=== PATIENT | female | born 1945 | race Caucasian/White ===

== ENCOUNTER 2019-03-27 23:45 | Inpatient (IN) | payer MEDICARE, BC ==
[~2019-03-27] VITALS: Ht 154.9 cm; Wt 69.1 kg
[2019-03-27] MEDS ORDERED: LOSARTAN POTASS25 MG ORAL (23:53)
[2019-03-28] VITALS (7 sets, daily range): BP systolic 100–140; BP diastolic 44–87
--- NOTE | 2019-03-28 00:26 | Diagnostic Imaging Report ---
EXAM: XR Chest, 1 View CLINICAL HISTORY: CP TECHNIQUE: Frontal view of the chest. COMPARISON: No relevant prior studies available. FINDINGS: Lungs: Unremarkable. No consolidation. Pleural space: Unremarkable. No pneumothorax. Heart: Unremarkable. No cardiomegaly. Mediastinum: Unremarkable. Bones/joints: Post surgical changes within the cervical spine. IMPRESSION: No acute findings.
[2019-03-28 00:50] LABS: HEMATOCRIT 38.4 % (37.0-47.0); HEMOGLOBIN 13.2 G/DL (12.0-16.0); MEAN CORPUSCULAR VOLUME 93 FL (80-99); PLATELET COUNT 58 K/UL (150-450); RED BLOOD COUNT 4.14 M/UL (4.20-5.40); RED CELL DISTRIBUTION WIDTH 11.6 % (11.6-14.8); WHITE BLOOD COUNT 3.6 K/UL (4.8-10.8)
[2019-03-28 01:07] LABS: ANION GAP 10 mmol/L (5-15); BLOOD UREA NITROGEN 19 mg/dL (7-18); CALCIUM 9.1 MG/DL (8.5-10.1); CARBON DIOXIDE 25 MMOL/L (21-32); CHLORIDE 103 MMOL/L (98-107); CREATININE 0.7 MG/DL (0.55-1.30); POTASSIUM 4.2 MMOL/L (3.5-5.1); SODIUM 138 MMOL/L (136-145)
[2019-03-28 01:12] LABS: APPEARANCE,URINE SLIGHTLY CLOUDY; BILIRUBIN, URINE NEGATIVE (NEGATIVE); COLOR,URINE PALE YELLOW; GLUCOSE, URINE (UA) NEGATIVE (NEGATIVE); KETONES,URINE NEGATIVE (NEGATIVE); LEUKOCYTE ESTERASE ,URINE 1+ (NEGATIVE); NITRITE,URINE POSITIVE (NEGATIVE); PH,URINE 6.5 (4.5-8.0); PROTEIN,URINE 2+ (NEGATIVE); UROBILINOGEN,URINE NORMAL MG/DL (0.0-1.0)
[2019-03-28 01:20] LABS: ALANINE AMINOTRANSFERASE 24 U/L (12-78); ALBUMIN 3.6 G/DL (3.4-5.0); ALBUMIN/GLOBULIN RATIO 1.3 (1.0-2.7); ALKALINE PHOSPHATASE 66 U/L (46-116); ASPARTATE AMINO TRANSFERASE 25 U/L (15-37); BILIRUBIN,TOTAL 0.2 MG/DL (0.2-1.0); CKMB 0.9 NG/ML (0.0-3.6); CREATINE KINASE 66 U/L (26-308)
[2019-03-28] MEDS ORDERED: cefTRIAXone 1 GM in NS 55 ML IVPB ONE (02:00)
--- NOTE | 2019-03-28 02:56 | Emergency Room Report ---
History of Present Illness General Chief Complaint: Chest Pain Source: Patient, EMS Present Illness HPI This is a 73-year-old female with a history of hypertension. She presents with chief complaint of chest pain. Pain is substernal radiating to the back. Onset for about an hour. No radiation to the neck of the arm. She says she was sweating. No nausea no vomiting. No shortness of breath. She called 911 and was given aspirin and nitroglycerin. Pain-free now after nitro. She had similar symptoms the night before and it went away after she took a [place]. She did not go to the hospital. Right now she is pain-free. Never had chest pain before. Allergies: Coded Allergies: LATEX, NATURAL RUBBER (Verified Allergy, Unknown, 03/27/19) PENICILLINS (Verified Allergy, Unknown, 03/27/19) SULFA (SULFONAMIDE ANTIBIOTICS) (Verified Allergy, Unknown, 03/27/19) Patient History Past Medical History: see triage record, old chart reviewed, HTN Past Surgical History: none Pertinent Family History: none Social History: Denies: smoking Now: No Immunizations: other Reviewed Nursing Documentation: PMH: Agreed; PSxH: Agreed Nursing Documentation-PMH Past Medical History: No History, Except For Hx Hypertension: Yes Review of Systems Eye: Denies: eye pain, blurred vision ENT: Denies: ear pain, nose congestion, throat swelling Respiratory: Denies: cough, shortness of breath Cardiovascular: Reports: chest pain; Denies: palpitations Gastrointestinal: Denies: abdominal pain, diarrhea, nausea, vomiting Musculoskeletal: Denies: back pain, joint pain Skin: Denies: rash Neurological: Denies: headache, numbness Endocrine: Denies: increased thirst, increased urine Hematologic/Lymphatic: Denies: easy bruising All Other Systems: negative except mentioned in HPI Physical Exam Vital Signs Date Time Temp Pulse Resp B/P (MAP) Pulse Ox O2 Delivery O2 Flow Rate FiO2 03/27/19 23:48 99.3 82 16 122/83 (96) 97 Room Air Vitals normal Sp02 EP Interpretation: reviewed, normal General Appearance: well appearing, no apparent distress, alert Head: normocephalic, atraumatic Eyes: bilateral eye PERRL, bilateral eye EOMI ENT: hearing grossly normal, normal pharynx Neck: full range of motion, supple, no meningismus Respiratory: chest non-tender, lungs clear, normal breath sounds Cardiovascular #1: regular rate, rhythm, no murmur Gastrointestinal: normal bowel sounds, non tender, no mass, no organomegaly, no bruit, non-distended Musculoskeletal: back normal, gait/station normal, normal range of motion Psychiatric: mood/affect normal Skin: warm/dry Medical Decision Making Diagnostic Impression: Primary Impression: Chest pain Qualified Codes: R07.9 - Chest pain, unspecified Additional Impressions: ACS (acute coronary syndrome) UTI (urinary tract infection) Qualified Codes: N30.00 - Acute cystitis without hematuria Proteinuria Qualified Codes: R80.9 - Proteinuria, unspecified ER Course Patient presents with chest pain. Concerning for CAD. Especially since pain resolved with nitro. She does have risk factor with her age and hypertension. She also said that she had a carotid ultrasound done last year which show 50% blockage of 1 of her carotid artery. No evidence of STEMI. Will admit for further work-up. I discussed the case with Dr. Bill. EKG Diagnostic Results Rate: normal Rhythm: NSR ST Segments: no acute changes Rhythm Strip Diag. Results EP Interpretation: yes Rate: 72 Rhythm: NSR, no PVC's, no ectopy Chest X-Ray Diagnostic Results Chest X-Ray Diagnostic Results : Chest X-Ray Ordered: Yes # of Views/Limited/Complete: 1 View Indication: Chest Pain EP Interpretation: Yes Interpretation: no consolidation, no effusion, no pneumothorax, no acute cardiopulmonary disease Impression: No acute disease Electronically Signed by: Sheng Yanez MD Last Vital Signs Date Time Temp Pulse Resp B/P (MAP) Pulse Ox O2 Delivery O2 Flow Rate FiO2 03/28/19 01:35 99.6 75 18 103/48 96 Room Air Status: improved Disposition: ADMITTED INPATIENT Condition: Serious Referrals: NON PHYSICIAN (PCP) Sheng Yanez MD Mar 28, 2019 02:56
[2019-03-28] MEDS ORDERED: Enalaprilat 2.5mg/2ml Inj IV PRN (05:15)
[2019-03-28] MEDS ORDERED: dilTIAZem HCl 25mg/5ml Inj IV PRN (05:15)
[2019-03-28] MEDS ORDERED: Miralax 17gm pkt ORAL PRN (05:15)
[2019-03-28] MEDS ORDERED: Nitroglycerin Subl 0.4mg tab SL PRN (05:15)
[2019-03-28] MEDS ORDERED: Albuterol/Ipratropium 3ml neb HHN PRN (05:15)
[2019-03-28] MEDS: Aspirin Baby 81mg ORAL SCH (09:00)
[2019-03-28] MEDS ORDERED: Heparin 5000 units/ml inj SUBQ SCH (09:00)
[2019-03-28] MEDS ORDERED: Enalaprilat 1.25mg/ml Inj IV PRN (12:15)
--- NOTE | 2019-03-28 12:59 | Consultation ---
History of Present Illness General Date patient seen: Mar 28, 2019 Time patient seen: 10:00 Chief Complaint: Chest Pain Referring physician: dr Bill Reason for Consultation: CP Present Illness HPI 73 years old female with past medical history of hypertension, asthma, GERD, presented with episode of stabbing midsternal chest pain, radiating to the back , which woke her up at night. Patient denied nausea and vomiting. She denied shortness of breath. She reported sweating. She called paramedics and was given aspirin and nitroglycerin by drill press operator helper in route to the hospital. Upon evaluation patient was pain-free. Vital signs were stable. Laboratory work-up revealed WBC 3.6, stable hemoglobin and hematocrit, platelets 58. Troponin negative. EKG revealed sinus rhythm, no acute ischemic changes, stable electrolytes and renal parameters. Glucose 141. Urinalysis revealed pyuria, many bacteria and +2 protein. Chest x-ray showed no acute cardiopulmonary pathology. Patient admitted to monitored floor for further management. Allergies: Coded Allergies: LATEX, NATURAL RUBBER (Verified Allergy, Unknown, 03/27/19) PENICILLINS (Verified Allergy, Unknown, 03/27/19) SULFA (SULFONAMIDE ANTIBIOTICS) (Verified Allergy, Unknown, 03/27/19) Medication History Scheduled Losartan Potassium* (Losartan Potassium*), 25 MG ORAL DAILY, (Reported) Patient History History Provided By: Patient Healthcare decision maker patient self Resuscitation status Full Code Advanced Directive on File No Review of Systems Constitutional: Reports: no symptoms Eye: Reports: no symptoms ENT: Reports: no symptoms Respiratory: Reports: see HPI, other - asthma Cardiovascular: Reports: see HPI, other - HTN Gastrointestinal: Reports: other - acid reflux Genitourinary: Reports: see HPI Musculoskeletal: Reports: no symptoms Skin: Reports: no symptoms Psychiatric: Reports: no symptoms Neurological: Reports: no symptoms Endocrine: Reports: no symptoms Hematologic/Lymphatic: Reports: no symptoms Physical Exam General Appearance: no apparent distress, alert - A/A/O x 3 female in NAD Lines, tubes and drains: peripheral HEENT: normocephalic, atraumatic, anicteric, mucous membranes moist, PERRL Neck: non-tender, normal alignment, supple, normal inspection Respiratory/Chest: chest wall non-tender, lungs clear, normal breath sounds, no respiratory distress, no accessory muscle use Cardiovascular/Chest: normal peripheral pulses, normal rate, regular rhythm, no JVD Abdomen: normal bowel sounds, non tender, soft Extremities: normal range of motion, non-tender, no calf tenderness Skin Exam: normal pigmentation, warm/dry Neurologic: 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 II-XII grossly normal, no motor/sensory deficits, alert, oriented x 3, responsive Musculoskeletal: normal muscle bulk Last 24 Hour Vital Signs Date Time Temp Pulse Resp B/P (MAP) Pulse Ox O2 Delivery O2 Flow Rate FiO2 03/28/19 12:00 97.5 81 18 117/72 (87) 95 03/28/19 09:00 Room Air 03/28/19 08:00 99.0 77 18 138/87 (104) 99 03/28/19 08:00 69 03/28/19 04:13 Room Air 03/28/19 04:00 97.7 83 20 140/62 (88) 98 03/28/19 03:48 87 03/28/19 03:25 78 03/28/19 03:10 98.9 87 24 152/78 99 Room Air 03/28/19 01:35 99.6 75 18 103/48 96 Room Air 03/28/19 00:03 82 16 Room Air 03/28/19 00:03 99.3 96 16 122/83 97 Room Air 03/27/19 23:48 99.3 82 16 122/83 (96) 97 Room Air Intake and Output 03/27/19 03/28/19 19:00 07:00 Intake Total 535 ml Output Total 0 ml Balance 535 ml Intake Oral 480 ml IV Total 55 ml Output Urine Total 0 ml Laboratory Tests Test 03/28/19 00:17 03/28/19 03:06 03/28/19 08:55 White Blood Count 3.6 K/UL (4.8-10.8) L Red Blood Count 4.14 M/UL (4.20-5.40) L Hemoglobin 13.2 G/DL (12.0-16.0) Hematocrit 38.4 % (37.0-47.0) Mean Corpuscular Volume 93 FL (80-99) Mean Corpuscular Hemoglobin 31.8 PG (27.0-31.0) H Mean Corpuscular Hemoglobin Concent 34.3 G/DL (32.0-36.0) Red Cell Distribution Width 11.6 % (11.6-14.8) Platelet Count 58 K/UL (150-450) L Mean Platelet Volume 8.4 FL (6.5-10.1) Neutrophils (%) (Auto) % (45.0-75.0) Lymphocytes (%) (Auto) % (20.0-45.0) Monocytes (%) (Auto) % (1.0-10.0) Eosinophils (%) (Auto) % (0.0-3.0) Basophils (%) (Auto) % (0.0-2.0) Differential Total Cells Counted 100 Neutrophils % (Manual) 62 % (45-75) Lymphocytes % (Manual) 23 % (20-45) Monocytes % (Manual) 10 % (1-10) Eosinophils % (Manual) 4 % (0-3) H Basophils % (Manual) 1 % (0-2) Band Neutrophils 0 % (0-8) Platelet Estimate Decreased L Platelet Morphology Normal Red Blood Cell Morphology Normal Urine Color Pale yellow Urine Appearance Slightly cloudy Urine pH 6.5 (4.5-8.0) Urine Specific [place] 1.015 (1.005-1.035) Urine Protein 2+ (NEGATIVE) H Urine Glucose (UA) Negative (NEGATIVE) Urine Ketones Negative (NEGATIVE) Urine Blood 2+ (NEGATIVE) H Urine Nitrite Positive (NEGATIVE) H Urine Bilirubin Negative (NEGATIVE) Urine Urobilinogen Normal MG/DL (0.0-1.0) Urine Leukocyte Esterase 1+ (NEGATIVE) H Urine RBC 2-4 /HPF (0 - 2) H Urine WBC 10-15 /HPF (0 - 2) H Urine Squamous Epithelial Cells Few /LPF (NONE/OCC) Urine Bacteria Many /HPF (NONE) H Sodium Level 138 MMOL/L (136-145) Potassium Level 4.2 MMOL/L (3.5-5.1) Chloride Level 103 MMOL/L (98-107) Carbon Dioxide Level 25 MMOL/L (21-32) Anion Gap 10 mmol/L (5-15) Blood Urea Nitrogen 19 mg/dL (7-18) H Creatinine 0.7 MG/DL (0.55-1.30) Estimat Glomerular Filtration Rate mL/min (>60) Glucose Level 141 MG/DL (74-106) H Calcium Level 9.1 MG/DL (8.5-10.1) Total Bilirubin 0.2 MG/DL (0.2-1.0) Aspartate Amino Transf (AST/SGOT) 25 U/L (15-37) Alanine Aminotransferase (ALT/SGPT) 24 U/L (12-78) Alkaline Phosphatase 66 U/L (46-116) Total Creatine Kinase 66 U/L (26-308) Creatine Kinase MB 0.9 NG/ML (0.0-3.6) Creatine Kinase MB Relative Index 1.3 Troponin I 0.017 ng/mL (0.000-0.056) 0.017 ng/mL (0.000-0.056) 0.000 ng/mL (0.000-0.056) Total Protein 6.3 G/DL (6.4-8.2) L Albumin 3.6 G/DL (3.4-5.0) Globulin 2.7 g/dL Albumin/Globulin Ratio 1.3 (1.0-2.7) Height (Feet): 5 Height (Inches): 1.00 Weight (Pounds): 150 Medications Current Medications Medications (Trade) Dose Ordered Sig/Marah Route PRN Reason Start Time Stop Time Status Last Admin Dose Admin Acetaminophen (Tylenol) 650 mg Q4H PRN ORAL FEVER 03/28/19 05:15 04/27/19 05:14 03/28/19 10:10 Albuterol/ Ipratropium (Albuterol/ Ipratropium) 3 ml Q4H PRN HHN Shortness of Breath 03/28/19 05:15 04/02/19 05:14 Aspirin (ASA) 162 mg DAILY ORAL 03/28/19 09:00 04/27/19 08:59 Diltiazem HCl (Cardizem) 10 mg Q1H PRN IV heart rate more than 120, 03/28/19 05:15 04/27/19 05:14 Enalaprilat (Vasotec) 2.5 mg Q6H PRN IV sbp more than 160 03/28/19 12:15 04/27/19 05:14 Morphine Sulfate (Morphine Sulfate) 2 mg Q4H PRN IVP severe Pain (Pain Scale 7-10) 03/28/19 05:15 04/04/19 05:14 Nitroglycerin (Ntg) 0.4 mg Q5M PRN SL Prn Chest Pain 03/28/19 05:15 04/27/19 05:14 Ondansetron HCl (Zofran) 4 mg Q6H PRN IVP Nausea & Vomiting 03/28/19 05:15 04/27/19 05:14 Pantoprazole (Protonix) 40 mg EVERY 12 HOURS ORAL 03/28/19 10:00 04/27/19 09:59 03/28/19 11:09 Polyethylene Glycol (Miralax) 17 gm DAILYPRN PRN ORAL Constipation 03/28/19 05:15 04/27/19 05:14 Temazepam (Restoril) 15 mg HSPRN PRN ORAL Insomnia 03/28/19 05:15 04/04/19 05:14 Assessment/Plan Assessment/Plan: ASSESSMENT Chest pain, rule out ACS Probably urinary tract infection Hypertension Asthma Thrombocytopenia Leukopenia Proteinuria GERD PLAN OF CARE tele serial troponin negative, ECG revealed no acute ischemic changes, pt was ruled out for acute [place] ECHO with pEF 65% and RVSP of 20, no evidence of WMA a/PLT with ASA check lipid panel, TSH resume home anti HTN -Losartan with holding parameters Nitro prn currently chest pain free cardio eval pending O2 HHN prn, stable resp status, no evidence of asthma exacerbation or resp distress GI prophylaxis dc Heparin given thrombocytopenia monitor PLT counts avoid nephrotoxics, moniotr renal paramerts, lytes, correct lytes as needed empiric abx for UTI, fup with UCX supportive care GI prophylaxis case discussed and evaluated by supervising physician Oksana Romero NP Mar 28, 2019 12:59
[2019-03-28] MEDS ORDERED: Isovue-300 100ml vial INJ PRN (13:45)
--- NOTE | 2019-03-28 13:46 | Consultation ---
Consult Note Consult Note # [id number] Randy Valencia MD Mar 28, 2019 13:46
--- NOTE | 2019-03-28 14:15 | History and Physical Report ---
DATE OF ADMISSION: 03/28/2019 TIME SEEN: 9 a.m. CONSULTANTS: 1. Molina Bradley M.D. 2. Narinder Pedro M.D. 3. Randy Valencia M.D. CHIEF COMPLAINT: Chest pain and weakness. BRIEF HISTORY: This is a 73-year-old female, who lives at home, complaint chest pain x2 days, sharp, intermittent. No loss of consciousness. No dizziness, came to [facility], diagnosed with chest pain, with elevated troponin slightly, and UTI and the patient was admitted to [facility] for further care. Currently, calm in bed, slight short of breath. No complaint. REVIEW OF SYSTEMS: Slight chest pain. Slight short of breath. No nausea, vomiting, or diarrhea. PAST MEDICAL HISTORY: Includes carotid stenosis and GERD. PAST SURGICAL HISTORY: Back surgery and neck surgery. MEDICATIONS: Include aspirin, heparin, albuterol, Tylenol, morphine, Zofran, temazepam, diltiazem, enalapril, and ceftriaxone. ALLERGIES: Penicillin and sulfa. SOCIAL HISTORY: No smoking. Occasional alcohol. No intravenous drug abuse. FAMILY HISTORY: Noncontributory. PHYSICAL EXAMINATION: GENERAL: Calm in bed, oriented x3, no acute distress. VITAL SIGNS: Temperature is 97 degrees, pulse 69, respirations 20, blood pressure 140/62. CARDIOVASCULAR: No murmurs. LUNGS: Distant and clear. ABDOMEN: Bowel sound positive. Nontender. Nondistended. EXTREMITIES: No cyanosis, clubbing, or edema. NEUROLOGIC: The patient moves all extremities, slightly weak. LABORATORY DATA: White count 3.6, platelets . BMP shows BUN 19, glucose 141, and troponin 0.017. Urinalysis show 1+ leukocyte esterase. ASSESSMENT: 1. Chest pain. 2. UTI. 3. Elevated troponin. 4. Carotid stenosis. 5. Thrombocytopenia. 6. GERD. PLAN: 1. Troponin q.8 h. x3. 2. EKG in the morning. 3. Antibiotics per Infectious Disease. 4. Pain control. 5. Dietary followup. 6. PT and dietary evaluation. 7. CBC and BMP in the morning. 8. We will also get Dr. Berry, to Hematology evaluation. Aldair Bill D.O. DR: ZOË JOB#: [id number] CC:
[2019-03-28 15:05] LABS: AMYLASE 41 U/L (25-115)
--- NOTE | 2019-03-28 20:15 | Consultation ---
DATE OF CONSULTATION: 03/28/2019 INFECTIOUS DISEASE CONSULTATION CONSULTING PHYSICIAN: Randy Valencia M.D. REQUESTING PHYSICIAN: Aldair Bill D.O. REASON FOR CONSULTATION: Evaluation of the patient for urinary tract infection and antibiotic management. HISTORY OF PRESENT ILLNESS: The patient is a 73-year-old female with multiple medical problems as listed below, who came to the hospital because of the chest compression and epigastric pain radiating to the back. The patient was given aspirin and is seen by paramedics prior to coming to the hospital. The patient also has been complaining of increase of urine frequency recently, however, denies of having dysuria. Infectious Disease consultation has been requested for further evaluation of the patient for possible urinary tract infection. PAST MEDICAL HISTORY: 1. Hypertension. 2. Asthma. 3. Gastroesophageal reflux disease. MEDICATION: The patient is on IV Rocephin. ALLERGIES: Penicillin and sulfa. FAMILY HISTORY: Not contributing. SOCIAL HISTORY: No history of drug abuse. FAMILY HISTORY: Noncontributory. REVIEW OF SYSTEMS: A 10-point review of systems was done and except what has been mentioned above has been negative. The patient denies having cough, runny nose, sore throat, nausea, vomiting, or diarrhea. PHYSICAL EXAMINATION: VITAL SIGNS: Temperature 97.5, pulse 81, respiratory rate 18, and blood pressure 117/72. HEENT: No pale conjunctivae. No icterus. NECK: No lymphadenopathy. CHEST: Clear. HEART: S1 and S2. ABDOMEN: Soft. Mild epigastric and left lower quadrant tenderness. NEUROLOGIC: Awake and alert. LABORATORY AND DIAGNOSTIC DATA: White blood cells 3.6, hemoglobin 13, and platelets 58,000. UA shows 10 to 15 white blood cells. Chest x-ray, no acute process. ASSESSMENT: The patient is a 73-year-old female with, 1. Epigastric and left lower quadrant pain. 2. Leukopenia and thrombocytopenia. 3. Rule out probable human immunodeficiency virus/chronic hepatitis B/C. 4. Probable urinary tract infection (history of increase of urinary frequency). 5. Rule out probable pancreatitis in view of history of epigastric pain with radiation to the back. PLAN: 1. Continue the patient on Rocephin day #1. 2. Monitor CBC. 3. Monitor BMP. 4. Monitor cultures, blood and urine. 5. Check amylase and lipase. 6. Hepatitis panel and human immunodeficiency virus serology. 7. Based on the patient's laboratories and clinical course, we will do further recommendation. Thank you for this consultation. I will follow the patient with you during this hospitalization. Randy Valencia M.D. DR: JEANNE JOB#: [id number] CC:
--- NOTE | 2019-03-28 20:22 | Cardiac Electrophysiology PN ---
Subjective Subjective [id number] Objective Last 24 Hour Vital Signs Date Time Temp Pulse Resp B/P (MAP) Pulse Ox O2 Delivery O2 Flow Rate FiO2 03/28/19 16:00 90 03/28/19 16:00 98.5 88 20 120/44 (69) 95 03/28/19 12:00 87 03/28/19 12:00 97.5 81 18 117/72 (87) 95 03/28/19 09:00 Room Air 03/28/19 08:00 99.0 77 18 138/87 (104) 99 03/28/19 08:00 69 03/28/19 04:13 Room Air 03/28/19 04:00 97.7 83 20 140/62 (88) 98 03/28/19 03:48 87 03/28/19 03:25 78 03/28/19 03:10 98.9 87 24 152/78 99 Room Air 03/28/19 01:35 99.6 75 18 103/48 96 Room Air 03/28/19 00:03 82 16 Room Air 03/28/19 00:03 99.3 96 16 122/83 97 Room Air 03/27/19 23:48 99.3 82 16 122/83 (96) 97 Room Air Intake and Output 03/27/19 03/28/19 19:00 07:00 Intake Total 535 ml Output Total 0 ml Balance 535 ml Intake Oral 480 ml IV Total 55 ml Output Urine Total 0 ml Laboratory Tests Test 03/28/19 00:17 03/28/19 03:06 03/28/19 08:55 White Blood Count 3.6 K/UL (4.8-10.8) L Red Blood Count 4.14 M/UL (4.20-5.40) L Hemoglobin 13.2 G/DL (12.0-16.0) Hematocrit 38.4 % (37.0-47.0) Mean Corpuscular Volume 93 FL (80-99) Mean Corpuscular Hemoglobin 31.8 PG (27.0-31.0) H Mean Corpuscular Hemoglobin Concent 34.3 G/DL (32.0-36.0) Red Cell Distribution Width 11.6 % (11.6-14.8) Platelet Count 58 K/UL (150-450) L Mean Platelet Volume 8.4 FL (6.5-10.1) Neutrophils (%) (Auto) % (45.0-75.0) Lymphocytes (%) (Auto) % (20.0-45.0) Monocytes (%) (Auto) % (1.0-10.0) Eosinophils (%) (Auto) % (0.0-3.0) Basophils (%) (Auto) % (0.0-2.0) Differential Total Cells Counted 100 Neutrophils % (Manual) 62 % (45-75) Lymphocytes % (Manual) 23 % (20-45) Monocytes % (Manual) 10 % (1-10) Eosinophils % (Manual) 4 % (0-3) H Basophils % (Manual) 1 % (0-2) Band Neutrophils 0 % (0-8) Platelet Estimate Decreased L Platelet Morphology Normal Red Blood Cell Morphology Normal Urine Color Pale yellow Urine Appearance Slightly cloudy Urine pH 6.5 (4.5-8.0) Urine Specific [place] 1.015 (1.005-1.035) Urine Protein 2+ (NEGATIVE) H Urine Glucose (UA) Negative (NEGATIVE) Urine Ketones Negative (NEGATIVE) Urine Blood 2+ (NEGATIVE) H Urine Nitrite Positive (NEGATIVE) H Urine Bilirubin Negative (NEGATIVE) Urine Urobilinogen Normal MG/DL (0.0-1.0) Urine Leukocyte Esterase 1+ (NEGATIVE) H Urine RBC 2-4 /HPF (0 - 2) H Urine WBC 10-15 /HPF (0 - 2) H Urine Squamous Epithelial Cells Few /LPF (NONE/OCC) Urine Bacteria Many /HPF (NONE) H Sodium Level 138 MMOL/L (136-145) Potassium Level 4.2 MMOL/L (3.5-5.1) Chloride Level 103 MMOL/L (98-107) Carbon Dioxide Level 25 MMOL/L (21-32) Anion Gap 10 mmol/L (5-15) Blood Urea Nitrogen 19 mg/dL (7-18) H Creatinine 0.7 MG/DL (0.55-1.30) Estimat Glomerular Filtration Rate mL/min (>60) Glucose Level 141 MG/DL (74-106) H Calcium Level 9.1 MG/DL (8.5-10.1) Total Bilirubin 0.2 MG/DL (0.2-1.0) Aspartate Amino Transf (AST/SGOT) 25 U/L (15-37) Alanine Aminotransferase (ALT/SGPT) 24 U/L (12-78) Alkaline Phosphatase 66 U/L (46-116) Total Creatine Kinase 66 U/L (26-308) Creatine Kinase MB 0.9 NG/ML (0.0-3.6) Creatine Kinase MB Relative Index 1.3 Troponin I 0.017 ng/mL (0.000-0.056) 0.017 ng/mL (0.000-0.056) 0.000 ng/mL (0.000-0.056) Total Protein 6.3 G/DL (6.4-8.2) L Albumin 3.6 G/DL (3.4-5.0) Globulin 2.7 g/dL Albumin/Globulin Ratio 1.3 (1.0-2.7) Amylase Level 41 U/L (25-115) Lipase 82 U/L (73-393) HIV (1&2) Antibody Rapid Negative (NEGATIVE) Molina Bradley MD Mar 28, 2019 20:22
[2019-03-29] VITALS: BP 105/54
[2019-03-29] MEDS ORDERED: cefTRIAXone 1gm/D5W 55ml IVPB SCH ×2 (02:00)
--- NOTE | 2019-03-29 03:15 | Consultation ---
DATE OF CONSULTATION: 03/28/2019 CARDIOLOGY CONSULTATION CONSULTING PHYSICIAN: Mingo Valderrama M.D. REQUESTING PHYSICIAN: Aldair Bill D.O. REASON FOR CONSULTATION: Chest pain. HISTORY OF PRESENT ILLNESS: This is a 73-year-old female with risk factors for premature coronary disease presented to the hospital with mid substernal chest pain radiating to her back that awakened her from sleep. She came to the emergency room where she noted sweating, but no shortness of breath, nausea, or vomiting. She received aspirin and nitroglycerin in the field. She was chest pain-free on arrival. Her troponin levels have been negative. Her initial EKG revealed sinus rhythm with no acute ischemic changes. PAST MEDICAL HISTORY: Gastroesophageal reflux disease, degenerative disk disease, history of carotid stenosis, and status post carotid endarterectomy. MEDICATIONS: Reviewed and reconciled. ALLERGIES: Penicillin and sulfa as well as latex. SOCIAL HISTORY: Negative for smoking or substance abuse. She uses alcohol on occasion. FAMILY HISTORY: Noncontributory. REVIEW OF SYSTEMS: A 10-point review of systems performed. All systems negative other than noted above. PHYSICAL EXAMINATION: VITAL SIGNS: Blood pressure 140/62, pulse 69, respirations 20, and afebrile. HEENT: Conjunctivae are pink. Oropharynx clear. Mucous membranes moist. NECK: Supple. No bruits. Jugular venous pressure normal. LUNGS: Clear. CARDIAC: Regular rhythm and rate. Normal S1, S2 with no murmur. ABDOMEN: Soft and nontender. EXTREMITIES: No edema. LABORATORY DATA: Troponin #1 is 0.017. Troponin #2 and #3 are both negative. Chemistry panel within normal limits. IMPRESSION: 1. Possible acute coronary syndrome. 2. History of carotid stenosis. 3. Gastroesophageal reflux disease, which may be an etiology for her chest pain as well. 4. Urinary tract infection. PLAN: 1. Serial troponin. 2. Repeat EKG, echocardiogram, and lipid panel. 3. Consideration for myocardial perfusion scan to follow. Mingo Valderrama M.D. DR: DEISY/HENRY JOB#: [id number] CC:
--- NOTE | 2019-03-29 03:15 | Consultation ---
DATE OF CONSULTATION: 03/28/2019 CARDIOLOGY CONSULTATION CONSULTING PHYSICIAN: Molina Bradley M.D. REFERRING PHYSICIAN: Aldair Bill D.O. REASON FOR CONSULTATION: Chest pain. HISTORY OF PRESENT ILLNESS: The patient is a very pleasant 73-year-old lady with history of hypertension and history of atrial flutter. She has 50% carotid stenosis and asthma as well as history of multiple spine surgeries, presented to the emergency room with stabbing midsternal chest pain with radiation to the back, which woke her up at night. The patient denies any nausea, vomiting, or any shortness of breath. The patient called paramedics and received aspirin and nitroglycerin en route to the hospital. Subsequently, the patient became asymptomatic. Her EKG was essentially normal and echocardiogram showed ejection fraction of 65%. REVIEW OF SYSTEMS: Thoroughly performed and was negative other than what was mentioned in the history of present illness. PAST MEDICAL HISTORY: As mentioned above. FAMILY HISTORY: Noncontributory. SOCIAL HISTORY: She lives at home. Does not smoke or drink alcohol. ALLERGIES: She is allergic to latex, penicillin, and sulfa. PHYSICAL EXAMINATION: VITAL SIGNS: Showed blood pressure of 120/44, pulse 88, respirations 18, and temperature 98.5. HEAD AND NECK: Showed no JVD or carotid bruits. LUNGS: Clear. CARDIOVASCULAR: Shows regular S1 and S2 with no gallop or murmur. ABDOMEN: Soft. EXTREMITIES: Showed no pitting edema. Status post spine surgery in the back. LABORATORY DATA: White count 3.6, hemoglobin 13.2, hematocrit 38.5, platelet count of only 58. Sodium 138, potassium 4.2, BUN of 19, creatinine 0.7, glucose of 141. Troponin negative x3. ASSESSMENT AND PLAN: 1. Chest pain. The patient was ruled out for myocardial infarction by serial cardiac enzymes. Her EKG is normal. Echocardiogram showed normal left ventricular systolic function. We will check D-dimer and schedule the patient for a CT angio to rule out in view of her sharp pain, and if negative, we will schedule the patient for nuclear stress test in the morning. 2. Hypertension. Continue the patient's losartan 25 mg daily and as needed IV Vasotec. 3. Gastroesophageal reflux. 4. Hyperlipidemia. The patient was on Crestor 10 mg daily. 5. Thrombocytopenia and platelet count will be repeated. Thank you very much for allowing us to participate in the care of this patient. Please do not hesitate to contact me for any questions regarding my evaluation. Sincerely, Molina Bradley M.D. DR: RADHA JOB#: [id number] CC:
[2019-03-29 04:00] VITALS: BP 124/80
[2019-03-29 07:25] LABS: HEMATOCRIT 41.5 % (37.0-47.0); MEAN CORPUSCULAR VOLUME 92 FL (80-99); RED BLOOD COUNT 4.52 M/UL (4.20-5.40); RED CELL DISTRIBUTION WIDTH 11.5 % (11.6-14.8)
[2019-03-29 07:27] LABS: PLATELET COUNT 6 K/UL (150-450); WHITE BLOOD COUNT 1.1 K/UL (4.8-10.8)
[2019-03-29 07:40] LABS: INR 1.1 (0.9-1.1)
[2019-03-29 07:48] LABS: ANION GAP 10 mmol/L (5-15); BLOOD UREA NITROGEN 16 mg/dL (7-18); CALCIUM 8.5 MG/DL (8.5-10.1); CARBON DIOXIDE 25 MMOL/L (21-32); CHLORIDE 103 MMOL/L (98-107); CREATININE 0.6 MG/DL (0.55-1.30); POTASSIUM 4.5 MMOL/L (3.5-5.1); SODIUM 138 MMOL/L (136-145)
[2019-03-29 08:00] VITALS: BP 129/59
[2019-03-29 08:06] LABS: CHOLESTEROL 135 MG/DL (< 200); HDL CHOLESTEROL 10 MG/DL (40-60); TRIGLYCERIDES 190 MG/DL (30-150)
[2019-03-29] MEDS: Aspirin Baby 81mg ORAL SCH (09:00)
[2019-03-29] MEDS ORDERED: Tubing Blood Filter IV ONE (09:32)
[2019-03-29] MEDS: Losartan 25mg tab ORAL SCH (09:54)
[2019-03-29 09:57] LABS: HEMATOCRIT 40.9 % (37.0-47.0); HEMOGLOBIN 14.4 G/DL (12.0-16.0); MEAN CORPUSCULAR VOLUME 89 FL (80-99); RED BLOOD COUNT 4.59 M/UL (4.20-5.40); RED CELL DISTRIBUTION WIDTH 11.1 % (11.6-14.8)
[2019-03-29 10:00] LABS: PLATELET COUNT 7 K/UL (150-450); WHITE BLOOD COUNT 1.2 K/UL (4.8-10.8)
--- NOTE | 2019-03-29 10:14 | General Progress Note ---
Assessment/Plan Problem List: (1) Leukopenia ICD Codes: D72.819 - Decreased white blood cell count, unspecified SNOMED: 16632586, 869463287 (2) Thrombocytopenia ICD Codes: D69.6 - Thrombocytopenia, unspecified SNOMED: 948066444 (3) UTI (urinary tract infection) ICD Codes: N39.0 - Urinary tract infection, site not specified SNOMED: 54750187 Qualifiers: Qualified Codes: N30.00 - Acute cystitis without hematuria (4) Chest pain ICD Codes: R07.9 - Chest pain, unspecified SNOMED: 46163694 Qualifiers: Qualified Codes: R07.9 - Chest pain, unspecified (5) ACS (acute coronary syndrome) ICD Codes: I24.9 - Acute ischemic heart disease, unspecified SNOMED: 431358260 Status: unchanged Assessment/Plan: pain control cardio heme f/u cbc bmp am Subjective Constitutional: Reports: weakness Allergies: Coded Allergies: LATEX, NATURAL RUBBER (Verified Allergy, Unknown, 03/27/19) PENICILLINS (Verified Allergy, Unknown, 03/27/19) SULFA (SULFONAMIDE ANTIBIOTICS) (Verified Allergy, Unknown, 03/27/19) All Systems: reviewed and negative except above Subjective calm sl chest discomfort Objective Last 24 Hour Vital Signs Date Time Temp Pulse Resp B/P (MAP) Pulse Ox O2 Delivery O2 Flow Rate FiO2 03/29/19 09:54 129/59 03/29/19 09:47 89 18 97 Room Air 21 03/29/19 04:00 98.8 84 18 124/80 (95) 96 03/29/19 04:00 98 03/29/19 00:00 89 03/29/19 00:00 98.7 87 18 105/54 (71) 98 03/28/19 22:44 Room Air 03/28/19 20:00 98.0 93 16 100/68 (79) 95 03/28/19 20:00 98 03/28/19 16:00 90 03/28/19 16:00 98.5 88 20 120/44 (69) 95 03/28/19 12:00 87 03/28/19 12:00 97.5 81 18 117/72 (87) 95 Intake and Output 03/28/19 03/29/19 19:00 07:00 Intake Total 360 ml 355 ml Balance 360 ml 355 ml Intake Oral 360 ml 300 ml IV Total 55 ml # Voids 3 1 Laboratory Tests 03/29/19 06:15: White Blood Count 1.1#*L, Red Blood Count 4.52, Hemoglobin 14.0, Hematocrit 41.5 , Mean Corpuscular Volume 92, Mean Corpuscular Hemoglobin 30.9, Mean Corpuscular Hemoglobin Concent 33.6, Red Cell Distribution Width 11.5L, Platelet Count 6#*L, Mean Platelet Volume 7.8, Neutrophils (%) (Auto) , Lymphocytes (%) (Auto) , Monocytes (%) (Auto) , Eosinophils (%) (Auto) , Basophils (%) (Auto) , Differential Total Cells Counted 100, Neutrophils % ( Manual) 24L, Lymphocytes % (Manual) 55H, Monocytes % (Manual) 16H, Eosinophils % (Manual) 5H, Basophils % (Manual) 0, Band Neutrophils 0, Platelet Estimate DecreasedL, Platelet Morphology Normal, Red Blood Cell Morphology Normal, Prothrombin Time 11.4, Prothromb Time International Ratio 1.1, Activated Partial Thromboplast Time 32, Sodium Level 138, Potassium Level 4.5, Chloride Level 103, Carbon Dioxide Level 25, Anion Gap 10, Blood Urea Nitrogen 16, Creatinine 0.6, Estimat Glomerular Filtration Rate , Glucose Level 138H, Calcium Level 8.5, Troponin I 0.000, C-Reactive Protein, Quantitative 15.1H, Triglycerides Level 190H, Cholesterol Level 135, LDL Cholesterol 59, HDL Cholesterol 10L, Cholesterol/HDL Ratio 13.5H, Thyroid Stimulating Hormone (TSH) 0.633 03/29/19 09:40: White Blood Count 1.2*L, Red Blood Count 4.59, Hemoglobin 14.4, Hematocrit 40.9 , Mean Corpuscular Volume 89, Mean Corpuscular Hemoglobin 31.5H, Mean Corpuscular Hemoglobin Concent 35.3, Red Cell Distribution Width 11.1L, Platelet Count 7*L, Mean Platelet Volume , Neutrophils (%) (Auto) , Lymphocytes (%) (Auto) , Monocytes (%) (Auto) , Eosinophils (%) (Auto) , Basophils (%) (Auto ) , Neutrophils % (Manual) [Pending], Lymphocytes % (Manual) [Pending], Platelet Estimate [Pending], Platelet Morphology [Pending] Height (Feet): 5 Height (Inches): 1.00 Weight (Pounds): 150 General Appearance: alert EENT: normal ENT inspection Neck: normal alignment Cardiovascular: normal peripheral pulses, normal rate, regular rhythm Respiratory/Chest: chest wall non-tender, lungs clear, normal breath sounds Abdomen: normal bowel sounds, non tender, soft Extremities: normal inspection Edema: no edema noted Arm (L), no edema noted Arm (R), no edema noted Leg (L), no edema noted Leg (R), no edema noted Pedal (L), no edema noted Pedal (R), no edema noted Generalized Neurologic: responsive, motor weakness Skin: normal pigmentation, warm/dry Aldair Bill DO Mar 29, 2019 10:14
--- NOTE | 2019-03-29 10:48 | Pulmonology Progress Note ---
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 transfuse PLT BM biopsy , monitor counts HIV nonreactive check hepatitis panel elevated CRP/ nonspecific, but indication of inflammation/infection serial troponin negative, ECG revealed no acute ischemic changes, pt was ruled out for acute MT ECHO with pEF 65% and RVSP of 20, no evidence of WMA off a/PLT with ASA due to severe thrombocytopenia lipid panel with low HDL, TSH stable resume home anti HTN -Losartan with holding parameters Nitro prn currently chest pain free cardio eval appreciated VQ scan, stress test pending O2 HHN prn, stable resp status, no evidence of asthma exacerbation or resp distress GI prophylaxis off Heparin given thrombocytopenia monitor PLT counts avoid nephrotoxics, monitor renal paramerts, lytes, correct lytes as needed empiric abx for UTI, UCX +GNB pt denied any urinary complaints, probably pyuria, will stop abx ( received 1 dose) -pt allergic to PCN, even though apparently tolerated ceftriaxone in the past supportive care GI prophylaxis case discussed and evaluated by supervising physician Subjective Allergies: Coded Allergies: LATEX, NATURAL RUBBER (Verified Allergy, Unknown, 03/27/19) PENICILLINS (Verified Allergy, Unknown, 03/27/19) SULFA (SULFONAMIDE ANTIBIOTICS) (Verified Allergy, Unknown, 03/27/19) Subjective this am significant drop in WBC-1.2, PLT-7, repeated CBC showed same results heme consulted, orders given reverse isolation initiated, transfusion with PLT pending denies chest pain, SOB Objective Last 24 Hour Vital Signs Date Time Temp Pulse Resp B/P (MAP) Pulse Ox O2 Delivery O2 Flow Rate FiO2 03/29/19 09:54 129/59 03/29/19 09:47 89 18 97 Room Air 21 03/29/19 08:00 97.9 82 21 129/59 (82) 94 03/29/19 04:00 98.8 84 18 124/80 (95) 96 03/29/19 04:00 98 03/29/19 00:00 89 03/29/19 00:00 98.7 87 18 105/54 (71) 98 03/28/19 22:44 Room Air 03/28/19 20:00 98.0 93 16 100/68 (79) 95 03/28/19 20:00 98 03/28/19 16:00 90 03/28/19 16:00 98.5 88 20 120/44 (69) 95 03/28/19 12:00 87 03/28/19 12:00 97.5 81 18 117/72 (87) 95 Intake and Output 03/28/19 03/29/19 19:00 07:00 Intake Total 360 ml 355 ml Balance 360 ml 355 ml Intake Oral 360 ml 300 ml IV Total 55 ml # Voids 3 1 Objective General Appearance: no apparent distress, alert - A/A/O x 3 female in NAD Lines, tubes and drains: peripheral HEENT: normocephalic, atraumatic, anicteric, mucous membranes moist, PERRL Neck: non-tender, normal alignment, supple, normal inspection Respiratory/Chest: chest wall non-tender, lungs clear, normal breath sounds, no respiratory distress, no accessory muscle use Cardiovascular/Chest: normal peripheral pulses, normal rate, regular rhythm, no JVD Abdomen: normal bowel sounds, non tender, soft Extremities: normal range of motion, non-tender, no calf tenderness Skin Exam: normal pigmentation, warm/dry 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, no motor/sensory deficits, alert, oriented x 3, responsive Musculoskeletal: normal muscle bulk Microbiology Date/Time Source Procedure Growth Status 03/28/19 00:17 Urine,Clean Catch Urine Culture - Preliminary Gram Negative Bacillus 1 Resulted Laboratory Tests 03/29/19 06:15: White Blood Count 1.1#*L, Red Blood Count 4.52, Hemoglobin 14.0, Hematocrit 41.5 , Mean Corpuscular Volume 92, Mean Corpuscular Hemoglobin 30.9, Mean Corpuscular Hemoglobin Concent 33.6, Red Cell Distribution Width 11.5L, Platelet Count 6#*L, Mean Platelet Volume 7.8, Neutrophils (%) (Auto) , Lymphocytes (%) (Auto) , Monocytes (%) (Auto) , Eosinophils (%) (Auto) , Basophils (%) (Auto) , Differential Total Cells Counted 100, Neutrophils % ( Manual) 24L, Lymphocytes % (Manual) 55H, Monocytes % (Manual) 16H, Eosinophils % (Manual) 5H, Basophils % (Manual) 0, Band Neutrophils 0, Platelet Estimate DecreasedL, Platelet Morphology Normal, Red Blood Cell Morphology Normal, Prothrombin Time 11.4, Prothromb Time International Ratio 1.1, Activated Partial Thromboplast Time 32, Sodium Level 138, Potassium Level 4.5, Chloride Level 103, Carbon Dioxide Level 25, Anion Gap 10, Blood Urea Nitrogen 16, Creatinine 0.6, Estimat Glomerular Filtration Rate , Glucose Level 138H, Calcium Level 8.5, Troponin I 0.000, C-Reactive Protein, Quantitative 15.1H, Triglycerides Level 190H, Cholesterol Level 135, LDL Cholesterol 59, HDL Cholesterol 10L, Cholesterol/HDL Ratio 13.5H, Thyroid Stimulating Hormone (TSH) 0.633 03/29/19 09:40: White Blood Count 1.2*L, Red Blood Count 4.59, Hemoglobin 14.4, Hematocrit 40.9 , Mean Corpuscular Volume 89, Mean Corpuscular Hemoglobin 31.5H, Mean Corpuscular Hemoglobin Concent 35.3, Red Cell Distribution Width 11.1L, Platelet Count 7*L, Mean Platelet Volume , Neutrophils (%) (Auto) , Lymphocytes (%) (Auto) , Monocytes (%) (Auto) , Eosinophils (%) (Auto) , Basophils (%) (Auto ) , Differential Total Cells Counted 100, Neutrophils % (Manual) 21L, Lymphocytes % (Manual) 58H, Monocytes % (Manual) 17H, Eosinophils % (Manual) 4H , Basophils % (Manual) 0, Band Neutrophils 0, Platelet Estimate DecreasedL, Platelet Morphology Normal, Red Blood Cell Morphology Normal Current Medications Medications (Trade) Dose Ordered Sig/Marah Route PRN Reason Start Time Stop Time Status Last Admin Dose Admin Acetaminophen (Tylenol) 650 mg Q4H PRN ORAL FEVER 03/28/19 05:15 04/27/19 05:14 03/28/19 17:12 Albuterol/ Ipratropium (Albuterol/ Ipratropium) 3 ml Q4H PRN HHN Shortness of Breath 03/28/19 05:15 04/02/19 05:14 Aspirin (ASA) 162 mg DAILY ORAL 03/28/19 09:00 04/27/19 08:59 Barium Sulfate (Readi-Cat 2) 450 ml NOW PRN ORAL Radiology Procedure 03/28/19 13:45 03/30/19 13:42 Ceftriaxone Sodium 1 gm/ Dextrose 55 ml @ 110 mls/hr Q24H IVPB 03/29/19 02:00 04/05/19 01:59 03/29/19 02:17 Diltiazem HCl (Cardizem) 10 mg Q1H PRN IV heart rate more than 120, 03/28/19 05:15 04/27/19 05:14 Enalaprilat (Vasotec) 2.5 mg Q6H PRN IV sbp more than 160 03/28/19 12:15 04/27/19 05:14 Iopamidol (Isovue-300 100ml) 100 ml NOW PRN INJ Radiology Procedure 03/28/19 13:45 03/30/19 13:44 Losartan Potassium (Cozaar) 25 mg DAILY ORAL 03/29/19 09:00 04/28/19 08:59 03/29/19 09:54 Morphine Sulfate (Morphine Sulfate) 2 mg Q4H PRN IVP severe Pain (Pain Scale 7-10) 03/28/19 05:15 04/04/19 05:14 Nitroglycerin (Ntg) 0.4 mg Q5M PRN SL Prn Chest Pain 03/28/19 05:15 04/27/19 05:14 Ondansetron HCl (Zofran) 4 mg Q6H PRN IVP Nausea & Vomiting 03/28/19 05:15 04/27/19 05:14 03/28/19 13:53 Pantoprazole (Protonix) 40 mg EVERY 12 HOURS ORAL 03/28/19 10:00 04/27/19 09:59 03/29/19 09:54 Polyethylene Glycol (Miralax) 17 gm DAILYPRN PRN ORAL Constipation 03/28/19 05:15 04/27/19 05:14 Regadenoson (Lexiscan) 0.4 mg ONCE PRN IV stress test 03/30/19 08:00 03/30/19 18:00 Tbo-Filgrastim (Granix) 300 mcg ONCE SQ 03/29/19 21:00 03/29/19 23:00 Temazepam (Restoril) 15 mg HSPRN PRN ORAL Insomnia 03/28/19 05:15 04/04/19 05:14 Oksana Romero NP Mar 29, 2019 10:48
[2019-03-29 12:00] VITALS: BP 111/67
--- NOTE | 2019-03-29 14:02 | Cardiology Report ---
APPROVED REPORT EKG Measurement Heart [id number] Normal sinus rhythm Normal ECG
[2019-03-29 16:00] VITALS: BP 136/61
--- NOTE | 2019-03-29 16:22 | Cardiac Electrophysiology PN ---
Assessment/Plan Assessment/Plan 1. Chest pain. The patient was ruled out for myocardial infarction by serial cardiac enzymes. Her EKG is normal. Echocardiogram showed normal left ventricular systolic function. We will check stat D-dimer and schedule the patient for VQ scan to rule out PE if its positive in view of her sharp pain , and if negative, we will schedule the patient for nuclear stress test in the morning. 2. Hypertension. Continue the patient's losartan 25 mg daily and as needed IV Vasotec. 3. Gastroesophageal reflux. 4. Hyperlipidemia. The patient was on Crestor 10 mg daily. 5. Pancytopenia with WBC 1.2 and platelet count of 7K. BM biopsy per Dr Nubia العلي RN Subjective Subjective Had Ct abdomen and pelvis for abdominal pain. Objective Last 24 Hour Vital Signs Date Time Temp Pulse Resp B/P (MAP) Pulse Ox O2 Delivery O2 Flow Rate FiO2 03/29/19 12:00 87 03/29/19 12:00 97.5 82 23 111/67 (82) 94 03/29/19 09:54 129/59 03/29/19 09:47 89 18 97 Room Air 21 03/29/19 09:00 Room Air 03/29/19 08:00 91 03/29/19 08:00 97.9 82 21 129/59 (82) 94 03/29/19 04:00 98.8 84 18 124/80 (95) 96 03/29/19 04:00 98 03/29/19 00:00 89 03/29/19 00:00 98.7 87 18 105/54 (71) 98 03/28/19 22:44 Room Air 03/28/19 20:00 98.0 93 16 100/68 (79) 95 03/28/19 20:00 98 Intake and Output 03/28/19 03/29/19 18:59 06:59 Intake Total 360 ml 355 ml Balance 360 ml 355 ml Intake Oral 360 ml 300 ml IV Total 55 ml # Voids 3 1 Laboratory Tests Test 03/29/19 06:15 03/29/19 09:40 White Blood Count 1.1 K/UL (4.8-10.8) #*L 1.2 K/UL (4.8-10.8) *L Red Blood Count 4.52 M/UL (4.20-5.40) 4.59 M/UL (4.20-5.40) Hemoglobin 14.0 G/DL (12.0-16.0) 14.4 G/DL (12.0-16.0) Hematocrit 41.5 % (37.0-47.0) 40.9 % (37.0-47.0) Mean Corpuscular Volume 92 FL (80-99) 89 FL (80-99) Mean Corpuscular Hemoglobin 30.9 PG (27.0-31.0) 31.5 PG (27.0-31.0) H Mean Corpuscular Hemoglobin Concent 33.6 G/DL (32.0-36.0) 35.3 G/DL (32.0-36.0) Red Cell Distribution Width 11.5 % (11.6-14.8) L 11.1 % (11.6-14.8) L Platelet Count 6 K/UL (150-450) #*L 7 K/UL (150-450) *L Mean Platelet Volume 7.8 FL (6.5-10.1) FL (6.5-10.1) Neutrophils (%) (Auto) % (45.0-75.0) % (45.0-75.0) Lymphocytes (%) (Auto) % (20.0-45.0) % (20.0-45.0) Monocytes (%) (Auto) % (1.0-10.0) % (1.0-10.0) Eosinophils (%) (Auto) % (0.0-3.0) % (0.0-3.0) Basophils (%) (Auto) % (0.0-2.0) % (0.0-2.0) Differential Total Cells Counted 100 100 Neutrophils % (Manual) 24 % (45-75) L 21 % (45-75) L Lymphocytes % (Manual) 55 % (20-45) H 58 % (20-45) H Monocytes % (Manual) 16 % (1-10) H 17 % (1-10) H Eosinophils % (Manual) 5 % (0-3) H 4 % (0-3) H Basophils % (Manual) 0 % (0-2) 0 % (0-2) Band Neutrophils 0 % (0-8) 0 % (0-8) Platelet Estimate Decreased L Decreased L Platelet Morphology Normal Normal Red Blood Cell Morphology Normal Normal Prothrombin Time 11.4 SEC (9.30-11.50) Prothromb Time International Ratio 1.1 (0.9-1.1) Activated Partial Thromboplast Time 32 SEC (23-33) Sodium Level 138 MMOL/L (136-145) Potassium Level 4.5 MMOL/L (3.5-5.1) Chloride Level 103 MMOL/L (98-107) Carbon Dioxide Level 25 MMOL/L (21-32) Anion Gap 10 mmol/L (5-15) Blood Urea Nitrogen 16 mg/dL (7-18) Creatinine 0.6 MG/DL (0.55-1.30) Estimat Glomerular Filtration Rate mL/min (>60) Glucose Level 138 MG/DL (74-106) H Calcium Level 8.5 MG/DL (8.5-10.1) Troponin I 0.000 ng/mL (0.000-0.056) C-Reactive Protein, Quantitative 15.1 mg/dL (0.00-0.90) H Triglycerides Level 190 MG/DL (30-150) H Cholesterol Level 135 MG/DL (< 200) LDL Cholesterol 59 mg/dL (<100) HDL Cholesterol 10 MG/DL (40-60) L Cholesterol/HDL Ratio 13.5 (3.3-4.4) H Thyroid Stimulating Hormone (TSH) 0.633 uiU/mL (0.358-3.740) Microbiology Date/Time Source Procedure Growth Status 03/28/19 00:17 Urine,Clean Catch Urine Culture - Preliminary Gram Negative Bacillus 1 Resulted Objective HEAD AND NECK: Showed no JVD or carotid bruits. LUNGS: Clear. CARDIOVASCULAR: Shows regular S1 and S2 with no gallop or murmur. ABDOMEN: Soft. EXTREMITIES: Showed no pitting edema. Molina Bradley MD Mar 29, 2019 16:22
[2019-03-29] MEDS ORDERED: DiphenhydrAMINE 50mg/ml Inj IVP SCH (19:00)
[2019-03-29 20:00] VITALS: BP 103/64
[2019-03-29] MEDS ORDERED: TBO-Filgrastim 480 mcg/0.8ml SQ SCH (21:00)
[2019-03-29] MEDS ORDERED: TBO-Filgrastim 300 mcg/0.5ml SQ SCH (21:00)
[2019-03-29] MEDS: Morphine Sulfate 2mg/ml Inj(IV/IM USE ONLY) IVP PRN (22:27)
--- NOTE | 2019-03-29 23:06 | Consultation ---
Consult Note Consult Note Patient Name: Lisset Damon Unit Number: [id number] Date of : 1945 Patient Status: Admitted Inpatient Attending Doctor: Aldair Bill DO History of Present Illness Present Illness HPI This is a 73-year-old female with a history of hypertension. She presents with chief complaint of chest pain. Pain is substernal radiating to the back. Onset for about an hour. No radiation to the neck of the arm was given aspirin and nitroglycerin. She states that she fell 3 weeks ago [address] down [address] she tripped and has an abrasion on her left eye, she shows me a picture on her cell phone of a large bruise on her left eye. She states that she had an EGD cannot recall when with history of gastric ulcer. denies bleeding but reports easily bruising. We were consulted for pancytopenia. Allergies: Coded Allergies: LATEX, NATURAL RUBBER (Verified Allergy, Unknown, 03/27/19) PENICILLINS (Verified Allergy, Unknown, 03/27/19) SULFA (SULFONAMIDE ANTIBIOTICS) (Verified Allergy, Unknown, 03/27/19) Patient History Past Medical History: HTN, gastric ulcer, fall Past Surgical History: none Pertinent Family History: Non contributory Social History: Denies: smoking, admits to daily wine, no drug abuse Past Medical History: No History, Except For Hx Hypertension: Yes Review of Systems Eye: Denies: eye pain, blurred vision, Abraison to left eye ENT: Denies: ear pain, nose congestion, throat swelling Respiratory: Denies: cough, shortness of breath Cardiovascular: Reports: chest pain; Denies: palpitations Gastrointestinal: Denies: abdominal pain, diarrhea, nausea, vomiting Musculoskeletal: Denies: back pain, joint pain Skin: Denies: rash Neurological: Denies: headache, numbness Endocrine: Denies: increased thirst, increased urine Hematologic/Lymphatic: reports easy bruising All Other Systems: negative except mentioned in HPI Physical Exam Vital Signs reviewed General Appearance: well appearing, no apparent distress, alert Head: normocephalic, atraumatic Eyes: bilateral eye PERRL, bilateral eye EOMI, abrasion under left eye ENT: hearing grossly normal, normal pharynx Neck: full range of motion, supple, no meningismus Respiratory: chest non-tender, lungs clear, normal breath sounds Cardiovascular #1: regular rate, rhythm, no murmur Gastrointestinal: normal bowel sounds, non tender, no mass, no organomegaly, no bruit, non-distended Musculoskeletal: back normal, gait/station normal, normal range of motion Psychiatric: mood/affect normal Skin: warm/dry, small bruises BLE Assessment/Plan ASSESSMENT AND PLAN 1. Severe Leukopenia-unknown etiology --> exact cause needs to be determined at this time. We will order Bone Marrow BX and PLT Transfusion --> Have discussed with Dr. Berry who has discussed with pathologist. --> US Abd has been ordered to rule out hsm and liver cirrhosis --> WBC 3.6k--> 1.1k--> 1.2k -->Hep panel and HIV ordered 2. Thrombocytopenia, severe unknown etiology --> PLT 58--> 6--> 7 --> DC ASA, Order PLT Transfusion --> Continue to closely monitor. 3. Chest Pain --> Pt has a pending stress test. The time the note was entered does not necessarily mean the patient was seen Greatly appreciate consultation Radha Ocampo NP Mar 29, 2019 23:06
[2019-03-30] VITALS: BP 126/72
[2019-03-30] MEDS ORDERED: ALBUTEROL2.5 MG/3 M INH (01:30)
[2019-03-30] MEDS ORDERED: DITROPAN XL10 MG ORAL (01:31)
[2019-03-30] MEDS ORDERED: LEXAPRO10 MG ORAL (01:36)
[2019-03-30] MEDS ORDERED: CALTRATE+D3 PL1 EACH PO (01:36)
[2019-03-30] MEDS ORDERED: CRESTOR10 M2 ORAL (01:36)
[2019-03-30] MEDS ORDERED: ALPRAZOLAM0.25 MG ORAL (01:36)
[2019-03-30] MEDS ORDERED: SEREVENT DISKU50 MCG IH (01:36)
--- NOTE | 2019-03-30 02:15 | Progress Note ---
DATE: 03/29/2019 CARDIOLOGY PROGRESS NOTE SUBJECTIVE: The patient still has some chest discomfort. She has no shortness of breath. OBJECTIVE: VITAL SIGNS: Blood pressure 129/59, pulse 89, respirations 18, and afebrile. CHEST WALL: With some tenderness. LUNGS: Clear. CARDIAC: Regular. Normal S1, S2 with a fourth heart sound. ABDOMEN: Soft. No edema. LABORATORY AND DIAGNOSTIC DATA: White count 1.2, platelet count 7000. Potassium 4.5. Troponin 0. IMPRESSION: 1. Pancytopenia. 2. Noncardiac chest pain. 3. History of carotid stenosis. 4. Gastroesophageal reflux disease. PLAN: 1. Discontinue aspirin. 2. Defer any stress testing at this time. 3. Follow up echocardiogram report. Mingo Valderrama M.D. DR: LINETTE JOB#: [id number] CC:
[2019-03-30] MEDS: Morphine Sulfate 2mg/ml Inj(IV/IM USE ONLY) IVP PRN ×2 (03:02→10:00)
[2019-03-30 04:00] VITALS: BP 136/74
--- NOTE | 2019-03-30 04:59 | Cardiac Electrophysiology PN ---
Assessment/Plan Assessment/Plan 1. Chest pain. The patient was ruled out for myocardial infarction by serial cardiac enzymes. Her EKG is normal. Echocardiogram showed normal left ventricular systolic function. D-dimer is elevated and VQ scan to rule out PE is pending. Also nuclear stress test pending today 2. Hypertension. Continue losartan 25 mg daily 3. Gastroesophageal reflux. 4. Hyperlipidemia. The patient was on Crestor 10 mg daily. 5. Pancytopenia with WBC 1.2 and platelet count of 7K. BM biopsy per Dr Delacruz 6. Right ear pain DW RN Subjective Subjective HAs right ear pain. No CP or SOB. Scheduled for VQ scan and stress test today Objective Last 24 Hour Vital Signs Date Time Temp Pulse Resp B/P (MAP) Pulse Ox O2 Delivery O2 Flow Rate FiO2 03/30/19 04:00 98.3 78 18 136/74 (94) 96 03/30/19 04:00 79 03/30/19 00:00 99.6 82 19 126/72 (90) 97 03/30/19 00:00 77 03/29/19 21:00 Room Air 03/29/19 20:00 99.2 71 18 103/64 (77) 97 03/29/19 20:00 79 03/29/19 16:00 89 03/29/19 16:00 97.2 63 20 136/61 (86) 95 03/29/19 12:00 87 03/29/19 12:00 97.5 82 23 111/67 (82) 94 03/29/19 09:54 129/59 03/29/19 09:47 89 18 97 Room Air 21 03/29/19 09:00 Room Air 03/29/19 08:00 91 03/29/19 08:00 97.9 82 21 129/59 (82) 94 Intake and Output 03/29/19 03/30/19 18:59 06:59 Intake Total 350 ml Balance 350 ml Intake Oral 350 ml # Voids 3 Laboratory Tests Test 03/29/19 06:15 03/29/19 09:40 03/29/19 17:08 White Blood Count 1.1 K/UL (4.8-10.8) #*L 1.2 K/UL (4.8-10.8) *L Red Blood Count 4.52 M/UL (4.20-5.40) 4.59 M/UL (4.20-5.40) Hemoglobin 14.0 G/DL (12.0-16.0) 14.4 G/DL (12.0-16.0) Hematocrit 41.5 % (37.0-47.0) 40.9 % (37.0-47.0) Mean Corpuscular Volume 92 FL (80-99) 89 FL (80-99) Mean Corpuscular Hemoglobin 30.9 PG (27.0-31.0) 31.5 PG (27.0-31.0) H Mean Corpuscular Hemoglobin Concent 33.6 G/DL (32.0-36.0) 35.3 G/DL (32.0-36.0) Red Cell Distribution Width 11.5 % (11.6-14.8) L 11.1 % (11.6-14.8) L Platelet Count 6 K/UL (150-450) #*L 7 K/UL (150-450) *L Mean Platelet Volume 7.8 FL (6.5-10.1) FL (6.5-10.1) Neutrophils (%) (Auto) % (45.0-75.0) % (45.0-75.0) Lymphocytes (%) (Auto) % (20.0-45.0) % (20.0-45.0) Monocytes (%) (Auto) % (1.0-10.0) % (1.0-10.0) Eosinophils (%) (Auto) % (0.0-3.0) % (0.0-3.0) Basophils (%) (Auto) % (0.0-2.0) % (0.0-2.0) Differential Total Cells Counted 100 100 Neutrophils % (Manual) 24 % (45-75) L 21 % (45-75) L Lymphocytes % (Manual) 55 % (20-45) H 58 % (20-45) H Monocytes % (Manual) 16 % (1-10) H 17 % (1-10) H Eosinophils % (Manual) 5 % (0-3) H 4 % (0-3) H Basophils % (Manual) 0 % (0-2) 0 % (0-2) Band Neutrophils 0 % (0-8) 0 % (0-8) Platelet Estimate Decreased L Decreased L Platelet Morphology Normal Normal Red Blood Cell Morphology Normal Normal Prothrombin Time 11.4 SEC (9.30-11.50) Prothromb Time International Ratio 1.1 (0.9-1.1) Activated Partial Thromboplast Time 32 SEC (23-33) Sodium Level 138 MMOL/L (136-145) Potassium Level 4.5 MMOL/L (3.5-5.1) Chloride Level 103 MMOL/L (98-107) Carbon Dioxide Level 25 MMOL/L (21-32) Anion Gap 10 mmol/L (5-15) Blood Urea Nitrogen 16 mg/dL (7-18) Creatinine 0.6 MG/DL (0.55-1.30) Estimat Glomerular Filtration Rate mL/min (>60) Glucose Level 138 MG/DL (74-106) H Calcium Level 8.5 MG/DL (8.5-10.1) Troponin I 0.000 ng/mL (0.000-0.056) C-Reactive Protein, Quantitative 15.1 mg/dL (0.00-0.90) H Triglycerides Level 190 MG/DL (30-150) H Cholesterol Level 135 MG/DL (< 200) LDL Cholesterol 59 mg/dL (<100) HDL Cholesterol 10 MG/DL (40-60) L Cholesterol/HDL Ratio 13.5 (3.3-4.4) H Thyroid Stimulating Hormone (TSH) 0.633 uiU/mL (0.358-3.740) D-Dimer 4.26 mg/L FEU (0.00-0.49) H Microbiology Date/Time Source Procedure Growth Status 03/28/19 00:17 Urine,Clean Catch Urine Culture - Preliminary Gram Negative Bacillus 1 Resulted Objective HEAD AND NECK: Showed no JVD or carotid bruits. LUNGS: Clear. CARDIOVASCULAR: Shows regular S1 and S2 with no gallop or murmur. ABDOMEN: Soft. EXTREMITIES: Showed no pitting edema. Molina Bradley MD Mar 30, 2019 04:59
[2019-03-30 07:18] LABS: HEMATOCRIT 38.2 % (37.0-47.0); HEMOGLOBIN 13.2 G/DL (12.0-16.0); MEAN CORPUSCULAR VOLUME 93 FL (80-99); PLATELET COUNT 23 K/UL (150-450); RED BLOOD COUNT 4.12 M/UL (4.20-5.40)
[2019-03-30 07:36] LABS: ANION GAP 8 mmol/L (5-15); BLOOD UREA NITROGEN 16 mg/dL (7-18); CALCIUM 8.1 MG/DL (8.5-10.1); CARBON DIOXIDE 26 MMOL/L (21-32); CHLORIDE 105 MMOL/L (98-107); CREATININE 0.6 MG/DL (0.55-1.30); POTASSIUM 3.9 MMOL/L (3.5-5.1); SODIUM 139 MMOL/L (136-145)
[2019-03-30 08:00] VITALS: BP 129/80
[2019-03-30] MEDS ORDERED: Lexiscan 0.4mg/5ml syringe IV PRN (08:00)
--- NOTE | 2019-03-30 09:51 | Diagnostic Imaging Report ---
Clinical Indication: Abdominal pain, epigastric and left lower quadrant pain Technique: Patient ingested enteric contrast IV administration nonionic contrast. Venous phase spiral acquisition obtained through the abdomen and pelvis. Multiplanar reconstructions were generated. Total dose length product 834.82 mGycm. CTDIvol(s) 17.25 mGy. Dose reduction achieved using automated exposure control Comparison: none Findings: Inflammatory changes are seen within the fat of the betty hepatis, extending caudad into the retroperitoneum posterior to the ascending colon. The anatomy of the cecum and ascending colon is difficult to assess due to extreme redundancy of the cecum. There is a discrete but somewhat ill-defined area of phlegmon and fluid posterior to the ascending colon which measures 18 mm transverse by 12 mm AP by approximately 40 mm in length. This appears to be related to some thickening of Gerota's fascia and appears to connect to the ascending colon. There is a small amount of free fluid in the pelvis. There is questionable visualization of what may be at least a portion of a normal appendix. There are prominent regional lymph nodes The pancreatic head and uncinate are somewhat prominent. The remainder of the pancreas is unremarkable. There is equivocal mild thickening of the distal duodenal wall. The gallbladder is surgically absent. There is mild ectasia of the extrahepatic bile ducts, measuring up to 8 mm, without evidence of downstream obstructive lesion. There is also evidence of prior right lobe hepatic surgery. There is a moderate amount of retained stool within the colon. No small bowel distention. No definite evidence of diverticulosis. Contrast traverses most of the small bowel. No small bowel distention or small bowel wall thickening. No free intraperitoneal gas. There is a small sliding-type hiatal hernia. The remainder of the distal esophagus and stomach are unremarkable. In addition to the above hepatic findings, cyst are seen within the liver, as well as subcentimeter low-attenuation lesions which are too small to characterize. There is slight edema of the periportal fat. The spleen demonstrates a peripheral scar in the upper pole. The adrenals are unremarkable. There is fairly extensive spinal fusion hardware. Streak artifact from this somewhat obscures the retroperitoneum. The right kidney demonstrates a 12 mm lower pole low-attenuation lesion which is probably a cyst. However, this measured higher than fluid attenuation; suspect that this is due to beam hardening artifact from adjacent spine hardware but a solid mass cannot be excluded. Subcentimeter low-attenuation lesions are also seen within the right kidney, too small to characterize. The left kidney demonstrates a 5 mm lower pole calcification. There is mild left hydronephrosis versus parapelvic cysts. There is a prominent extrarenal pelvis which demonstrates some enhancement of the urothelium. No definite hydroureter. No right renal or ureteral calculi, hydronephrosis or hydroureter demonstrated. The bladder is unremarkable. The uterus and adnexal structures appear unremarkable. Included lung bases demonstrate some atelectasis on the right. There is also trace pleural fluid on the right. The left lung base is clear. The bones demonstrate degenerative spondylosis changes. As mentioned previously, there is spinal fusion hardware. This extends from L1 to the upper sacrum. Impression: Inflammatory changes extending from the betty hepatis to the posterior retroperitoneum, as described. There may be tiny associated 18 x 12 x 40 mm fluid collection which could represent an abscess. Prominent nodes in the area are likely reactive. Etiology of the inflammatory changes uncertain, could indicate duodenitis, focal pancreatitis of the pancreatic head/uncinate. Less likely ascending diverticulitis, as no definite diverticula are demonstrated. Acute appendicitis is also a possibility, also less likely as the fluid collection does not have a typical appearance of an inflamed appendix and there is a suggestion of visualization of portions of a normal appendix. Correlation with the findings is recommended Trace free pelvic fluid, presumably related to the above Evidence of prior cholecystectomy. Evidence of prior hepatic surgery. Mild ectasia of the extra hepatic bile ducts probably related to age and postcholecystectomy state. Recommend correlation with liver function tests. Prominent left extrarenal pelvis, with suggestion of some inflammation of the urothelium. Could indicate pyelitis. Correlate with clinical and urinalysis findings Left renal parapelvic cysts versus mild left hydronephrosis, favor the former Trace right pleural fluid Extensive spinal fusion hardware. This results in streak artifact which limits visualization of the retroperitoneum. Right renal lower pole 12 mm lesion. Probably a cyst. Attenuation measurements are those of a solid lesion, but suspect this is artifact due to beam hardening from adjacent spinal hardware. Recommend sonography to assess whether cystic or solid. Other subcentimeter low-attenuation lesions within the right kidney are too small to characterize most likely represent benign simple cysts. Nonobstructive left lower pole intrarenal calyceal calculus Hepatic cysts. Subcentimeter low-attenuation hepatic lesions which are too small to characterize, most likely benign simple cysts. Other findings as noted, including small hiatal hernia, right basilar pulmonary atelectatic changes The CT scanner at [facility] is accredited by the [employer] and the scans are performed using protocols designed to limit radiation exposure to as low as reasonably achievable to attain images of sufficient resolution adequate for diagnostic evaluation.
--- NOTE | 2019-03-30 09:53 | Cardiology Report ---
APPROVED REPORT EXAM: Two-dimensional and M-mode echocardiogram with Doppler and color Doppler. INDICATION Left ventricular function M-Mode DIMENSIONS IVSd1.4 (0.7-1.1cm)Left Atrium (MM)3.8 (1.6-4.0cm) LVDd3.3 (3.5-5.6cm)Aortic Root2.9 (2.0-3.7cm) PWd1.4 (0.7-1.1cm)Aortic Cusp Exc.1.8 (1.5-2.0cm) LVDs2.0 (2.5-4.0cm) PWs1.8 cm Normal left ventricular chamber size, systolic function and wall motion. Left ventricular ejection fraction estimated to be 65 %. Mild left ventricular hypertrophy. Anterior Echo-free space, may be due to pericardial fat or effusion. All other cardiac chamber sizes are within normal limits. Focal aortic valve sclerosis with adequate cusp excursion. Thickened mitral valve leaflets with normal excursion. Mitral annulus and aortic root calcification. Pulmonic valve not well visualized. Normal tricuspid valve structure. IVC is normal in size with physiological collapse. A color flow and spectral Doppler study was performed and revealed: No aortic regurgitation. No mitral regurgitation. Mitral diastolic velocities suggest mild left ventricular diastolic dysfunction (Grade I). Trace tricuspid regurgitation. Tricuspid systolic velocities suggests peak right ventricular systolic pressure of 20 mmHg. No pulmonic regurgitation present.
[2019-03-30] MEDS: Losartan 25mg tab ORAL SCH (10:00)
--- NOTE | 2019-03-30 10:57 | Diagnostic Imaging Report ---
Indication: Abdominal pain Technique: Taylor-scale and duplex images of the upper abdomen were obtained there are Doppler interrogation of the hepatic and hepatic vessels Comparison: No comparison sonograms. Reference made to CT scan of earlier the same day Findings: Gallbladder is surgically absent. Common bile duct measures 3 mm in diameter. No intrahepatic biliary ductal dilatation. Liver demonstrates normal echogenicity, no focal abnormality. Contour abnormality of the tip of the right hepatic lobe may be associated with postsurgical changes, as surgical clips are seen in this region on recent CT scan. A cyst is seen within the right hepatic lobe, also described on recent CT. Portal vein and hepatic veins are patent. Pancreas is unremarkable. Spleen demonstrates an 8 mm echogenic focus. Left kidney measures 10.9 cm in length. Right kidney measures 9.7 cm length. Both kidneys demonstrate normal echogenicity. No right hydronephrosis. Left kidney demonstrates mild pelviectasis and possibly some caliectasis. There is a 6 mm calcification at the lower pole. An 11 mm lesion in the lower pole of the right kidney is hypoechoic, not clearly anechoic, does not definitely demonstrate increased through transmission . Non-aneurysmal abdominal aorta . Impression: 11 mm right lower pole renal lesion, possibly not definitely cystic. Note that is also not definitely cystic on recent abdomen CT scan. Neoplasm and therefore not excludable. Recommend comparison with any outside prior studies that may be available. MRI may also be useful to definitively determine its cystic or solid. Echogenic focus within the spleen measuring 8 mm diameter. This may correspond to a hypoattenuating lesion seen on recent CT scan, may reflect a hemangioma Surgically absent gallbladder. No biliary ductal dilatation Contour abnormality of the inferior right hepatic lobe, probably related to prior surgery as no mass is demonstrated on recent CT Right hepatic lobe cyst, also described on recent CT Mild pelviectasis and possibly caliectasis, also described on recent CT scan. Nonobstructive left lower pole renal calculus also described on recent CT
--- NOTE | 2019-03-30 11:59 | Infectious Diseases Prog Note ---
Assessment/Plan Assessment/Plan The patient is a 73-year-old female with, Epigastric and left lower quadrant pain. CT abd/pel 03/29/19 - Inflammatory changes extending from the betty hepatis to the posterior retroperitoneum, as described. There may be tiny associated 18 x 12 x 40 mm fluid collection which could represent an abscess. Prominent nodes in the area are likely reactive. Etiology of the inflammatory changes uncertain, could indicate duodenitis, focal pancreatitis of the pancreatic head/uncinate. Less likely ascending diverticulitis, as no definite diverticula are demonstrated. Acute appendicitis is also a possibility, also less likely as the fluid collection does not have a typical appearance of an inflamed appendix and there is a suggestion of visualization of portions of a normal appendix. Correlation with the findings is recommended. Trace free pelvic fluid, presumably related to the above Evidence of prior cholecystectomy. Evidence of prior hepatic surgery. Mild ectasia of the extra hepatic bile ducts probably related to age and postcholecystectomy state. Recommend correlation with liver function tests. Prominent left extrarenal pelvis, with suggestion of some inflammation of the urothelium. Could indicate pyelitis. Correlate with clinical and urinalysis findings Left renal parapelvic cysts versus mild left hydronephrosis, favor the forme Trace right pleural fluid Extensive spinal fusion hardware. This results in streak artifact which limits visualization of the retroperitoneum. Right renal lower pole 12 mm lesion. Probably a cyst. Attenuation measurements are those of a solid lesion, but suspect this is artifact due to beam hardening from adjacent spinal hardware. Recommend sonography to assess whether cystic or solid. Other subcentimeter low-attenuation lesions within the right kidney are too small to characterize most likely represent benign simple cyst. Nonobstructive left lower pole intrarenal calyceal calculus Hepatic cysts. Subcentimeter low-attenuation hepatic lesions which are too small to characterize, most likely benign simple cysts. Other findings as noted, including small hiatal hernia, right basilar pulmonary atelectatic changes HIV Neg Hepatitis B/C serology pending Probable urinary tract infection (history of increase of urinary frequency). UCx - E coli warner sen Rash Likely allergic reaction Unclear if abx - Was given ceftriaxone Right jaw pain Hx of TMJ PLAN: - Hold Ceftriaxone - Would recommend indium scan for evaluation of liver lesion CA vs less likely infection given lack of clear sepsis. The CT scan is not specific for abscess and patient with clear signs of sepsis and has had significant liver surgery in the past. - Monitor CBC and BMP. - Monitor cultures, blood - F/u Hepatitis panel - f/u BM Bx - f/u Indium scan and MRI Thank you for this consultation. I will follow the patient with you during this hospitalization. Subjective Allergies: Coded Allergies: LATEX, NATURAL RUBBER (Verified Allergy, Unknown, 03/27/19) PENICILLINS (Verified Allergy, Unknown, 03/27/19) SULFA (SULFONAMIDE ANTIBIOTICS) (Verified Allergy, Unknown, 03/27/19) Subjective Afebrile WBCs up to 4 Contiued rash started yesterday. Unclear if related to morphine or abx or other drug Objective Vital Signs Last 24 Hour Vital Signs Date Time Temp Pulse Resp B/P (MAP) Pulse Ox O2 Delivery O2 Flow Rate FiO2 03/30/19 10:00 129/80 03/30/19 04:00 98.3 78 18 136/74 (94) 96 03/30/19 04:00 79 03/30/19 00:00 99.6 82 19 126/72 (90) 97 03/30/19 00:00 77 03/29/19 21:00 Room Air 03/29/19 20:00 99.2 71 18 103/64 (77) 97 03/29/19 20:00 79 03/29/19 16:00 89 03/29/19 16:00 97.2 63 20 136/61 (86) 95 03/29/19 12:00 87 03/29/19 12:00 97.5 82 23 111/67 (82) 94 Height (Feet): 5 Height (Inches): 1.00 Weight (Pounds): 150 Objective HEENT: NCAT, MMM, EOMI CHEST: CTAB, No W HEART: S1 and S2. ABDOMEN: Soft. NT, ND NEUROLOGIC: Awake and alert SKIN: Hives over arms legs and torso. Microbiology Date/Time Source Procedure Growth Status 03/28/19 20:05 Blood Blood Culture - Preliminary NO GROWTH AFTER 24 HOURS Resulted 03/28/19 20:00 Blood Blood Culture - Preliminary NO GROWTH AFTER 24 HOURS Resulted 03/28/19 00:17 Urine,Clean Catch Urine Culture - Final Escherichia Coli Complete Laboratory Tests Test 03/29/19 17:08 03/30/19 06:38 D-Dimer 4.26 mg/L FEU (0.00-0.49) H White Blood Count 4.0 K/UL (4.8-10.8) #L Red Blood Count 4.12 M/UL (4.20-5.40) L Hemoglobin 13.2 G/DL (12.0-16.0) Hematocrit 38.2 % (37.0-47.0) Mean Corpuscular Volume 93 FL (80-99) Mean Corpuscular Hemoglobin 31.9 PG (27.0-31.0) H Mean Corpuscular Hemoglobin Concent 34.4 G/DL (32.0-36.0) Red Cell Distribution Width 12.0 % (11.6-14.8) Platelet Count 23 K/UL (150-450) #L Mean Platelet Volume 14.4 FL (6.5-10.1) H Neutrophils (%) (Auto) % (45.0-75.0) Lymphocytes (%) (Auto) % (20.0-45.0) Monocytes (%) (Auto) % (1.0-10.0) Eosinophils (%) (Auto) % (0.0-3.0) Basophils (%) (Auto) % (0.0-2.0) Differential Total Cells Counted 100 Neutrophils % (Manual) 67 % (45-75) Lymphocytes % (Manual) 15 % (20-45) L Monocytes % (Manual) 14 % (1-10) H Eosinophils % (Manual) 2 % (0-3) Basophils % (Manual) 2 % (0-2) Band Neutrophils 0 % (0-8) Platelet Estimate Decreased L Platelet Morphology Normal Red Blood Cell Morphology Normal Sodium Level 139 MMOL/L (136-145) Potassium Level 3.9 MMOL/L (3.5-5.1) Chloride Level 105 MMOL/L (98-107) Carbon Dioxide Level 26 MMOL/L (21-32) Anion Gap 8 mmol/L (5-15) Blood Urea Nitrogen 16 mg/dL (7-18) Creatinine 0.6 MG/DL (0.55-1.30) Estimat Glomerular Filtration Rate mL/min (>60) Glucose Level 121 MG/DL (74-106) H Calcium Level 8.1 MG/DL (8.5-10.1) L Troponin I 0.002 ng/mL (0.000-0.056) Heparin-PF4 Antibody Screen Pending Hepatitis A IgM Antibody Pending Hepatitis B Surface Antigen Pending Hepatitis B Core IgM Antibody Pending Hepatitis C Antibody Pending Current Medications Medications (Trade) Dose Ordered Sig/Marah Route PRN Reason Start Time Stop Time Status Last Admin Dose Admin Acetaminophen (Tylenol) 650 mg Q4H PRN ORAL FEVER 03/28/19 05:15 04/27/19 05:14 03/28/19 17:12 Albuterol/ Ipratropium (Albuterol/ Ipratropium) 3 ml Q4H PRN HHN Shortness of Breath 03/28/19 05:15 04/02/19 05:14 Barium Sulfate (Readi-Cat 2) 450 ml NOW PRN ORAL Radiology Procedure 03/28/19 13:45 03/30/19 13:42 Diltiazem HCl (Cardizem) 10 mg Q1H PRN IV heart rate more than 120, 03/28/19 05:15 04/27/19 05:14 Enalaprilat (Vasotec) 2.5 mg Q6H PRN IV sbp more than 160 03/28/19 12:15 04/27/19 05:14 Iopamidol (Isovue-300 100ml) 100 ml NOW PRN INJ Radiology Procedure 03/28/19 13:45 03/30/19 13:44 Losartan Potassium (Cozaar) 25 mg DAILY ORAL 03/29/19 09:00 04/28/19 08:59 03/30/19 10:00 Morphine Sulfate (Morphine Sulfate) 2 mg Q4H PRN IVP severe Pain (Pain Scale 7-10) 03/28/19 05:15 04/04/19 05:14 03/30/19 10:00 Nitroglycerin (Ntg) 0.4 mg Q5M PRN SL Prn Chest Pain 03/28/19 05:15 04/27/19 05:14 Ondansetron HCl (Zofran) 4 mg Q6H PRN IVP Nausea & Vomiting 03/28/19 05:15 04/27/19 05:14 03/28/19 13:53 Pantoprazole (Protonix) 40 mg EVERY 12 HOURS ORAL 03/28/19 10:00 04/27/19 09:59 03/30/19 10:00 Polyethylene Glycol (Miralax) 17 gm DAILYPRN PRN ORAL Constipation 03/28/19 05:15 04/27/19 05:14 Temazepam (Restoril) 15 mg HSPRN PRN ORAL Insomnia 03/28/19 05:15 04/04/19 05:14 Mingo Castro MD Mar 30, 2019 11:59
[2019-03-30 12:00] VITALS: BP 125/72
--- NOTE | 2019-03-30 12:22 | General Progress Note ---
Assessment/Plan Problem List: (1) Leukopenia ICD Codes: D72.819 - Decreased white blood cell count, unspecified SNOMED: 85624885, [id number] (2) Thrombocytopenia ICD Codes: D69.6 - Thrombocytopenia, unspecified SNOMED: 726228753 (3) UTI (urinary tract infection) ICD Codes: N39.0 - Urinary tract infection, site not specified SNOMED: 74005947 Qualifiers: Qualified Codes: N30.00 - Acute cystitis without hematuria (4) Chest pain ICD Codes: R07.9 - Chest pain, unspecified SNOMED: 09577371 Qualifiers: Qualified Codes: R07.9 - Chest pain, unspecified (5) ACS (acute coronary syndrome) ICD Codes: I24.9 - Acute ischemic heart disease, unspecified SNOMED: 496569056 Status: unchanged Assessment/Plan: pain control cardio heme f/u cbc bmp am Subjective Constitutional: Reports: weakness Allergies: Coded Allergies: LATEX, NATURAL RUBBER (Verified Allergy, Unknown, 03/27/19) PENICILLINS (Verified Allergy, Unknown, 03/27/19) SULFA (SULFONAMIDE ANTIBIOTICS) (Verified Allergy, Unknown, 03/27/19) All Systems: reviewed and negative except above Subjective calm sl chest discomfort Objective Last 24 Hour Vital Signs Date Time Temp Pulse Resp B/P (MAP) Pulse Ox O2 Delivery O2 Flow Rate FiO2 03/30/19 10:00 129/80 03/30/19 04:00 98.3 78 18 136/74 (94) 96 03/30/19 04:00 79 03/30/19 00:00 99.6 82 19 126/72 (90) 97 03/30/19 00:00 77 03/29/19 21:00 Room Air 03/29/19 20:00 99.2 71 18 103/64 (77) 97 03/29/19 20:00 79 03/29/19 16:00 89 03/29/19 16:00 97.2 63 20 136/61 (86) 95 Intake and Output 03/29/19 03/30/19 19:00 07:00 Intake Total 350 ml 250 ml Balance 350 ml 250 ml Intake Oral 350 ml Other 250 ml # Voids 3 Laboratory Tests 03/29/19 17:08: D-Dimer 4.26H 03/30/19 06:38: White Blood Count 4.0#L, Red Blood Count 4.12L, Hemoglobin 13.2, Hematocrit 38.2 , Mean Corpuscular Volume 93, Mean Corpuscular Hemoglobin 31.9H, Mean Corpuscular Hemoglobin Concent 34.4, Red Cell Distribution Width 12.0, Platelet Count 23#L, Mean Platelet Volume 14.4H, Neutrophils (%) (Auto) , Lymphocytes (% ) (Auto) , Monocytes (%) (Auto) , Eosinophils (%) (Auto) , Basophils (%) (Auto) , Differential Total Cells Counted 100, Neutrophils % (Manual) 67, Lymphocytes % (Manual) 15L, Monocytes % (Manual) 14H, Eosinophils % (Manual) 2, Basophils % (Manual) 2, Band Neutrophils 0, Platelet Estimate DecreasedL, Platelet Morphology Normal, Red Blood Cell Morphology Normal, Sodium Level 139, Potassium Level 3.9, Chloride Level 105, Carbon Dioxide Level 26, Anion Gap 8, Blood Urea Nitrogen 16, Creatinine 0.6, Estimat Glomerular Filtration Rate , Glucose Level 121H, Calcium Level 8.1L, Troponin I 0.002, Heparin-PF4 Antibody Screen [Pending], Hepatitis A IgM Antibody [Pending], Hepatitis B Surface Antigen [Pending], Hepatitis B Core IgM Antibody [Pending], Hepatitis C Antibody [Pending] Height (Feet): 5 Height (Inches): 1.00 Weight (Pounds): 150 General Appearance: lethargic EENT: normal ENT inspection Neck: normal alignment Cardiovascular: normal peripheral pulses, normal rate, regular rhythm Respiratory/Chest: chest wall non-tender, lungs clear, normal breath sounds Abdomen: normal bowel sounds, non tender, soft Extremities: normal inspection Edema: no edema noted Arm (L), no edema noted Arm (R), no edema noted Leg (L), no edema noted Leg (R), no edema noted Pedal (L), no edema noted Pedal (R), no edema noted Generalized Neurologic: responsive, motor weakness Skin: normal pigmentation, warm/dry Aldair Bill DO Mar 30, 2019 12:22
--- NOTE | 2019-03-30 12:38 | GI Initial Consult Note ---
History of Present Illness General Date patient seen: Mar 30, 2019 Time patient seen: 12:32 Reason for Hospitalization: Chest Pain Referring physician: dr Bill Reason for Consultation: GERD/Hepatic Cysts Present Illness HPI This is a 73-year-old female with a history of hypertension. She presents with chief complaint of chest pain. Pain is substernal radiating to the back. Onset for about an hour. No radiation to the neck of the arm. She says she was sweating. No nausea no vomiting. No shortness of breath. She called 911 and was given aspirin and nitroglycerin. Pain-free now after nitro. She had similar symptoms the night before and it went away after she took a [place]. She did not go to the hospital. Right now she is pain-free. Never had chest pain before. GI consulted for GERD and noted right hepatic lobe cyst seen on recent CT. Patient seen, awake alert and oriented x4 with no apparent distress with no active signs symptoms of nausea vomiting. The patient denies any abdominal pain. Denies any diarrhea or constipation. Abdomen is soft, nondistended, nontender on exam. HPI as noted above. The patient does have a history of GERD , she takes Zantac on a daily basis. The patient's most recent endoscopy and colonoscopy was within the past year, the patient is unsure of any significant findings. Abdominal pelvic CT did show some inflammatory changes extending from the betty hepatis to the posterior retroperitoneum. It was also noted the possibility of an abscess in the area. 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 Labs reviewed; WBC of 4.0, platelet count of 23, no transaminitis. The patient is pending a bone marrow biopsy and stress test. Home Meds Reported Medications Ca Carb/D3/Mag Ox/Membership Coordinator/Palmer/Zn (Caltrate+D3 Plus Mineral Minis) 1 Each Tablet, 1 EACH PO, TAB 03/30/19 Alprazolam* (XANAX*) 0.25 Mg Tablet, 0.25 MG ORAL TID, TAB 03/30/19 Escitalopram Oxalate* (LEXAPRO*) 10 Mg Tablet, 10 MG ORAL DAILY, TAB 03/30/19 Rosuvastatin Calcium* (CRESTOR*) 10 Mg Tablet, 10 MG ORAL DAILY, TAB 03/30/19 Salmeterol Xinafoate (Serevent Diskus) 50 Mcg Blst.w.dev, 50 MCG IH, MCG 03/30/19 Oxybutynin Chloride (DITROPAN XL) 10 Mg Tab.er.24, 10 MG ORAL DAILY, TAB 03/30/19 Albuterol Sulfate* (ALBUTEROL SULFATE HHN*) 2.5 Mg/3 Ml Vial.neb, 3 ML INH THREE TIMES A DAY, #30 EA 0 Refills 03/30/19 Losartan Potassium* (LOSARTAN POTASSIUM*) 25 Mg Tablet, 25 MG ORAL DAILY, TAB 03/27/19 Med list reviewed/reconciled: Yes Allergies: Coded Allergies: LATEX, NATURAL RUBBER (Verified Allergy, Unknown, 03/27/19) PENICILLINS (Verified Allergy, Unknown, 03/27/19) SULFA (SULFONAMIDE ANTIBIOTICS) (Verified Allergy, Unknown, 03/27/19) Patient History History Provided By: Patient, Medical Record PMH Narrative Past Medical History: see triage record, old chart reviewed, HTN Past Surgical History: none Pertinent Family History: none Social History: Denies: smoking Now: No Immunizations: other Reviewed Nursing Documentation: PMH: Agreed; PSxH: Agreed Nursing Documentation-PMH Past Medical History: No History, Except For Hx Hypertension: Yes Social History: Denies: smoking, alcohol use, drug use, other Review of Systems All Other Systems: negative except mentioned in HPI Physical Exam Vital Signs Date Time Temp Pulse Resp B/P (MAP) Pulse Ox O2 Delivery O2 Flow Rate FiO2 03/27/19 23:48 99.3 82 16 122/83 (96) 97 Room Air 03/29/19 09:47 21 Sp02 EP Interpretation: reviewed, normal Labs Laboratory Tests Test 03/29/19 17:08 03/30/19 06:38 D-Dimer 4.26 mg/L FEU (0.00-0.49) H White Blood Count 4.0 K/UL (4.8-10.8) #L Red Blood Count 4.12 M/UL (4.20-5.40) L Hemoglobin 13.2 G/DL (12.0-16.0) Hematocrit 38.2 % (37.0-47.0) Mean Corpuscular Volume 93 FL (80-99) Mean Corpuscular Hemoglobin 31.9 PG (27.0-31.0) H Mean Corpuscular Hemoglobin Concent 34.4 G/DL (32.0-36.0) Red Cell Distribution Width 12.0 % (11.6-14.8) Platelet Count 23 K/UL (150-450) #L Mean Platelet Volume 14.4 FL (6.5-10.1) H Neutrophils (%) (Auto) % (45.0-75.0) Lymphocytes (%) (Auto) % (20.0-45.0) Monocytes (%) (Auto) % (1.0-10.0) Eosinophils (%) (Auto) % (0.0-3.0) Basophils (%) (Auto) % (0.0-2.0) Differential Total Cells Counted 100 Neutrophils % (Manual) 67 % (45-75) Lymphocytes % (Manual) 15 % (20-45) L Monocytes % (Manual) 14 % (1-10) H Eosinophils % (Manual) 2 % (0-3) Basophils % (Manual) 2 % (0-2) Band Neutrophils 0 % (0-8) Platelet Estimate Decreased L Platelet Morphology Normal Red Blood Cell Morphology Normal Sodium Level 139 MMOL/L (136-145) Potassium Level 3.9 MMOL/L (3.5-5.1) Chloride Level 105 MMOL/L (98-107) Carbon Dioxide Level 26 MMOL/L (21-32) Anion Gap 8 mmol/L (5-15) Blood Urea Nitrogen 16 mg/dL (7-18) Creatinine 0.6 MG/DL (0.55-1.30) Estimat Glomerular Filtration Rate mL/min (>60) Glucose Level 121 MG/DL (74-106) H Calcium Level 8.1 MG/DL (8.5-10.1) L Troponin I 0.002 ng/mL (0.000-0.056) Heparin-PF4 Antibody Screen Pending Hepatitis A IgM Antibody Pending Hepatitis B Surface Antigen Pending Hepatitis B Core IgM Antibody Pending Hepatitis C Antibody Pending General Appearance: well appearing, no apparent distress, alert Head: normocephalic EENT: PERRL/EOMI, normal ENT inspection Neck: supple Respiratory: normal breath sounds, no respiratory distress Cardiovascular: normal rate Gastrointestinal: normal inspection, non tender, soft, normal bowel sounds, non -distended Rectal: deferred Genitourinary: no CVA tenderness Musculoskeletal: normal inspection, back normal Neurologic: normal inspection, alert, oriented x3, responsive Psychiatric: normal inspection, judgement/insight normal, memory normal Skin: normal inspection, normal color, no rash, warm/dry, palpation normal, well hydrated Lymphatic: normal inspection, no adenopathy Current Medications Current Medications Medications (Trade) Dose Ordered Sig/Marah Route PRN Reason Start Time Stop Time Status Last Admin Dose Admin Acetaminophen (Tylenol) 650 mg Q4H PRN ORAL FEVER 03/28/19 05:15 04/27/19 05:14 03/28/19 17:12 Albuterol/ Ipratropium (Albuterol/ Ipratropium) 3 ml Q4H PRN HHN Shortness of Breath 03/28/19 05:15 04/02/19 05:14 Barium Sulfate (Readi-Cat 2) 450 ml NOW PRN ORAL Radiology Procedure 03/28/19 13:45 03/30/19 13:42 Ceftriaxone Sodium 1 gm/ Dextrose 55 ml @ 110 mls/hr ONCE IVPB 03/30/19 14:00 03/30/19 16:00 Diltiazem HCl (Cardizem) 10 mg Q1H PRN IV heart rate more than 120, 03/28/19 05:15 04/27/19 05:14 Enalaprilat (Vasotec) 2.5 mg Q6H PRN IV sbp more than 160 03/28/19 12:15 04/27/19 05:14 Iopamidol (Isovue-300 100ml) 100 ml NOW PRN INJ Radiology Procedure 03/28/19 13:45 03/30/19 13:44 Losartan Potassium (Cozaar) 25 mg DAILY ORAL 03/29/19 09:00 04/28/19 08:59 03/30/19 10:00 Morphine Sulfate (Morphine Sulfate) 2 mg Q4H PRN IVP severe Pain (Pain Scale 7-10) 03/28/19 05:15 04/04/19 05:14 03/30/19 10:00 Nitroglycerin (Ntg) 0.4 mg Q5M PRN SL Prn Chest Pain 03/28/19 05:15 04/27/19 05:14 Ondansetron HCl (Zofran) 4 mg Q6H PRN IVP Nausea & Vomiting 03/28/19 05:15 04/27/19 05:14 03/28/19 13:53 Pantoprazole (Protonix) 40 mg EVERY 12 HOURS ORAL 03/28/19 10:00 04/27/19 09:59 03/30/19 10:00 Polyethylene Glycol (Miralax) 17 gm DAILYPRN PRN ORAL Constipation 03/28/19 05:15 04/27/19 05:14 Temazepam (Restoril) 15 mg HSPRN PRN ORAL Insomnia 03/28/19 05:15 04/04/19 05:14 GI: Plan Problems: (1) GERD (gastroesophageal reflux disease) (2) Hepatic cyst Plan recent EGD/colonoscopy within the year history of hepatic angioma with liver resection approximately 5 years ago CTAP reviewed, multiple hepatic cysts most likely simple benign cysts No plans for GI procedures at this time defer MRI at this time, follow up AFP follow up bone marrow biopsy report follow up cardiology recs to evaluate CP cont ppi BID advance diet as tolerated prn transfusions zofran prn follow labs Discussed with Dr. Galvan. Thank you for this patient referral, we will follow. The patient was seen and examined at bedside and all new and available data was reviewed in the patients chart. I agree with the above findings, impression and plan. (Patient seen earlier today. Signature stamp does not reflect patient encounter time.). - MD Ren[facility] Mar 30, 2019 12:38
--- NOTE | 2019-03-30 12:53 | Pulmonology Progress Note ---
Assessment/Plan Problems: (1) Duodenitis (2) Renal mass (3) Leukopenia (4) Thrombocytopenia (5) ACS (acute coronary syndrome) (6) GERD (gastroesophageal reflux disease) Assessment/Plan f/u blood smear V/w scan to rule out PE solumedrol for allergic dermatis stress study ordered. echo reviewed. Subjective ROS Limited/Unobtainable: No Interval Events: extensive rash, papular, redish Allergies: Coded Allergies: LATEX, NATURAL RUBBER (Verified Allergy, Unknown, 03/27/19) PENICILLINS (Verified Allergy, Unknown, 03/27/19) SULFA (SULFONAMIDE ANTIBIOTICS) (Verified Allergy, Unknown, 03/27/19) Objective Last 24 Hour Vital Signs Date Time Temp Pulse Resp B/P (MAP) Pulse Ox O2 Delivery O2 Flow Rate FiO2 03/30/19 10:00 129/80 03/30/19 04:00 98.3 78 18 136/74 (94) 96 03/30/19 04:00 79 03/30/19 00:00 99.6 82 19 126/72 (90) 97 03/30/19 00:00 77 03/29/19 21:00 Room Air 03/29/19 20:00 99.2 71 18 103/64 (77) 97 03/29/19 20:00 79 03/29/19 16:00 89 03/29/19 16:00 97.2 63 20 136/61 (86) 95 Intake and Output 03/29/19 03/30/19 19:00 07:00 Intake Total 350 ml 250 ml Balance 350 ml 250 ml Intake Oral 350 ml Other 250 ml # Voids 3 General Appearance: WD/WN HEENT: normocephalic, atraumatic Respiratory/Chest: chest wall non-tender, lungs clear, normal breath sounds Cardiovascular: normal peripheral pulses, normal rate Abdomen: normal bowel sounds, no organomegaly Genitourinary: normal external genitalia Skin: no rash 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 Microbiology Date/Time Source Procedure Growth Status 03/28/19 20:05 Blood Blood Culture - Preliminary NO GROWTH AFTER 24 HOURS Resulted 03/28/19 20:00 Blood Blood Culture - Preliminary NO GROWTH AFTER 24 HOURS Resulted 03/28/19 00:17 Urine,Clean Catch Urine Culture - Final Escherichia Coli Complete Laboratory Tests 03/29/19 17:08: D-Dimer 4.26H 03/30/19 06:38: White Blood Count 4.0#L, Red Blood Count 4.12L, Hemoglobin 13.2, Hematocrit 38.2 , Mean Corpuscular Volume 93, Mean Corpuscular Hemoglobin 31.9H, Mean Corpuscular Hemoglobin Concent 34.4, Red Cell Distribution Width 12.0, Platelet Count 23#L, Mean Platelet Volume 14.4H, Neutrophils (%) (Auto) , Lymphocytes (% ) (Auto) , Monocytes (%) (Auto) , Eosinophils (%) (Auto) , Basophils (%) (Auto) , Differential Total Cells Counted 100, Neutrophils % (Manual) 67, Lymphocytes % (Manual) 15L, Monocytes % (Manual) 14H, Eosinophils % (Manual) 2, Basophils % (Manual) 2, Band Neutrophils 0, Platelet Estimate DecreasedL, Platelet Morphology Normal, Red Blood Cell Morphology Normal, Sodium Level 139, Potassium Level 3.9, Chloride Level 105, Carbon Dioxide Level 26, Anion Gap 8, Blood Urea Nitrogen 16, Creatinine 0.6, Estimat Glomerular Filtration Rate , Glucose Level 121H, Calcium Level 8.1L, Troponin I 0.002, Heparin-PF4 Antibody Screen [Pending], Hepatitis A IgM Antibody [Pending], Hepatitis B Surface Antigen [Pending], Hepatitis B Core IgM Antibody [Pending], Hepatitis C Antibody [Pending] Current Medications Medications (Trade) Dose Ordered Sig/Marah Route PRN Reason Start Time Stop Time Status Last Admin Dose Admin Acetaminophen (Tylenol) 650 mg Q4H PRN ORAL FEVER 03/28/19 05:15 04/27/19 05:14 03/28/19 17:12 Barium Sulfate (Readi-Cat 2) 450 ml NOW PRN ORAL Radiology Procedure 03/28/19 13:45 03/30/19 13:42 Iopamidol (Isovue-300 100ml) 100 ml NOW PRN INJ Radiology Procedure 03/28/19 13:45 03/30/19 13:44 Losartan Potassium (Cozaar) 25 mg DAILY ORAL 03/29/19 09:00 04/28/19 08:59 03/30/19 10:00 Methylprednisolone Sodium Succinate (Solu-MEDROL) 60 mg EVERY 6 HOURS IV 03/30/19 13:00 04/29/19 12:59 Morphine Sulfate (Morphine Sulfate) 2 mg Q4H PRN IVP severe Pain (Pain Scale 7-10) 03/28/19 05:15 04/04/19 05:14 03/30/19 10:00 Nitroglycerin (Ntg) 0.4 mg Q5M PRN SL Prn Chest Pain 03/28/19 05:15 04/27/19 05:14 Ondansetron HCl (Zofran) 4 mg Q6H PRN IVP Nausea & Vomiting 03/28/19 05:15 04/27/19 05:14 03/28/19 13:53 Temazepam (Restoril) 15 mg HSPRN PRN ORAL Insomnia 03/28/19 05:15 04/04/19 05:14 Narinder Pedro MD Mar 30, 2019 12:53
[2019-03-30] MEDS: Solu-MEDROL 125mg Inj IV SCH ×3 (13:00→23:41)
--- NOTE | 2019-03-30 13:32 | Hematology/Onc Progress Note ---
Assessment/Plan Assessment/Plan ASSESSMENT AND PLAN # Pancytopenia- multiple etiologies could be related to underlying liver disease , medication-induced, infection versus viral syndrome verus malignancy, 11 mm right lower pole renal lesion, possibly not definitely cystic. Note that is also not definitely cystic on recent abdomen CT scan. Neoplasm and therefore not excludable. Recommend comparison with any outside prior studies that may be available. MRI may also be useful to definitively determine its cystic or solid. Echogenic focus within the spleen measuring 8 mm diameter. This may correspond to a hypoattenuating lesion seen on recent CT scan, may reflect a hemangioma Contour abnormality of the inferior right hepatic lobe, probably related to prior surgery as no mass is demonstrated on recent CT Right hepatic lobe cyst, also described on recent CT --> peripheral smear has been ordered (PENDING) --> Medications have been reviewed --> Continue to monitor for improvement, trend cbc --> Hep panel is pending and HIV negative --> CT Abd revealed hepatic cysts. --> reverse isolation if ANC is <2000 --> Give neupogen if ANC <1000 --> WBC 3.6k--> 1.1k--> 1.2k--> 4.0. --> PLT 58--> 6--> 7--> 23 --> DC'ed ASA, s/p PLT Transfusion --> check for HIT if the patient on heparin and order HIT panel --> BONE MARROW BIOPSY ORDERED FOR TODAY r/o LEUKEMIA #. Chest Pain --> Pt has a pending stress test. #. 11 mm right lower pole renal lesion, --> outpatient followup The time the note was entered does not necessarily mean the patient was seen Greatly appreciate consultation Subjective Allergies: Coded Allergies: LATEX, NATURAL RUBBER (Verified Allergy, Unknown, 03/27/19) PENICILLINS (Verified Allergy, Unknown, 03/27/19) SULFA (SULFONAMIDE ANTIBIOTICS) (Verified Allergy, Unknown, 03/27/19) Subjective 03/30: Us abd and CTA +pelvis imaging results reviewed, s/p PLT tx. Objective Objective Current Medications Medications (Trade) Dose Ordered Sig/Marah Route PRN Reason Start Time Stop Time Status Last Admin Dose Admin Acetaminophen (Tylenol) 650 mg Q4H PRN ORAL FEVER 03/28/19 05:15 04/27/19 05:14 03/28/19 17:12 Barium Sulfate (Readi-Cat 2) 450 ml NOW PRN ORAL Radiology Procedure 03/28/19 13:45 03/30/19 13:42 Diphenhydramine HCl (Benadryl) 25 mg Q6H PRN ORAL Itching 03/30/19 13:00 04/29/19 12:59 Iopamidol (Isovue-300 100ml) 100 ml NOW PRN INJ Radiology Procedure 03/28/19 13:45 03/30/19 13:44 Losartan Potassium (Cozaar) 25 mg DAILY ORAL 03/29/19 09:00 04/28/19 08:59 03/30/19 10:00 Methylprednisolone Sodium Succinate (Solu-MEDROL) 60 mg EVERY 6 HOURS IV 03/30/19 13:00 04/29/19 12:59 Morphine Sulfate (Morphine Sulfate) 2 mg Q4H PRN IVP severe Pain (Pain Scale 7-10) 03/28/19 05:15 04/04/19 05:14 03/30/19 10:00 Nitroglycerin (Ntg) 0.4 mg Q5M PRN SL Prn Chest Pain 03/28/19 05:15 04/27/19 05:14 Ondansetron HCl (Zofran) 4 mg Q6H PRN IVP Nausea & Vomiting 03/28/19 05:15 04/27/19 05:14 03/28/19 13:53 Temazepam (Restoril) 15 mg HSPRN PRN ORAL Insomnia 03/28/19 05:15 04/04/19 05:14 Last 24 Hour Vital Signs Date Time Temp Pulse Resp B/P (MAP) Pulse Ox O2 Delivery O2 Flow Rate FiO2 03/30/19 10:00 129/80 03/30/19 04:00 98.3 78 18 136/74 (94) 96 03/30/19 04:00 79 03/30/19 00:00 99.6 82 19 126/72 (90) 97 03/30/19 00:00 77 03/29/19 21:00 Room Air 03/29/19 20:00 99.2 71 18 103/64 (77) 97 03/29/19 20:00 79 03/29/19 16:00 89 03/29/19 16:00 97.2 63 20 136/61 (86) 95 03/29/19 12:00 87 03/29/19 12:00 97.5 82 23 111/67 (82) 94 03/29/19 09:54 129/59 03/29/19 09:47 89 18 97 Room Air 21 03/29/19 09:00 Room Air 03/29/19 08:00 91 03/29/19 08:00 97.9 82 21 129/59 (82) 94 03/29/19 04:00 98.8 84 18 124/80 (95) 96 03/29/19 04:00 98 03/29/19 00:00 89 03/29/19 00:00 98.7 87 18 105/54 (71) 98 03/28/19 22:44 Room Air 03/28/19 20:00 98.0 93 16 100/68 (79) 95 03/28/19 20:00 98 03/28/19 16:00 90 03/28/19 16:00 98.5 88 20 120/44 (69) 95 Intake and Output 03/29/19 03/30/19 19:00 07:00 Intake Total 350 ml 250 ml Balance 350 ml 250 ml Intake Oral 350 ml Other 250 ml # Voids 3 Labs Test 03/28/19 00:17 03/28/19 03:06 03/28/19 08:55 03/29/19 06:15 White Blood Count 3.6 K/UL (4.8-10.8) 1.1 K/UL (4.8-10.8) Red Blood Count 4.14 M/UL (4.20-5.40) 4.52 M/UL (4.20-5.40) Hemoglobin 13.2 G/DL (12.0-16.0) 14.0 G/DL (12.0-16.0) Hematocrit 38.4 % (37.0-47.0) 41.5 % (37.0-47.0) Mean Corpuscular Volume 93 FL (80-99) 92 FL (80-99) Mean Corpuscular Hemoglobin 31.8 PG (27.0-31.0) 30.9 PG (27.0-31.0) Mean Corpuscular Hemoglobin Concent 34.3 G/DL (32.0-36.0) 33.6 G/DL (32.0-36.0) Red Cell Distribution Width 11.6 % (11.6-14.8) 11.5 % (11.6-14.8) Platelet Count 58 K/UL (150-450) 6 K/UL (150-450) Mean Platelet Volume 8.4 FL (6.5-10.1) 7.8 FL (6.5-10.1) Neutrophils (%) (Auto) % (45.0-75.0) % (45.0-75.0) Lymphocytes (%) (Auto) % (20.0-45.0) % (20.0-45.0) Monocytes (%) (Auto) % (1.0-10.0) % (1.0-10.0) Eosinophils (%) (Auto) % (0.0-3.0) % (0.0-3.0) Basophils (%) (Auto) % (0.0-2.0) % (0.0-2.0) Differential Total Cells Counted 100 100 Neutrophils % (Manual) 62 % (45-75) 24 % (45-75) Lymphocytes % (Manual) 23 % (20-45) 55 % (20-45) Monocytes % (Manual) 10 % (1-10) 16 % (1-10) Eosinophils % (Manual) 4 % (0-3) 5 % (0-3) Basophils % (Manual) 1 % (0-2) 0 % (0-2) Band Neutrophils 0 % (0-8) 0 % (0-8) Platelet Estimate Decreased Decreased Platelet Morphology Normal Normal Red Blood Cell Morphology Normal Normal Urine Color Pale yellow Urine Appearance Slightly cloudy Urine pH 6.5 (4.5-8.0) Urine Specific [place] 1.015 (1.005-1.035) Urine Protein 2+ (NEGATIVE) Urine Glucose (UA) Negative (NEGATIVE) Urine Ketones Negative (NEGATIVE) Urine Blood 2+ (NEGATIVE) Urine Nitrite Positive (NEGATIVE) Urine Bilirubin Negative (NEGATIVE) Urine Urobilinogen Normal MG/DL (0.0-1.0) Urine Leukocyte Esterase 1+ (NEGATIVE) Urine RBC 2-4 /HPF (0 - 2) Urine WBC 10-15 /HPF (0 - 2) Urine Squamous Epithelial Cells Few /LPF (NONE/OCC) Urine Bacteria Many /HPF (NONE) Sodium Level 138 MMOL/L (136-145) 138 MMOL/L (136-145) Potassium Level 4.2 MMOL/L (3.5-5.1) 4.5 MMOL/L (3.5-5.1) Chloride Level 103 MMOL/L (98-107) 103 MMOL/L (98-107) Carbon Dioxide Level 25 MMOL/L (21-32) 25 MMOL/L (21-32) Anion Gap 10 mmol/L (5-15) 10 mmol/L (5-15) Blood Urea Nitrogen 19 mg/dL (7-18) 16 mg/dL (7-18) Creatinine 0.7 MG/DL (0.55-1.30) 0.6 MG/DL (0.55-1.30) Estimat Glomerular Filtration Rate mL/min (>60) mL/min (>60) Glucose Level 141 MG/DL (74-106) 138 MG/DL (74-106) Calcium Level 9.1 MG/DL (8.5-10.1) 8.5 MG/DL (8.5-10.1) Total Bilirubin 0.2 MG/DL (0.2-1.0) Aspartate Amino Transf (AST/SGOT) 25 U/L (15-37) Alanine Aminotransferase (ALT/SGPT) 24 U/L (12-78) Alkaline Phosphatase 66 U/L (46-116) Total Creatine Kinase 66 U/L (26-308) Creatine Kinase MB 0.9 NG/ML (0.0-3.6) Creatine Kinase MB Relative Index 1.3 Troponin I 0.017 ng/mL (0.000-0.056) 0.017 ng/mL (0.000-0.056) 0.000 ng/mL (0.000-0.056) 0.000 ng/mL (0.000-0.056) Total Protein 6.3 G/DL (6.4-8.2) Albumin 3.6 G/DL (3.4-5.0) Globulin 2.7 g/dL Albumin/Globulin Ratio 1.3 (1.0-2.7) Amylase Level 41 U/L (25-115) Lipase 82 U/L (73-393) HIV (1&2) Antibody Rapid Negative (NEGATIVE) Prothrombin Time 11.4 SEC (9.30-11.50) Prothromb Time International Ratio 1.1 (0.9-1.1) Activated Partial Thromboplast Time 32 SEC (23-33) C-Reactive Protein, Quantitative 15.1 mg/dL (0.00-0.90) Triglycerides Level 190 MG/DL (30-150) Cholesterol Level 135 MG/DL (< 200) LDL Cholesterol 59 mg/dL (<100) HDL Cholesterol 10 MG/DL (40-60) Cholesterol/HDL Ratio 13.5 (3.3-4.4) Thyroid Stimulating Hormone (TSH) 0.633 uiU/mL (0.358-3.740) Test 03/29/19 09:40 03/29/19 17:08 03/30/19 06:38 White Blood Count 1.2 K/UL (4.8-10.8) 4.0 K/UL (4.8-10.8) Red Blood Count 4.59 M/UL (4.20-5.40) 4.12 M/UL (4.20-5.40) Hemoglobin 14.4 G/DL (12.0-16.0) 13.2 G/DL (12.0-16.0) Hematocrit 40.9 % (37.0-47.0) 38.2 % (37.0-47.0) Mean Corpuscular Volume 89 FL (80-99) 93 FL (80-99) Mean Corpuscular Hemoglobin 31.5 PG (27.0-31.0) 31.9 PG (27.0-31.0) Mean Corpuscular Hemoglobin Concent 35.3 G/DL (32.0-36.0) 34.4 G/DL (32.0-36.0) Red Cell Distribution Width 11.1 % (11.6-14.8) 12.0 % (11.6-14.8) Platelet Count 7 K/UL (150-450) 23 K/UL (150-450) Mean Platelet Volume FL (6.5-10.1) 14.4 FL (6.5-10.1) Neutrophils (%) (Auto) % (45.0-75.0) % (45.0-75.0) Lymphocytes (%) (Auto) % (20.0-45.0) % (20.0-45.0) Monocytes (%) (Auto) % (1.0-10.0) % (1.0-10.0) Eosinophils (%) (Auto) % (0.0-3.0) % (0.0-3.0) Basophils (%) (Auto) % (0.0-2.0) % (0.0-2.0) Differential Total Cells Counted 100 100 Neutrophils % (Manual) 21 % (45-75) 67 % (45-75) Lymphocytes % (Manual) 58 % (20-45) 15 % (20-45) Monocytes % (Manual) 17 % (1-10) 14 % (1-10) Eosinophils % (Manual) 4 % (0-3) 2 % (0-3) Basophils % (Manual) 0 % (0-2) 2 % (0-2) Band Neutrophils 0 % (0-8) 0 % (0-8) Platelet Estimate Decreased Decreased Platelet Morphology Normal Normal Red Blood Cell Morphology Normal Normal D-Dimer 4.26 mg/L FEU (0.00-0.49) Sodium Level 139 MMOL/L (136-145) Potassium Level 3.9 MMOL/L (3.5-5.1) Chloride Level 105 MMOL/L (98-107) Carbon Dioxide Level 26 MMOL/L (21-32) Anion Gap 8 mmol/L (5-15) Blood Urea Nitrogen 16 mg/dL (7-18) Creatinine 0.6 MG/DL (0.55-1.30) Estimat Glomerular Filtration Rate mL/min (>60) Glucose Level 121 MG/DL (74-106) Calcium Level 8.1 MG/DL (8.5-10.1) Troponin I 0.002 ng/mL (0.000-0.056) Height (Feet): 5 Height (Inches): 1.00 Weight (Pounds): 150 Objective Physical Exam Vital Signs reviewed General Appearance: well appearing, no apparent distress, alert Head: normocephalic, atraumatic Eyes: bilateral eye PERRL, bilateral eye EOMI, abrasion under left eye ENT: hearing grossly normal, normal pharynx Neck: full range of motion, supple, no meningismus Respiratory: chest non-tender, lungs clear, normal breath sounds Cardiovascular #1: regular rate, rhythm, no murmur Gastrointestinal: normal bowel sounds, non tender, no mass, no organomegaly, no bruit, non-distended Musculoskeletal: back normal, gait/station normal, normal range of motion Psychiatric: mood/affect normal Skin: warm/dry, small bruises BLE Chi Berry MD Mar 30, 2019 13:32
[2019-03-30] MEDS ORDERED: cefTRIAXone 1 GM in D5W 55 ML IVPB SCH (14:00)
[2019-03-30 16:00] VITALS: BP 104/72
--- NOTE | 2019-03-30 17:33 | Diagnostic Imaging Report ---
Indications: Chest pain Technique: IV administration 5 mCi 99m technetium macroaggregated albumin. Images obtained over the lungs in multiple projections. Previously, patient inhaled 42 mCi aerosolized 99M technetium DTPA. Images obtained over the lungs in multiple projections Comparison: Reference made to chest radiograph dated 03/28/2018 Findings: There are peripheral subsegmental perfusion defects seen in the right upper and lower lobes, which are probably matched on the aerosol images. Perfusion defect in the posterior left lower lobe is also matched on the aerosol images. There is also more generalized heterogeneity to the pulmonary Tracer distribution on the perfusion images. Impression: Matched defects as described, consistent with low probability for pulmonary embolus
[2019-03-30 20:00] VITALS: BP 95/75
--- NOTE | 2019-03-30 22:45 | Progress Note ---
DATE: 03/30/2019 CARDIOLOGY PROGRESS NOTE SUBJECTIVE: The patient had some ear pain, also some discomfort in her chest that has been present since admission. OBJECTIVE: VITAL SIGNS: Blood pressure 136/74, pulse 78, respirations 18. Troponins remained negative. LUNGS: Clear. CARDIAC: Regular. Normal S1, S2. ABDOMEN: Soft. No edema. LABORATORY DATA: White count 4, hemoglobin 13, platelets 23,000 post transfusion. Chemistry panel within normal limits. IMPRESSION: Chest pain is pleuritic and nonischemic. The patient has pancytopenia. Pulmonary embolus is a consideration and VQ scan is ordered. Bone marrow biopsies. PLAN: The patient is not a candidate at this time for stress test in view of her blood dyscrasias and low clinical suspicion for ischemic chest pain. Mingo Valderrama M.D. DR: JANIE JOB#: [id number] CC:
[2019-03-31] VITALS: BP 142/80
[2019-03-31 04:00] VITALS: BP 137/72
[2019-03-31] MEDS: Solu-MEDROL 125mg Inj IV SCH ×3 (05:38→17:42)
[2019-03-31 08:00] VITALS: BP 146/71
[2019-03-31] MEDS ORDERED: LORazepam Inj 2mg/ml 1ml IV PRN (08:15)
[2019-03-31] MEDS ORDERED: Lidocaine 2% MPF 5ml Vial INJ PRN (08:15)
[2019-03-31] MEDS ORDERED: Lidocaine 2% MPF 5ml Vial INJ ONE (08:15)
[2019-03-31 08:32] LABS: HEMATOCRIT 39.4 % (37.0-47.0); HEMOGLOBIN 13.5 G/DL (12.0-16.0); MEAN CORPUSCULAR VOLUME 92 FL (80-99); PLATELET COUNT 27 K/UL (150-450); RED BLOOD COUNT 4.26 M/UL (4.20-5.40); WHITE BLOOD COUNT 3.7 K/UL (4.8-10.8)
[2019-03-31] MEDS: Losartan 25mg tab ORAL SCH (08:42)
[2019-03-31 08:48] LABS: PHOSPHORUS 2.1 MG/DL (2.5-4.9)
[2019-03-31] MEDS: ALPRAZolam 0.25mg tab ORAL SCH ×3 (09:00→21:55)
[2019-03-31 09:01] LABS: ALANINE AMINOTRANSFERASE 134 U/L (12-78); ALBUMIN 2.9 G/DL (3.4-5.0); ALBUMIN/GLOBULIN RATIO 0.8 (1.0-2.7); ALKALINE PHOSPHATASE 176 U/L (46-116); ANION GAP 11 mmol/L (5-15); ASPARTATE AMINO TRANSFERASE 36 U/L (15-37); BILIRUBIN,TOTAL 0.4 MG/DL (0.2-1.0); BLOOD UREA NITROGEN 17 mg/dL (7-18); CALCIUM 8.7 MG/DL (8.5-10.1); CARBON DIOXIDE 24 MMOL/L (21-32); CHLORIDE 104 MMOL/L (98-107); CREATININE 0.7 MG/DL (0.55-1.30); POTASSIUM 4.3 MMOL/L (3.5-5.1); SODIUM 139 MMOL/L (136-145)
--- NOTE | 2019-03-31 09:18 | Infectious Diseases Prog Note ---
Assessment/Plan Assessment/Plan The patient is a 73-year-old female with, Epigastric and left lower quadrant pain. CT abd/pel 03/29/19 - Inflammatory changes extending from the betty hepatis to the posterior retroperitoneum, as described. There may be tiny associated 18 x 12 x 40 mm fluid collection which could represent an abscess. Prominent nodes in the area are likely reactive. Etiology of the inflammatory changes uncertain, could indicate duodenitis, focal pancreatitis of the pancreatic head/uncinate. Less likely ascending diverticulitis, as no definite diverticula are demonstrated. Acute appendicitis is also a possibility, also less likely as the fluid collection does not have a typical appearance of an inflamed appendix and there is a suggestion of visualization of portions of a normal appendix. Correlation with the findings is recommended. Trace free pelvic fluid, presumably related to the above Evidence of prior cholecystectomy. Evidence of prior hepatic surgery. Mild ectasia of the extra hepatic bile ducts probably related to age and postcholecystectomy state. Recommend correlation with liver function tests. Prominent left extrarenal pelvis, with suggestion of some inflammation of the urothelium. Could indicate pyelitis. Correlate with clinical and urinalysis findings Left renal parapelvic cysts versus mild left hydronephrosis, favor the forme Trace right pleural fluid Extensive spinal fusion hardware. This results in streak artifact which limits visualization of the retroperitoneum. Right renal lower pole 12 mm lesion. Probably a cyst. Attenuation measurements are those of a solid lesion, but suspect this is artifact due to beam hardening from adjacent spinal hardware. Recommend sonography to assess whether cystic or solid. Other subcentimeter low-attenuation lesions within the right kidney are too small to characterize most likely represent benign simple cyst. Nonobstructive left lower pole intrarenal calyceal calculus Hepatic cysts. Subcentimeter low-attenuation hepatic lesions which are too small to characterize, most likely benign simple cysts. Other findings as noted, including small hiatal hernia, right basilar pulmonary atelectatic changes HIV Neg Hepatitis B/C serology pending Probable urinary tract infection (history of increase of urinary frequency). UCx - E coli warner sen Rash Likely allergic reaction Unclear if abx - Was given ceftriaxone Right jaw pain Hx of TMJ PLAN: - Monitor off abx - 03/30/19 SP Ceftriaxone held for rash - Would recommend indium scan for evaluation of liver lesion CA vs less likely infection given lack of clear sepsis. The CT scan is not specific for abscess and patient with clear signs of sepsis and has had significant liver surgery in the past. - Monitor CBC and BMP. - Monitor cultures, blood - F/u Hepatitis panel - f/u BM Bx - f/u Indium scan and MRI - f/u imaging records from [facility] Thank you for this consultation. I will follow the patient with you during this hospitalization. Subjective Allergies: Coded Allergies: LATEX, NATURAL RUBBER (Verified Allergy, Unknown, 03/27/19) PENICILLINS (Verified Allergy, Unknown, 03/27/19) SULFA (SULFONAMIDE ANTIBIOTICS) (Verified Allergy, Unknown, 03/27/19) Subjective Afebrile WBCs 3.7 Rash improved Objective Vital Signs Last 24 Hour Vital Signs Date Time Temp Pulse Resp B/P (MAP) Pulse Ox O2 Delivery O2 Flow Rate FiO2 03/31/19 08:42 146/71 03/31/19 08:00 98.6 71 20 146/71 (96) 96 03/31/19 04:00 96 03/31/19 04:00 97.7 83 16 137/72 (93) 96 03/31/19 00:00 79 03/31/19 00:00 98.5 79 18 142/80 (100) 97 03/30/19 21:00 Room Air 03/30/19 20:00 98.5 82 18 95/75 (82) 96 03/30/19 20:00 105 03/30/19 16:00 80 03/30/19 16:00 97.9 93 23 104/72 (83) 94 03/30/19 12:00 82 03/30/19 12:00 98.4 80 22 125/72 (89) 94 03/30/19 10:00 129/80 Height (Feet): 5 Height (Inches): 1.00 Weight (Pounds): 150 Objective GEN: NAD HEENT: NCAT, MMM, EOMI CHEST: CTAB, No W HEART: S1 and S2. ABDOMEN: Soft. NT, ND NEUROLOGIC: Awake and alert SKIN: Hives over arms legs and torso. Microbiology Date/Time Source Procedure Growth Status 03/28/19 20:05 Blood Blood Culture - Preliminary NO GROWTH AFTER 48 HOURS Resulted 03/28/19 20:00 Blood Blood Culture - Preliminary NO GROWTH AFTER 48 HOURS Resulted Laboratory Tests Test 03/31/19 07:22 White Blood Count 3.7 K/UL (4.8-10.8) L Red Blood Count 4.26 M/UL (4.20-5.40) Hemoglobin 13.5 G/DL (12.0-16.0) Hematocrit 39.4 % (37.0-47.0) Mean Corpuscular Volume 92 FL (80-99) Mean Corpuscular Hemoglobin 31.7 PG (27.0-31.0) H Mean Corpuscular Hemoglobin Concent 34.3 G/DL (32.0-36.0) Red Cell Distribution Width 12.0 % (11.6-14.8) Platelet Count 27 K/UL (150-450) L Mean Platelet Volume 9.1 FL (6.5-10.1) Neutrophils (%) (Auto) % (45.0-75.0) Lymphocytes (%) (Auto) % (20.0-45.0) Monocytes (%) (Auto) % (1.0-10.0) Eosinophils (%) (Auto) % (0.0-3.0) Basophils (%) (Auto) % (0.0-2.0) Neutrophils % (Manual) Pending Lymphocytes % (Manual) Pending Platelet Estimate Pending Platelet Morphology Pending Prothrombin Time 10.8 SEC (9.30-11.50) Prothromb Time International Ratio 1.0 (0.9-1.1) Activated Partial Thromboplast Time 26 SEC (23-33) Sodium Level Pending Potassium Level Pending Chloride Level Pending Carbon Dioxide Level Pending Blood Urea Nitrogen Pending Creatinine Pending Estimat Glomerular Filtration Rate Pending Glucose Level Pending Calcium Level Pending Phosphorus Level Pending Magnesium Level Pending Total Bilirubin Pending Aspartate Amino Transf (AST/SGOT) Pending Alanine Aminotransferase (ALT/SGPT) Pending Alkaline Phosphatase Pending Total Protein Pending Albumin Pending Globulin Pending Alpha Fetoprotein Pending Current Medications Medications (Trade) Dose Ordered Sig/Marah Route PRN Reason Start Time Stop Time Status Last Admin Dose Admin Acetaminophen (Tylenol) 650 mg Q4H PRN ORAL FEVER 03/28/19 05:15 04/27/19 05:14 03/28/19 17:12 Alprazolam (Xanax) 0.25 mg Q8HR ORAL 03/31/19 09:00 6/25/19 08:59 Diphenhydramine HCl (Benadryl) 25 mg Q6H PRN ORAL Itching 03/30/19 13:00 04/29/19 12:59 03/31/19 02:12 Escitalopram Oxalate (Lexapro) 10 mg DAILY ORAL 03/31/19 09:00 04/30/19 08:59 03/31/19 08:41 Lidocaine HCl (Xylocaine 2% MPF) 10 ml ONCE PRN INJ BONE BIOPSY 03/31/19 08:15 03/31/19 23:59 Lorazepam (Ativan 2mg/ml 1ml) 1 mg ONCE PRN IV PRIOR TO BONE BIOPSY 03/31/19 08:15 03/31/19 23:59 Losartan Potassium (Cozaar) 25 mg DAILY ORAL 03/29/19 09:00 04/28/19 08:59 03/31/19 08:42 Methylprednisolone Sodium Succinate (Solu-MEDROL) 60 mg EVERY 6 HOURS IV 03/30/19 13:00 04/29/19 12:59 03/31/19 05:38 Morphine Sulfate (Morphine Sulfate) 2 mg Q4H PRN IVP severe Pain (Pain Scale 7-10) 03/28/19 05:15 04/04/19 05:14 03/30/19 10:00 Nitroglycerin (Ntg) 0.4 mg Q5M PRN SL Prn Chest Pain 03/28/19 05:15 04/27/19 05:14 Ondansetron HCl (Zofran) 4 mg Q6H PRN IVP Nausea & Vomiting 03/28/19 05:15 04/27/19 05:14 03/28/19 13:53 Temazepam (Restoril) 15 mg HSPRN PRN ORAL Insomnia 03/28/19 05:15 04/04/19 05:14 Mingo Castro MD Mar 31, 2019 09:17
--- NOTE | 2019-03-31 10:13 | GI Progress Note ---
Assessment/Plan Problems: (1) GERD (gastroesophageal reflux disease) ICD Codes: K21.9 - Gastro-esophageal reflux disease without esophagitis SNOMED: 133915352 (2) Hepatic cyst ICD Codes: K76.89 - Other specified diseases of liver SNOMED: 43876167 (3) Thrombocytopenia ICD Codes: D69.6 - Thrombocytopenia, unspecified SNOMED: 302039004 (4) Leukopenia ICD Codes: D72.819 - Decreased white blood cell count, unspecified SNOMED: 96246010, 954174939 (5) Renal mass ICD Codes: N28.89 - Other specified disorders of kidney and ureter SNOMED: 047554203 Status: unchanged Status Narrative Discussed with Dr. Galvan. Assessment/Plan recent EGD/colonoscopy within the year history of hepatic angioma with liver resection approximately 5 years ago CTAP reviewed, multiple hepatic cysts most likely simple benign cysts Hepatitis panel negative No plans for GI procedures at this time defer MRI liver protocol at this time follow up bone marrow biopsy report follow up cardiology recs cont ppi BID advance diet as tolerated prn transfusions zofran prn follow labs, AFP The patient was seen and examined at bedside and all new and available data was reviewed in the patients chart. I agree with the above findings, impression and plan. (Patient seen earlier today. Signature stamp does not reflect patient encounter time.). - Anthony Galvan MD Subjective Gastrointestinal/Abdominal: Reports: no symptoms Objective Last 24 Hour Vital Signs Date Time Temp Pulse Resp B/P (MAP) Pulse Ox O2 Delivery O2 Flow Rate FiO2 03/31/19 09:00 Room Air 03/31/19 08:42 146/71 03/31/19 08:00 98.6 71 20 146/71 (96) 96 03/31/19 08:00 71 03/31/19 04:00 96 03/31/19 04:00 97.7 83 16 137/72 (93) 96 03/31/19 00:00 79 03/31/19 00:00 98.5 79 18 142/80 (100) 97 03/30/19 21:00 Room Air 03/30/19 20:00 98.5 82 18 95/75 (82) 96 03/30/19 20:00 105 03/30/19 16:00 80 03/30/19 16:00 97.9 93 23 104/72 (83) 94 03/30/19 12:00 82 03/30/19 12:00 98.4 80 22 125/72 (89) 94 Intake and Output 03/30/19 03/31/19 18:59 06:59 Intake Total 240 ml Balance 240 ml Intake Oral 240 ml # Voids 1 2 Laboratory Tests Test 03/31/19 07:22 White Blood Count 3.7 K/UL (4.8-10.8) L Red Blood Count 4.26 M/UL (4.20-5.40) Hemoglobin 13.5 G/DL (12.0-16.0) Hematocrit 39.4 % (37.0-47.0) Mean Corpuscular Volume 92 FL (80-99) Mean Corpuscular Hemoglobin 31.7 PG (27.0-31.0) H Mean Corpuscular Hemoglobin Concent 34.3 G/DL (32.0-36.0) Red Cell Distribution Width 12.0 % (11.6-14.8) Platelet Count 27 K/UL (150-450) L Mean Platelet Volume 9.1 FL (6.5-10.1) Neutrophils (%) (Auto) % (45.0-75.0) Lymphocytes (%) (Auto) % (20.0-45.0) Monocytes (%) (Auto) % (1.0-10.0) Eosinophils (%) (Auto) % (0.0-3.0) Basophils (%) (Auto) % (0.0-2.0) Neutrophils % (Manual) Pending Lymphocytes % (Manual) Pending Platelet Estimate Pending Platelet Morphology Pending Prothrombin Time 10.8 SEC (9.30-11.50) Prothromb Time International Ratio 1.0 (0.9-1.1) Activated Partial Thromboplast Time 26 SEC (23-33) Sodium Level 139 MMOL/L (136-145) Potassium Level 4.3 MMOL/L (3.5-5.1) Chloride Level 104 MMOL/L (98-107) Carbon Dioxide Level 24 MMOL/L (21-32) Anion Gap 11 mmol/L (5-15) Blood Urea Nitrogen 17 mg/dL (7-18) Creatinine 0.7 MG/DL (0.55-1.30) Estimat Glomerular Filtration Rate mL/min (>60) Glucose Level 178 MG/DL (74-106) H Calcium Level 8.7 MG/DL (8.5-10.1) Phosphorus Level 2.1 MG/DL (2.5-4.9) L Magnesium Level 2.3 MG/DL (1.8-2.4) Total Bilirubin 0.4 MG/DL (0.2-1.0) Aspartate Amino Transf (AST/SGOT) 36 U/L (15-37) Alanine Aminotransferase (ALT/SGPT) 134 U/L (12-78) H Alkaline Phosphatase 176 U/L (46-116) H Total Protein 6.5 G/DL (6.4-8.2) Albumin 2.9 G/DL (3.4-5.0) L Globulin 3.6 g/dL Albumin/Globulin Ratio 0.8 (1.0-2.7) L Alpha Fetoprotein Pending Height (Feet): 5 Height (Inches): 1.00 Weight (Pounds): 150 General Appearance: WD/WN, no apparent distress, alert Cardiovascular: normal rate Respiratory/Chest: normal breath sounds, no respiratory distress Abdominal Exam: normal bowel sounds, non tender, soft Extremities: normal range of motion, non-tender Francisco Yanez NP Mar 31, 2019 10:13
[2019-03-31] MEDS: Morphine Sulfate 2mg/ml Inj(IV/IM USE ONLY) IVP PRN (10:35)
[2019-03-31] MEDS ORDERED: LORazepam 1mg tab ORAL PRN (11:15)
[2019-03-31] MEDS ORDERED: Lidocaine 1% Plain 30 ml INJ PRN (11:15)
[2019-03-31] MEDS ORDERED: Sodium Phosphate 30 MM in NS 275 ML IVPB ONE (11:30)
[2019-03-31 12:00] VITALS: BP 141/72
--- NOTE | 2019-03-31 13:43 | General Progress Note ---
Assessment/Plan Problem List: (1) Leukopenia ICD Codes: D72.819 - Decreased white blood cell count, unspecified SNOMED: 64226834, 474487714 (2) Thrombocytopenia ICD Codes: D69.6 - Thrombocytopenia, unspecified SNOMED: 174214071 (3) UTI (urinary tract infection) ICD Codes: N39.0 - Urinary tract infection, site not specified SNOMED: 33977118 Qualifiers: Qualified Codes: N30.00 - Acute cystitis without hematuria (4) Chest pain ICD Codes: R07.9 - Chest pain, unspecified SNOMED: 44929911 Qualifiers: Qualified Codes: R07.9 - Chest pain, unspecified (5) ACS (acute coronary syndrome) ICD Codes: I24.9 - Acute ischemic heart disease, unspecified SNOMED: 959663169 Status: unchanged Assessment/Plan: pain control cardio heme f/u cbc bmp am pending bx Subjective Constitutional: Reports: weakness Allergies: Coded Allergies: LATEX, NATURAL RUBBER (Verified Allergy, Unknown, 03/27/19) PENICILLINS (Verified Allergy, Unknown, 03/27/19) SULFA (SULFONAMIDE ANTIBIOTICS) (Verified Allergy, Unknown, 03/27/19) All Systems: reviewed and negative except above Subjective calm sl chest discomfort Objective Last 24 Hour Vital Signs Date Time Temp Pulse Resp B/P (MAP) Pulse Ox O2 Delivery O2 Flow Rate FiO2 03/31/19 12:00 97.5 76 20 141/72 (95) 99 03/31/19 09:00 Room Air 03/31/19 08:42 146/71 03/31/19 08:00 98.6 71 20 146/71 (96) 96 03/31/19 08:00 71 03/31/19 04:00 96 03/31/19 04:00 97.7 83 16 137/72 (93) 96 03/31/19 00:00 79 03/31/19 00:00 98.5 79 18 142/80 (100) 97 03/30/19 21:00 Room Air 03/30/19 20:00 98.5 82 18 95/75 (82) 96 03/30/19 20:00 105 03/30/19 16:00 80 03/30/19 16:00 97.9 93 23 104/72 (83) 94 Intake and Output 03/30/19 03/31/19 19:00 07:00 Intake Total 240 ml Balance 240 ml Intake Oral 240 ml # Voids 1 2 Laboratory Tests 03/31/19 07:22: White Blood Count 3.7L, Red Blood Count 4.26, Hemoglobin 13.5, Hematocrit 39.4, Mean Corpuscular Volume 92, Mean Corpuscular Hemoglobin 31.7H, Mean Corpuscular Hemoglobin Concent 34.3, Red Cell Distribution Width 12.0, Platelet Count 27L, Mean Platelet Volume 9.1, Neutrophils (%) (Auto) , Lymphocytes (%) (Auto) , Monocytes (%) (Auto) , Eosinophils (%) (Auto) , Basophils (%) (Auto) , Differential Total Cells Counted 100, Neutrophils % (Manual) 66, Lymphocytes % ( Manual) 16L, Monocytes % (Manual) 8, Eosinophils % (Manual) 0, Basophils % ( Manual) 0, Band Neutrophils 10H, Platelet Estimate DecreasedL, Platelet Morphology Normal, Anisocytosis 1+, Prothrombin Time 10.8, Prothromb Time International Ratio 1.0, Activated Partial Thromboplast Time 26, Sodium Level 139, Potassium Level 4.3, Chloride Level 104, Carbon Dioxide Level 24, Anion Gap 11, Blood Urea Nitrogen 17, Creatinine 0.7, Estimat Glomerular Filtration Rate , Glucose Level 178H, Calcium Level 8.7, Phosphorus Level 2.1L, Magnesium Level 2.3, Total Bilirubin 0.4, Aspartate Amino Transf (AST/SGOT) 36, Alanine Aminotransferase (ALT/SGPT) 134H, Alkaline Phosphatase 176H, Total Protein 6.5, Albumin 2.9L, Globulin 3.6, Albumin/Globulin Ratio 0.8L, Alpha Fetoprotein [ Pending] Height (Feet): 5 Height (Inches): 1.00 Weight (Pounds): 150 General Appearance: lethargic EENT: normal ENT inspection Neck: normal alignment Cardiovascular: normal peripheral pulses, normal rate, regular rhythm Respiratory/Chest: chest wall non-tender, lungs clear, normal breath sounds Abdomen: normal bowel sounds, non tender, soft Extremities: normal inspection Edema: no edema noted Arm (L), no edema noted Arm (R), no edema noted Leg (L), no edema noted Leg (R), no edema noted Pedal (L), no edema noted Pedal (R), no edema noted Generalized Neurologic: responsive, motor weakness Skin: normal pigmentation, warm/dry Aldair Bill DO Mar 31, 2019 13:43
--- NOTE | 2019-03-31 14:05 | Pulmonology Progress Note ---
Assessment/Plan Problems: (1) Duodenitis (2) Renal mass (3) Leukopenia (4) Thrombocytopenia (5) ACS (acute coronary syndrome) (6) GERD (gastroesophageal reflux disease) (7) Allergic dermatitis Assessment/Plan bone marrow biopsy pending f/u blood smear V/w scan to rule out PE taper solumedrol for allergic dermatis stress study ordered. echo reviewed. Subjective ROS Limited/Unobtainable: No Constitutional: Reports: no symptoms HEENT: Repors: no symptoms Allergies: Coded Allergies: LATEX, NATURAL RUBBER (Verified Allergy, Unknown, 03/27/19) PENICILLINS (Verified Allergy, Unknown, 03/27/19) SULFA (SULFONAMIDE ANTIBIOTICS) (Verified Allergy, Unknown, 03/27/19) Objective Last 24 Hour Vital Signs Date Time Temp Pulse Resp B/P (MAP) Pulse Ox O2 Delivery O2 Flow Rate FiO2 03/31/19 12:00 97.5 76 20 141/72 (95) 99 03/31/19 12:00 76 03/31/19 09:00 Room Air 03/31/19 08:42 146/71 03/31/19 08:00 98.6 71 20 146/71 (96) 96 03/31/19 08:00 71 03/31/19 04:00 96 03/31/19 04:00 97.7 83 16 137/72 (93) 96 03/31/19 00:00 79 03/31/19 00:00 98.5 79 18 142/80 (100) 97 03/30/19 21:00 Room Air 03/30/19 20:00 98.5 82 18 95/75 (82) 96 03/30/19 20:00 105 03/30/19 16:00 80 03/30/19 16:00 97.9 93 23 104/72 (83) 94 Intake and Output 03/30/19 03/31/19 19:00 07:00 Intake Total 240 ml Balance 240 ml Intake Oral 240 ml # Voids 1 2 General Appearance: WD/WN HEENT: normocephalic, atraumatic Cardiovascular: normal peripheral pulses, normal rate Abdomen: normal bowel sounds, soft, non tender Genitourinary: normal external genitalia Skin: no rash Neurologic/Psychiatric: photogeologist II-XII grossly normal Microbiology Date/Time Source Procedure Growth Status 03/28/19 20:05 Blood Blood Culture - Preliminary NO GROWTH AFTER 48 HOURS Resulted 03/28/19 20:00 Blood Blood Culture - Preliminary NO GROWTH AFTER 48 HOURS Resulted Laboratory Tests 03/31/19 07:22: White Blood Count 3.7L, Red Blood Count 4.26, Hemoglobin 13.5, Hematocrit 39.4, Mean Corpuscular Volume 92, Mean Corpuscular Hemoglobin 31.7H, Mean Corpuscular Hemoglobin Concent 34.3, Red Cell Distribution Width 12.0, Platelet Count 27L, Mean Platelet Volume 9.1, Neutrophils (%) (Auto) , Lymphocytes (%) (Auto) , Monocytes (%) (Auto) , Eosinophils (%) (Auto) , Basophils (%) (Auto) , Differential Total Cells Counted 100, Neutrophils % (Manual) 66, Lymphocytes % ( Manual) 16L, Monocytes % (Manual) 8, Eosinophils % (Manual) 0, Basophils % ( Manual) 0, Band Neutrophils 10H, Platelet Estimate DecreasedL, Platelet Morphology Normal, Anisocytosis 1+, Prothrombin Time 10.8, Prothromb Time International Ratio 1.0, Activated Partial Thromboplast Time 26, Sodium Level 139, Potassium Level 4.3, Chloride Level 104, Carbon Dioxide Level 24, Anion Gap 11, Blood Urea Nitrogen 17, Creatinine 0.7, Estimat Glomerular Filtration Rate , Glucose Level 178H, Calcium Level 8.7, Phosphorus Level 2.1L, Magnesium Level 2.3, Total Bilirubin 0.4, Aspartate Amino Transf (AST/SGOT) 36, Alanine Aminotransferase (ALT/SGPT) 134H, Alkaline Phosphatase 176H, Total Protein 6.5, Albumin 2.9L, Globulin 3.6, Albumin/Globulin Ratio 0.8L, Alpha Fetoprotein [ Pending] Current Medications Medications (Trade) Dose Ordered Sig/Marah Route PRN Reason Start Time Stop Time Status Last Admin Dose Admin Acetaminophen (Tylenol) 650 mg Q4H PRN ORAL FEVER 03/28/19 05:15 04/27/19 05:14 03/28/19 17:12 Alprazolam (Xanax) 0.25 mg Q8HR ORAL 03/31/19 09:00 04/07/19 08:59 03/31/19 13:33 Diphenhydramine HCl (Benadryl) 25 mg Q6H PRN ORAL Itching 03/30/19 13:00 04/29/19 12:59 03/31/19 02:12 Escitalopram Oxalate (Lexapro) 10 mg DAILY ORAL 03/31/19 09:00 04/30/19 08:59 03/31/19 08:41 Lidocaine HCl (Xylocaine 1% 30ml) 30 ml NOW PRN INJ Radiology Procedure 03/31/19 11:15 03/31/19 23:59 Lorazepam (Ativan) 1 mg ONCE PRN ORAL BIOPSY 03/31/19 11:15 03/31/19 23:59 Losartan Potassium (Cozaar) 25 mg DAILY ORAL 03/29/19 09:00 04/28/19 08:59 03/31/19 08:42 Methylprednisolone Sodium Succinate (Solu-MEDROL) 60 mg EVERY 6 HOURS IV 03/30/19 13:00 04/29/19 12:59 03/31/19 11:48 Morphine Sulfate (Morphine Sulfate) 2 mg Q4H PRN IVP severe Pain (Pain Scale 7-10) 03/28/19 05:15 04/04/19 05:14 03/31/19 10:35 Nitroglycerin (Ntg) 0.4 mg Q5M PRN SL Prn Chest Pain 03/28/19 05:15 04/27/19 05:14 Ondansetron HCl (Zofran) 4 mg Q6H PRN IVP Nausea & Vomiting 03/28/19 05:15 04/27/19 05:14 03/28/19 13:53 Sodium Phosphate 30 mm/Sodium Chloride 285 ml @ 47.5 mls/hr ONCE ONCE IVPB 03/31/19 11:30 03/31/19 17:29 03/31/19 11:48 Temazepam (Restoril) 15 mg HSPRN PRN ORAL Insomnia 03/28/19 05:15 04/04/19 05:14 Narinder Pedro MD Mar 31, 2019 14:05
--- NOTE | 2019-03-31 15:42 | Hematology/Onc Progress Note ---
Assessment/Plan Assessment/Plan ASSESSMENT AND PLAN # Pancytopenia - EARLY FLOW CONSISTENT WITH CLL/SLL, other causes include liver disease, medication-induced, infection versus viral syndrome verus malignancy, 11 mm right lower pole renal lesion, possibly not definitely cystic. Note that is also not definitely cystic on recent abdomen CT scan. Neoplasm and therefore not excludable. Recommend comparison with any outside prior studies that may be available. MRI may also be useful to definitively determine its cystic or solid. Echogenic focus within the spleen measuring 8 mm diameter. This may correspond to a hypoattenuating lesion seen on recent CT scan, may reflect a hemangioma Contour abnormality of the inferior right hepatic lobe, probably related to prior surgery as no mass is demonstrated on recent CT Right hepatic lobe cyst, also described on recent CT --> peripheral smear has been reviewed and no blasts noted, normal smear --> Medications have been reviewed --> Continue to monitor for improvement, trend cbc --> Hep panel is pending and HIV negative --> CT Abd revealed hepatic cysts. --> reverse isolation if ANC is <2000 --> Give neupogen if ANC <1000 --> WBC 3.6k--> 1.1k--> 1.2k--> 4.0. --> PLT 58--> 6--> 7--> 23 --> DC'ed ASA, s/p PLT Transfusion --> BONE MARROW BIOPSY not successful 03/31, will obtain ct guided bx on 04/01 #. Chest Pain --> seen by cards, not a candidate for stress test currently #. 11 mm right lower pole renal lesion, --> outpatient followup #, Anxiety will order ativan before procedure The time the note was entered does not necessarily mean the patient was seen Greatly appreciate consultation Subjective Constitutional: Denies: no symptoms, chills, fever, malaise, weakness, other HEENT: Denies: no symptoms, eye pain, blurred vision, tearing, double vision, ear pain, ear discharge, nose pain, nose congestion, throat pain, throat swelling, mouth pain, mouth swelling, other Cardiovascular: Denies: no symptoms, chest pain, edema, irregular heart rate, lightheadedness, palpitations, syncope, other Respiratory: Denies: no symptoms, cough, shortness of breath, SOB with excertion, SOB at rest, sputum, wheezing, other Gastrointestinal/Abdominal: Denies: no symptoms, abdomen distended, abdominal pain, black stools, tarry stools, blood in stool, constipated, diarrhea, difficulty swallowing, nausea, poor appetite, poor fluid intake, rectal bleeding , vomiting, other Genitourinary: Denies: no symptoms, burning, discharge, frequency, flank pain, hematuria, incontinence, pain, urgency, other Neurologic/Psychiatric: Denies: no symptoms, anxiety, depressed, emotional problems, headache, numbness, paresthesia, pre-existing deficit, seizure, tingling, tremors, weakness, other Endocrine: Denies: no symptoms, excessive sweating, flushing, intolerance to cold, intolerance to heat, increased hunger, increased thirst, increased urine, unexplained weight gain, unexplained weight loss, other Allergies: Coded Allergies: LATEX, NATURAL RUBBER (Verified Allergy, Unknown, 03/27/19) PENICILLINS (Verified Allergy, Unknown, 03/27/19) SULFA (SULFONAMIDE ANTIBIOTICS) (Verified Allergy, Unknown, 03/27/19) Subjective 03/30: Us abd and CTA +pelvis imaging results reviewed, s/p PLT tx. .18: today the bone marrow biopsy not successful, will get a ct guided bx tomorrow Objective Objective Current Medications Medications (Trade) Dose Ordered Sig/Marah Route PRN Reason Start Time Stop Time Status Last Admin Dose Admin Acetaminophen (Tylenol) 650 mg Q4H PRN ORAL FEVER 03/28/19 05:15 04/27/19 05:14 03/28/19 17:12 Alprazolam (Xanax) 0.25 mg Q8HR ORAL 03/31/19 09:00 04/07/19 08:59 03/31/19 13:33 Diphenhydramine HCl (Benadryl) 25 mg Q6H PRN ORAL Itching 03/30/19 13:00 04/29/19 12:59 03/31/19 02:12 Escitalopram Oxalate (Lexapro) 10 mg DAILY ORAL 03/31/19 09:00 04/30/19 08:59 03/31/19 08:41 Lidocaine HCl (Xylocaine 1% 30ml) 30 ml NOW PRN INJ Radiology Procedure 03/31/19 11:15 03/31/19 23:59 Lorazepam (Ativan) 1 mg ONCE PRN ORAL BIOPSY 03/31/19 11:15 03/31/19 23:59 Losartan Potassium (Cozaar) 25 mg DAILY ORAL 03/29/19 09:00 04/28/19 08:59 03/31/19 08:42 Methylprednisolone Sodium Succinate (Solu-MEDROL) 60 mg EVERY 6 HOURS IV 03/30/19 13:00 04/29/19 12:59 03/31/19 11:48 Morphine Sulfate (Morphine Sulfate) 2 mg Q4H PRN IVP severe Pain (Pain Scale 7-10) 03/28/19 05:15 04/04/19 05:14 03/31/19 10:35 Nitroglycerin (Ntg) 0.4 mg Q5M PRN SL Prn Chest Pain 03/28/19 05:15 04/27/19 05:14 Ondansetron HCl (Zofran) 4 mg Q6H PRN IVP Nausea & Vomiting 03/28/19 05:15 04/27/19 05:14 03/28/19 13:53 Sodium Phosphate 30 mm/Sodium Chloride 285 ml @ 47.5 mls/hr ONCE ONCE IVPB 03/31/19 11:30 03/31/19 17:29 03/31/19 11:48 Temazepam (Restoril) 15 mg HSPRN PRN ORAL Insomnia 03/28/19 05:15 04/04/19 05:14 Last 24 Hour Vital Signs Date Time Temp Pulse Resp B/P (MAP) Pulse Ox O2 Delivery O2 Flow Rate FiO2 03/31/19 12:00 97.5 76 20 141/72 (95) 99 03/31/19 12:00 76 03/31/19 09:00 Room Air 03/31/19 08:42 146/71 03/31/19 08:00 98.6 71 20 146/71 (96) 96 03/31/19 08:00 71 03/31/19 04:00 96 03/31/19 04:00 97.7 83 16 137/72 (93) 96 03/31/19 00:00 79 03/31/19 00:00 98.5 79 18 142/80 (100) 97 03/30/19 21:00 Room Air 03/30/19 20:00 98.5 82 18 95/75 (82) 96 03/30/19 20:00 105 03/30/19 16:00 80 03/30/19 16:00 97.9 93 23 104/72 (83) 94 03/30/19 12:00 82 03/30/19 12:00 98.4 80 22 125/72 (89) 94 03/30/19 10:00 129/80 03/30/19 09:00 Room Air 03/30/19 08:00 98.2 86 24 129/80 (96) 94 03/30/19 08:00 84 03/30/19 04:00 98.3 78 18 136/74 (94) 96 03/30/19 04:00 79 03/30/19 00:00 99.6 82 19 126/72 (90) 97 03/30/19 00:00 77 03/29/19 21:00 Room Air 03/29/19 20:00 99.2 71 18 103/64 (77) 97 03/29/19 20:00 79 03/29/19 16:00 89 03/29/19 16:00 97.2 63 20 136/61 (86) 95 Intake and Output 03/30/19 03/31/19 19:00 07:00 Intake Total 240 ml Balance 240 ml Intake Oral 240 ml # Voids 1 2 Labs Test 03/29/19 06:15 03/29/19 09:40 03/29/19 17:08 03/30/19 06:38 White Blood Count 1.1 K/UL (4.8-10.8) 1.2 K/UL (4.8-10.8) 4.0 K/UL (4.8-10.8) Red Blood Count 4.52 M/UL (4.20-5.40) 4.59 M/UL (4.20-5.40) 4.12 M/UL (4.20-5.40) Hemoglobin 14.0 G/DL (12.0-16.0) 14.4 G/DL (12.0-16.0) 13.2 G/DL (12.0-16.0) Hematocrit 41.5 % (37.0-47.0) 40.9 % (37.0-47.0) 38.2 % (37.0-47.0) Mean Corpuscular Volume 92 FL (80-99) 89 FL (80-99) 93 FL (80-99) Mean Corpuscular Hemoglobin 30.9 PG (27.0-31.0) 31.5 PG (27.0-31.0) 31.9 PG (27.0-31.0) Mean Corpuscular Hemoglobin Concent 33.6 G/DL (32.0-36.0) 35.3 G/DL (32.0-36.0) 34.4 G/DL (32.0-36.0) Red Cell Distribution Width 11.5 % (11.6-14.8) 11.1 % (11.6-14.8) 12.0 % (11.6-14.8) Platelet Count 6 K/UL (150-450) 7 K/UL (150-450) 23 K/UL (150-450) Mean Platelet Volume 7.8 FL (6.5-10.1) FL (6.5-10.1) 14.4 FL (6.5-10.1) Neutrophils (%) (Auto) % (45.0-75.0) % (45.0-75.0) % (45.0-75.0) Lymphocytes (%) (Auto) % (20.0-45.0) % (20.0-45.0) % (20.0-45.0) Monocytes (%) (Auto) % (1.0-10.0) % (1.0-10.0) % (1.0-10.0) Eosinophils (%) (Auto) % (0.0-3.0) % (0.0-3.0) % (0.0-3.0) Basophils (%) (Auto) % (0.0-2.0) % (0.0-2.0) % (0.0-2.0) Differential Total Cells Counted 100 100 100 Neutrophils % (Manual) 24 % (45-75) 21 % (45-75) 67 % (45-75) Lymphocytes % (Manual) 55 % (20-45) 58 % (20-45) 15 % (20-45) Monocytes % (Manual) 16 % (1-10) 17 % (1-10) 14 % (1-10) Eosinophils % (Manual) 5 % (0-3) 4 % (0-3) 2 % (0-3) Basophils % (Manual) 0 % (0-2) 0 % (0-2) 2 % (0-2) Band Neutrophils 0 % (0-8) 0 % (0-8) 0 % (0-8) Platelet Estimate Decreased Decreased Decreased Platelet Morphology Normal Normal Normal Red Blood Cell Morphology Normal Normal Normal Prothrombin Time 11.4 SEC (9.30-11.50) Prothromb Time International Ratio 1.1 (0.9-1.1) Activated Partial Thromboplast Time 32 SEC (23-33) Sodium Level 138 MMOL/L (136-145) 139 MMOL/L (136-145) Potassium Level 4.5 MMOL/L (3.5-5.1) 3.9 MMOL/L (3.5-5.1) Chloride Level 103 MMOL/L (98-107) 105 MMOL/L (98-107) Carbon Dioxide Level 25 MMOL/L (21-32) 26 MMOL/L (21-32) Anion Gap 10 mmol/L (5-15) 8 mmol/L (5-15) Blood Urea Nitrogen 16 mg/dL (7-18) 16 mg/dL (7-18) Creatinine 0.6 MG/DL (0.55-1.30) 0.6 MG/DL (0.55-1.30) Estimat Glomerular Filtration Rate mL/min (>60) mL/min (>60) Glucose Level 138 MG/DL (74-106) 121 MG/DL (74-106) Calcium Level 8.5 MG/DL (8.5-10.1) 8.1 MG/DL (8.5-10.1) Troponin I 0.000 ng/mL (0.000-0.056) 0.002 ng/mL (0.000-0.056) C-Reactive Protein, Quantitative 15.1 mg/dL (0.00-0.90) Triglycerides Level 190 MG/DL (30-150) Cholesterol Level 135 MG/DL (< 200) LDL Cholesterol 59 mg/dL (<100) HDL Cholesterol 10 MG/DL (40-60) Cholesterol/HDL Ratio 13.5 (3.3-4.4) Thyroid Stimulating Hormone (TSH) 0.633 uiU/mL (0.358-3.740) D-Dimer 4.26 mg/L FEU (0.00-0.49) Lactate Dehydrogenase 213 U/L (81-234) Carcinoembryonic Antigen 2.3 ng/mL (0.0-4.7) CA 19-9 Antigen 9 U/mL (0-35) Hepatitis A IgM Antibody Negative (Negative) Hepatitis B Surface Antigen Negative (Negative) Hepatitis B Core IgM Antibody Negative (Negative) Hepatitis C Antibody 0.1 s/co ratio (0.0-0.9) Test 03/31/19 07:22 White Blood Count 3.7 K/UL (4.8-10.8) Red Blood Count 4.26 M/UL (4.20-5.40) Hemoglobin 13.5 G/DL (12.0-16.0) Hematocrit 39.4 % (37.0-47.0) Mean Corpuscular Volume 92 FL (80-99) Mean Corpuscular Hemoglobin 31.7 PG (27.0-31.0) Mean Corpuscular Hemoglobin Concent 34.3 G/DL (32.0-36.0) Red Cell Distribution Width 12.0 % (11.6-14.8) Platelet Count 27 K/UL (150-450) Mean Platelet Volume 9.1 FL (6.5-10.1) Neutrophils (%) (Auto) % (45.0-75.0) Lymphocytes (%) (Auto) % (20.0-45.0) Monocytes (%) (Auto) % (1.0-10.0) Eosinophils (%) (Auto) % (0.0-3.0) Basophils (%) (Auto) % (0.0-2.0) Differential Total Cells Counted 100 Neutrophils % (Manual) 66 % (45-75) Lymphocytes % (Manual) 16 % (20-45) Monocytes % (Manual) 8 % (1-10) Eosinophils % (Manual) 0 % (0-3) Basophils % (Manual) 0 % (0-2) Band Neutrophils 10 % (0-8) Platelet Estimate Decreased Platelet Morphology Normal Anisocytosis 1+ Prothrombin Time 10.8 SEC (9.30-11.50) Prothromb Time International Ratio 1.0 (0.9-1.1) Activated Partial Thromboplast Time 26 SEC (23-33) Sodium Level 139 MMOL/L (136-145) Potassium Level 4.3 MMOL/L (3.5-5.1) Chloride Level 104 MMOL/L (98-107) Carbon Dioxide Level 24 MMOL/L (21-32) Anion Gap 11 mmol/L (5-15) Blood Urea Nitrogen 17 mg/dL (7-18) Creatinine 0.7 MG/DL (0.55-1.30) Estimat Glomerular Filtration Rate mL/min (>60) Glucose Level 178 MG/DL (74-106) Calcium Level 8.7 MG/DL (8.5-10.1) Phosphorus Level 2.1 MG/DL (2.5-4.9) Magnesium Level 2.3 MG/DL (1.8-2.4) Total Bilirubin 0.4 MG/DL (0.2-1.0) Aspartate Amino Transf (AST/SGOT) 36 U/L (15-37) Alanine Aminotransferase (ALT/SGPT) 134 U/L (12-78) Alkaline Phosphatase 176 U/L (46-116) Total Protein 6.5 G/DL (6.4-8.2) Albumin 2.9 G/DL (3.4-5.0) Globulin 3.6 g/dL Albumin/Globulin Ratio 0.8 (1.0-2.7) Height (Feet): 5 Height (Inches): 1.00 Weight (Pounds): 150 Objective Physical Exam Vital Signs reviewed General Appearance: well appearing, no apparent distress, alert Head: normocephalic, atraumatic Eyes: bilateral eye PERRL, bilateral eye EOMI, abrasion under left eye ENT: hearing grossly normal, normal pharynx Neck: full range of motion, supple, no meningismus Respiratory: chest non-tender, lungs clear, normal breath sounds Cardiovascular #1: regular rate, rhythm, no murmur Gastrointestinal: normal bowel sounds, non tender, no mass, no organomegaly, no bruit, non-distended Musculoskeletal: back normal, gait/station normal, normal range of motion Psychiatric: mood/affect normal Skin: warm/dry, small bruises BLE Chi Berry MD Mar 31, 2019 15:42
[2019-03-31 16:00] VITALS: BP 133/84
--- NOTE | 2019-03-31 16:23 | Cardiac Electrophysiology PN ---
Assessment/Plan Assessment/Plan 1. Chest pain.Ruled out for myocardial infarction. Her EKG is normal. Echocardiogram showed normal left ventricular systolic function. D-dimer is elevated but VQ scan was negative Hold off on nuclear stress test in view of ne pancytopenia 2. Hypertension. Continue losartan 25 mg daily 3. Gastroesophageal reflux. 4. Hyperlipidemia. The patient was on Crestor 10 mg daily. 5. Pancytopenia with WBC 1.2 and platelet count of 7K. CT guided BM biopsy per Dr Delacruz tomorrow. Getting PLT transfusion today 6. Right ear pain DW RN Subjective Subjective BM biopsy was not successful. No CP or SOB. VQ scan negative for PE and stress test was cancelled today Objective Last 24 Hour Vital Signs Date Time Temp Pulse Resp B/P (MAP) Pulse Ox O2 Delivery O2 Flow Rate FiO2 03/31/19 12:00 97.5 76 20 141/72 (95) 99 03/31/19 12:00 76 03/31/19 09:00 Room Air 03/31/19 08:42 146/71 03/31/19 08:00 98.6 71 20 146/71 (96) 96 03/31/19 08:00 71 03/31/19 04:00 96 03/31/19 04:00 97.7 83 16 137/72 (93) 96 03/31/19 00:00 79 03/31/19 00:00 98.5 79 18 142/80 (100) 97 03/30/19 21:00 Room Air 03/30/19 20:00 98.5 82 18 95/75 (82) 96 03/30/19 20:00 105 Intake and Output 03/30/19 03/31/19 19:00 07:00 Intake Total 240 ml Balance 240 ml Intake Oral 240 ml # Voids 1 2 Laboratory Tests Test 03/31/19 07:22 White Blood Count 3.7 K/UL (4.8-10.8) L Red Blood Count 4.26 M/UL (4.20-5.40) Hemoglobin 13.5 G/DL (12.0-16.0) Hematocrit 39.4 % (37.0-47.0) Mean Corpuscular Volume 92 FL (80-99) Mean Corpuscular Hemoglobin 31.7 PG (27.0-31.0) H Mean Corpuscular Hemoglobin Concent 34.3 G/DL (32.0-36.0) Red Cell Distribution Width 12.0 % (11.6-14.8) Platelet Count 27 K/UL (150-450) L Mean Platelet Volume 9.1 FL (6.5-10.1) Neutrophils (%) (Auto) % (45.0-75.0) Lymphocytes (%) (Auto) % (20.0-45.0) Monocytes (%) (Auto) % (1.0-10.0) Eosinophils (%) (Auto) % (0.0-3.0) Basophils (%) (Auto) % (0.0-2.0) Differential Total Cells Counted 100 Neutrophils % (Manual) 66 % (45-75) Lymphocytes % (Manual) 16 % (20-45) L Monocytes % (Manual) 8 % (1-10) Eosinophils % (Manual) 0 % (0-3) Basophils % (Manual) 0 % (0-2) Band Neutrophils 10 % (0-8) H Platelet Estimate Decreased L Platelet Morphology Normal Anisocytosis 1+ Prothrombin Time 10.8 SEC (9.30-11.50) Prothromb Time International Ratio 1.0 (0.9-1.1) Activated Partial Thromboplast Time 26 SEC (23-33) Sodium Level 139 MMOL/L (136-145) Potassium Level 4.3 MMOL/L (3.5-5.1) Chloride Level 104 MMOL/L (98-107) Carbon Dioxide Level 24 MMOL/L (21-32) Anion Gap 11 mmol/L (5-15) Blood Urea Nitrogen 17 mg/dL (7-18) Creatinine 0.7 MG/DL (0.55-1.30) Estimat Glomerular Filtration Rate mL/min (>60) Glucose Level 178 MG/DL (74-106) H Calcium Level 8.7 MG/DL (8.5-10.1) Phosphorus Level 2.1 MG/DL (2.5-4.9) L Magnesium Level 2.3 MG/DL (1.8-2.4) Total Bilirubin 0.4 MG/DL (0.2-1.0) Aspartate Amino Transf (AST/SGOT) 36 U/L (15-37) Alanine Aminotransferase (ALT/SGPT) 134 U/L (12-78) H Alkaline Phosphatase 176 U/L (46-116) H Total Protein 6.5 G/DL (6.4-8.2) Albumin 2.9 G/DL (3.4-5.0) L Globulin 3.6 g/dL Albumin/Globulin Ratio 0.8 (1.0-2.7) L Alpha Fetoprotein Pending Microbiology Date/Time Source Procedure Growth Status 03/28/19 20:05 Blood Blood Culture - Preliminary NO GROWTH AFTER 48 HOURS Resulted 03/28/19 20:00 Blood Blood Culture - Preliminary NO GROWTH AFTER 48 HOURS Resulted Objective HEAD AND NECK: No JVD or carotid bruits. LUNGS: Clear. CARDIOVASCULAR: $egular S1 and S2 with no gallop or murmur. ABDOMEN: Soft. EXTREMITIES: Showed no pitting edema. Molina Bradley MD Mar 31, 2019 16:23
[2019-03-31 20:00] VITALS: BP 143/77
[2019-04-01] VITALS: BP 147/88
[2019-04-01] MEDS: Solu-MEDROL 125mg Inj IV SCH ×4 (02:00→17:12)
[2019-04-01 04:00] VITALS: BP 140/86
[2019-04-01] MEDS: ALPRAZolam 0.25mg tab ORAL SCH ×2 (06:27→14:00)
[2019-04-01 07:32] LABS: HEMATOCRIT 35.3 % (37.0-47.0); HEMOGLOBIN 12.2 G/DL (12.0-16.0); MEAN CORPUSCULAR VOLUME 92 FL (80-99); PLATELET COUNT 29 K/UL (150-450); RED BLOOD COUNT 3.83 M/UL (4.20-5.40); RED CELL DISTRIBUTION WIDTH 12.3 % (11.6-14.8)
[2019-04-01 07:38] LABS: ALANINE AMINOTRANSFERASE 102 U/L (12-78); ALBUMIN 2.9 G/DL (3.4-5.0); ALBUMIN/GLOBULIN RATIO 0.8 (1.0-2.7); ALKALINE PHOSPHATASE 152 U/L (46-116); ANION GAP 11 mmol/L (5-15); ASPARTATE AMINO TRANSFERASE 20 U/L (15-37); BILIRUBIN,TOTAL 0.3 MG/DL (0.2-1.0); BLOOD UREA NITROGEN 25 mg/dL (7-18); CALCIUM 8.7 MG/DL (8.5-10.1); CARBON DIOXIDE 26 MMOL/L (21-32); CHLORIDE 108 MMOL/L (98-107); CREATININE 0.6 MG/DL (0.55-1.30); POTASSIUM 4.1 MMOL/L (3.5-5.1); SODIUM 145 MMOL/L (136-145)
[2019-04-01 08:00] VITALS: BP 155/88
[2019-04-01] MEDS ORDERED: LORazepam Inj 2mg/ml 1ml IV PRN (08:00)
[2019-04-01] MEDS ORDERED: Morphine Sulfate 2mg/ml Inj(IV/IM USE ONLY) IVP PRN (08:00)
[2019-04-01] MEDS: Losartan 25mg tab ORAL SCH (09:16)
--- NOTE | 2019-04-01 09:33 | GI Progress Note ---
Assessment/Plan Problems: (1) GERD (gastroesophageal reflux disease) ICD Codes: K21.9 - Gastro-esophageal reflux disease without esophagitis SNOMED: 619295043 (2) Hepatic cyst ICD Codes: K76.89 - Other specified diseases of liver SNOMED: 11431278 (3) Thrombocytopenia ICD Codes: D69.6 - Thrombocytopenia, unspecified SNOMED: 525264181 (4) Leukopenia ICD Codes: D72.819 - Decreased white blood cell count, unspecified SNOMED: 20588601, 707023489 (5) Renal mass ICD Codes: N28.89 - Other specified disorders of kidney and ureter SNOMED: 118947323 Status: unchanged Status Narrative Discussed with Dr. Galvan Assessment/Plan recent EGD/colonoscopy within the year history of hepatic angioma with liver resection approximately 5 years ago CTAP reviewed, multiple hepatic cysts most likely simple benign cysts Hepatitis panel negative No plans for GI procedures at this time defer MRI liver protocol at this time follow up hematology recommendations, bone marrow biopsy rule out leukemia follow up cardiology recs, stress test on hold due to leukopenia ppi BID advance diet as tolerated prn transfusions zofran prn follow labs, AFP The patient was seen and examined at bedside and all new and available data was reviewed in the patients chart. I agree with the above findings, impression and plan. (Patient seen earlier today. Signature stamp does not reflect patient encounter time.). - Anthony Galvan MD Subjective Gastrointestinal/Abdominal: Reports: no symptoms Objective Last 24 Hour Vital Signs Date Time Temp Pulse Resp B/P (MAP) Pulse Ox O2 Delivery O2 Flow Rate FiO2 04/01/19 09:16 155/88 04/01/19 08:00 97.6 65 23 155/88 (110) 94 04/01/19 04:00 97.7 67 18 140/86 (104) 96 04/01/19 04:00 52 04/01/19 00:00 63 04/01/19 00:00 97.8 67 18 147/88 (107) 96 03/31/19 21:00 Room Air 03/31/19 20:00 97.7 76 18 143/77 (99) 94 03/31/19 20:00 75 03/31/19 16:00 76 03/31/19 16:00 97.6 73 20 133/84 (100) 94 03/31/19 12:00 97.5 76 20 141/72 (95) 99 03/31/19 12:00 76 Intake and Output 03/31/19 04/01/19 18:59 06:59 Intake Total 140 ml 320 ml Balance 140 ml 320 ml Intake Oral 140 ml 120 ml Blood Product 200 ml # Voids 2 Laboratory Tests Test 04/01/19 06:15 White Blood Count 3.0 K/UL (4.8-10.8) L Red Blood Count 3.83 M/UL (4.20-5.40) L Hemoglobin 12.2 G/DL (12.0-16.0) Hematocrit 35.3 % (37.0-47.0) L Mean Corpuscular Volume 92 FL (80-99) Mean Corpuscular Hemoglobin 31.8 PG (27.0-31.0) H Mean Corpuscular Hemoglobin Concent 34.4 G/DL (32.0-36.0) Red Cell Distribution Width 12.3 % (11.6-14.8) Platelet Count 29 K/UL (150-450) L Mean Platelet Volume 13.7 FL (6.5-10.1) H Neutrophils (%) (Auto) % (45.0-75.0) Lymphocytes (%) (Auto) % (20.0-45.0) Monocytes (%) (Auto) % (1.0-10.0) Eosinophils (%) (Auto) % (0.0-3.0) Basophils (%) (Auto) % (0.0-2.0) Differential Total Cells Counted 100 Neutrophils % (Manual) 55 % (45-75) Lymphocytes % (Manual) 28 % (20-45) Monocytes % (Manual) 14 % (1-10) H Eosinophils % (Manual) 1 % (0-3) Basophils % (Manual) 0 % (0-2) Band Neutrophils 2 % (0-8) Reactive Lymphocytes 1+ Platelet Estimate Decreased L Platelet Morphology Normal Sodium Level 145 MMOL/L (136-145) Potassium Level 4.1 MMOL/L (3.5-5.1) Chloride Level 108 MMOL/L (98-107) H Carbon Dioxide Level 26 MMOL/L (21-32) Anion Gap 11 mmol/L (5-15) Blood Urea Nitrogen 25 mg/dL (7-18) H Creatinine 0.6 MG/DL (0.55-1.30) Estimat Glomerular Filtration Rate mL/min (>60) Glucose Level 174 MG/DL (74-106) H Calcium Level 8.7 MG/DL (8.5-10.1) Phosphorus Level 3.0 MG/DL (2.5-4.9) Total Bilirubin 0.3 MG/DL (0.2-1.0) Aspartate Amino Transf (AST/SGOT) 20 U/L (15-37) Alanine Aminotransferase (ALT/SGPT) 102 U/L (12-78) H Alkaline Phosphatase 152 U/L (46-116) H Total Protein 6.4 G/DL (6.4-8.2) Albumin 2.9 G/DL (3.4-5.0) L Globulin 3.5 g/dL Albumin/Globulin Ratio 0.8 (1.0-2.7) L Height (Feet): 5 Height (Inches): 1.00 Weight (Pounds): 154 General Appearance: WD/WN, no apparent distress, alert Cardiovascular: normal rate Respiratory/Chest: normal breath sounds, no respiratory distress Abdominal Exam: normal bowel sounds, non tender, soft Extremities: normal range of motion, non-tender Francisco Yanez NP Apr 01, 2019 09:33
[2019-04-01 12:00] VITALS: BP 148/93
--- NOTE | 2019-04-01 13:07 | Infectious Diseases Prog Note ---
Assessment/Plan Assessment/Plan The patient is a 73-year-old female with, Epigastric and left lower quadrant pain. CT abd/pel 03/29/19 - Inflammatory changes extending from the betty hepatis to the posterior retroperitoneum, as described. There may be tiny associated 18 x 12 x 40 mm fluid collection which could represent an abscess. Prominent nodes in the area are likely reactive. Etiology of the inflammatory changes uncertain, could indicate duodenitis, focal pancreatitis of the pancreatic head/uncinate. Less likely ascending diverticulitis, as no definite diverticula are demonstrated. Acute appendicitis is also a possibility, also less likely as the fluid collection does not have a typical appearance of an inflamed appendix and there is a suggestion of visualization of portions of a normal appendix. Correlation with the findings is recommended. Trace free pelvic fluid, presumably related to the above Evidence of prior cholecystectomy. Evidence of prior hepatic surgery. Mild ectasia of the extra hepatic bile ducts probably related to age and postcholecystectomy state. Recommend correlation with liver function tests. Prominent left extrarenal pelvis, with suggestion of some inflammation of the urothelium. Could indicate pyelitis. Correlate with clinical and urinalysis findings Left renal parapelvic cysts versus mild left hydronephrosis, favor the forme Trace right pleural fluid Extensive spinal fusion hardware. This results in streak artifact which limits visualization of the retroperitoneum. Right renal lower pole 12 mm lesion. Probably a cyst. Attenuation measurements are those of a solid lesion, but suspect this is artifact due to beam hardening from adjacent spinal hardware. Recommend sonography to assess whether cystic or solid. Other subcentimeter low-attenuation lesions within the right kidney are too small to characterize most likely represent benign simple cyst. Nonobstructive left lower pole intrarenal calyceal calculus Hepatic cysts. Subcentimeter low-attenuation hepatic lesions which are too small to characterize, most likely benign simple cysts. Other findings as noted, including small hiatal hernia, right basilar pulmonary atelectatic changes HIV Neg Hepatitis B/C serology pending Probable urinary tract infection (history of increase of urinary frequency). UCx - E coli warner sen Rash Likely allergic reaction Unclear if abx - Was given ceftriaxone Right jaw pain Hx of TMJ PLAN: - Monitor off abx - 03/30/19 SP Ceftriaxone held for rash - Would recommend indium scan for evaluation of liver lesion CA vs less likely infection given lack of clear sepsis. The CT scan is not specific for abscess and patient with clear signs of sepsis and has had significant liver surgery in the past. - Monitor CBC and BMP. - Monitor cultures, blood - F/u Hepatitis panel - f/u repeat BM Bx - f/u Indium scan and MRI - f/u imaging records from [facility] Thank you for this consultation. I will follow the patient with you during this hospitalization. Subjective Allergies: Coded Allergies: LATEX, NATURAL RUBBER (Verified Allergy, Unknown, 03/27/19) PENICILLINS (Verified Allergy, Unknown, 03/27/19) SULFA (SULFONAMIDE ANTIBIOTICS) (Verified Allergy, Unknown, 03/27/19) Subjective Afebrile WBCs 3 Objective Vital Signs Last 24 Hour Vital Signs Date Time Temp Pulse Resp B/P (MAP) Pulse Ox O2 Delivery O2 Flow Rate FiO2 04/01/19 12:00 97.4 65 23 148/93 (111) 96 04/01/19 09:16 155/88 04/01/19 09:00 Room Air 04/01/19 08:00 97.6 65 23 155/88 (110) 94 04/01/19 08:00 63 04/01/19 04:00 97.7 67 18 140/86 (104) 96 04/01/19 04:00 52 04/01/19 00:00 63 04/01/19 00:00 97.8 67 18 147/88 (107) 96 03/31/19 21:00 Room Air 03/31/19 20:00 97.7 76 18 143/77 (99) 94 03/31/19 20:00 75 03/31/19 16:00 76 03/31/19 16:00 97.6 73 20 133/84 (100) 94 Height (Feet): 5 Height (Inches): 1.00 Weight (Pounds): 154 Objective GEN: NAD HEENT: NCAT, MMM, EOMI CHEST: CTAB, No W HEART: S1 and S2. ABDOMEN: Soft. NT, ND NEUROLOGIC: Awake and alert Laboratory Tests Test 04/01/19 06:15 White Blood Count 3.0 K/UL (4.8-10.8) L Red Blood Count 3.83 M/UL (4.20-5.40) L Hemoglobin 12.2 G/DL (12.0-16.0) Hematocrit 35.3 % (37.0-47.0) L Mean Corpuscular Volume 92 FL (80-99) Mean Corpuscular Hemoglobin 31.8 PG (27.0-31.0) H Mean Corpuscular Hemoglobin Concent 34.4 G/DL (32.0-36.0) Red Cell Distribution Width 12.3 % (11.6-14.8) Platelet Count 29 K/UL (150-450) L Mean Platelet Volume 13.7 FL (6.5-10.1) H Neutrophils (%) (Auto) % (45.0-75.0) Lymphocytes (%) (Auto) % (20.0-45.0) Monocytes (%) (Auto) % (1.0-10.0) Eosinophils (%) (Auto) % (0.0-3.0) Basophils (%) (Auto) % (0.0-2.0) Differential Total Cells Counted 100 Neutrophils % (Manual) 55 % (45-75) Lymphocytes % (Manual) 28 % (20-45) Monocytes % (Manual) 14 % (1-10) H Eosinophils % (Manual) 1 % (0-3) Basophils % (Manual) 0 % (0-2) Band Neutrophils 2 % (0-8) Reactive Lymphocytes 1+ Platelet Estimate Decreased L Platelet Morphology Normal Sodium Level 145 MMOL/L (136-145) Potassium Level 4.1 MMOL/L (3.5-5.1) Chloride Level 108 MMOL/L (98-107) H Carbon Dioxide Level 26 MMOL/L (21-32) Anion Gap 11 mmol/L (5-15) Blood Urea Nitrogen 25 mg/dL (7-18) H Creatinine 0.6 MG/DL (0.55-1.30) Estimat Glomerular Filtration Rate mL/min (>60) Glucose Level 174 MG/DL (74-106) H Calcium Level 8.7 MG/DL (8.5-10.1) Phosphorus Level 3.0 MG/DL (2.5-4.9) Total Bilirubin 0.3 MG/DL (0.2-1.0) Aspartate Amino Transf (AST/SGOT) 20 U/L (15-37) Alanine Aminotransferase (ALT/SGPT) 102 U/L (12-78) H Alkaline Phosphatase 152 U/L (46-116) H Total Protein 6.4 G/DL (6.4-8.2) Albumin 2.9 G/DL (3.4-5.0) L Globulin 3.5 g/dL Albumin/Globulin Ratio 0.8 (1.0-2.7) L Current Medications Medications (Trade) Dose Ordered Sig/Marah Route PRN Reason Start Time Stop Time Status Last Admin Dose Admin Acetaminophen (Tylenol) 650 mg Q4H PRN ORAL FEVER 03/28/19 05:15 04/27/19 05:14 03/28/19 17:12 Alprazolam (Xanax) 0.25 mg Q8HR ORAL 03/31/19 09:00 04/07/19 08:59 04/01/19 06:27 Diphenhydramine HCl (Benadryl) 25 mg Q6H PRN ORAL Itching 03/30/19 13:00 04/29/19 12:59 03/31/19 02:12 Escitalopram Oxalate (Lexapro) 10 mg DAILY ORAL 03/31/19 09:00 04/30/19 08:59 04/01/19 09:16 Lorazepam (Ativan 2mg/ml 1ml) 1 mg ONCE PRN IV prior to biopsy 04/01/19 08:00 04/01/19 23:59 Losartan Potassium (Cozaar) 25 mg DAILY ORAL 03/29/19 09:00 04/28/19 08:59 04/01/19 09:16 Methylprednisolone Sodium Succinate (Solu-MEDROL) 60 mg EVERY 6 HOURS IV 03/30/19 13:00 04/29/19 12:59 04/01/19 06:27 Morphine Sulfate (Morphine Sulfate) 2 mg ONCE PRN IVP prior to biopsy 04/01/19 08:00 04/01/19 23:59 Morphine Sulfate (Morphine Sulfate) 2 mg Q4H PRN IVP severe Pain (Pain Scale 7-10) 03/28/19 05:15 04/04/19 05:14 03/31/19 10:35 Nitroglycerin (Ntg) 0.4 mg Q5M PRN SL Prn Chest Pain 03/28/19 05:15 04/27/19 05:14 Ondansetron HCl (Zofran) 4 mg Q6H PRN IVP Nausea & Vomiting 03/28/19 05:15 04/27/19 05:14 03/28/19 13:53 Temazepam (Restoril) 15 mg HSPRN PRN ORAL Insomnia 03/28/19 05:15 04/04/19 05:14 Mingo Castro MD Apr 01, 2019 13:07
--- NOTE | 2019-04-01 15:08 | Pulmonology Progress Note ---
Assessment/Plan Problems: (1) Duodenitis (2) Renal mass (3) Leukopenia (4) Thrombocytopenia (5) ACS (acute coronary syndrome) (6) GERD (gastroesophageal reflux disease) (7) Allergic dermatitis Assessment/Plan awaiting bone marrow f/u blood smear V/w scan to rule out PE taper solumedrol for allergic dermatis stress study ordered. echo reviewed. Subjective ROS Limited/Unobtainable: No Constitutional: Reports: no symptoms HEENT: Repors: no symptoms Respiratory: Reports: no symptoms Allergies: Coded Allergies: LATEX, NATURAL RUBBER (Verified Allergy, Unknown, 03/27/19) PENICILLINS (Verified Allergy, Unknown, 03/27/19) SULFA (SULFONAMIDE ANTIBIOTICS) (Verified Allergy, Unknown, 03/27/19) Objective Last 24 Hour Vital Signs Date Time Temp Pulse Resp B/P (MAP) Pulse Ox O2 Delivery O2 Flow Rate FiO2 04/01/19 12:00 97.4 65 23 148/93 (111) 96 04/01/19 09:16 155/88 04/01/19 09:00 Room Air 04/01/19 08:00 97.6 65 23 155/88 (110) 94 04/01/19 08:00 63 04/01/19 04:00 97.7 67 18 140/86 (104) 96 04/01/19 04:00 52 04/01/19 00:00 63 04/01/19 00:00 97.8 67 18 147/88 (107) 96 03/31/19 21:00 Room Air 03/31/19 20:00 97.7 76 18 143/77 (99) 94 03/31/19 20:00 75 03/31/19 16:00 76 03/31/19 16:00 97.6 73 20 133/84 (100) 94 Intake and Output 03/31/19 04/01/19 18:59 06:59 Intake Total 140 ml 320 ml Balance 140 ml 320 ml Intake Oral 140 ml 120 ml Blood Product 200 ml # Voids 2 General Appearance: WD/WN HEENT: atraumatic, PERRL Respiratory/Chest: chest wall non-tender, lungs clear Cardiovascular: normal peripheral pulses, regularly irregular Abdomen: soft, non tender Genitourinary: normal external genitalia Skin: no rash Laboratory Tests 04/01/19 06:15: White Blood Count 3.0L, Red Blood Count 3.83L, Hemoglobin 12.2, Hematocrit 35.3L , Mean Corpuscular Volume 92, Mean Corpuscular Hemoglobin 31.8H, Mean Corpuscular Hemoglobin Concent 34.4, Red Cell Distribution Width 12.3, Platelet Count 29L, Mean Platelet Volume 13.7H, Neutrophils (%) (Auto) , Lymphocytes (%) (Auto) , Monocytes (%) (Auto) , Eosinophils (%) (Auto) , Basophils (%) (Auto) , Differential Total Cells Counted 100, Neutrophils % (Manual) 55, Lymphocytes % ( Manual) 28, Monocytes % (Manual) 14H, Eosinophils % (Manual) 1, Basophils % ( Manual) 0, Band Neutrophils 2, Reactive Lymphocytes 1+, Platelet Estimate DecreasedL, Platelet Morphology Normal, Sodium Level 145, Potassium Level 4.1, Chloride Level 108H, Carbon Dioxide Level 26, Anion Gap 11, Blood Urea Nitrogen 25H, Creatinine 0.6, Estimat Glomerular Filtration Rate , Glucose Level 174H, Calcium Level 8.7, Phosphorus Level 3.0, Total Bilirubin 0.3, Aspartate Amino Transf (AST/SGOT) 20, Alanine Aminotransferase (ALT/SGPT) 102H, Alkaline Phosphatase 152H, Total Protein 6.4, Albumin 2.9L, Globulin 3.5, Albumin/ Globulin Ratio 0.8L Current Medications Medications (Trade) Dose Ordered Sig/Marah Route PRN Reason Start Time Stop Time Status Last Admin Dose Admin Acetaminophen (Tylenol) 650 mg Q4H PRN ORAL FEVER 03/28/19 05:15 04/27/19 05:14 03/28/19 17:12 Alprazolam (Xanax) 0.25 mg Q8HR ORAL 03/31/19 09:00 04/07/19 08:59 04/01/19 06:27 Diphenhydramine HCl (Benadryl) 25 mg Q6H PRN ORAL Itching 03/30/19 13:00 04/29/19 12:59 03/31/19 02:12 Escitalopram Oxalate (Lexapro) 10 mg DAILY ORAL 03/31/19 09:00 04/30/19 08:59 04/01/19 09:16 Lorazepam (Ativan 2mg/ml 1ml) 1 mg ONCE PRN IV prior to biopsy 04/01/19 08:00 04/01/19 23:59 Losartan Potassium (Cozaar) 25 mg DAILY ORAL 03/29/19 09:00 04/28/19 08:59 04/01/19 09:16 Methylprednisolone Sodium Succinate (Solu-MEDROL) 60 mg EVERY 6 HOURS IV 03/30/19 13:00 04/29/19 12:59 04/01/19 06:27 Morphine Sulfate (Morphine Sulfate) 2 mg ONCE PRN IVP prior to biopsy 04/01/19 08:00 04/01/19 23:59 Morphine Sulfate (Morphine Sulfate) 2 mg Q4H PRN IVP severe Pain (Pain Scale 7-10) 03/28/19 05:15 04/04/19 05:14 03/31/19 10:35 Nitroglycerin (Ntg) 0.4 mg Q5M PRN SL Prn Chest Pain 03/28/19 05:15 04/27/19 05:14 Ondansetron HCl (Zofran) 4 mg Q6H PRN IVP Nausea & Vomiting 03/28/19 05:15 04/27/19 05:14 03/28/19 13:53 Temazepam (Restoril) 15 mg HSPRN PRN ORAL Insomnia 03/28/19 05:15 04/04/19 05:14 Narinder Pedro MD Apr 01, 2019 15:08
--- NOTE | 2019-04-01 15:13 | General Progress Note ---
Assessment/Plan Problem List: (1) Leukopenia ICD Codes: D72.819 - Decreased white blood cell count, unspecified SNOMED: 91387224, 064030420 (2) Thrombocytopenia ICD Codes: D69.6 - Thrombocytopenia, unspecified SNOMED: 824361842 (3) UTI (urinary tract infection) ICD Codes: N39.0 - Urinary tract infection, site not specified SNOMED: 62589930 Qualifiers: Qualified Codes: N30.00 - Acute cystitis without hematuria (4) Chest pain ICD Codes: R07.9 - Chest pain, unspecified SNOMED: 61122918 Qualifiers: Qualified Codes: R07.9 - Chest pain, unspecified (5) ACS (acute coronary syndrome) ICD Codes: I24.9 - Acute ischemic heart disease, unspecified SNOMED: 322099913 Status: unchanged Assessment/Plan: pain control cardio heme f/u cbc bmp am Subjective Constitutional: Reports: weakness Allergies: Coded Allergies: LATEX, NATURAL RUBBER (Verified Allergy, Unknown, 03/27/19) PENICILLINS (Verified Allergy, Unknown, 03/27/19) SULFA (SULFONAMIDE ANTIBIOTICS) (Verified Allergy, Unknown, 03/27/19) All Systems: reviewed and negative except above Subjective sleepy calm Objective Last 24 Hour Vital Signs Date Time Temp Pulse Resp B/P (MAP) Pulse Ox O2 Delivery O2 Flow Rate FiO2 04/01/19 12:00 97.4 65 23 148/93 (111) 96 04/01/19 09:16 155/88 04/01/19 09:00 Room Air 04/01/19 08:00 97.6 65 23 155/88 (110) 94 04/01/19 08:00 63 04/01/19 04:00 97.7 67 18 140/86 (104) 96 04/01/19 04:00 52 04/01/19 00:00 63 04/01/19 00:00 97.8 67 18 147/88 (107) 96 03/31/19 21:00 Room Air 03/31/19 20:00 97.7 76 18 143/77 (99) 94 03/31/19 20:00 75 03/31/19 16:00 76 03/31/19 16:00 97.6 73 20 133/84 (100) 94 Intake and Output 03/31/19 04/01/19 18:59 06:59 Intake Total 140 ml 320 ml Balance 140 ml 320 ml Intake Oral 140 ml 120 ml Blood Product 200 ml # Voids 2 Laboratory Tests 04/01/19 06:15: White Blood Count 3.0L, Red Blood Count 3.83L, Hemoglobin 12.2, Hematocrit 35.3L , Mean Corpuscular Volume 92, Mean Corpuscular Hemoglobin 31.8H, Mean Corpuscular Hemoglobin Concent 34.4, Red Cell Distribution Width 12.3, Platelet Count 29L, Mean Platelet Volume 13.7H, Neutrophils (%) (Auto) , Lymphocytes (%) (Auto) , Monocytes (%) (Auto) , Eosinophils (%) (Auto) , Basophils (%) (Auto) , Differential Total Cells Counted 100, Neutrophils % (Manual) 55, Lymphocytes % ( Manual) 28, Monocytes % (Manual) 14H, Eosinophils % (Manual) 1, Basophils % ( Manual) 0, Band Neutrophils 2, Reactive Lymphocytes 1+, Platelet Estimate DecreasedL, Platelet Morphology Normal, Sodium Level 145, Potassium Level 4.1, Chloride Level 108H, Carbon Dioxide Level 26, Anion Gap 11, Blood Urea Nitrogen 25H, Creatinine 0.6, Estimat Glomerular Filtration Rate , Glucose Level 174H, Calcium Level 8.7, Phosphorus Level 3.0, Total Bilirubin 0.3, Aspartate Amino Transf (AST/SGOT) 20, Alanine Aminotransferase (ALT/SGPT) 102H, Alkaline Phosphatase 152H, Total Protein 6.4, Albumin 2.9L, Globulin 3.5, Albumin/ Globulin Ratio 0.8L Height (Feet): 5 Height (Inches): 1.00 Weight (Pounds): 154 General Appearance: lethargic EENT: normal ENT inspection Neck: normal alignment Cardiovascular: normal peripheral pulses, normal rate, regular rhythm Respiratory/Chest: chest wall non-tender, lungs clear, normal breath sounds Abdomen: normal bowel sounds, non tender, soft Extremities: normal inspection Edema: no edema noted Arm (L), no edema noted Arm (R), no edema noted Leg (L), no edema noted Leg (R), no edema noted Pedal (L), no edema noted Pedal (R), no edema noted Generalized Neurologic: responsive, motor weakness Skin: normal pigmentation, warm/dry Aldair Bill DO Apr 01, 2019 15:13
[2019-04-01] MEDS ORDERED: ALPRAZolam 0.25mg tab ORAL PRN (15:30)
[2019-04-01 16:00] VITALS: BP 112/72
--- NOTE | 2019-04-01 16:07 | Diagnostic Imaging Report ---
Indication: Abdominal pain Technique: In vitro labeling white blood cells using 456 uCi of indium 111. Whole body and SPECT images obtained at 24 hours Comparison: Reference made to abdomen pelvis CT dated 03/29/2019 Findings: Normal splenic, hepatic, and bone marrow uptake demonstrated. No definite abnormal thoracic or abdominal or pelvic uptake to suggest site of active inflammation demonstrated. There is on the AP images some slightly increased activity in the nasal fossa region. This is not confirmed on lateral images. However, lateral images demonstrate increased uptake along essentially the entire course of the cervical spine. Impression: No abnormal abdominal or pelvic or thoracic uptake to suggest active inflammation Prominent uptake is seen along the course of the cervical spine on lateral planar views. Chest radiograph indicates extensive cervical spinal fusion hardware. There this could reflect inflammation related to the surgery of surgery was recent. If surgery was remote, the possibility of a cervical infectious process should be considered
--- NOTE | 2019-04-01 16:18 | Cardiac Electrophysiology PN ---
Assessment/Plan Assessment/Plan 1. Chest pain.Ruled out for myocardial infarction. Her EKG is normal. Echocardiogram showed normal left ventricular systolic function. D-dimer is elevated but VQ scan was negative Hold off on nuclear stress test in view of ne pancytopenia 2. Hypertension. Continue losartan 25 mg daily 3. Gastroesophageal reflux. 4. Hyperlipidemia. The patient was on Crestor 10 mg daily. 5. Pancytopenia with WBC 1.2 and platelet count of 7K. CT guided BM biopsy per Dr Delacruz tomorrow after PLT transfusion today( plt 29) 6. Right ear pain DW RN Subjective Subjective BM biopsy was postponed for thrombocytopenia.. No CP or SOB. Objective Last 24 Hour Vital Signs Date Time Temp Pulse Resp B/P (MAP) Pulse Ox O2 Delivery O2 Flow Rate FiO2 04/01/19 12:00 97.4 65 23 148/93 (111) 96 04/01/19 09:16 155/88 04/01/19 09:00 Room Air 04/01/19 08:00 97.6 65 23 155/88 (110) 94 04/01/19 08:00 63 04/01/19 04:00 97.7 67 18 140/86 (104) 96 04/01/19 04:00 52 04/01/19 00:00 63 04/01/19 00:00 97.8 67 18 147/88 (107) 96 03/31/19 21:00 Room Air 03/31/19 20:00 97.7 76 18 143/77 (99) 94 03/31/19 20:00 75 Intake and Output 03/31/19 04/01/19 19:00 07:00 Intake Total 140 ml 320 ml Balance 140 ml 320 ml Intake Oral 140 ml 120 ml Blood Product 200 ml # Voids 2 Laboratory Tests Test 04/01/19 06:15 White Blood Count 3.0 K/UL (4.8-10.8) L Red Blood Count 3.83 M/UL (4.20-5.40) L Hemoglobin 12.2 G/DL (12.0-16.0) Hematocrit 35.3 % (37.0-47.0) L Mean Corpuscular Volume 92 FL (80-99) Mean Corpuscular Hemoglobin 31.8 PG (27.0-31.0) H Mean Corpuscular Hemoglobin Concent 34.4 G/DL (32.0-36.0) Red Cell Distribution Width 12.3 % (11.6-14.8) Platelet Count 29 K/UL (150-450) L Mean Platelet Volume 13.7 FL (6.5-10.1) H Neutrophils (%) (Auto) % (45.0-75.0) Lymphocytes (%) (Auto) % (20.0-45.0) Monocytes (%) (Auto) % (1.0-10.0) Eosinophils (%) (Auto) % (0.0-3.0) Basophils (%) (Auto) % (0.0-2.0) Differential Total Cells Counted 100 Neutrophils % (Manual) 55 % (45-75) Lymphocytes % (Manual) 28 % (20-45) Monocytes % (Manual) 14 % (1-10) H Eosinophils % (Manual) 1 % (0-3) Basophils % (Manual) 0 % (0-2) Band Neutrophils 2 % (0-8) Reactive Lymphocytes 1+ Platelet Estimate Decreased L Platelet Morphology Normal Sodium Level 145 MMOL/L (136-145) Potassium Level 4.1 MMOL/L (3.5-5.1) Chloride Level 108 MMOL/L (98-107) H Carbon Dioxide Level 26 MMOL/L (21-32) Anion Gap 11 mmol/L (5-15) Blood Urea Nitrogen 25 mg/dL (7-18) H Creatinine 0.6 MG/DL (0.55-1.30) Estimat Glomerular Filtration Rate mL/min (>60) Glucose Level 174 MG/DL (74-106) H Calcium Level 8.7 MG/DL (8.5-10.1) Phosphorus Level 3.0 MG/DL (2.5-4.9) Total Bilirubin 0.3 MG/DL (0.2-1.0) Aspartate Amino Transf (AST/SGOT) 20 U/L (15-37) Alanine Aminotransferase (ALT/SGPT) 102 U/L (12-78) H Alkaline Phosphatase 152 U/L (46-116) H Total Protein 6.4 G/DL (6.4-8.2) Albumin 2.9 G/DL (3.4-5.0) L Globulin 3.5 g/dL Albumin/Globulin Ratio 0.8 (1.0-2.7) L Objective HEAD AND NECK: No JVD or carotid bruits. LUNGS: Clear. CARDIOVASCULAR: $egular S1 and S2 with no gallop or murmur. ABDOMEN: Soft. EXTREMITIES: Showed no pitting edema. Molina Bradley MD Apr 01, 2019 16:18
--- NOTE | 2019-04-01 17:22 | Hematology/Onc Progress Note ---
Assessment/Plan Assessment/Plan ASSESSMENT AND PLAN # Pancytopenia - EARLY FLOW CONSISTENT WITH CLL/SLL, other causes include liver disease, medication-induced, infection versus viral syndrome verus malignancy, 11 mm right lower pole renal lesion, possibly not definitely cystic. Note that is also not definitely cystic on recent abdomen CT scan. Neoplasm and therefore not excludable. Recommend comparison with any outside prior studies that may be available. MRI may also be useful to definitively determine its cystic or solid. Echogenic focus within the spleen measuring 8 mm diameter. This may correspond to a hypoattenuating lesion seen on recent CT scan, may reflect a hemangioma Contour abnormality of the inferior right hepatic lobe, probably related to prior surgery as no mass is demonstrated on recent CT Right hepatic lobe cyst, also described on recent CT --> peripheral smear has been reviewed and no blasts noted, normal smear --> Medications have been reviewed --> Continue to monitor for improvement, trend cbc --> Hep panel is pending and HIV negative --> CT Abd revealed hepatic cysts. 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 # Chest Pain --> seen by cards, not a candidate for stress test currently # 11 mm right lower pole renal lesion, --> outpatient followup # Anxiety. The time the note was entered does not necessarily mean the patient was seen Greatly appreciate consultation Subjective Hematologic/Lymphatic: Reports: anemia Allergies: Coded Allergies: LATEX, NATURAL RUBBER (Verified Allergy, Unknown, 03/27/19) PENICILLINS (Verified Allergy, Unknown, 03/27/19) SULFA (SULFONAMIDE ANTIBIOTICS) (Verified Allergy, Unknown, 03/27/19) All Systems: reviewed and negative except above Subjective 03/30: Us abd and CTA +pelvis imaging results reviewed, s/p PLT tx. 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 Objective Objective Current Medications Medications (Trade) Dose Ordered Sig/Marah Route PRN Reason Start Time Stop Time Status Last Admin Dose Admin Acetaminophen (Tylenol) 650 mg Q4H PRN ORAL FEVER 03/28/19 05:15 04/27/19 05:14 03/28/19 17:12 Alprazolam (Xanax) 0.25 mg Q8H PRN ORAL For Anxiety 04/01/19 15:30 04/08/19 15:29 Diphenhydramine HCl (Benadryl) 25 mg Q6H PRN ORAL Itching 03/30/19 13:00 04/29/19 12:59 03/31/19 02:12 Escitalopram Oxalate (Lexapro) 10 mg DAILY ORAL 03/31/19 09:00 04/30/19 08:59 04/01/19 09:16 Lorazepam (Ativan 2mg/ml 1ml) 1 mg ONCE PRN IV prior to biopsy 04/01/19 08:00 04/01/19 23:59 Losartan Potassium (Cozaar) 25 mg DAILY ORAL 03/29/19 09:00 04/28/19 08:59 04/01/19 09:16 Meloxicam (Mobic) 15 mg DAILY ORAL 04/02/19 09:00 05/02/19 08:59 Methylprednisolone Sodium Succinate (Solu-MEDROL) 60 mg EVERY 6 HOURS IV 03/30/19 13:00 04/29/19 12:59 04/01/19 06:27 Morphine Sulfate (Morphine Sulfate) 2 mg ONCE PRN IVP prior to biopsy 04/01/19 08:00 04/01/19 23:59 Morphine Sulfate (Morphine Sulfate) 2 mg Q4H PRN IVP severe Pain (Pain Scale 7-10) 03/28/19 05:15 04/04/19 05:14 03/31/19 10:35 Nitroglycerin (Ntg) 0.4 mg Q5M PRN SL Prn Chest Pain 03/28/19 05:15 04/27/19 05:14 Ondansetron HCl (Zofran) 4 mg Q6H PRN IVP Nausea & Vomiting 03/28/19 05:15 04/27/19 05:14 03/28/19 13:53 Oxybutynin Chloride (Ditropan) 5 mg BID ORAL 04/01/19 18:00 05/01/19 17:59 Temazepam (Restoril) 15 mg HSPRN PRN ORAL Insomnia 03/28/19 05:15 04/04/19 05:14 Last 24 Hour Vital Signs Date Time Temp Pulse Resp B/P (MAP) Pulse Ox O2 Delivery O2 Flow Rate FiO2 04/01/19 16:00 81 04/01/19 16:00 97.5 69 20 112/72 (85) 96 04/01/19 12:00 58 04/01/19 12:00 97.4 65 23 148/93 (111) 96 04/01/19 09:16 155/88 04/01/19 09:00 Room Air 04/01/19 08:00 97.6 65 23 155/88 (110) 94 04/01/19 08:00 63 04/01/19 04:00 97.7 67 18 140/86 (104) 96 04/01/19 04:00 52 04/01/19 00:00 63 04/01/19 00:00 97.8 67 18 147/88 (107) 96 03/31/19 21:00 Room Air 03/31/19 20:00 97.7 76 18 143/77 (99) 94 03/31/19 20:00 75 03/31/19 16:00 76 03/31/19 16:00 97.6 73 20 133/84 (100) 94 03/31/19 12:00 97.5 76 20 141/72 (95) 99 03/31/19 12:00 76 03/31/19 09:00 Room Air 03/31/19 08:42 146/71 03/31/19 08:00 98.6 71 20 146/71 (96) 96 03/31/19 08:00 71 03/31/19 04:00 96 03/31/19 04:00 97.7 83 16 137/72 (93) 96 03/31/19 00:00 79 03/31/19 00:00 98.5 79 18 142/80 (100) 97 03/30/19 21:00 Room Air 03/30/19 20:00 98.5 82 18 95/75 (82) 96 03/30/19 20:00 105 Intake and Output 03/31/19 04/01/19 18:59 06:59 Intake Total 140 ml 320 ml Balance 140 ml 320 ml Intake Oral 140 ml 120 ml Blood Product 200 ml # Voids 2 Labs Test 03/30/19 06:38 03/31/19 07:22 04/01/19 06:15 White Blood Count 4.0 K/UL (4.8-10.8) 3.7 K/UL (4.8-10.8) 3.0 K/UL (4.8-10.8) Red Blood Count 4.12 M/UL (4.20-5.40) 4.26 M/UL (4.20-5.40) 3.83 M/UL (4.20-5.40) Hemoglobin 13.2 G/DL (12.0-16.0) 13.5 G/DL (12.0-16.0) 12.2 G/DL (12.0-16.0) Hematocrit 38.2 % (37.0-47.0) 39.4 % (37.0-47.0) 35.3 % (37.0-47.0) Mean Corpuscular Volume 93 FL (80-99) 92 FL (80-99) 92 FL (80-99) Mean Corpuscular Hemoglobin 31.9 PG (27.0-31.0) 31.7 PG (27.0-31.0) 31.8 PG (27.0-31.0) Mean Corpuscular Hemoglobin Concent 34.4 G/DL (32.0-36.0) 34.3 G/DL (32.0-36.0) 34.4 G/DL (32.0-36.0) Red Cell Distribution Width 12.0 % (11.6-14.8) 12.0 % (11.6-14.8) 12.3 % (11.6-14.8) Platelet Count 23 K/UL (150-450) 27 K/UL (150-450) 29 K/UL (150-450) Mean Platelet Volume 14.4 FL (6.5-10.1) 9.1 FL (6.5-10.1) 13.7 FL (6.5-10.1) Neutrophils (%) (Auto) % (45.0-75.0) % (45.0-75.0) % (45.0-75.0) Lymphocytes (%) (Auto) % (20.0-45.0) % (20.0-45.0) % (20.0-45.0) Monocytes (%) (Auto) % (1.0-10.0) % (1.0-10.0) % (1.0-10.0) Eosinophils (%) (Auto) % (0.0-3.0) % (0.0-3.0) % (0.0-3.0) Basophils (%) (Auto) % (0.0-2.0) % (0.0-2.0) % (0.0-2.0) Differential Total Cells Counted 100 100 100 Neutrophils % (Manual) 67 % (45-75) 66 % (45-75) 55 % (45-75) Lymphocytes % (Manual) 15 % (20-45) 16 % (20-45) 28 % (20-45) Monocytes % (Manual) 14 % (1-10) 8 % (1-10) 14 % (1-10) Eosinophils % (Manual) 2 % (0-3) 0 % (0-3) 1 % (0-3) Basophils % (Manual) 2 % (0-2) 0 % (0-2) 0 % (0-2) Band Neutrophils 0 % (0-8) 10 % (0-8) 2 % (0-8) Platelet Estimate Decreased Decreased Decreased Platelet Morphology Normal Normal Normal Red Blood Cell Morphology Normal Sodium Level 139 MMOL/L (136-145) 139 MMOL/L (136-145) 145 MMOL/L (136-145) Potassium Level 3.9 MMOL/L (3.5-5.1) 4.3 MMOL/L (3.5-5.1) 4.1 MMOL/L (3.5-5.1) Chloride Level 105 MMOL/L (98-107) 104 MMOL/L (98-107) 108 MMOL/L (98-107) Carbon Dioxide Level 26 MMOL/L (21-32) 24 MMOL/L (21-32) 26 MMOL/L (21-32) Anion Gap 8 mmol/L (5-15) 11 mmol/L (5-15) 11 mmol/L (5-15) Blood Urea Nitrogen 16 mg/dL (7-18) 17 mg/dL (7-18) 25 mg/dL (7-18) Creatinine 0.6 MG/DL (0.55-1.30) 0.7 MG/DL (0.55-1.30) 0.6 MG/DL (0.55-1.30) Estimat Glomerular Filtration Rate mL/min (>60) mL/min (>60) mL/min (>60) Glucose Level 121 MG/DL (74-106) 178 MG/DL (74-106) 174 MG/DL (74-106) Calcium Level 8.1 MG/DL (8.5-10.1) 8.7 MG/DL (8.5-10.1) 8.7 MG/DL (8.5-10.1) Lactate Dehydrogenase 213 U/L (81-234) Troponin I 0.002 ng/mL (0.000-0.056) Carcinoembryonic Antigen 2.3 ng/mL (0.0-4.7) CA 19-9 Antigen 9 U/mL (0-35) Hepatitis A IgM Antibody Negative (Negative) Hepatitis B Surface Antigen Negative (Negative) Hepatitis B Core IgM Antibody Negative (Negative) Hepatitis C Antibody 0.1 s/co ratio (0.0-0.9) Anisocytosis 1+ Prothrombin Time 10.8 SEC (9.30-11.50) Prothromb Time International Ratio 1.0 (0.9-1.1) Activated Partial Thromboplast Time 26 SEC (23-33) Phosphorus Level 2.1 MG/DL (2.5-4.9) 3.0 MG/DL (2.5-4.9) Magnesium Level 2.3 MG/DL (1.8-2.4) Total Bilirubin 0.4 MG/DL (0.2-1.0) 0.3 MG/DL (0.2-1.0) Aspartate Amino Transf (AST/SGOT) 36 U/L (15-37) 20 U/L (15-37) Alanine Aminotransferase (ALT/SGPT) 134 U/L (12-78) 102 U/L (12-78) Alkaline Phosphatase 176 U/L (46-116) 152 U/L (46-116) Total Protein 6.5 G/DL (6.4-8.2) 6.4 G/DL (6.4-8.2) Albumin 2.9 G/DL (3.4-5.0) 2.9 G/DL (3.4-5.0) Globulin 3.6 g/dL 3.5 g/dL Albumin/Globulin Ratio 0.8 (1.0-2.7) 0.8 (1.0-2.7) Alpha Fetoprotein 3.5 ng/mL (0.0-8.3) Reactive Lymphocytes 1+ Height (Feet): 5 Height (Inches): 1.00 Weight (Pounds): 154 Objective Physical Exam Vital Signs reviewed General Appearance: well appearing, no apparent distress, alert Head: normocephalic, atraumatic Eyes: bilateral eye PERRL, bilateral eye EOMI, abrasion under left eye ENT: hearing grossly normal, normal pharynx Neck: full range of motion, supple, no meningismus Respiratory: chest non-tender, lungs clear, normal breath sounds Cardiovascular #1: regular rate, rhythm, no murmur Gastrointestinal: normal bowel sounds, non tender, no mass, no organomegaly, no bruit, non-distended Musculoskeletal: back normal, gait/station normal, normal range of motion Psychiatric: mood/affect normal Skin: warm/dry, small bruises BLE Chi Berry MD Apr 01, 2019 17:22
[2019-04-01] MEDS ORDERED: Oxybutynin 5mg tab ORAL SCH (18:00)
[2019-04-01 20:00] VITALS: BP 145/79
[2019-04-02] VITALS: BP 132/75
[2019-04-02] MEDS: Solu-MEDROL 125mg Inj IV SCH ×2 (00:10→05:50)
[2019-04-02 04:00] VITALS: BP 155/79
--- NOTE | 2019-04-02 04:30 | Progress Note ---
DATE: 04/01/2019 SUBJECTIVE: Bone marrow biopsy was not successful yesterday and is postponed to today. The patient has no complaints of chest pain or shortness of breath. Hematology/Oncology evaluation and workup in progress. personnel monitor with no ectopy. OBJECTIVE: VITAL SIGNS: Blood pressure 145/79, heart rate 58, and respirations 20. LUNGS: Clear. CARDIAC: Regular. Normal S1, S2 with no murmur. ABDOMEN: Soft. EXTREMITIES: No edema. IMPRESSION: 1. No signs of acute coronary insufficiency. 2. No cardiac arrhythmias noted. 3. Hypertension controlled. 4. No signs of congestive heart failure. 5. Pancytopenia may be due to CLL according to preliminary studies. PLAN: 1. Discontinue telemetry. 2. No additional cardiovascular diagnostic studies presently planned. Mingo Valderrama M.D. DR: ARPIT JOB#: [id number] CC:
[2019-04-02] MEDS ORDERED: Nitroglycerin Subl 0.4mg tab SL PRN (06:45)
[2019-04-02] MEDS ORDERED: Morphine Sulfate 2mg/ml Inj(IV/IM USE ONLY) IVP PRN (07:00)
[2019-04-02 07:40] LABS: ALANINE AMINOTRANSFERASE 88 U/L (12-78); ALBUMIN 3.3 G/DL (3.4-5.0); ALKALINE PHOSPHATASE 161 U/L (46-116); ANION GAP 9 mmol/L (5-15); ASPARTATE AMINO TRANSFERASE 25 U/L (15-37); BILIRUBIN,TOTAL 0.4 MG/DL (0.2-1.0); BLOOD UREA NITROGEN 33 mg/dL (7-18); CALCIUM 9.8 MG/DL (8.5-10.1); CARBON DIOXIDE 24 MMOL/L (21-32); CHLORIDE 105 MMOL/L (98-107); CREATININE 0.8 MG/DL (0.55-1.30); HEMATOCRIT 38.4 % (37.0-47.0); MEAN CORPUSCULAR VOLUME 93 FL (80-99); PHOSPHORUS 3.7 MG/DL (2.5-4.9); PLATELET COUNT 20 K/UL (150-450); POTASSIUM 5.3 MMOL/L (3.5-5.1); RED BLOOD COUNT 4.14 M/UL (4.20-5.40); RED CELL DISTRIBUTION WIDTH 12.3 % (11.6-14.8); SODIUM 138 MMOL/L (136-145); WHITE BLOOD COUNT 2.9 K/UL (4.8-10.8)
[2019-04-02 08:00] VITALS: BP 164/94
[2019-04-02] MEDS ORDERED: Meloxicam 15 MG TAB ORAL SCH ×2 (09:00)
[2019-04-02] MEDS ORDERED: Losartan 25mg tab ORAL SCH (09:00)
[2019-04-02] MEDS: Oxybutynin 5mg tab ORAL SCH ×2 (10:00→17:47)
--- NOTE | 2019-04-02 10:06 | GI Progress Note ---
Assessment/Plan Problems: (1) GERD (gastroesophageal reflux disease) ICD Codes: K21.9 - Gastro-esophageal reflux disease without esophagitis SNOMED: 931720146 (2) Hepatic cyst ICD Codes: K76.89 - Other specified diseases of liver SNOMED: 04956002 (3) Thrombocytopenia ICD Codes: D69.6 - Thrombocytopenia, unspecified SNOMED: 867136338 (4) Leukopenia ICD Codes: D72.819 - Decreased white blood cell count, unspecified SNOMED: 82414069, 121814709 (5) Renal mass ICD Codes: N28.89 - Other specified disorders of kidney and ureter SNOMED: 260891213 Status: stable Status Narrative Discussed with Dr. Galvan. Assessment/Plan recent EGD/colonoscopy within the year history of hepatic angioma with liver resection approximately 5 years ago CTAP reviewed, multiple hepatic cysts most likely simple benign cysts Hepatitis panel negative AFP WNL No plans for GI procedures at this time defer MRI liver protocol follow up hematology recommendations, bone marrow biopsy rule out leukemia >> biopsy shows 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 follow up cardiology recs, stress test on hold due to leukopenia ppi BID advance diet as tolerated prn transfusions zofran prn follow labs The patient was seen and examined at bedside and all new and available data was reviewed in the patients chart. I agree with the above findings, impression and plan. (Patient seen earlier today. Signature stamp does not reflect patient encounter time.). - Anthony Galvan MD Subjective Gastrointestinal/Abdominal: Reports: no symptoms Objective Last 24 Hour Vital Signs Date Time Temp Pulse Resp B/P (MAP) Pulse Ox O2 Delivery O2 Flow Rate FiO2 04/02/19 08:00 97.6 47 20 164/94 (117) 97 04/02/19 04:00 97.9 55 20 155/79 (104) 96 04/02/19 04:00 55 04/02/19 00:00 62 04/02/19 00:00 97.7 57 20 132/75 (94) 98 04/01/19 21:00 Room Air 04/01/19 20:00 97.7 58 20 145/79 (101) 98 04/01/19 20:00 58 04/01/19 16:00 81 04/01/19 16:00 97.5 69 20 112/72 (85) 96 04/01/19 12:00 58 04/01/19 12:00 97.4 65 23 148/93 (111) 96 Intake and Output 04/01/19 04/02/19 19:00 07:00 # Voids 6 2 Laboratory Tests Test 04/02/19 06:20 White Blood Count 2.9 K/UL (4.8-10.8) L Red Blood Count 4.14 M/UL (4.20-5.40) L Hemoglobin 13.0 G/DL (12.0-16.0) Hematocrit 38.4 % (37.0-47.0) Mean Corpuscular Volume 93 FL (80-99) Mean Corpuscular Hemoglobin 31.5 PG (27.0-31.0) H Mean Corpuscular Hemoglobin Concent 34.0 G/DL (32.0-36.0) Red Cell Distribution Width 12.3 % (11.6-14.8) Platelet Count 20 K/UL (150-450) L Mean Platelet Volume 12.1 FL (6.5-10.1) H Neutrophils (%) (Auto) % (45.0-75.0) Lymphocytes (%) (Auto) % (20.0-45.0) Monocytes (%) (Auto) % (1.0-10.0) Eosinophils (%) (Auto) % (0.0-3.0) Basophils (%) (Auto) % (0.0-2.0) Neutrophils % (Manual) Pending Lymphocytes % (Manual) Pending Platelet Estimate Pending Platelet Morphology Pending Sodium Level 138 MMOL/L (136-145) Potassium Level 5.3 MMOL/L (3.5-5.1) H Chloride Level 105 MMOL/L (98-107) Carbon Dioxide Level 24 MMOL/L (21-32) Anion Gap 9 mmol/L (5-15) Blood Urea Nitrogen 33 mg/dL (7-18) H Creatinine 0.8 MG/DL (0.55-1.30) Estimat Glomerular Filtration Rate mL/min (>60) Glucose Level 164 MG/DL (74-106) H Calcium Level 9.8 MG/DL (8.5-10.1) Phosphorus Level 3.7 MG/DL (2.5-4.9) Magnesium Level 2.5 MG/DL (1.8-2.4) H Total Bilirubin 0.4 MG/DL (0.2-1.0) Aspartate Amino Transf (AST/SGOT) 25 U/L (15-37) Alanine Aminotransferase (ALT/SGPT) 88 U/L (12-78) H Alkaline Phosphatase 161 U/L (46-116) H Total Protein 6.7 G/DL (6.4-8.2) Albumin 3.3 G/DL (3.4-5.0) L Globulin 3.4 g/dL Albumin/Globulin Ratio 1.0 (1.0-2.7) Height (Feet): 5 Height (Inches): 1.00 Weight (Pounds): 154 General Appearance: WD/WN, no apparent distress, alert Cardiovascular: normal rate Respiratory/Chest: normal breath sounds, no respiratory distress Abdominal Exam: normal bowel sounds, non tender, soft Extremities: normal range of motion, non-tender Francisco Yanez NP Apr 02, 2019 10:06
[2019-04-02] MEDS: ALPRAZolam 0.25mg tab ORAL PRN (10:10)
--- NOTE | 2019-04-02 10:15 | Progress Note ---
DATE: 03/31/2019 CARDIOLOGY PROGRESS NOTE SUBJECTIVE: The patient has not had a change in condition. She continues to have pancytopenia and required platelet transfusion. D-dimer elevation was noted, but V/Q scan was negative. Troponins have been negative. EKG reveals no acute changes or abnormalities. Echocardiogram revealed normal ejection fraction as well. Blood pressure is adequately controlled. OBJECTIVE: LUNGS: Clear. CARDIAC: Regular. No murmur. ABDOMEN: Soft. EXTREMITIES: Without edema. IMPRESSION: 1. Pancytopenia. 2. Noncardiac chest pain. 3. Stable blood pressure parameter. PLAN: Heme-Onc workup and therapies. No current plan for additional cardiovascular studies at this time. No indication presently for myocardial perfusion scan. Mingo Valderrama M.D. DR: HOOD JOB#: [id number] CC:
--- NOTE | 2019-04-02 10:59 | Infectious Diseases Prog Note ---
Assessment/Plan Assessment/Plan The patient is a 73-year-old female with, CLL/SLL BM Bx 04/01/19 - CLL/SLL Epigastric and left lower quadrant pain. CT abd/pel 03/29/19 - Inflammatory changes extending from the betty hepatis to the posterior retroperitoneum, as described. There may be tiny associated 18 x 12 x 40 mm fluid collection which could represent an abscess. Prominent nodes in the area are likely reactive. Etiology of the inflammatory changes uncertain, could indicate duodenitis, focal pancreatitis of the pancreatic head/uncinate. Less likely ascending diverticulitis, as no definite diverticula are demonstrated. Acute appendicitis is also a possibility, also less likely as the fluid collection does not have a typical appearance of an inflamed appendix and there is a suggestion of visualization of portions of a normal appendix. Correlation with the findings is recommended. Trace free pelvic fluid, presumably related to the above Evidence of prior cholecystectomy. Evidence of prior hepatic surgery. Mild ectasia of the extra hepatic bile ducts probably related to age and postcholecystectomy state. Recommend correlation with liver function tests. Prominent left extrarenal pelvis, with suggestion of some inflammation of the urothelium. Could indicate pyelitis. Correlate with clinical and urinalysis findings Left renal parapelvic cysts versus mild left hydronephrosis, favor the forme Trace right pleural fluid Extensive spinal fusion hardware. This results in streak artifact which limits visualization of the retroperitoneum. Right renal lower pole 12 mm lesion. Probably a cyst. Attenuation measurements are those of a solid lesion, but suspect this is artifact due to beam hardening from adjacent spinal hardware. Recommend sonography to assess whether cystic or solid. Other subcentimeter low-attenuation lesions within the right kidney are too small to characterize most likely represent benign simple cyst. Nonobstructive left lower pole intrarenal calyceal calculus Hepatic cysts. Subcentimeter low-attenuation hepatic lesions which are too small to characterize, most likely benign simple cysts. Other findings as noted, including small hiatal hernia, right basilar pulmonary atelectatic changes Indium scan 04/01/19 - No sign of infectious etiology HIV Neg Hepatitis B/C serology pending Probable urinary tract infection (history of increase of urinary frequency). UCx - E coli warner sen Rash - resolving Likely allergic reaction Unclear if abx - Was given ceftriaxone Right jaw pain Hx of TMJ PLAN: - Monitor off abx - 03/30/19 SP Ceftriaxone held for rash - Monitor CBC and BMP. - Monitor cultures, blood Thank you for this consultation. I will follow the patient with you during this hospitalization. Subjective Allergies: Coded Allergies: LATEX, NATURAL RUBBER (Verified Allergy, Unknown, 03/27/19) PENICILLINS (Verified Allergy, Unknown, 03/27/19) SULFA (SULFONAMIDE ANTIBIOTICS) (Verified Allergy, Unknown, 03/27/19) Subjective SABAS Afebrile WBCs 3 Objective Vital Signs Last 24 Hour Vital Signs Date Time Temp Pulse Resp B/P (MAP) Pulse Ox O2 Delivery O2 Flow Rate FiO2 04/02/19 10:00 164/94 04/02/19 09:00 Room Air 04/02/19 08:00 97.6 47 20 164/94 (117) 97 04/02/19 04:00 97.9 55 20 155/79 (104) 96 04/02/19 04:00 55 04/02/19 00:00 62 04/02/19 00:00 97.7 57 20 132/75 (94) 98 04/01/19 21:00 Room Air 04/01/19 20:00 97.7 58 20 145/79 (101) 98 04/01/19 20:00 58 04/01/19 16:00 81 04/01/19 16:00 97.5 69 20 112/72 (85) 96 04/01/19 12:00 58 04/01/19 12:00 97.4 65 23 148/93 (111) 96 Height (Feet): 5 Height (Inches): 1.00 Weight (Pounds): 154 Objective GEN: NAD, Worried HEENT: NCAT, MMM, EOMI CHEST: CTAB, No W HEART: S1 and S2. ABDOMEN: Soft. NT, ND NEUROLOGIC: Awake and alert Laboratory Tests Test 04/02/19 06:20 White Blood Count 2.9 K/UL (4.8-10.8) L Red Blood Count 4.14 M/UL (4.20-5.40) L Hemoglobin 13.0 G/DL (12.0-16.0) Hematocrit 38.4 % (37.0-47.0) Mean Corpuscular Volume 93 FL (80-99) Mean Corpuscular Hemoglobin 31.5 PG (27.0-31.0) H Mean Corpuscular Hemoglobin Concent 34.0 G/DL (32.0-36.0) Red Cell Distribution Width 12.3 % (11.6-14.8) Platelet Count 20 K/UL (150-450) L Mean Platelet Volume 12.1 FL (6.5-10.1) H Neutrophils (%) (Auto) % (45.0-75.0) Lymphocytes (%) (Auto) % (20.0-45.0) Monocytes (%) (Auto) % (1.0-10.0) Eosinophils (%) (Auto) % (0.0-3.0) Basophils (%) (Auto) % (0.0-2.0) Neutrophils % (Manual) Pending Lymphocytes % (Manual) Pending Platelet Estimate Pending Platelet Morphology Pending Sodium Level 138 MMOL/L (136-145) Potassium Level 5.3 MMOL/L (3.5-5.1) H Chloride Level 105 MMOL/L (98-107) Carbon Dioxide Level 24 MMOL/L (21-32) Anion Gap 9 mmol/L (5-15) Blood Urea Nitrogen 33 mg/dL (7-18) H Creatinine 0.8 MG/DL (0.55-1.30) Estimat Glomerular Filtration Rate mL/min (>60) Glucose Level 164 MG/DL (74-106) H Calcium Level 9.8 MG/DL (8.5-10.1) Phosphorus Level 3.7 MG/DL (2.5-4.9) Magnesium Level 2.5 MG/DL (1.8-2.4) H Total Bilirubin 0.4 MG/DL (0.2-1.0) Aspartate Amino Transf (AST/SGOT) 25 U/L (15-37) Alanine Aminotransferase (ALT/SGPT) 88 U/L (12-78) H Alkaline Phosphatase 161 U/L (46-116) H Total Protein 6.7 G/DL (6.4-8.2) Albumin 3.3 G/DL (3.4-5.0) L Globulin 3.4 g/dL Albumin/Globulin Ratio 1.0 (1.0-2.7) Current Medications Medications (Trade) Dose Ordered Sig/Marah Route PRN Reason Start Time Stop Time Status Last Admin Dose Admin Acetaminophen (Tylenol) 650 mg Q4H PRN ORAL FEVER (temp>100.5F) 04/02/19 09:15 04/27/19 05:14 Alprazolam (Xanax) 0.25 mg Q8H PRN ORAL For Anxiety 04/02/19 07:30 04/08/19 15:29 04/02/19 10:10 Diphenhydramine HCl (Benadryl) 25 mg Q6H PRN ORAL Itching 04/02/19 07:00 04/29/19 12:59 Escitalopram Oxalate (Lexapro) 10 mg DAILY ORAL 04/02/19 09:00 04/30/19 08:59 04/02/19 10:00 Losartan Potassium (Cozaar) 25 mg DAILY ORAL 04/02/19 09:00 04/28/19 08:59 04/02/19 10:00 Meloxicam (Mobic) 15 mg DAILY ORAL 04/02/19 09:00 05/02/19 08:59 04/02/19 10:00 Methylprednisolone Sodium Succinate (Solu-MEDROL) 60 mg EVERY 6 HOURS IV 04/02/19 12:00 04/29/19 12:59 Morphine Sulfate (Morphine Sulfate) 2 mg Q4H PRN IVP severe Pain (Pain Scale 7-10) 04/02/19 07:00 04/04/19 06:59 Nitroglycerin (Ntg) 0.4 mg Q5M PRN SL Prn Chest Pain 04/02/19 06:45 04/27/19 05:14 Ondansetron HCl (Zofran) 4 mg Q6H PRN IVP Nausea & Vomiting 04/02/19 07:00 04/27/19 06:59 Oxybutynin Chloride (Ditropan) 5 mg BID ORAL 04/02/19 09:00 05/01/19 17:59 04/02/19 10:00 Temazepam (Restoril) 15 mg HSPRN PRN ORAL Insomnia 04/02/19 07:00 04/09/19 06:59 Mingo Castro MD Apr 02, 2019 10:59
--- NOTE | 2019-04-02 11:50 | General Progress Note ---
Assessment/Plan Problem List: (1) Leukopenia ICD Codes: D72.819 - Decreased white blood cell count, unspecified SNOMED: 81303461, 588287697 (2) Thrombocytopenia ICD Codes: D69.6 - Thrombocytopenia, unspecified SNOMED: 338416330 (3) UTI (urinary tract infection) ICD Codes: N39.0 - Urinary tract infection, site not specified SNOMED: 64394588 Qualifiers: Qualified Codes: N30.00 - Acute cystitis without hematuria (4) Chest pain ICD Codes: R07.9 - Chest pain, unspecified SNOMED: 83355620 Qualifiers: Qualified Codes: R07.9 - Chest pain, unspecified (5) ACS (acute coronary syndrome) ICD Codes: I24.9 - Acute ischemic heart disease, unspecified SNOMED: 685267859 Status: unchanged Assessment/Plan: pain control cardio heme f/u cbc bmp am brotman aru eval Subjective Constitutional: Reports: weakness Allergies: Coded Allergies: LATEX, NATURAL RUBBER (Verified Allergy, Unknown, 03/27/19) PENICILLINS (Verified Allergy, Unknown, 03/27/19) SULFA (SULFONAMIDE ANTIBIOTICS) (Verified Allergy, Unknown, 03/27/19) All Systems: reviewed and negative except above Subjective sleepy calm Objective Last 24 Hour Vital Signs Date Time Temp Pulse Resp B/P (MAP) Pulse Ox O2 Delivery O2 Flow Rate FiO2 04/02/19 10:00 164/94 04/02/19 09:00 Room Air 04/02/19 08:00 97.6 47 20 164/94 (117) 97 04/02/19 04:00 97.9 55 20 155/79 (104) 96 04/02/19 04:00 55 04/02/19 00:00 62 04/02/19 00:00 97.7 57 20 132/75 (94) 98 04/01/19 21:00 Room Air 04/01/19 20:00 97.7 58 20 145/79 (101) 98 04/01/19 20:00 58 04/01/19 16:00 81 04/01/19 16:00 97.5 69 20 112/72 (85) 96 04/01/19 12:00 58 04/01/19 12:00 97.4 65 23 148/93 (111) 96 Intake and Output 04/01/19 04/02/19 18:59 06:59 # Voids 6 2 Laboratory Tests 04/02/19 06:20: White Blood Count 2.9L, Red Blood Count 4.14L, Hemoglobin 13.0, Hematocrit 38.4 , Mean Corpuscular Volume 93, Mean Corpuscular Hemoglobin 31.5H, Mean Corpuscular Hemoglobin Concent 34.0, Red Cell Distribution Width 12.3, Platelet Count 20L, Mean Platelet Volume 12.1H, Neutrophils (%) (Auto) , Lymphocytes (%) (Auto) , Monocytes (%) (Auto) , Eosinophils (%) (Auto) , Basophils (%) (Auto) , Differential Total Cells Counted 100, Neutrophils % (Manual) 56, Lymphocytes % ( Manual) 30, Monocytes % (Manual) 11H, Eosinophils % (Manual) 1, Basophils % ( Manual) 2, Band Neutrophils 0, Nucleated Red Blood Cells 2, Platelet Estimate DecreasedL, Platelet Morphology Normal, Red Blood Cell Morphology Normal, Sodium Level 138, Potassium Level 5.3H, Chloride Level 105, Carbon Dioxide Level 24, Anion Gap 9, Blood Urea Nitrogen 33H, Creatinine 0.8, Estimat Glomerular Filtration Rate , Glucose Level 164H, Calcium Level 9.8, Phosphorus Level 3.7, Magnesium Level 2.5H, Total Bilirubin 0.4, Aspartate Amino Transf ( AST/SGOT) 25, Alanine Aminotransferase (ALT/SGPT) 88H, Alkaline Phosphatase 161H , Total Protein 6.7, Albumin 3.3L, Globulin 3.4, Albumin/Globulin Ratio 1.0 Height (Feet): 5 Height (Inches): 1.00 Weight (Pounds): 154 General Appearance: lethargic EENT: normal ENT inspection Neck: normal alignment Cardiovascular: normal peripheral pulses, normal rate, regular rhythm Respiratory/Chest: chest wall non-tender, lungs clear, normal breath sounds Abdomen: normal bowel sounds, non tender, soft Extremities: normal inspection Edema: no edema noted Arm (L), no edema noted Arm (R), no edema noted Leg (L), no edema noted Leg (R), no edema noted Pedal (L), no edema noted Pedal (R), no edema noted Generalized Neurologic: motor weakness Skin: normal pigmentation, warm/dry Aldair Bill DO Apr 02, 2019 11:50
[2019-04-02 12:00] VITALS: BP 138/73
[2019-04-02] MEDS ORDERED: Solu-MEDROL 125mg Inj IV SCH (12:00)
--- NOTE | 2019-04-02 12:52 | Pulmonology Progress Note ---
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 awaiting PLT to do the bone marrow Subjective ROS Limited/Unobtainable: No Constitutional: Reports: no symptoms HEENT: Repors: no symptoms Respiratory: Reports: no symptoms Allergies: Coded Allergies: LATEX, NATURAL RUBBER (Verified Allergy, Unknown, 03/27/19) PENICILLINS (Verified Allergy, Unknown, 03/27/19) SULFA (SULFONAMIDE ANTIBIOTICS) (Verified Allergy, Unknown, 03/27/19) Objective Last 24 Hour Vital Signs Date Time Temp Pulse Resp B/P (MAP) Pulse Ox O2 Delivery O2 Flow Rate FiO2 04/02/19 12:00 97.4 47 20 138/73 (94) 96 04/02/19 10:00 164/94 04/02/19 09:00 Room Air 04/02/19 08:00 97.6 47 20 164/94 (117) 97 04/02/19 04:00 97.9 55 20 155/79 (104) 96 04/02/19 04:00 55 04/02/19 00:00 62 04/02/19 00:00 97.7 57 20 132/75 (94) 98 04/01/19 21:00 Room Air 04/01/19 20:00 97.7 58 20 145/79 (101) 98 04/01/19 20:00 58 04/01/19 16:00 81 04/01/19 16:00 97.5 69 20 112/72 (85) 96 Intake and Output 04/01/19 04/02/19 18:59 06:59 # Voids 6 2 General Appearance: WD/WN HEENT: normocephalic, mucous membranes moist Respiratory/Chest: chest wall non-tender, lungs clear Cardiovascular: normal peripheral pulses, normal rate Abdomen: soft, non tender, no scars Extremities: no cyanosis Skin: no lesions Laboratory Tests 04/02/19 06:20: White Blood Count 2.9L, Red Blood Count 4.14L, Hemoglobin 13.0, Hematocrit 38.4 , Mean Corpuscular Volume 93, Mean Corpuscular Hemoglobin 31.5H, Mean Corpuscular Hemoglobin Concent 34.0, Red Cell Distribution Width 12.3, Platelet Count 20L, Mean Platelet Volume 12.1H, Neutrophils (%) (Auto) , Lymphocytes (%) (Auto) , Monocytes (%) (Auto) , Eosinophils (%) (Auto) , Basophils (%) (Auto) , Differential Total Cells Counted 100, Neutrophils % (Manual) 56, Lymphocytes % ( Manual) 30, Monocytes % (Manual) 11H, Eosinophils % (Manual) 1, Basophils % ( Manual) 2, Band Neutrophils 0, Nucleated Red Blood Cells 2, Platelet Estimate DecreasedL, Platelet Morphology Normal, Red Blood Cell Morphology Normal, Sodium Level 138, Potassium Level 5.3H, Chloride Level 105, Carbon Dioxide Level 24, Anion Gap 9, Blood Urea Nitrogen 33H, Creatinine 0.8, Estimat Glomerular Filtration Rate , Glucose Level 164H, Calcium Level 9.8, Phosphorus Level 3.7, Magnesium Level 2.5H, Total Bilirubin 0.4, Aspartate Amino Transf ( AST/SGOT) 25, Alanine Aminotransferase (ALT/SGPT) 88H, Alkaline Phosphatase 161H , Total Protein 6.7, Albumin 3.3L, Globulin 3.4, Albumin/Globulin Ratio 1.0 Current Medications Medications (Trade) Dose Ordered Sig/Marah Route PRN Reason Start Time Stop Time Status Last Admin Dose Admin Acetaminophen (Tylenol) 650 mg Q4H PRN ORAL FEVER (temp>100.5F) 04/02/19 09:15 04/27/19 05:14 Al Hydroxide/Mg Hydroxide (Mylanta) 30 ml Q6H PRN ORAL HEARTBURN 04/02/19 11:15 05/02/19 11:14 Alprazolam (Xanax) 0.25 mg Q8H PRN ORAL For Anxiety 04/02/19 07:30 04/08/19 15:29 04/02/19 10:10 Diphenhydramine HCl (Benadryl) 25 mg Q6H PRN ORAL Itching 04/02/19 07:00 04/29/19 12:59 Escitalopram Oxalate (Lexapro) 10 mg DAILY ORAL 04/02/19 09:00 04/30/19 08:59 04/02/19 10:00 Losartan Potassium (Cozaar) 25 mg DAILY ORAL 04/02/19 09:00 04/28/19 08:59 04/02/19 10:00 Meloxicam (Mobic) 15 mg DAILY ORAL 04/02/19 09:00 05/02/19 08:59 04/02/19 10:00 Methylprednisolone Sodium Succinate (Solu-MEDROL) 60 mg EVERY 6 HOURS IV 04/02/19 12:00 04/29/19 12:59 04/02/19 12:08 Morphine Sulfate (Morphine Sulfate) 2 mg Q4H PRN IVP severe Pain (Pain Scale 7-10) 04/02/19 07:00 04/04/19 06:59 Nitroglycerin (Ntg) 0.4 mg Q5M PRN SL Prn Chest Pain 04/02/19 06:45 04/27/19 05:14 Ondansetron HCl (Zofran) 4 mg Q6H PRN IVP Nausea & Vomiting 04/02/19 07:00 04/27/19 06:59 Oxybutynin Chloride (Ditropan) 5 mg BID ORAL 04/02/19 09:00 05/01/19 17:59 04/02/19 10:00 Pantoprazole (Protonix) 40 mg DAILY ORAL 04/03/19 09:00 05/03/19 08:59 Temazepam (Restoril) 15 mg HSPRN PRN ORAL Insomnia 04/02/19 07:00 04/09/19 06:59 Narinder Pedro MD Apr 02, 2019 12:52
--- NOTE | 2019-04-02 15:58 | Hematology/Onc Progress Note ---
Assessment/Plan Assessment/Plan ASSESSMENT AND PLAN # Pancytopenia - flow cytometry CONSISTENT WITH CLL/SLL, other causes include liver disease, medication-induced, infection versus viral syndrome verus malignancy, 11 mm right lower pole renal lesion, possibly not definitely cystic. Note that is also not definitely cystic on recent abdomen CT scan. Neoplasm and therefore not excludable. Recommend comparison with any outside prior studies that may be available. MRI may also be useful to definitively determine its cystic or solid. Echogenic focus within the spleen measuring 8 mm diameter. This may correspond to a hypoattenuating lesion seen on recent CT scan , may reflect a hemangioma Contour abnormality of the inferior right hepatic lobe, probably related to prior surgery as no mass is demonstrated on recent CT Right hepatic lobe cyst, also described on recent CT --> peripheral smear has been reviewed and no blasts noted, normal smear --> Medications have been reviewed --> Continue to monitor for improvement, trend cbc --> Hep panel is pending and HIV negative --> CT Abd revealed hepatic cysts. --> reverse isolation if ANC is <2000 --> Give neupogen if ANC <1000 --> WBC 3.6k--> 1.1k--> 1.2k--> 4.0-->3 --> PLT 58--> 6--> 7--> 23-->29 --> DC'ed ASA, s/p PLT Transfusion --> BONE MARROW BIOPSY not successful 03/31, will obtain ct guided bx on 04/03 # Chest Pain --> seen by cards, not a candidate for stress test currently # 11 mm right lower pole renal lesion, --> outpatient followup # Anxiety. The time the note was entered does not necessarily mean the patient was seen Greatly appreciate consultation Subjective Constitutional: Denies: no symptoms, chills, fever, malaise, weakness, other Cardiovascular: Denies: no symptoms, chest pain, edema, irregular heart rate, lightheadedness, palpitations, syncope, other Respiratory: Denies: no symptoms, cough, shortness of breath, SOB with excertion, SOB at rest, sputum, wheezing, other Neurologic/Psychiatric: Denies: no symptoms, anxiety, depressed, emotional problems, headache, numbness, paresthesia, pre-existing deficit, seizure, tingling, tremors, weakness, other Endocrine: Denies: no symptoms, excessive sweating, flushing, intolerance to cold, intolerance to heat, increased hunger, increased thirst, increased urine, unexplained weight gain, unexplained weight loss, other Hematologic/Lymphatic: Denies: no symptoms, anemia, easy bleeding, easy bruising, adenopathy, other Allergies: Coded Allergies: LATEX, NATURAL RUBBER (Verified Allergy, Unknown, 03/27/19) PENICILLINS (Verified Allergy, Unknown, 03/27/19) SULFA (SULFONAMIDE ANTIBIOTICS) (Verified Allergy, Unknown, 03/27/19) Subjective 03/30: Us abd and CTA +pelvis imaging results reviewed, s/p PLT tx. 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 04/02: no bone marrow biopsy yet, to be repeated tomorrow when plt better Objective Objective Current Medications Medications (Trade) Dose Ordered Sig/Marah Route PRN Reason Start Time Stop Time Status Last Admin Dose Admin Acetaminophen (Tylenol) 650 mg Q4H PRN ORAL FEVER (temp>100.5F) 04/02/19 09:15 04/27/19 05:14 Al Hydroxide/Mg Hydroxide (Mylanta) 30 ml Q6H PRN ORAL HEARTBURN 04/02/19 11:15 05/02/19 11:14 Alprazolam (Xanax) 0.25 mg Q8H PRN ORAL For Anxiety 04/02/19 07:30 04/08/19 15:29 04/02/19 10:10 Diphenhydramine HCl (Benadryl) 25 mg Q6H PRN ORAL Itching 04/02/19 07:00 04/29/19 12:59 Escitalopram Oxalate (Lexapro) 10 mg DAILY ORAL 04/02/19 09:00 04/30/19 08:59 04/02/19 10:00 Losartan Potassium (Cozaar) 25 mg DAILY ORAL 04/02/19 09:00 04/28/19 08:59 04/02/19 10:00 Meloxicam (Mobic) 15 mg DAILY ORAL 04/02/19 09:00 05/02/19 08:59 04/02/19 10:00 Morphine Sulfate (Morphine Sulfate) 2 mg Q4H PRN IVP severe Pain (Pain Scale 7-10) 04/02/19 07:00 04/04/19 06:59 Nitroglycerin (Ntg) 0.4 mg Q5M PRN SL Prn Chest Pain 04/02/19 06:45 04/27/19 05:14 Ondansetron HCl (Zofran) 4 mg Q6H PRN IVP Nausea & Vomiting 04/02/19 07:00 04/27/19 06:59 Oxybutynin Chloride (Ditropan) 5 mg BID ORAL 04/02/19 09:00 05/01/19 17:59 04/02/19 10:00 Pantoprazole (Protonix) 40 mg DAILY ORAL 04/03/19 09:00 05/03/19 08:59 Temazepam (Restoril) 15 mg HSPRN PRN ORAL Insomnia 04/02/19 07:00 04/09/19 06:59 Last 24 Hour Vital Signs Date Time Temp Pulse Resp B/P (MAP) Pulse Ox O2 Delivery O2 Flow Rate FiO2 04/02/19 12:00 97.4 47 20 138/73 (94) 96 04/02/19 10:00 164/94 04/02/19 09:00 Room Air 04/02/19 08:00 97.6 47 20 164/94 (117) 97 04/02/19 04:00 97.9 55 20 155/79 (104) 96 04/02/19 04:00 55 04/02/19 00:00 62 04/02/19 00:00 97.7 57 20 132/75 (94) 98 04/01/19 21:00 Room Air 04/01/19 20:00 97.7 58 20 145/79 (101) 98 04/01/19 20:00 58 04/01/19 16:00 81 04/01/19 16:00 97.5 69 20 112/72 (85) 96 04/01/19 12:00 58 04/01/19 12:00 97.4 65 23 148/93 (111) 96 04/01/19 09:16 155/88 04/01/19 09:00 Room Air 04/01/19 08:00 97.6 65 23 155/88 (110) 94 04/01/19 08:00 63 04/01/19 04:00 97.7 67 18 140/86 (104) 96 04/01/19 04:00 52 04/01/19 00:00 63 04/01/19 00:00 97.8 67 18 147/88 (107) 96 03/31/19 21:00 Room Air 03/31/19 20:00 97.7 76 18 143/77 (99) 94 03/31/19 20:00 75 03/31/19 16:00 76 03/31/19 16:00 97.6 73 20 133/84 (100) 94 Intake and Output 04/01/19 04/02/19 18:59 06:59 # Voids 6 2 Labs Test 03/31/19 07:22 04/01/19 06:15 04/02/19 06:20 White Blood Count 3.7 K/UL (4.8-10.8) 3.0 K/UL (4.8-10.8) 2.9 K/UL (4.8-10.8) Red Blood Count 4.26 M/UL (4.20-5.40) 3.83 M/UL (4.20-5.40) 4.14 M/UL (4.20-5.40) Hemoglobin 13.5 G/DL (12.0-16.0) 12.2 G/DL (12.0-16.0) 13.0 G/DL (12.0-16.0) Hematocrit 39.4 % (37.0-47.0) 35.3 % (37.0-47.0) 38.4 % (37.0-47.0) Mean Corpuscular Volume 92 FL (80-99) 92 FL (80-99) 93 FL (80-99) Mean Corpuscular Hemoglobin 31.7 PG (27.0-31.0) 31.8 PG (27.0-31.0) 31.5 PG (27.0-31.0) Mean Corpuscular Hemoglobin Concent 34.3 G/DL (32.0-36.0) 34.4 G/DL (32.0-36.0) 34.0 G/DL (32.0-36.0) Red Cell Distribution Width 12.0 % (11.6-14.8) 12.3 % (11.6-14.8) 12.3 % (11.6-14.8) Platelet Count 27 K/UL (150-450) 29 K/UL (150-450) 20 K/UL (150-450) Mean Platelet Volume 9.1 FL (6.5-10.1) 13.7 FL (6.5-10.1) 12.1 FL (6.5-10.1) Neutrophils (%) (Auto) % (45.0-75.0) % (45.0-75.0) % (45.0-75.0) Lymphocytes (%) (Auto) % (20.0-45.0) % (20.0-45.0) % (20.0-45.0) Monocytes (%) (Auto) % (1.0-10.0) % (1.0-10.0) % (1.0-10.0) Eosinophils (%) (Auto) % (0.0-3.0) % (0.0-3.0) % (0.0-3.0) Basophils (%) (Auto) % (0.0-2.0) % (0.0-2.0) % (0.0-2.0) Differential Total Cells Counted 100 100 100 Neutrophils % (Manual) 66 % (45-75) 55 % (45-75) 56 % (45-75) Lymphocytes % (Manual) 16 % (20-45) 28 % (20-45) 30 % (20-45) Monocytes % (Manual) 8 % (1-10) 14 % (1-10) 11 % (1-10) Eosinophils % (Manual) 0 % (0-3) 1 % (0-3) 1 % (0-3) Basophils % (Manual) 0 % (0-2) 0 % (0-2) 2 % (0-2) Band Neutrophils 10 % (0-8) 2 % (0-8) 0 % (0-8) Platelet Estimate Decreased Decreased Decreased Platelet Morphology Normal Normal Normal Anisocytosis 1+ Prothrombin Time 10.8 SEC (9.30-11.50) Prothromb Time International Ratio 1.0 (0.9-1.1) Activated Partial Thromboplast Time 26 SEC (23-33) Sodium Level 139 MMOL/L (136-145) 145 MMOL/L (136-145) 138 MMOL/L (136-145) Potassium Level 4.3 MMOL/L (3.5-5.1) 4.1 MMOL/L (3.5-5.1) 5.3 MMOL/L (3.5-5.1) Chloride Level 104 MMOL/L (98-107) 108 MMOL/L (98-107) 105 MMOL/L (98-107) Carbon Dioxide Level 24 MMOL/L (21-32) 26 MMOL/L (21-32) 24 MMOL/L (21-32) Anion Gap 11 mmol/L (5-15) 11 mmol/L (5-15) 9 mmol/L (5-15) Blood Urea Nitrogen 17 mg/dL (7-18) 25 mg/dL (7-18) 33 mg/dL (7-18) Creatinine 0.7 MG/DL (0.55-1.30) 0.6 MG/DL (0.55-1.30) 0.8 MG/DL (0.55-1.30) Estimat Glomerular Filtration Rate mL/min (>60) mL/min (>60) mL/min (>60) Glucose Level 178 MG/DL (74-106) 174 MG/DL (74-106) 164 MG/DL (74-106) Calcium Level 8.7 MG/DL (8.5-10.1) 8.7 MG/DL (8.5-10.1) 9.8 MG/DL (8.5-10.1) Phosphorus Level 2.1 MG/DL (2.5-4.9) 3.0 MG/DL (2.5-4.9) 3.7 MG/DL (2.5-4.9) Magnesium Level 2.3 MG/DL (1.8-2.4) 2.5 MG/DL (1.8-2.4) Total Bilirubin 0.4 MG/DL (0.2-1.0) 0.3 MG/DL (0.2-1.0) 0.4 MG/DL (0.2-1.0) Aspartate Amino Transf (AST/SGOT) 36 U/L (15-37) 20 U/L (15-37) 25 U/L (15-37) Alanine Aminotransferase (ALT/SGPT) 134 U/L (12-78) 102 U/L (12-78) 88 U/L (12-78) Alkaline Phosphatase 176 U/L (46-116) 152 U/L (46-116) 161 U/L (46-116) Total Protein 6.5 G/DL (6.4-8.2) 6.4 G/DL (6.4-8.2) 6.7 G/DL (6.4-8.2) Albumin 2.9 G/DL (3.4-5.0) 2.9 G/DL (3.4-5.0) 3.3 G/DL (3.4-5.0) Globulin 3.6 g/dL 3.5 g/dL 3.4 g/dL Albumin/Globulin Ratio 0.8 (1.0-2.7) 0.8 (1.0-2.7) 1.0 (1.0-2.7) Alpha Fetoprotein 3.5 ng/mL (0.0-8.3) Reactive Lymphocytes 1+ Nucleated Red Blood Cells 2 /100 WBC Red Blood Cell Morphology Normal Height (Feet): 5 Height (Inches): 1.00 Weight (Pounds): 154 Objective Physical Exam Vital Signs reviewed General Appearance: well appearing, no apparent distress, alert Head: normocephalic, atraumatic Eyes: bilateral eye PERRL, bilateral eye EOMI, abrasion under left eye ENT: hearing grossly normal, normal pharynx Neck: full range of motion, supple, no meningismus Respiratory: chest non-tender, lungs clear, normal breath sounds Cardiovascular #1: regular rate, rhythm, no murmur Gastrointestinal: normal bowel sounds, non tender, no mass, no organomegaly, no bruit, non-distended Musculoskeletal: back normal, gait/station normal, normal range of motion Psychiatric: mood/affect normal Skin: warm/dry, small bruises BLE Chi Berry MD Apr 02, 2019 15:58
[2019-04-02 16:00] VITALS: BP 111/74
--- NOTE | 2019-04-02 16:31 | Cardiac Electrophysiology PN ---
Assessment/Plan Assessment/Plan 1. Chest pain.Ruled out for myocardial infarction. Her EKG is normal. Echo showed normal EF. D-dimer is elevated but VQ scan was negative Hold off on nuclear stress test in view of new pancytopenia 2. Hypertension. Continue losartan 25 mg daily 3. Gastroesophageal reflux. 4. Hyperlipidemia. The patient was on Crestor 10 mg daily. 5. Pancytopenia with WBC 1.2 and platelet count of 7K. Flow cytometry CONSISTENT WITH CLL/SLL CT guided BM biopsy per Dr Delacruz tomorrow after PLT transfusion ZOHRA RN Subjective Subjective BM biopsy and platelet transfusion was postponed to tomorrow. No CP or SOB. Objective Last 24 Hour Vital Signs Date Time Temp Pulse Resp B/P (MAP) Pulse Ox O2 Delivery O2 Flow Rate FiO2 04/02/19 12:00 97.4 47 20 138/73 (94) 96 04/02/19 10:00 164/94 04/02/19 09:00 Room Air 04/02/19 08:00 97.6 47 20 164/94 (117) 97 04/02/19 04:00 97.9 55 20 155/79 (104) 96 04/02/19 04:00 55 04/02/19 00:00 62 04/02/19 00:00 97.7 57 20 132/75 (94) 98 04/01/19 21:00 Room Air 04/01/19 20:00 97.7 58 20 145/79 (101) 98 04/01/19 20:00 58 Intake and Output 04/01/19 04/02/19 18:59 06:59 # Voids 6 2 Laboratory Tests Test 04/02/19 06:20 White Blood Count 2.9 K/UL (4.8-10.8) L Red Blood Count 4.14 M/UL (4.20-5.40) L Hemoglobin 13.0 G/DL (12.0-16.0) Hematocrit 38.4 % (37.0-47.0) Mean Corpuscular Volume 93 FL (80-99) Mean Corpuscular Hemoglobin 31.5 PG (27.0-31.0) H Mean Corpuscular Hemoglobin Concent 34.0 G/DL (32.0-36.0) Red Cell Distribution Width 12.3 % (11.6-14.8) Platelet Count 20 K/UL (150-450) L Mean Platelet Volume 12.1 FL (6.5-10.1) H Neutrophils (%) (Auto) % (45.0-75.0) Lymphocytes (%) (Auto) % (20.0-45.0) Monocytes (%) (Auto) % (1.0-10.0) Eosinophils (%) (Auto) % (0.0-3.0) Basophils (%) (Auto) % (0.0-2.0) Differential Total Cells Counted 100 Neutrophils % (Manual) 56 % (45-75) Lymphocytes % (Manual) 30 % (20-45) Monocytes % (Manual) 11 % (1-10) H Eosinophils % (Manual) 1 % (0-3) Basophils % (Manual) 2 % (0-2) Band Neutrophils 0 % (0-8) Nucleated Red Blood Cells 2 /100 WBC Platelet Estimate Decreased L Platelet Morphology Normal Red Blood Cell Morphology Normal Sodium Level 138 MMOL/L (136-145) Potassium Level 5.3 MMOL/L (3.5-5.1) H Chloride Level 105 MMOL/L (98-107) Carbon Dioxide Level 24 MMOL/L (21-32) Anion Gap 9 mmol/L (5-15) Blood Urea Nitrogen 33 mg/dL (7-18) H Creatinine 0.8 MG/DL (0.55-1.30) Estimat Glomerular Filtration Rate mL/min (>60) Glucose Level 164 MG/DL (74-106) H Calcium Level 9.8 MG/DL (8.5-10.1) Phosphorus Level 3.7 MG/DL (2.5-4.9) Magnesium Level 2.5 MG/DL (1.8-2.4) H Total Bilirubin 0.4 MG/DL (0.2-1.0) Aspartate Amino Transf (AST/SGOT) 25 U/L (15-37) Alanine Aminotransferase (ALT/SGPT) 88 U/L (12-78) H Alkaline Phosphatase 161 U/L (46-116) H Total Protein 6.7 G/DL (6.4-8.2) Albumin 3.3 G/DL (3.4-5.0) L Globulin 3.4 g/dL Albumin/Globulin Ratio 1.0 (1.0-2.7) Immunoglobulin G Pending Immunoglobulin A Pending Immunoglobulin M Pending Objective HEAD AND NECK: No JVD or carotid bruits. LUNGS: Clear. CARDIOVASCULAR: Regular S1 and S2 with no gallop or murmur. ABDOMEN: Soft. EXTREMITIES: Showed no pitting edema. Molina Bradley MD Apr 02, 2019 16:31
[2019-04-02 20:00] VITALS: BP 114/66
[2019-04-03] VITALS (17 sets, daily range): BP systolic 106–178; BP diastolic 71–103
--- NOTE | 2019-04-03 03:45 | Progress Note ---
DATE: 04/02/2019 CARDIOLOGY PROGRESS NOTE SUBJECTIVE: The patient with no new complaints. Blood pressure parameters remain high normal range. Monitored rhythm sinus and sinus bradycardia. PHYSICAL EXAMINATION: VITAL SIGNS: Blood pressure 138/73, pulse 47, respiratory rate 20. LUNGS: Clear. CARDIAC: Regular rhythm. Slow rate. Normal S1, S2. ABDOMEN: Soft. EXTREMITIES: No edema. LABORATORY DATA: Reviewed. White count 2.9, hemoglobin 13, platelet 20,000. Potassium 5.3. IMPRESSION: 1. Noncardiac chest pain. 2. Possible chronic lymphocytic leukemia. 3. Thrombocytopenia. 4. Neutropenia. 5. Hyperkalemia. 6. Sinus bradycardia. PLAN: 1. Await bone marrow biopsy. 2. Continue cardiac monitoring. 3. The patient is not on any medications with negative chronotropic potential. 4. May advance losartan for tighter blood pressure control. 5. At this time, no plans from bradycardia perfusion scan/stress test. Mingo Valderrama M.D. DR: MARSHALL JOB#: [id number] CC:
[2019-04-03 06:33] LABS: HEMATOCRIT 38.1 % (37.0-47.0); HEMOGLOBIN 12.8 G/DL (12.0-16.0); MEAN CORPUSCULAR VOLUME 93 FL (80-99); PLATELET COUNT 17 K/UL (150-450); RED CELL DISTRIBUTION WIDTH 12.6 % (11.6-14.8); WHITE BLOOD COUNT 4.2 K/UL (4.8-10.8)
[2019-04-03 06:48] LABS: ANION GAP 10 mmol/L (5-15); BLOOD UREA NITROGEN 27 mg/dL (7-18); CALCIUM 9.1 MG/DL (8.5-10.1); CARBON DIOXIDE 25 MMOL/L (21-32); CHLORIDE 106 MMOL/L (98-107); CREATININE 0.7 MG/DL (0.55-1.30); POTASSIUM 4.4 MMOL/L (3.5-5.1); SODIUM 141 MMOL/L (136-145)
[2019-04-03 07:22] LABS: ALANINE AMINOTRANSFERASE 68 U/L (12-78); ALBUMIN 3.1 G/DL (3.4-5.0); ALKALINE PHOSPHATASE 133 U/L (46-116); ASPARTATE AMINO TRANSFERASE 19 U/L (15-37); BILIRUBIN,DIRECT < 0.1 MG/DL (0.0-0.3); BILIRUBIN,TOTAL 0.3 MG/DL (0.2-1.0)
[2019-04-03] MEDS: Oxybutynin 5mg tab ORAL SCH ×2 (08:19→18:36)
[2019-04-03] MEDS: Losartan 25mg tab ORAL SCH (08:20)
[2019-04-03] MEDS: ALPRAZolam 0.25mg tab ORAL PRN ×2 (09:16→20:36)
[2019-04-03 10:21] LABS: HEMATOCRIT 36.4 % (37.0-47.0); HEMOGLOBIN 12.2 G/DL (12.0-16.0); MEAN CORPUSCULAR VOLUME 93 FL (80-99); PLATELET COUNT 30 K/UL (150-450); RED BLOOD COUNT 3.93 M/UL (4.20-5.40); RED CELL DISTRIBUTION WIDTH 12.5 % (11.6-14.8); WHITE BLOOD COUNT 4.6 K/UL (4.8-10.8)
--- NOTE | 2019-04-03 10:23 | Cardiac Electrophysiology PN ---
Assessment/Plan Assessment/Plan 1. Chest pain.Ruled out for myocardial infarction. Her EKG is normal. Echo showed normal EF. D-dimer is elevated but VQ scan was negative Hold off on nuclear stress test in view of new pancytopenia 2. Hypertension. Continue losartan 25 mg daily 3. Gastroesophageal reflux. 4. Hyperlipidemia. The patient was on Crestor 10 mg daily. 5. Pancytopenia with WBC 1.2 and platelet count of 7K. Flow cytometry CONSISTENT WITH CLL/SLL CT guided BM biopsy per Dr Delacruz today after PLT transfusion ZOHRA RN Subjective Subjective Getting platelet transfusion and BM biopsy will follow that Objective Last 24 Hour Vital Signs Date Time Temp Pulse Resp B/P (MAP) Pulse Ox O2 Delivery O2 Flow Rate FiO2 04/03/19 08:20 149/73 04/03/19 08:00 98.0 45 16 149/73 (98) 96 04/03/19 00:00 98.1 59 18 146/78 (100) 97 04/02/19 21:00 Room Air 04/02/19 20:00 97.5 68 18 114/66 (82) 95 04/02/19 16:00 98.0 61 19 111/74 (86) 99 04/02/19 12:00 97.4 47 20 138/73 (94) 96 Intake and Output 04/02/19 04/03/19 19:00 07:00 Intake Total 500 ml Output Total 850 ml Balance 500 ml -850 ml Intake Oral 500 ml Output Urine Total 850 ml # Voids 3 Laboratory Tests Test 04/03/19 05:40 04/03/19 09:30 White Blood Count 4.2 K/UL (4.8-10.8) L 4.6 K/UL (4.8-10.8) L Red Blood Count 4.10 M/UL (4.20-5.40) L 3.93 M/UL (4.20-5.40) L Hemoglobin 12.8 G/DL (12.0-16.0) 12.2 G/DL (12.0-16.0) Hematocrit 38.1 % (37.0-47.0) 36.4 % (37.0-47.0) L Mean Corpuscular Volume 93 FL (80-99) 93 FL (80-99) Mean Corpuscular Hemoglobin 31.3 PG (27.0-31.0) H 31.1 PG (27.0-31.0) H Mean Corpuscular Hemoglobin Concent 33.6 G/DL (32.0-36.0) 33.6 G/DL (32.0-36.0) Red Cell Distribution Width 12.6 % (11.6-14.8) 12.5 % (11.6-14.8) Platelet Count 17 K/UL (150-450) L 30 K/UL (150-450) #L Mean Platelet Volume 10.5 FL (6.5-10.1) H 10.0 FL (6.5-10.1) Neutrophils (%) (Auto) % (45.0-75.0) % (45.0-75.0) Lymphocytes (%) (Auto) % (20.0-45.0) % (20.0-45.0) Monocytes (%) (Auto) % (1.0-10.0) % (1.0-10.0) Eosinophils (%) (Auto) % (0.0-3.0) % (0.0-3.0) Basophils (%) (Auto) % (0.0-2.0) % (0.0-2.0) Differential Total Cells Counted 100 Neutrophils % (Manual) 23 % (45-75) L Lymphocytes % (Manual) 57 % (20-45) H Monocytes % (Manual) 19 % (1-10) H Eosinophils % (Manual) 1 % (0-3) Basophils % (Manual) 0 % (0-2) Band Neutrophils 0 % (0-8) Platelet Estimate Decreased L Platelet Morphology Normal Red Blood Cell Morphology Normal Sodium Level 141 MMOL/L (136-145) Potassium Level 4.4 MMOL/L (3.5-5.1) Chloride Level 106 MMOL/L (98-107) Carbon Dioxide Level 25 MMOL/L (21-32) Anion Gap 10 mmol/L (5-15) Blood Urea Nitrogen 27 mg/dL (7-18) H Creatinine 0.7 MG/DL (0.55-1.30) Estimat Glomerular Filtration Rate mL/min (>60) Glucose Level 101 MG/DL (74-106) Calcium Level 9.1 MG/DL (8.5-10.1) Total Bilirubin 0.3 MG/DL (0.2-1.0) Direct Bilirubin < 0.1 MG/DL (0.0-0.3) Aspartate Amino Transf (AST/SGOT) 19 U/L (15-37) Alanine Aminotransferase (ALT/SGPT) 68 U/L (12-78) Alkaline Phosphatase 133 U/L (46-116) H Total Protein 6.1 G/DL (6.4-8.2) L Albumin 3.1 G/DL (3.4-5.0) L Prothrombin Time Pending Prothromb Time International Ratio Pending Objective HEAD AND NECK: No JVD or carotid bruits. LUNGS: Clear. CARDIOVASCULAR: Regular S1 and S2 with no gallop or murmur. ABDOMEN: Soft. EXTREMITIES: Showed no pitting edema. Molina Bradley MD Apr 03, 2019 10:23
[2019-04-03 10:38] LABS: INR 1.1 (0.9-1.1)
--- NOTE | 2019-04-03 10:43 | Infectious Diseases Prog Note ---
Assessment/Plan Assessment/Plan The patient is a 73-year-old female with, CLL/SLL Flow cytomometry showes above BM Bx - Pend Epigastric and left lower quadrant pain. CT abd/pel 03/29/19 - Inflammatory changes extending from the betty hepatis to the posterior retroperitoneum, as described. There may be tiny associated 18 x 12 x 40 mm fluid collection which could represent an abscess. Prominent nodes in the area are likely reactive. Etiology of the inflammatory changes uncertain, could indicate duodenitis, focal pancreatitis of the pancreatic head/uncinate. Less likely ascending diverticulitis, as no definite diverticula are demonstrated. Acute appendicitis is also a possibility, also less likely as the fluid collection does not have a typical appearance of an inflamed appendix and there is a suggestion of visualization of portions of a normal appendix. Correlation with the findings is recommended. Trace free pelvic fluid, presumably related to the above Evidence of prior cholecystectomy. Evidence of prior hepatic surgery. Mild ectasia of the extra hepatic bile ducts probably related to age and postcholecystectomy state. Recommend correlation with liver function tests. Prominent left extrarenal pelvis, with suggestion of some inflammation of the urothelium. Could indicate pyelitis. Correlate with clinical and urinalysis findings Left renal parapelvic cysts versus mild left hydronephrosis, favor the forme Trace right pleural fluid Extensive spinal fusion hardware. This results in streak artifact which limits visualization of the retroperitoneum. Right renal lower pole 12 mm lesion. Probably a cyst. Attenuation measurements are those of a solid lesion, but suspect this is artifact due to beam hardening from adjacent spinal hardware. Recommend sonography to assess whether cystic or solid. Other subcentimeter low-attenuation lesions within the right kidney are too small to characterize most likely represent benign simple cyst. Nonobstructive left lower pole intrarenal calyceal calculus Hepatic cysts. Subcentimeter low-attenuation hepatic lesions which are too small to characterize, most likely benign simple cysts. Other findings as noted, including small hiatal hernia, right basilar pulmonary atelectatic changes Indium scan 04/01/19 - No sign of infectious etiology HIV Neg Hepatitis B/C serology pending Probable urinary tract infection (history of increase of urinary frequency). UCx - E coli warner sen Rash - resolving Likely allergic reaction Unclear if abx - Was given ceftriaxone Right jaw pain Hx of TMJ PLAN: - Monitor off abx - 03/30/19 SP Ceftriaxone held for rash - Monitor CBC and BMP. - Monitor cultures, blood Thank you for this consultation. I will follow the patient with you during this hospitalization. Subjective Allergies: Coded Allergies: LATEX, NATURAL RUBBER (Verified Allergy, Unknown, 03/27/19) PENICILLINS (Verified Allergy, Unknown, 03/27/19) SULFA (SULFONAMIDE ANTIBIOTICS) (Verified Allergy, Unknown, 03/27/19) Subjective SABAS Afebrile WBCs 4 Objective Vital Signs Last 24 Hour Vital Signs Date Time Temp Pulse Resp B/P (MAP) Pulse Ox O2 Delivery O2 Flow Rate FiO2 04/03/19 08:20 149/73 04/03/19 08:00 98.0 45 16 149/73 (98) 96 04/03/19 00:00 98.1 59 18 146/78 (100) 97 04/02/19 21:00 Room Air 04/02/19 20:00 97.5 68 18 114/66 (82) 95 04/02/19 16:00 98.0 61 19 111/74 (86) 99 04/02/19 12:00 97.4 47 20 138/73 (94) 96 Height (Feet): 5 Height (Inches): 1.00 Weight (Pounds): 154 Objective GEN: comfortable HEENT: NCAT, MMM, EOMI CHEST: CTAB, No W HEART: S1 and S2. ABDOMEN: Soft. NT, ND NEUROLOGIC: Awake and alert Laboratory Tests Test 04/03/19 05:40 04/03/19 09:30 White Blood Count 4.2 K/UL (4.8-10.8) L 4.6 K/UL (4.8-10.8) L Red Blood Count 4.10 M/UL (4.20-5.40) L 3.93 M/UL (4.20-5.40) L Hemoglobin 12.8 G/DL (12.0-16.0) 12.2 G/DL (12.0-16.0) Hematocrit 38.1 % (37.0-47.0) 36.4 % (37.0-47.0) L Mean Corpuscular Volume 93 FL (80-99) 93 FL (80-99) Mean Corpuscular Hemoglobin 31.3 PG (27.0-31.0) H 31.1 PG (27.0-31.0) H Mean Corpuscular Hemoglobin Concent 33.6 G/DL (32.0-36.0) 33.6 G/DL (32.0-36.0) Red Cell Distribution Width 12.6 % (11.6-14.8) 12.5 % (11.6-14.8) Platelet Count 17 K/UL (150-450) L 30 K/UL (150-450) #L Mean Platelet Volume 10.5 FL (6.5-10.1) H 10.0 FL (6.5-10.1) Neutrophils (%) (Auto) % (45.0-75.0) % (45.0-75.0) Lymphocytes (%) (Auto) % (20.0-45.0) % (20.0-45.0) Monocytes (%) (Auto) % (1.0-10.0) % (1.0-10.0) Eosinophils (%) (Auto) % (0.0-3.0) % (0.0-3.0) Basophils (%) (Auto) % (0.0-2.0) % (0.0-2.0) Differential Total Cells Counted 100 Neutrophils % (Manual) 23 % (45-75) L Pending Lymphocytes % (Manual) 57 % (20-45) H Pending Monocytes % (Manual) 19 % (1-10) H Eosinophils % (Manual) 1 % (0-3) Basophils % (Manual) 0 % (0-2) Band Neutrophils 0 % (0-8) Platelet Estimate Decreased L Pending Platelet Morphology Normal Pending Red Blood Cell Morphology Normal Sodium Level 141 MMOL/L (136-145) Potassium Level 4.4 MMOL/L (3.5-5.1) Chloride Level 106 MMOL/L (98-107) Carbon Dioxide Level 25 MMOL/L (21-32) Anion Gap 10 mmol/L (5-15) Blood Urea Nitrogen 27 mg/dL (7-18) H Creatinine 0.7 MG/DL (0.55-1.30) Estimat Glomerular Filtration Rate mL/min (>60) Glucose Level 101 MG/DL (74-106) Calcium Level 9.1 MG/DL (8.5-10.1) Total Bilirubin 0.3 MG/DL (0.2-1.0) Direct Bilirubin < 0.1 MG/DL (0.0-0.3) Aspartate Amino Transf (AST/SGOT) 19 U/L (15-37) Alanine Aminotransferase (ALT/SGPT) 68 U/L (12-78) Alkaline Phosphatase 133 U/L (46-116) H Total Protein 6.1 G/DL (6.4-8.2) L Albumin 3.1 G/DL (3.4-5.0) L Prothrombin Time 11.4 SEC (9.30-11.50) Prothromb Time International Ratio 1.1 (0.9-1.1) Current Medications Medications (Trade) Dose Ordered Sig/Marah Route PRN Reason Start Time Stop Time Status Last Admin Dose Admin Acetaminophen (Tylenol) 650 mg Q4H PRN ORAL FEVER (temp>100.5F) 04/02/19 09:15 04/27/19 05:14 Al Hydroxide/Mg Hydroxide (Mylanta) 30 ml Q6H PRN ORAL HEARTBURN 04/02/19 11:15 05/02/19 11:14 Alprazolam (Xanax) 0.25 mg Q8H PRN ORAL For Anxiety 04/02/19 07:30 04/08/19 15:29 04/03/19 09:16 Diphenhydramine HCl (Benadryl) 25 mg Q6H PRN ORAL Itching 04/02/19 07:00 04/29/19 12:59 Escitalopram Oxalate (Lexapro) 10 mg DAILY ORAL 04/02/19 09:00 04/30/19 08:59 04/03/19 08:19 Losartan Potassium (Cozaar) 50 mg DAILY ORAL 04/03/19 09:00 05/03/19 08:59 04/03/19 08:20 Morphine Sulfate (Morphine Sulfate) 2 mg Q4H PRN IVP severe Pain (Pain Scale 7-10) 04/02/19 07:00 04/04/19 06:59 Nitroglycerin (Ntg) 0.4 mg Q5M PRN SL Prn Chest Pain 04/02/19 06:45 04/27/19 05:14 Ondansetron HCl (Zofran) 4 mg Q6H PRN IVP Nausea & Vomiting 04/02/19 07:00 04/27/19 06:59 Oxybutynin Chloride (Ditropan) 5 mg BID ORAL 04/02/19 09:00 05/01/19 17:59 04/03/19 08:19 Pantoprazole (Protonix) 40 mg DAILY ORAL 04/03/19 09:00 05/03/19 08:59 04/03/19 08:19 Temazepam (Restoril) 15 mg HSPRN PRN ORAL Insomnia 04/02/19 07:00 04/09/19 06:59 Mingo Castro MD Apr 03, 2019 10:43
--- NOTE | 2019-04-03 12:29 | Hematology/Onc Progress Note ---
Assessment/Plan Assessment/Plan ASSESSMENT AND PLAN # Pancytopenia - flow cytometry CONSISTENT WITH CLL/SLL, though this is not confirmatory yet can be a sister diagnosis hairy cell leukemia, LGL etc... other causes, on imagin mm right lower pole renal lesion, possibly not definitely cystic. Note that is also not definitely cystic on recent abdomen CT scan. Neoplasm and therefore not excludable. Recommend comparison with any outside prior studies that may be available. MRI may also be useful to definitively determine its cystic or solid. Echogenic focus within the spleen measuring 8 mm diameter. This may correspond to a hypoattenuating lesion seen on recent CT scan, may reflect a hemangioma Contour abnormality of the inferior right hepatic lobe, probably related to prior surgery as no mass is demonstrated on recent CT Right hepatic lobe cyst, also described on recent CT --> peripheral smear has been reviewed and no blasts noted, normal smear --> Medications have been reviewed --> Continue to monitor for improvement, trend cbc --> Hep panel is pending and HIV negative --> CT Abd revealed hepatic cysts. --> reverse isolation if ANC is <2000 --> Give neupogen if ANC <1000 --> WBC 3.6k--> 1.1k--> 1.2k--> 4.0-->3 --> PLT 58--> 6--> 7--> 23-->29-->30 --> DC'ed ASA, s/p PLT Transfusion --> BONE MARROW BIOPSY not successful 03/31, will obtain ct guided bx on 04/03 # Chest Pain --> seen by cards, not a candidate for stress test currently --> Appreciat recs # 11 mm right lower pole renal lesion --> outpatient followup # Anxiety. The time the note was entered does not necessarily mean the patient was seen Greatly appreciate consultation Subjective Constitutional: Denies: no symptoms, chills, fever, malaise, weakness, other HEENT: Denies: no symptoms, eye pain, blurred vision, tearing, double vision, ear pain, ear discharge, nose pain, nose congestion, throat pain, throat swelling, mouth pain, mouth swelling, other Cardiovascular: Denies: no symptoms, chest pain, edema, irregular heart rate, lightheadedness, palpitations, syncope, other Respiratory: Denies: no symptoms, cough, shortness of breath, SOB with excertion, SOB at rest, sputum, wheezing, other Gastrointestinal/Abdominal: Denies: no symptoms, abdomen distended, abdominal pain, black stools, tarry stools, blood in stool, constipated, diarrhea, difficulty swallowing, nausea, poor appetite, poor fluid intake, rectal bleeding , vomiting, other Genitourinary: Denies: no symptoms, burning, discharge, frequency, flank pain, hematuria, incontinence, pain, urgency, other Neurologic/Psychiatric: Denies: no symptoms, anxiety, depressed, emotional problems, headache, numbness, paresthesia, pre-existing deficit, seizure, tingling, tremors, weakness, other Endocrine: Denies: no symptoms, excessive sweating, flushing, intolerance to cold, intolerance to heat, increased hunger, increased thirst, increased urine, unexplained weight gain, unexplained weight loss, other Allergies: Coded Allergies: LATEX, NATURAL RUBBER (Verified Allergy, Unknown, 03/27/19) PENICILLINS (Verified Allergy, Unknown, 03/27/19) SULFA (SULFONAMIDE ANTIBIOTICS) (Verified Allergy, Unknown, 03/27/19) Subjective 03/30: Us abd and CTA +pelvis imaging results reviewed, s/p PLT tx. 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 04/02: no bone marrow biopsy yet, to be repeated tomorrow when plt better 04/03: pending potential bone marrow biopsy after plt count higher, have discussed with Dr. Aldair Bill, patient, Dr. Carvalho and Letha, and with RN Objective Objective Current Medications Medications (Trade) Dose Ordered Sig/Marah Route PRN Reason Start Time Stop Time Status Last Admin Dose Admin Acetaminophen (Tylenol) 650 mg Q4H PRN ORAL FEVER (temp>100.5F) 04/02/19 09:15 04/27/19 05:14 Al Hydroxide/Mg Hydroxide (Mylanta) 30 ml Q6H PRN ORAL HEARTBURN 04/02/19 11:15 05/02/19 11:14 Alprazolam (Xanax) 0.25 mg Q8H PRN ORAL For Anxiety 04/02/19 07:30 04/08/19 15:29 04/03/19 09:16 Diphenhydramine HCl (Benadryl) 25 mg Q6H PRN ORAL Itching 04/02/19 07:00 04/29/19 12:59 Escitalopram Oxalate (Lexapro) 10 mg DAILY ORAL 04/02/19 09:00 04/30/19 08:59 04/03/19 08:19 Losartan Potassium (Cozaar) 50 mg DAILY ORAL 04/03/19 09:00 05/03/19 08:59 04/03/19 08:20 Morphine Sulfate (Morphine Sulfate) 2 mg Q4H PRN IVP severe Pain (Pain Scale 7-10) 04/02/19 07:00 04/04/19 06:59 Nitroglycerin (Ntg) 0.4 mg Q5M PRN SL Prn Chest Pain 04/02/19 06:45 04/27/19 05:14 Ondansetron HCl (Zofran) 4 mg Q6H PRN IVP Nausea & Vomiting 04/02/19 07:00 04/27/19 06:59 Oxybutynin Chloride (Ditropan) 5 mg BID ORAL 04/02/19 09:00 05/01/19 17:59 04/03/19 08:19 Pantoprazole (Protonix) 40 mg DAILY ORAL 04/03/19 09:00 05/03/19 08:59 04/03/19 08:19 Temazepam (Restoril) 15 mg HSPRN PRN ORAL Insomnia 04/02/19 07:00 04/09/19 06:59 Last 24 Hour Vital Signs Date Time Temp Pulse Resp B/P (MAP) Pulse Ox O2 Delivery O2 Flow Rate FiO2 04/03/19 09:00 Room Air 04/03/19 08:20 149/73 04/03/19 08:00 98.0 45 16 149/73 (98) 96 04/03/19 00:00 98.1 59 18 146/78 (100) 97 04/02/19 21:00 Room Air 04/02/19 20:00 97.5 68 18 114/66 (82) 95 04/02/19 16:00 98.0 61 19 111/74 (86) 99 04/02/19 12:00 97.4 47 20 138/73 (94) 96 04/02/19 10:00 164/94 04/02/19 09:00 Room Air 04/02/19 08:00 97.6 47 20 164/94 (117) 97 04/02/19 04:00 97.9 55 20 155/79 (104) 96 04/02/19 04:00 55 04/02/19 00:00 62 04/02/19 00:00 97.7 57 20 132/75 (94) 98 04/01/19 21:00 Room Air 04/01/19 20:00 97.7 58 20 145/79 (101) 98 04/01/19 20:00 58 04/01/19 16:00 81 04/01/19 16:00 97.5 69 20 112/72 (85) 96 Intake and Output 04/02/19 04/03/19 19:00 07:00 Intake Total 500 ml Output Total 850 ml Balance 500 ml -850 ml Intake Oral 500 ml Output Urine Total 850 ml # Voids 3 Labs Test 04/01/19 06:15 04/02/19 06:20 04/03/19 05:40 04/03/19 09:30 White Blood Count 3.0 K/UL (4.8-10.8) 2.9 K/UL (4.8-10.8) 4.2 K/UL (4.8-10.8) 4.6 K/UL (4.8-10.8) Red Blood Count 3.83 M/UL (4.20-5.40) 4.14 M/UL (4.20-5.40) 4.10 M/UL (4.20-5.40) 3.93 M/UL (4.20-5.40) Hemoglobin 12.2 G/DL (12.0-16.0) 13.0 G/DL (12.0-16.0) 12.8 G/DL (12.0-16.0) 12.2 G/DL (12.0-16.0) Hematocrit 35.3 % (37.0-47.0) 38.4 % (37.0-47.0) 38.1 % (37.0-47.0) 36.4 % (37.0-47.0) Mean Corpuscular Volume 92 FL (80-99) 93 FL (80-99) 93 FL (80-99) 93 FL (80- 99) Mean Corpuscular Hemoglobin 31.8 PG (27.0-31.0) 31.5 PG (27.0-31.0) 31.3 PG (27.0-31.0) 31.1 PG (27.0-31.0) Mean Corpuscular Hemoglobin Concent 34.4 G/DL (32.0-36.0) 34.0 G/DL (32.0-36.0) 33.6 G/DL (32.0-36.0) 33.6 G/DL (32.0-36.0) Red Cell Distribution Width 12.3 % (11.6-14.8) 12.3 % (11.6-14.8) 12.6 % (11.6-14.8) 12.5 % (11.6-14.8) Platelet Count 29 K/UL (150-450) 20 K/UL (150-450) 17 K/UL (150-450) 30 K/UL (150-450) Mean Platelet Volume 13.7 FL (6.5-10.1) 12.1 FL (6.5-10.1) 10.5 FL (6.5-10.1) 10.0 FL (6.5-10.1) Neutrophils (%) (Auto) % (45.0-75.0) % (45.0-75.0) % (45.0-75.0) % (45.0- 75.0) Lymphocytes (%) (Auto) % (20.0-45.0) % (20.0-45.0) % (20.0-45.0) % (20.0- 45.0) Monocytes (%) (Auto) % (1.0-10.0) % (1.0-10.0) % (1.0-10.0) % (1.0-10.0) Eosinophils (%) (Auto) % (0.0-3.0) % (0.0-3.0) % (0.0-3.0) % (0.0-3.0) Basophils (%) (Auto) % (0.0-2.0) % (0.0-2.0) % (0.0-2.0) % (0.0-2.0) Differential Total Cells Counted 100 100 100 100 Neutrophils % (Manual) 55 % (45-75) 56 % (45-75) 23 % (45-75) 27 % (45-75) Lymphocytes % (Manual) 28 % (20-45) 30 % (20-45) 57 % (20-45) 54 % (20-45) Monocytes % (Manual) 14 % (1-10) 11 % (1-10) 19 % (1-10) 19 % (1-10) Eosinophils % (Manual) 1 % (0-3) 1 % (0-3) 1 % (0-3) 0 % (0-3) Basophils % (Manual) 0 % (0-2) 2 % (0-2) 0 % (0-2) 0 % (0-2) Band Neutrophils 2 % (0-8) 0 % (0-8) 0 % (0-8) 0 % (0-8) Reactive Lymphocytes 1+ Platelet Estimate Decreased Decreased Decreased Decreased Platelet Morphology Normal Normal Normal Normal Sodium Level 145 MMOL/L (136-145) 138 MMOL/L (136-145) 141 MMOL/L (136-145) Potassium Level 4.1 MMOL/L (3.5-5.1) 5.3 MMOL/L (3.5-5.1) 4.4 MMOL/L (3.5-5.1) Chloride Level 108 MMOL/L (98-107) 105 MMOL/L (98-107) 106 MMOL/L (98-107) Carbon Dioxide Level 26 MMOL/L (21-32) 24 MMOL/L (21-32) 25 MMOL/L (21-32) Anion Gap 11 mmol/L (5-15) 9 mmol/L (5-15) 10 mmol/L (5-15) Blood Urea Nitrogen 25 mg/dL (7-18) 33 mg/dL (7-18) 27 mg/dL (7-18) Creatinine 0.6 MG/DL (0.55-1.30) 0.8 MG/DL (0.55-1.30) 0.7 MG/DL (0.55-1.30) Estimat Glomerular Filtration Rate mL/min (>60) mL/min (>60) mL/min (>60) Glucose Level 174 MG/DL (74-106) 164 MG/DL (74-106) 101 MG/DL (74-106) Calcium Level 8.7 MG/DL (8.5-10.1) 9.8 MG/DL (8.5-10.1) 9.1 MG/DL (8.5-10.1) Phosphorus Level 3.0 MG/DL (2.5-4.9) 3.7 MG/DL (2.5-4.9) Total Bilirubin 0.3 MG/DL (0.2-1.0) 0.4 MG/DL (0.2-1.0) 0.3 MG/DL (0.2-1.0) Aspartate Amino Transf (AST/SGOT) 20 U/L (15-37) 25 U/L (15-37) 19 U/L (15-37) Alanine Aminotransferase (ALT/SGPT) 102 U/L (12-78) 88 U/L (12-78) 68 U/L (12-78) Alkaline Phosphatase 152 U/L (46-116) 161 U/L (46-116) 133 U/L (46-116) Total Protein 6.4 G/DL (6.4-8.2) 6.7 G/DL (6.4-8.2) 6.1 G/DL (6.4-8.2) Albumin 2.9 G/DL (3.4-5.0) 3.3 G/DL (3.4-5.0) 3.1 G/DL (3.4-5.0) Globulin 3.5 g/dL 3.4 g/dL Albumin/Globulin Ratio 0.8 (1.0-2.7) 1.0 (1.0-2.7) Nucleated Red Blood Cells 2 /100 WBC Red Blood Cell Morphology Normal Normal Normal Magnesium Level 2.5 MG/DL (1.8-2.4) Immunoglobulin G 773 mg/dL (700-1600) Immunoglobulin A 80 mg/dL (64-422) Immunoglobulin M 41 mg/dL (26-217) Direct Bilirubin < 0.1 MG/DL (0.0-0.3) Prothrombin Time 11.4 SEC (9.30-11.50) Prothromb Time International Ratio 1.1 (0.9-1.1) Height (Feet): 5 Height (Inches): 1.00 Weight (Pounds): 154 Objective Physical Exam Vital Signs reviewed General Appearance: well appearing, no apparent distress, alert Head: normocephalic, atraumatic Eyes: bilateral eye PERRL, bilateral eye EOMI, abrasion under left eye ENT: hearing grossly normal, normal pharynx Neck: full range of motion, supple, no meningismus Respiratory: chest non-tender, lungs clear, normal breath sounds Cardiovascular #1: regular rate, rhythm, no murmur Gastrointestinal: normal bowel sounds, non tender, no mass, no organomegaly, no bruit, non-distended Musculoskeletal: back normal, gait/station normal, normal range of motion Psychiatric: mood/affect normal Skin: warm/dry, small bruises BLE Chi Berry MD Apr 03, 2019 12:29
--- NOTE | 2019-04-03 12:37 | Pulmonology Progress Note ---
Assessment/Plan Problems: (1) CLL (chronic lymphocytic leukemia) (2) Duodenitis (3) Renal mass (4) Leukopenia (5) Thrombocytopenia (6) ACS (acute coronary syndrome) (7) GERD (gastroesophageal reflux disease) (8) Allergic dermatitis Assessment/Plan awaiting bone marrow for today noon f/u blood smear V/w scan to rule out PE taper solumedrol for allergic dermatis stress study ordered. echo reviewed. Subjective ROS Limited/Unobtainable: No Constitutional: Reports: no symptoms Respiratory: Reports: no symptoms Allergies: Coded Allergies: LATEX, NATURAL RUBBER (Verified Allergy, Unknown, 03/27/19) PENICILLINS (Verified Allergy, Unknown, 03/27/19) SULFA (SULFONAMIDE ANTIBIOTICS) (Verified Allergy, Unknown, 03/27/19) Objective Last 24 Hour Vital Signs Date Time Temp Pulse Resp B/P (MAP) Pulse Ox O2 Delivery O2 Flow Rate FiO2 04/03/19 09:00 Room Air 04/03/19 08:20 149/73 04/03/19 08:00 98.0 45 16 149/73 (98) 96 04/03/19 00:00 98.1 59 18 146/78 (100) 97 04/02/19 21:00 Room Air 04/02/19 20:00 97.5 68 18 114/66 (82) 95 04/02/19 16:00 98.0 61 19 111/74 (86) 99 Intake and Output 04/02/19 04/03/19 19:00 07:00 Intake Total 500 ml Output Total 850 ml Balance 500 ml -850 ml Intake Oral 500 ml Output Urine Total 850 ml # Voids 3 General Appearance: WD/WN HEENT: atraumatic Respiratory/Chest: chest wall non-tender, normal breath sounds Breasts: no masses Cardiovascular: normal rate Abdomen: soft, non tender, no mass Genitourinary: normal external genitalia Extremities: no clubbing Laboratory Tests 04/03/19 05:40: White Blood Count 4.2L, Red Blood Count 4.10L, Hemoglobin 12.8, Hematocrit 38.1 , Mean Corpuscular Volume 93, Mean Corpuscular Hemoglobin 31.3H, Mean Corpuscular Hemoglobin Concent 33.6, Red Cell Distribution Width 12.6, Platelet Count 17L, Mean Platelet Volume 10.5H, Neutrophils (%) (Auto) , Lymphocytes (%) (Auto) , Monocytes (%) (Auto) , Eosinophils (%) (Auto) , Basophils (%) (Auto) , Differential Total Cells Counted 100, Neutrophils % (Manual) 23L, Lymphocytes % (Manual) 57H, Monocytes % (Manual) 19H, Eosinophils % (Manual) 1, Basophils % ( Manual) 0, Band Neutrophils 0, Platelet Estimate DecreasedL, Platelet Morphology Normal, Red Blood Cell Morphology Normal, Sodium Level 141, Potassium Level 4.4, Chloride Level 106, Carbon Dioxide Level 25, Anion Gap 10, Blood Urea Nitrogen 27H, Creatinine 0.7, Estimat Glomerular Filtration Rate , Glucose Level 101, Calcium Level 9.1, Total Bilirubin 0.3, Direct Bilirubin < 0.1, Aspartate Amino Transf (AST/SGOT) 19, Alanine Aminotransferase (ALT/SGPT) 68, Alkaline Phosphatase 133H, Total Protein 6.1L, Albumin 3.1L 04/03/19 09:30: White Blood Count 4.6L, Red Blood Count 3.93L, Hemoglobin 12.2, Hematocrit 36.4L , Mean Corpuscular Volume 93, Mean Corpuscular Hemoglobin 31.1H, Mean Corpuscular Hemoglobin Concent 33.6, Red Cell Distribution Width 12.5, Platelet Count 30#L, Mean Platelet Volume 10.0, Neutrophils (%) (Auto) , Lymphocytes (%) (Auto) , Monocytes (%) (Auto) , Eosinophils (%) (Auto) , Basophils (%) (Auto) , Differential Total Cells Counted 100, Neutrophils % (Manual) 27L, Lymphocytes % (Manual) 54H, Monocytes % (Manual) 19H, Eosinophils % (Manual) 0, Basophils % ( Manual) 0, Band Neutrophils 0, Platelet Estimate DecreasedL, Platelet Morphology Normal, Red Blood Cell Morphology Normal, Prothrombin Time 11.4, Prothromb Time International Ratio 1.1 Current Medications Medications (Trade) Dose Ordered Sig/Marah Route PRN Reason Start Time Stop Time Status Last Admin Dose Admin Acetaminophen (Tylenol) 650 mg Q4H PRN ORAL FEVER (temp>100.5F) 04/02/19 09:15 04/27/19 05:14 Al Hydroxide/Mg Hydroxide (Mylanta) 30 ml Q6H PRN ORAL HEARTBURN 04/02/19 11:15 05/02/19 11:14 Alprazolam (Xanax) 0.25 mg Q8H PRN ORAL For Anxiety 04/02/19 07:30 04/08/19 15:29 04/03/19 09:16 Diphenhydramine HCl (Benadryl) 25 mg Q6H PRN ORAL Itching 04/02/19 07:00 04/29/19 12:59 Escitalopram Oxalate (Lexapro) 10 mg DAILY ORAL 04/02/19 09:00 04/30/19 08:59 04/03/19 08:19 Losartan Potassium (Cozaar) 50 mg DAILY ORAL 04/03/19 09:00 05/03/19 08:59 04/03/19 08:20 Morphine Sulfate (Morphine Sulfate) 2 mg Q4H PRN IVP severe Pain (Pain Scale 7-10) 04/02/19 07:00 04/04/19 06:59 Nitroglycerin (Ntg) 0.4 mg Q5M PRN SL Prn Chest Pain 04/02/19 06:45 04/27/19 05:14 Ondansetron HCl (Zofran) 4 mg Q6H PRN IVP Nausea & Vomiting 04/02/19 07:00 04/27/19 06:59 Oxybutynin Chloride (Ditropan) 5 mg BID ORAL 04/02/19 09:00 05/01/19 17:59 04/03/19 08:19 Pantoprazole (Protonix) 40 mg DAILY ORAL 04/03/19 09:00 05/03/19 08:59 04/03/19 08:19 Temazepam (Restoril) 15 mg HSPRN PRN ORAL Insomnia 04/02/19 07:00 04/09/19 06:59 Narinder Pedro MD Apr 03, 2019 12:37
--- NOTE | 2019-04-03 12:47 | General Progress Note ---
Assessment/Plan Problem List: (1) Leukopenia ICD Codes: D72.819 - Decreased white blood cell count, unspecified SNOMED: 36437035, 002377782 (2) Thrombocytopenia ICD Codes: D69.6 - Thrombocytopenia, unspecified SNOMED: 030303950 (3) UTI (urinary tract infection) ICD Codes: N39.0 - Urinary tract infection, site not specified SNOMED: 99267815 Qualifiers: Qualified Codes: N30.00 - Acute cystitis without hematuria (4) Chest pain ICD Codes: R07.9 - Chest pain, unspecified SNOMED: 56528338 Qualifiers: Qualified Codes: R07.9 - Chest pain, unspecified (5) ACS (acute coronary syndrome) ICD Codes: I24.9 - Acute ischemic heart disease, unspecified SNOMED: 321016352 Status: unchanged Assessment/Plan: pain control cardio heme f/u cbc bmp am brotman aru eval pending bx Subjective Constitutional: Reports: weakness Allergies: Coded Allergies: LATEX, NATURAL RUBBER (Verified Allergy, Unknown, 03/27/19) PENICILLINS (Verified Allergy, Unknown, 03/27/19) SULFA (SULFONAMIDE ANTIBIOTICS) (Verified Allergy, Unknown, 03/27/19) All Systems: reviewed and negative except above Subjective sleepy calm Objective Last 24 Hour Vital Signs Date Time Temp Pulse Resp B/P (MAP) Pulse Ox O2 Delivery O2 Flow Rate FiO2 04/03/19 09:00 Room Air 04/03/19 08:20 149/73 04/03/19 08:00 98.0 45 16 149/73 (98) 96 04/03/19 00:00 98.1 59 18 146/78 (100) 97 04/02/19 21:00 Room Air 04/02/19 20:00 97.5 68 18 114/66 (82) 95 04/02/19 16:00 98.0 61 19 111/74 (86) 99 Intake and Output 04/02/19 04/03/19 19:00 07:00 Intake Total 500 ml Output Total 850 ml Balance 500 ml -850 ml Intake Oral 500 ml Output Urine Total 850 ml # Voids 3 Laboratory Tests 04/03/19 05:40: White Blood Count 4.2L, Red Blood Count 4.10L, Hemoglobin 12.8, Hematocrit 38.1 , Mean Corpuscular Volume 93, Mean Corpuscular Hemoglobin 31.3H, Mean Corpuscular Hemoglobin Concent 33.6, Red Cell Distribution Width 12.6, Platelet Count 17L, Mean Platelet Volume 10.5H, Neutrophils (%) (Auto) , Lymphocytes (%) (Auto) , Monocytes (%) (Auto) , Eosinophils (%) (Auto) , Basophils (%) (Auto) , Differential Total Cells Counted 100, Neutrophils % (Manual) 23L, Lymphocytes % (Manual) 57H, Monocytes % (Manual) 19H, Eosinophils % (Manual) 1, Basophils % ( Manual) 0, Band Neutrophils 0, Platelet Estimate DecreasedL, Platelet Morphology Normal, Red Blood Cell Morphology Normal, Sodium Level 141, Potassium Level 4.4, Chloride Level 106, Carbon Dioxide Level 25, Anion Gap 10, Blood Urea Nitrogen 27H, Creatinine 0.7, Estimat Glomerular Filtration Rate , Glucose Level 101, Calcium Level 9.1, Total Bilirubin 0.3, Direct Bilirubin < 0.1, Aspartate Amino Transf (AST/SGOT) 19, Alanine Aminotransferase (ALT/SGPT) 68, Alkaline Phosphatase 133H, Total Protein 6.1L, Albumin 3.1L 04/03/19 09:30: White Blood Count 4.6L, Red Blood Count 3.93L, Hemoglobin 12.2, Hematocrit 36.4L , Mean Corpuscular Volume 93, Mean Corpuscular Hemoglobin 31.1H, Mean Corpuscular Hemoglobin Concent 33.6, Red Cell Distribution Width 12.5, Platelet Count 30#L, Mean Platelet Volume 10.0, Neutrophils (%) (Auto) , Lymphocytes (%) (Auto) , Monocytes (%) (Auto) , Eosinophils (%) (Auto) , Basophils (%) (Auto) , Differential Total Cells Counted 100, Neutrophils % (Manual) 27L, Lymphocytes % (Manual) 54H, Monocytes % (Manual) 19H, Eosinophils % (Manual) 0, Basophils % ( Manual) 0, Band Neutrophils 0, Platelet Estimate DecreasedL, Platelet Morphology Normal, Red Blood Cell Morphology Normal, Prothrombin Time 11.4, Prothromb Time International Ratio 1.1 Height (Feet): 5 Height (Inches): 1.00 Weight (Pounds): 154 General Appearance: lethargic EENT: normal ENT inspection Neck: normal alignment Cardiovascular: normal peripheral pulses, normal rate, regular rhythm Respiratory/Chest: chest wall non-tender, lungs clear, normal breath sounds Abdomen: normal bowel sounds, non tender, soft Extremities: normal inspection Edema: no edema noted Arm (L), no edema noted Arm (R), no edema noted Leg (L), no edema noted Leg (R), no edema noted Pedal (L), no edema noted Pedal (R), no edema noted Generalized Neurologic: motor weakness Skin: normal pigmentation, warm/dry Aldair Bill DO Apr 03, 2019 12:46
[2019-04-03] MEDS ORDERED: Midazolam 2mg/2ml Inj ONE (13:42)
[2019-04-03] MEDS ORDERED: fentaNYL 100 mcg/2 mL IV ONE (13:42)
--- NOTE | 2019-04-03 13:43 | General Progress Note ---
Assessment/Plan Problem List: (1) CLL (chronic lymphocytic leukemia) ICD Codes: C91.90 - Lymphoid leukemia, unspecified not having achieved remission SNOMED: 57956193 (2) GERD (gastroesophageal reflux disease) ICD Codes: K21.9 - Gastro-esophageal reflux disease without esophagitis SNOMED: 838823834 (3) Hepatic cyst ICD Codes: K76.89 - Other specified diseases of liver SNOMED: 67816333 (4) Thrombocytopenia ICD Codes: D69.6 - Thrombocytopenia, unspecified SNOMED: 383745390 Status: unchanged Assessment/Plan: recent EGD/colonoscopy within the year history of hepatic angioma with liver resection approximately 5 years ago CTAP reviewed, multiple hepatic cysts most likely simple benign cysts Hepatitis panel negative AFP WNL No plans for GI procedures at this time defer MRI liver protocol follow up hematology recommendations, bone marrow biopsy rule out leukemia >> biopsy shows 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 follow up cardiology recs, stress test on hold due to leukopenia ppi daily prn transfusions zofran prn follow labs Subjective ROS Limited/Unobtainable: Yes Allergies: Coded Allergies: LATEX, NATURAL RUBBER (Verified Allergy, Unknown, 03/27/19) PENICILLINS (Verified Allergy, Unknown, 03/27/19) SULFA (SULFONAMIDE ANTIBIOTICS) (Verified Allergy, Unknown, 03/27/19) Objective Last 24 Hour Vital Signs Date Time Temp Pulse Resp B/P (MAP) Pulse Ox O2 Delivery O2 Flow Rate FiO2 04/03/19 12:00 97.9 56 16 142/75 (97) 97 04/03/19 10:30 98.4 56 18 151/80 (103) 99 04/03/19 09:00 Room Air 04/03/19 09:00 98.0 54 18 166/82 (110) 97 04/03/19 08:20 149/73 04/03/19 08:00 98.0 45 16 149/73 (98) 96 04/03/19 00:00 98.1 59 18 146/78 (100) 97 04/02/19 21:00 Room Air 04/02/19 20:00 97.5 68 18 114/66 (82) 95 04/02/19 16:00 98.0 61 19 111/74 (86) 99 Intake and Output 04/02/19 04/03/19 19:00 07:00 Intake Total 500 ml Output Total 850 ml Balance 500 ml -850 ml Intake Oral 500 ml Output Urine Total 850 ml # Voids 3 Laboratory Tests 04/03/19 05:40: White Blood Count 4.2L, Red Blood Count 4.10L, Hemoglobin 12.8, Hematocrit 38.1 , Mean Corpuscular Volume 93, Mean Corpuscular Hemoglobin 31.3H, Mean Corpuscular Hemoglobin Concent 33.6, Red Cell Distribution Width 12.6, Platelet Count 17L, Mean Platelet Volume 10.5H, Neutrophils (%) (Auto) , Lymphocytes (%) (Auto) , Monocytes (%) (Auto) , Eosinophils (%) (Auto) , Basophils (%) (Auto) , Differential Total Cells Counted 100, Neutrophils % (Manual) 23L, Lymphocytes % (Manual) 57H, Monocytes % (Manual) 19H, Eosinophils % (Manual) 1, Basophils % ( Manual) 0, Band Neutrophils 0, Platelet Estimate DecreasedL, Platelet Morphology Normal, Red Blood Cell Morphology Normal, Sodium Level 141, Potassium Level 4.4, Chloride Level 106, Carbon Dioxide Level 25, Anion Gap 10, Blood Urea Nitrogen 27H, Creatinine 0.7, Estimat Glomerular Filtration Rate , Glucose Level 101, Calcium Level 9.1, Total Bilirubin 0.3, Direct Bilirubin < 0.1, Aspartate Amino Transf (AST/SGOT) 19, Alanine Aminotransferase (ALT/SGPT) 68, Alkaline Phosphatase 133H, Total Protein 6.1L, Albumin 3.1L 04/03/19 09:30: White Blood Count 4.6L, Red Blood Count 3.93L, Hemoglobin 12.2, Hematocrit 36.4L , Mean Corpuscular Volume 93, Mean Corpuscular Hemoglobin 31.1H, Mean Corpuscular Hemoglobin Concent 33.6, Red Cell Distribution Width 12.5, Platelet Count 30#L, Mean Platelet Volume 10.0, Neutrophils (%) (Auto) , Lymphocytes (%) (Auto) , Monocytes (%) (Auto) , Eosinophils (%) (Auto) , Basophils (%) (Auto) , Differential Total Cells Counted 100, Neutrophils % (Manual) 27L, Lymphocytes % (Manual) 54H, Monocytes % (Manual) 19H, Eosinophils % (Manual) 0, Basophils % ( Manual) 0, Band Neutrophils 0, Platelet Estimate DecreasedL, Platelet Morphology Normal, Red Blood Cell Morphology Normal, Prothrombin Time 11.4, Prothromb Time International Ratio 1.1 Height (Feet): 5 Height (Inches): 1.00 Weight (Pounds): 154 General Appearance: no apparent distress EENT: normal ENT inspection Neck: supple Cardiovascular: normal rate Respiratory/Chest: decreased breath sounds Abdomen: normal bowel sounds, non tender, soft Extremities: non-tender Anthony Galvan MD Apr 03, 2019 13:43
--- NOTE | 2019-04-03 13:48 | Pre-Procedure Note/Attestation ---
Pre-Procedure Note/Attestation Complete Prior to Procedure Planned Procedure: not applicable Procedure Narrative: bone marrow biopsy Indications for Procedure Pre-Operative Diagnosis: leukemia Attestation I attest that I discussed the nature of the procedure; its benefits; risks and complications; and alternatives (and the risks and benefits of such alternatives ), prior to the procedure, with the patient (or the patient's legal policy services representative). I attest that, if there was a reasonable possibility of needing a blood transfusion, the patient (or the patient's legal policy services representative) was given the [facility] standardized written summary, pursuant to the Tristen Andrews Blood Safety Act ([place] Health and Safety Code # 1645, as amended). I attest that I re-evaluated the patient just prior to the surgery and that there has been no change in the patient's H&P, except as documented below: Discussed with pt. pre-procedure. Increased risk of bleeding due to thrombocytopenia discussed Stephen Swan MD Apr 03, 2019 13:48
--- NOTE | 2019-04-03 14:34 | Moderate Sedation - Procedural ---
Moderate Sedation HPI Home Medication Reported Medications Ca Carb/D3/Mag Ox/Road Roller Operator Hot Mix/Palmer/Zn (Caltrate+D3 Plus Mineral Minis) 1 Each Tablet, 1 EACH PO, TAB 03/30/19 Alprazolam* (XANAX*) 0.25 Mg Tablet, 0.25 MG ORAL TID, TAB 03/30/19 Escitalopram Oxalate* (LEXAPRO*) 10 Mg Tablet, 10 MG ORAL DAILY, TAB 03/30/19 Rosuvastatin Calcium* (CRESTOR*) 10 Mg Tablet, 10 MG ORAL DAILY, TAB 03/30/19 Salmeterol Xinafoate (Serevent Diskus) 50 Mcg Blst.w.dev, 50 MCG IH, MCG 03/30/19 Oxybutynin Chloride (DITROPAN XL) 10 Mg Tab.er.24, 10 MG ORAL DAILY, TAB 03/30/19 Albuterol Sulfate* (ALBUTEROL SULFATE HHN*) 2.5 Mg/3 Ml Vial.neb, 3 ML INH THREE TIMES A DAY, #30 EA 0 Refills 03/30/19 Losartan Potassium* (LOSARTAN POTASSIUM*) 25 Mg Tablet, 25 MG ORAL DAILY, TAB 03/27/19 Patient History Allergies: Coded Allergies: LATEX, NATURAL RUBBER (Verified Allergy, Unknown, 03/27/19) PENICILLINS (Verified Allergy, Unknown, 03/27/19) SULFA (SULFONAMIDE ANTIBIOTICS) (Verified Allergy, Unknown, 03/27/19) Pre-Procedural Mod Sedation Date: Apr 03, 2019 Pre-Assessment Time: 14:30 Pre-Sedation Assessment: Elective Airway Assessment (Malampati): III Evaluation Hx of untoward rxns to mod sed: No Procedures/Plans: Radiology Plan for Moderate Sedation: Fentanyl ASA Score: II Informed Consent The nature of the procedure/sedation; its benefits; risks and complications; and alternatives (and the risks and benefits of such alternatives) were discussed with the patient (or their legal asset protection representative), prior to the procedure. All questions were answered to the patient's (or their legal asset protection representative's) satisfaction and the patient (or their legal asset protection representative) gave informed consent to the procedure. I attest that I re-evaluated the patient just prior to the surgery and that there has been no change in the patient's H&P, except as documented below: Post Procedure Assessment Post Procedure TIme: 15:00 Communication: No Apparent Limitation Mental Status: Awake Respiration: Unlabored Skin Condition: WNL Adomen: WNL Nausea: NO Vomiting: NO Stephen Swan MD Apr 03, 2019 14:34
[2019-04-03] MEDS ORDERED: Lidocaine 1% Plain 30 ml INJ SCH (14:37)
--- NOTE | 2019-04-03 15:11 | Brief Operative Note ---
Immediate Post Operative Note Operative Note Pre-op Diagnosis: leukemia Procedure: L iliac bone marrow biopsy Post-op Diagnosis: same as pre-op Findings: consistent w/pre-op dx studies Surgeon: Elizabeth Dueñas Anesthesia: moderate sedation Specimen: yes - 10 ml aspirate, 1 11 G core Complications: yes - none Fluids: none Implant(s) used?: No Stephen Dueñas MD Apr 03, 2019 15:11
--- NOTE | 2019-04-03 15:48 | Diagnostic Imaging Report ---
Indication: Leukemia, bone marrow biopsy requested by the supervisor title Technique: Informed consent obtained prior to commencement of the procedure. Risks, benefits, alternatives discussed with patient, questions answered. She indicated willingness were seen. Procedural timeout performed. Patient given preprocedure mild sedation. Localizing spiral acquisitions obtained through the pelvis. Sterile prepping and draping. Local anesthesia with 1% lidocaine. Under CT guidance, a trocar for the icomasoft bone biopsy device was advanced to the surface of the posterior left iliac bone. CT images confirm satisfactory needle position. The trocar was advanced using the power drill, and position rechecked. The outer cannula was then aspirated and 10 mL of bone marrow were aspirated with a 20 mL syringe. The coring cannula was then inserted and advanced using the power drill. This was removed, and the core specimen was extruded and provided to pathology. A dressing was applied. The patient tolerated the procedure well, without immediate complication. Total dose length product 751 mGycm. CTDIvol(s) 19 x 4 mGy. Radiation dose was minimized using automated exposure control Comparison: none Findings: Residual imaging demonstrates satisfactory placement of the cannula. Completion images demonstrate no evidence of bleeding or other complication Impression: Apparently successful CT-guided left iliac bone marrow biopsy, as described The CT scanner at [facility] is accredited by the [employer] and the scans are performed using protocols designed to limit radiation exposure to as low as reasonably achievable to attain images of sufficient resolution adequate for diagnostic evaluation.
--- NOTE | 2019-04-03 21:45 | Progress Note ---
DATE: 04/03/2019 SUBJECTIVE: The patient has some pain following bone marrow biopsy. No shortness of breath or chest pain. OBJECTIVE: VITAL SIGNS: Blood pressure 149/73, heart rate 45 to 68, respiratory rate 18, and afebrile. LUNGS: Clear. CARDIAC: Regular. Normal S1, S2 with occasional episodes of bradycardia. Asymptomatic. ABDOMEN: Soft. EXTREMITIES: No edema. LABORATORY DATA: Platelet count is 30,000. Potassium 4.4, BUN 27, and creatinine 0.7. IMPRESSION: 1. Possible CLL with thrombocytopenia. 2. Pleuritic chest pain. No clinical signs of acute coronary insufficiency. 3. Asymptomatic sinus bradycardia. PLAN: 1. Repeat EKG. 2. Check thyroid function avoiding any medications with negative chronotropic potential. Mingo Valderrama M.D. DR: ARPIT JOB#: [id number] CC:
[2019-04-04] VITALS: BP 120/77
[2019-04-04 04:00] VITALS: BP 142/74
--- NOTE | 2019-04-04 06:45 | Pulmonology Progress Note ---
Assessment/Plan Problems: (1) CLL (chronic lymphocytic leukemia) (2) Duodenitis (3) Renal mass (4) Leukopenia (5) Thrombocytopenia (6) ACS (acute coronary syndrome) (7) GERD (gastroesophageal reflux disease) (8) Allergic dermatitis Assessment/Plan uccessful CT-guided left iliac bone marrow biopsy done yesterday f/u blood smear symptomatic treatment stress study ordered. echo reviewed. Subjective ROS Limited/Unobtainable: No Constitutional: Reports: no symptoms HEENT: Repors: no symptoms Respiratory: Reports: no symptoms Allergies: Coded Allergies: LATEX, NATURAL RUBBER (Verified Allergy, Unknown, 03/27/19) PENICILLINS (Verified Allergy, Unknown, 03/27/19) SULFA (SULFONAMIDE ANTIBIOTICS) (Verified Allergy, Unknown, 03/27/19) Objective Last 24 Hour Vital Signs Date Time Temp Pulse Resp B/P (MAP) Pulse Ox O2 Delivery O2 Flow Rate FiO2 04/04/19 04:00 97.2 62 20 142/74 (96) 97 04/04/19 00:00 98.2 64 20 120/77 (91) 98 04/03/19 21:00 Room Air 04/03/19 20:00 98.0 69 20 106/71 (83) 99 04/03/19 15:55 53 18 141/80 96 Room Air 04/03/19 15:50 56 18 137/79 98 Room Air 04/03/19 15:45 53 18 145/81 100 Room Air 04/03/19 15:30 53 18 152/83 100 Nasal Cannula 1 04/03/19 15:25 52 18 148/81 100 Nasal Cannula 2 04/03/19 15:20 51 18 157/85 100 Nasal Cannula 2 04/03/19 15:18 97.7 55 18 167/79 100 Nasal Cannula 2 04/03/19 15:00 57 18 165/98 (120) 100 04/03/19 14:55 56 18 169/92 (117) 100 04/03/19 14:50 97.6 50 18 167/96 (119) 100 04/03/19 14:48 97.6 52 18 100 Nasal Cannula 2.0 59 100 04/03/19 12:00 97.9 56 16 142/75 (97) 97 04/03/19 10:30 98.4 56 18 151/80 (103) 99 04/03/19 09:00 Room Air 04/03/19 09:00 98.0 54 18 166/82 (110) 97 04/03/19 08:20 149/73 04/03/19 08:00 98.0 45 16 149/73 (98) 96 Intake and Output 04/03/19 04/04/19 19:00 07:00 Intake Total 200 ml 520 ml Output Total 5 ml Balance 195 ml 520 ml Intake Oral 520 ml IV Total 200 ml Estimated Blood Loss 5 ml # Voids 2 Objective General Appearance: WD/WN HEENT: atraumatic Respiratory/Chest: chest wall non-tender, normal breath sounds Breasts: no masses Cardiovascular: normal rate Abdomen: soft, non tender, no mass Genitourinary: normal external genitalia Extremities: no clubbing Laboratory Tests 04/03/19 09:30: White Blood Count 4.6L, Red Blood Count 3.93L, Hemoglobin 12.2, Hematocrit 36.4L , Mean Corpuscular Volume 93, Mean Corpuscular Hemoglobin 31.1H, Mean Corpuscular Hemoglobin Concent 33.6, Red Cell Distribution Width 12.5, Platelet Count 30#L, Mean Platelet Volume 10.0, Neutrophils (%) (Auto) , Lymphocytes (%) (Auto) , Monocytes (%) (Auto) , Eosinophils (%) (Auto) , Basophils (%) (Auto) , Differential Total Cells Counted 100, Neutrophils % (Manual) 27L, Lymphocytes % (Manual) 54H, Monocytes % (Manual) 19H, Eosinophils % (Manual) 0, Basophils % ( Manual) 0, Band Neutrophils 0, Platelet Estimate DecreasedL, Platelet Morphology Normal, Red Blood Cell Morphology Normal, Prothrombin Time 11.4, Prothromb Time International Ratio 1.1 Current Medications Medications (Trade) Dose Ordered Sig/Marah Route PRN Reason Start Time Stop Time Status Last Admin Dose Admin Acetaminophen (Tylenol) 650 mg Q4H PRN ORAL FEVER (temp>100.5F) 04/02/19 09:15 04/27/19 05:14 Al Hydroxide/Mg Hydroxide (Mylanta) 30 ml Q6H PRN ORAL HEARTBURN 04/02/19 11:15 05/02/19 11:14 Alprazolam (Xanax) 0.25 mg Q8H PRN ORAL For Anxiety 04/02/19 07:30 04/08/19 15:29 04/03/19 20:36 Diphenhydramine HCl (Benadryl) 25 mg Q6H PRN ORAL Itching 04/02/19 07:00 04/29/19 12:59 Escitalopram Oxalate (Lexapro) 10 mg DAILY ORAL 04/02/19 09:00 04/30/19 08:59 04/03/19 08:19 Losartan Potassium (Cozaar) 50 mg DAILY ORAL 04/03/19 09:00 05/03/19 08:59 04/03/19 08:20 Morphine Sulfate (Morphine Sulfate) 2 mg Q4H PRN IVP severe Pain (Pain Scale 7-10) 04/02/19 07:00 04/04/19 06:59 Nitroglycerin (Ntg) 0.4 mg Q5M PRN SL Prn Chest Pain 04/02/19 06:45 04/27/19 05:14 Ondansetron HCl (Zofran) 4 mg Q6H PRN IVP Nausea & Vomiting 04/02/19 07:00 04/27/19 06:59 Oxybutynin Chloride (Ditropan) 5 mg BID ORAL 04/02/19 09:00 05/01/19 17:59 04/03/19 18:36 Pantoprazole (Protonix) 40 mg DAILY ORAL 04/03/19 09:00 05/03/19 08:59 04/03/19 08:19 Temazepam (Restoril) 15 mg HSPRN PRN ORAL Insomnia 04/02/19 07:00 04/09/19 06:59 Narinder Pedro MD Apr 04, 2019 06:45
--- NOTE | 2019-04-04 07:47 | General Progress Note ---
Assessment/Plan Problem List: (1) Leukopenia ICD Codes: D72.819 - Decreased white blood cell count, unspecified SNOMED: 12885942, 300905153 (2) Thrombocytopenia ICD Codes: D69.6 - Thrombocytopenia, unspecified SNOMED: 013259904 (3) UTI (urinary tract infection) ICD Codes: N39.0 - Urinary tract infection, site not specified SNOMED: 70403984 Qualifiers: Qualified Codes: N30.00 - Acute cystitis without hematuria (4) Chest pain ICD Codes: R07.9 - Chest pain, unspecified SNOMED: 59591165 Qualifiers: Qualified Codes: R07.9 - Chest pain, unspecified (5) ACS (acute coronary syndrome) ICD Codes: I24.9 - Acute ischemic heart disease, unspecified SNOMED: 320182465 Status: unchanged Assessment/Plan: pain control cardio heme f/u cbc bmp am brotman aru vs dc plan w hh Subjective Constitutional: Reports: weakness Allergies: Coded Allergies: LATEX, NATURAL RUBBER (Verified Allergy, Unknown, 03/27/19) PENICILLINS (Verified Allergy, Unknown, 03/27/19) SULFA (SULFONAMIDE ANTIBIOTICS) (Verified Allergy, Unknown, 03/27/19) All Systems: reviewed and negative except above Subjective sleepy calm Objective Last 24 Hour Vital Signs Date Time Temp Pulse Resp B/P (MAP) Pulse Ox O2 Delivery O2 Flow Rate FiO2 04/04/19 04:00 97.2 62 20 142/74 (96) 97 04/04/19 00:00 98.2 64 20 120/77 (91) 98 04/03/19 21:00 Room Air 04/03/19 20:00 98.0 69 20 106/71 (83) 99 04/03/19 15:55 53 18 141/80 96 Room Air 04/03/19 15:50 56 18 137/79 98 Room Air 04/03/19 15:45 53 18 145/81 100 Room Air 04/03/19 15:30 53 18 152/83 100 Nasal Cannula 1 04/03/19 15:25 52 18 148/81 100 Nasal Cannula 2 04/03/19 15:20 51 18 157/85 100 Nasal Cannula 2 04/03/19 15:18 97.7 55 18 167/79 100 Nasal Cannula 2 04/03/19 15:00 57 18 165/98 (120) 100 04/03/19 14:55 56 18 169/92 (117) 100 04/03/19 14:50 97.6 50 18 167/96 (119) 100 04/03/19 14:48 97.6 52 18 100 Nasal Cannula 2.0 59 100 04/03/19 12:00 97.9 56 16 142/75 (97) 97 04/03/19 10:30 98.4 56 18 151/80 (103) 99 04/03/19 09:00 Room Air 04/03/19 09:00 98.0 54 18 166/82 (110) 97 04/03/19 08:20 149/73 04/03/19 08:00 98.0 45 16 149/73 (98) 96 Intake and Output 04/03/19 04/04/19 19:00 07:00 Intake Total 200 ml 520 ml Output Total 5 ml Balance 195 ml 520 ml Intake Oral 520 ml IV Total 200 ml Estimated Blood Loss 5 ml # Voids 2 Laboratory Tests 04/03/19 09:30: White Blood Count 4.6L, Red Blood Count 3.93L, Hemoglobin 12.2, Hematocrit 36.4L , Mean Corpuscular Volume 93, Mean Corpuscular Hemoglobin 31.1H, Mean Corpuscular Hemoglobin Concent 33.6, Red Cell Distribution Width 12.5, Platelet Count 30#L, Mean Platelet Volume 10.0, Neutrophils (%) (Auto) , Lymphocytes (%) (Auto) , Monocytes (%) (Auto) , Eosinophils (%) (Auto) , Basophils (%) (Auto) , Differential Total Cells Counted 100, Neutrophils % (Manual) 27L, Lymphocytes % (Manual) 54H, Monocytes % (Manual) 19H, Eosinophils % (Manual) 0, Basophils % ( Manual) 0, Band Neutrophils 0, Platelet Estimate DecreasedL, Platelet Morphology Normal, Red Blood Cell Morphology Normal, Prothrombin Time 11.4, Prothromb Time International Ratio 1.1 Height (Feet): 5 Height (Inches): 1.00 Weight (Pounds): 154 General Appearance: lethargic EENT: normal ENT inspection Neck: normal alignment Cardiovascular: normal peripheral pulses, normal rate, regular rhythm Respiratory/Chest: chest wall non-tender, lungs clear, normal breath sounds Abdomen: normal bowel sounds, non tender, soft Extremities: normal inspection Edema: no edema noted Arm (L), no edema noted Arm (R), no edema noted Leg (L), no edema noted Leg (R), no edema noted Pedal (L), no edema noted Pedal (R), no edema noted Generalized Skin: normal pigmentation, warm/dry Aldair Bill DO Apr 04, 2019 07:47
[2019-04-04 08:00] VITALS: BP 140/80
[2019-04-04] MEDS: ALPRAZolam 0.25mg tab ORAL PRN ×2 (08:26→20:41)
[2019-04-04 08:49] LABS: HEMATOCRIT 41.5 % (37.0-47.0); HEMOGLOBIN 14.1 G/DL (12.0-16.0); MEAN CORPUSCULAR VOLUME 93 FL (80-99); PLATELET COUNT 22 K/UL (150-450); RED BLOOD COUNT 4.46 M/UL (4.20-5.40); RED CELL DISTRIBUTION WIDTH 12.7 % (11.6-14.8); WHITE BLOOD COUNT 3.3 K/UL (4.8-10.8)
[2019-04-04 09:40] LABS: ALANINE AMINOTRANSFERASE 67 U/L (12-78); ALBUMIN 3.1 G/DL (3.4-5.0); ALBUMIN/GLOBULIN RATIO 0.9 (1.0-2.7); ALKALINE PHOSPHATASE 127 U/L (46-116); ANION GAP 12 mmol/L (5-15); ASPARTATE AMINO TRANSFERASE 35 U/L (15-37); BILIRUBIN,TOTAL 0.5 MG/DL (0.2-1.0); BLOOD UREA NITROGEN 21 mg/dL (7-18); CALCIUM 9.1 MG/DL (8.5-10.1); CARBON DIOXIDE 25 MMOL/L (21-32); CHLORIDE 106 MMOL/L (98-107); CREATININE 0.7 MG/DL (0.55-1.30); POTASSIUM 4.4 MMOL/L (3.5-5.1); SODIUM 143 MMOL/L (136-145)
[2019-04-04] MEDS: Losartan 25mg tab ORAL SCH (09:52)
[2019-04-04] MEDS: Oxybutynin 5mg tab ORAL SCH ×2 (09:52→18:06)
--- NOTE | 2019-04-04 10:37 | General Progress Note ---
Assessment/Plan Problem List: (1) CLL (chronic lymphocytic leukemia) ICD Codes: C91.90 - Lymphoid leukemia, unspecified not having achieved remission SNOMED: 67611125 (2) GERD (gastroesophageal reflux disease) ICD Codes: K21.9 - Gastro-esophageal reflux disease without esophagitis SNOMED: 071710442 (3) Hepatic cyst ICD Codes: K76.89 - Other specified diseases of liver SNOMED: 54625768 (4) Thrombocytopenia ICD Codes: D69.6 - Thrombocytopenia, unspecified SNOMED: 453986656 Status: unchanged Assessment/Plan: recent EGD/colonoscopy within the year history of hepatic angioma with liver resection approximately 5 years ago CTAP reviewed, multiple hepatic cysts most likely simple benign cysts Hepatitis panel negative AFP WNL No plans for GI procedures at this time defer MRI liver protocol follow up hematology recommendations, bone marrow biopsy rule out leukemia >> biopsy shows 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 follow up cardiology recs, stress test on hold due to leukopenia ppi daily prn transfusions zofran prn follow labs Subjective ROS Limited/Unobtainable: Yes Allergies: Coded Allergies: LATEX, NATURAL RUBBER (Verified Allergy, Unknown, 03/27/19) PENICILLINS (Verified Allergy, Unknown, 03/27/19) SULFA (SULFONAMIDE ANTIBIOTICS) (Verified Allergy, Unknown, 03/27/19) Objective Last 24 Hour Vital Signs Date Time Temp Pulse Resp B/P (MAP) Pulse Ox O2 Delivery O2 Flow Rate FiO2 04/04/19 09:52 140/80 04/04/19 08:00 98.0 63 20 140/80 (100) 98 04/04/19 04:00 97.2 62 20 142/74 (96) 97 04/04/19 00:00 98.2 64 20 120/77 (91) 98 04/03/19 21:00 Room Air 04/03/19 20:00 98.0 69 20 106/71 (83) 99 04/03/19 15:55 53 18 141/80 96 Room Air 04/03/19 15:50 56 18 137/79 98 Room Air 04/03/19 15:45 53 18 145/81 100 Room Air 04/03/19 15:30 53 18 152/83 100 Nasal Cannula 1 04/03/19 15:25 52 18 148/81 100 Nasal Cannula 2 04/03/19 15:20 51 18 157/85 100 Nasal Cannula 2 04/03/19 15:18 97.7 55 18 167/79 100 Nasal Cannula 2 04/03/19 15:00 57 18 165/98 (120) 100 04/03/19 14:55 56 18 169/92 (117) 100 04/03/19 14:50 97.6 50 18 167/96 (119) 100 04/03/19 14:48 97.6 52 18 100 Nasal Cannula 2.0 59 100 04/03/19 12:00 97.9 56 16 142/75 (97) 97 Intake and Output 04/03/19 04/04/19 19:00 07:00 Intake Total 200 ml 760 ml Output Total 5 ml Balance 195 ml 760 ml Intake Oral 760 ml IV Total 200 ml Estimated Blood Loss 5 ml # Voids 3 Laboratory Tests 04/04/19 07:49: White Blood Count 3.3L, Red Blood Count 4.46, Hemoglobin 14.1, Hematocrit 41.5, Mean Corpuscular Volume 93, Mean Corpuscular Hemoglobin 31.6H, Mean Corpuscular Hemoglobin Concent 34.0, Red Cell Distribution Width 12.7, Platelet Count 22L, Mean Platelet Volume 14.0H, Neutrophils (%) (Auto) , Lymphocytes (%) (Auto) , Monocytes (%) (Auto) , Eosinophils (%) (Auto) , Basophils (%) (Auto) , Differential Total Cells Counted 100, Neutrophils % (Manual) 21L, Lymphocytes % (Manual) 62H, Monocytes % (Manual) 15H, Eosinophils % (Manual) 2, Basophils % ( Manual) 0, Band Neutrophils 0, Platelet Estimate DecreasedL, Platelet Morphology Normal, Polychromasia 1+, Sodium Level 143, Potassium Level 4.4, Chloride Level 106, Carbon Dioxide Level 25, Anion Gap 12, Blood Urea Nitrogen 21H, Creatinine 0.7, Estimat Glomerular Filtration Rate , Glucose Level 149H, Calcium Level 9.1, Magnesium Level 2.1, Total Bilirubin 0.5, Aspartate Amino Transf (AST/SGOT) 35, Alanine Aminotransferase (ALT/SGPT) 67, Alkaline Phosphatase 127H, Total Protein 6.6, Albumin 3.1L, Globulin 3.5, Albumin/ Globulin Ratio 0.9L, Thyroid Stimulating Hormone (TSH) 2.711 Height (Feet): 5 Height (Inches): 1.00 Weight (Pounds): 154 General Appearance: no apparent distress EENT: normal ENT inspection Neck: supple Cardiovascular: normal rate Respiratory/Chest: decreased breath sounds Abdomen: normal bowel sounds, non tender, soft Extremities: non-tender Anthony Galvan MD Apr 04, 2019 10:37
[2019-04-04 12:00] VITALS: BP 154/94
--- NOTE | 2019-04-04 12:58 | Cardiac Electrophysiology PN ---
Assessment/Plan Assessment/Plan 1. Chest pain.Ruled out for myocardial infarction. Her EKG is normal. Echo showed normal EF. D-dimer is elevated but VQ scan was negative Hold off on nuclear stress test in view of new pancytopenia 2. Hypertension. Continue losartan 25 mg daily 3. Gastroesophageal reflux. 4. Hyperlipidemia. The patient was on Crestor 10 mg daily. 5. Pancytopenia with WBC 1.2 and platelet count of 7K. Flow cytometry CONSISTENT WITH CLL/SLL S/P CT guided BM biopsy per Dr Delacruz yesterday DW RN OK to DC from [facility] stand point Subjective Subjective S/P platelet transfusion and BM biopsy yesterday Objective Last 24 Hour Vital Signs Date Time Temp Pulse Resp B/P (MAP) Pulse Ox O2 Delivery O2 Flow Rate FiO2 04/04/19 12:00 97.7 61 18 154/94 (114) 97 04/04/19 09:52 140/80 04/04/19 09:00 Room Air 04/04/19 08:00 98.0 63 20 140/80 (100) 98 04/04/19 04:00 97.2 62 20 142/74 (96) 97 04/04/19 00:00 98.2 64 20 120/77 (91) 98 04/03/19 21:00 Room Air 04/03/19 20:00 98.0 69 20 106/71 (83) 99 04/03/19 15:55 53 18 141/80 96 Room Air 04/03/19 15:50 56 18 137/79 98 Room Air 04/03/19 15:45 53 18 145/81 100 Room Air 04/03/19 15:30 53 18 152/83 100 Nasal Cannula 1 04/03/19 15:25 52 18 148/81 100 Nasal Cannula 2 04/03/19 15:20 51 18 157/85 100 Nasal Cannula 2 04/03/19 15:18 97.7 55 18 167/79 100 Nasal Cannula 2 04/03/19 15:00 57 18 165/98 (120) 100 04/03/19 14:55 56 18 169/92 (117) 100 04/03/19 14:50 97.6 50 18 167/96 (119) 100 04/03/19 14:48 97.6 52 18 100 Nasal Cannula 2.0 59 100 Intake and Output 04/03/19 04/04/19 19:00 07:00 Intake Total 200 ml 760 ml Output Total 5 ml Balance 195 ml 760 ml Intake Oral 760 ml IV Total 200 ml Estimated Blood Loss 5 ml # Voids 3 Laboratory Tests Test 04/04/19 07:49 White Blood Count 3.3 K/UL (4.8-10.8) L Red Blood Count 4.46 M/UL (4.20-5.40) Hemoglobin 14.1 G/DL (12.0-16.0) Hematocrit 41.5 % (37.0-47.0) Mean Corpuscular Volume 93 FL (80-99) Mean Corpuscular Hemoglobin 31.6 PG (27.0-31.0) H Mean Corpuscular Hemoglobin Concent 34.0 G/DL (32.0-36.0) Red Cell Distribution Width 12.7 % (11.6-14.8) Platelet Count 22 K/UL (150-450) L Mean Platelet Volume 14.0 FL (6.5-10.1) H Neutrophils (%) (Auto) % (45.0-75.0) Lymphocytes (%) (Auto) % (20.0-45.0) Monocytes (%) (Auto) % (1.0-10.0) Eosinophils (%) (Auto) % (0.0-3.0) Basophils (%) (Auto) % (0.0-2.0) Differential Total Cells Counted 100 Neutrophils % (Manual) 21 % (45-75) L Lymphocytes % (Manual) 62 % (20-45) H Monocytes % (Manual) 15 % (1-10) H Eosinophils % (Manual) 2 % (0-3) Basophils % (Manual) 0 % (0-2) Band Neutrophils 0 % (0-8) Platelet Estimate Decreased L Platelet Morphology Normal Polychromasia 1+ Sodium Level 143 MMOL/L (136-145) Potassium Level 4.4 MMOL/L (3.5-5.1) Chloride Level 106 MMOL/L (98-107) Carbon Dioxide Level 25 MMOL/L (21-32) Anion Gap 12 mmol/L (5-15) Blood Urea Nitrogen 21 mg/dL (7-18) H Creatinine 0.7 MG/DL (0.55-1.30) Estimat Glomerular Filtration Rate mL/min (>60) Glucose Level 149 MG/DL (74-106) H Calcium Level 9.1 MG/DL (8.5-10.1) Magnesium Level 2.1 MG/DL (1.8-2.4) Total Bilirubin 0.5 MG/DL (0.2-1.0) Aspartate Amino Transf (AST/SGOT) 35 U/L (15-37) Alanine Aminotransferase (ALT/SGPT) 67 U/L (12-78) Alkaline Phosphatase 127 U/L (46-116) H Total Protein 6.6 G/DL (6.4-8.2) Albumin 3.1 G/DL (3.4-5.0) L Globulin 3.5 g/dL Albumin/Globulin Ratio 0.9 (1.0-2.7) L Thyroid Stimulating Hormone (TSH) 2.711 uiU/mL (0.358-3.740) Objective HEAD AND NECK: No JVD or carotid bruits. LUNGS: Clear. CARDIOVASCULAR: Regular S1 and S2 with no gallop or murmur. ABDOMEN: Soft. EXTREMITIES: Showed no pitting edema. Molina Bradley MD Apr 04, 2019 12:58
[2019-04-04 16:00] VITALS: BP 124/72
--- NOTE | 2019-04-04 18:30 | Progress Note ---
CARDIOLOGY PROGRESS NOTE DATE: 04/04/2019 SUBJECTIVE: The patient completed bone marrow biopsy. 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 Consideration for transfer to [facility] in progress versus rehab. The patient without chest pain. OBJECTIVE: VITAL SIGNS: Blood pressure 140/80, pulse 63, and respirations 20. LUNGS: Clear. CARDIAC: Regular. Normal S1, S2 with no new murmur. ABDOMEN: Soft. EXTREMITIES: There is no edema. LABORATORY DATA: White count 3.3, platelet count 22,000. BUN 21, creatinine 0.7. Magnesium 2.1. Potassium 4.4. Albumin 3.1. TSH 2.7. IMPRESSION: 1. No clinical or diagnostic signs of acute coronary insufficiency or anginal-type chest pain. 2. Sinus bradycardia, resolving and of no clinical significance at this time. PLAN: The patient is stable for rehabilitation or transfer to Hem-Onc facility. No additional cardiac studies or therapy is presently indicated. Mingo Valderrama M.D. DR: PABLO JOB#: [id number] CC:
[2019-04-04 20:00] VITALS: BP 115/73
[2019-04-04] MEDS ORDERED: Albuterol/Ipratropium 3ml neb HHN PRN (20:00)
[2019-04-04] MEDS: ROSUVASTATIN 10 MG ORAL SCH (20:41)
[2019-04-04] MEDS ORDERED: Atorvastatin 20mg tab ORAL SCH (21:00)
[2019-04-05] VITALS: BP 130/74
[2019-04-05 04:00] VITALS: BP 117/70
[2019-04-05 07:57] VITALS: BP 129/81
[2019-04-05 08:12] LABS: HEMATOCRIT 37.7 % (37.0-47.0); HEMOGLOBIN 12.9 G/DL (12.0-16.0); MEAN CORPUSCULAR VOLUME 92 FL (80-99); PLATELET COUNT 20 K/UL (150-450); RED BLOOD COUNT 4.07 M/UL (4.20-5.40); RED CELL DISTRIBUTION WIDTH 12.7 % (11.6-14.8); WHITE BLOOD COUNT 3.1 K/UL (4.8-10.8)
--- NOTE | 2019-04-05 08:23 | General Progress Note ---
Assessment/Plan Problem List: (1) CLL (chronic lymphocytic leukemia) ICD Codes: C91.90 - Lymphoid leukemia, unspecified not having achieved remission SNOMED: 51399199 (2) GERD (gastroesophageal reflux disease) ICD Codes: K21.9 - Gastro-esophageal reflux disease without esophagitis SNOMED: 093970575 (3) Hepatic cyst ICD Codes: K76.89 - Other specified diseases of liver SNOMED: 69897421 (4) Thrombocytopenia ICD Codes: D69.6 - Thrombocytopenia, unspecified SNOMED: 434832217 Status: unchanged Assessment/Plan: recent EGD/colonoscopy within the year history of hepatic angioma with liver resection approximately 5 years ago CTAP reviewed, multiple hepatic cysts most likely simple benign cysts Hepatitis panel negative AFP WNL No plans for GI procedures at this time follow up hematology recommendations, bone marrow biopsy rule out leukemia >> biopsy shows 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 follow up cardiology recs, ppi daily prn transfusions zofran prn follow labs Subjective ROS Limited/Unobtainable: Yes Allergies: Coded Allergies: LATEX, NATURAL RUBBER (Verified Allergy, Unknown, 03/27/19) PENICILLINS (Verified Allergy, Unknown, 03/27/19) SULFA (SULFONAMIDE ANTIBIOTICS) (Verified Allergy, Unknown, 03/27/19) Objective Last 24 Hour Vital Signs Date Time Temp Pulse Resp B/P (MAP) Pulse Ox O2 Delivery O2 Flow Rate FiO2 04/05/19 07:57 18 18 129/81 (97) 94 04/05/19 04:00 98.3 17 17 117/70 (86) 100 04/05/19 00:00 97.6 69 17 130/74 (92) 98 04/04/19 21:08 64 18 98 Room Air 21 04/04/19 21:00 Room Air 04/04/19 20:57 60 20 94 Room Air 21 04/04/19 20:57 60 20 94 Room Air 21 04/04/19 20:57 60 20 94 Room Air 21 04/04/19 20:00 97.6 71 18 115/73 (87) 96 04/04/19 16:00 98.0 67 16 124/72 (89) 95 04/04/19 12:00 97.7 61 18 154/94 (114) 97 04/04/19 09:52 140/80 04/04/19 09:00 Room Air Intake and Output 04/04/19 04/05/19 19:00 07:00 Intake Total 800 ml 500 ml Balance 800 ml 500 ml Intake Oral 800 ml 500 ml # Voids 2 2 # Bowel Movements 1 Laboratory Tests 04/05/19 05:34: White Blood Count 3.1L, Red Blood Count 4.07L, Hemoglobin 12.9, Hematocrit 37.7 , Mean Corpuscular Volume 92, Mean Corpuscular Hemoglobin 31.6H, Mean Corpuscular Hemoglobin Concent 34.2, Red Cell Distribution Width 12.7, Platelet Count 20L, Mean Platelet Volume 9.7, Neutrophils (%) (Auto) , Lymphocytes (%) ( Auto) , Monocytes (%) (Auto) , Eosinophils (%) (Auto) , Basophils (%) (Auto) , Neutrophils % (Manual) [Pending], Lymphocytes % (Manual) [Pending], Platelet Estimate [Pending], Platelet Morphology [Pending], Prothrombin Time [Pending], Prothromb Time International Ratio [Pending], Activated Partial Thromboplast Time [Pending], Sodium Level [Pending], Potassium Level [Pending], Chloride Level [Pending], Carbon Dioxide Level [Pending], Blood Urea Nitrogen [Pending], Creatinine [Pending], Estimat Glomerular Filtration Rate [Pending], Glucose Level [Pending], Calcium Level [Pending], Phosphorus Level [Pending], Magnesium Level [Pending], Total Bilirubin [Pending], Aspartate Amino Transf (AST/SGOT) [ Pending], Alanine Aminotransferase (ALT/SGPT) [Pending], Alkaline Phosphatase [ Pending], Total Protein [Pending], Albumin [Pending], Globulin [Pending] Height (Feet): 5 Height (Inches): 1.00 Weight (Pounds): 154 General Appearance: alert EENT: normal ENT inspection Neck: supple Cardiovascular: normal rate Respiratory/Chest: decreased breath sounds Abdomen: normal bowel sounds, non tender, soft Extremities: non-tender Anthony Galvan MD Apr 05, 2019 08:23
[2019-04-05] MEDS: Losartan 25mg tab ORAL SCH (08:39)
[2019-04-05] MEDS: Oxybutynin 5mg tab ORAL SCH ×2 (08:39→18:11)
[2019-04-05] MEDS: SEREVENT 50 MCG INH SCH (08:42)
[2019-04-05 08:43] LABS: ALANINE AMINOTRANSFERASE 51 U/L (12-78); ALBUMIN 2.6 G/DL (3.4-5.0); ALBUMIN/GLOBULIN RATIO 0.8 (1.0-2.7); ALKALINE PHOSPHATASE 99 U/L (46-116); ANION GAP 9 mmol/L (5-15); ASPARTATE AMINO TRANSFERASE 27 U/L (15-37); BILIRUBIN,TOTAL 0.3 MG/DL (0.2-1.0); BLOOD UREA NITROGEN 25 mg/dL (7-18); CALCIUM 8.9 MG/DL (8.5-10.1); CARBON DIOXIDE 24 MMOL/L (21-32); CHLORIDE 107 MMOL/L (98-107); CREATININE 0.7 MG/DL (0.55-1.30); PHOSPHORUS 3.9 MG/DL (2.5-4.9); POTASSIUM 4.9 MMOL/L (3.5-5.1); SODIUM 140 MMOL/L (136-145)
--- NOTE | 2019-04-05 09:50 | Infectious Diseases Prog Note ---
Assessment/Plan Assessment/Plan The patient is a 73-year-old female with, CLL/SLL Flow cytomometry showes above BM Bx 04/03/19 - Pend Epigastric and left lower quadrant pain. CT abd/pel 03/29/19 - Inflammatory changes extending from the betty hepatis to the posterior retroperitoneum, as described. There may be tiny associated 18 x 12 x 40 mm fluid collection which could represent an abscess. Prominent nodes in the area are likely reactive. Etiology of the inflammatory changes uncertain, could indicate duodenitis, focal pancreatitis of the pancreatic head/uncinate. Less likely ascending diverticulitis, as no definite diverticula are demonstrated. Acute appendicitis is also a possibility, also less likely as the fluid collection does not have a typical appearance of an inflamed appendix and there is a suggestion of visualization of portions of a normal appendix. Correlation with the findings is recommended. Trace free pelvic fluid, presumably related to the above Evidence of prior cholecystectomy. Evidence of prior hepatic surgery. Mild ectasia of the extra hepatic bile ducts probably related to age and postcholecystectomy state. Recommend correlation with liver function tests. Prominent left extrarenal pelvis, with suggestion of some inflammation of the urothelium. Could indicate pyelitis. Correlate with clinical and urinalysis findings Left renal parapelvic cysts versus mild left hydronephrosis, favor the forme Trace right pleural fluid Extensive spinal fusion hardware. This results in streak artifact which limits visualization of the retroperitoneum. Right renal lower pole 12 mm lesion. Probably a cyst. Attenuation measurements are those of a solid lesion, but suspect this is artifact due to beam hardening from adjacent spinal hardware. Recommend sonography to assess whether cystic or solid. Other subcentimeter low-attenuation lesions within the right kidney are too small to characterize most likely represent benign simple cyst. Nonobstructive left lower pole intrarenal calyceal calculus Hepatic cysts. Subcentimeter low-attenuation hepatic lesions which are too small to characterize, most likely benign simple cysts. Other findings as noted, including small hiatal hernia, right basilar pulmonary atelectatic changes Indium scan 04/01/19 - No sign of infectious etiology HIV Neg Hepatitis B/C serology pending Probable urinary tract infection (history of increase of urinary frequency). UCx - E coli warner sen Rash - resolved Likely allergic reaction Unclear if abx - Was given ceftriaxone Right jaw pain - resolved Hx of TMJ PLAN: - Monitor off abx - 03/30/19 SP Ceftriaxone held for rash - Monitor CBC and BMP. - Monitor cultures, blood - f/u BM Bx results Thank you for this consultation. I will follow the patient with you during this hospitalization. Subjective Allergies: Coded Allergies: LATEX, NATURAL RUBBER (Verified Allergy, Unknown, 03/27/19) PENICILLINS (Verified Allergy, Unknown, 03/27/19) SULFA (SULFONAMIDE ANTIBIOTICS) (Verified Allergy, Unknown, 03/27/19) Subjective Has BM Bx 07/04/19 Afebrile WBCs 3 Objective Vital Signs Last 24 Hour Vital Signs Date Time Temp Pulse Resp B/P (MAP) Pulse Ox O2 Delivery O2 Flow Rate FiO2 04/05/19 08:39 129/81 04/05/19 07:57 18 18 129/81 (97) 94 04/05/19 04:00 98.3 17 17 117/70 (86) 100 04/05/19 00:00 97.6 69 17 130/74 (92) 98 04/04/19 21:08 64 18 98 Room Air 21 04/04/19 21:00 Room Air 04/04/19 20:57 60 20 94 Room Air 21 04/04/19 20:57 60 20 94 Room Air 21 04/04/19 20:57 60 20 94 Room Air 21 04/04/19 20:00 97.6 71 18 115/73 (87) 96 04/04/19 16:00 98.0 67 16 124/72 (89) 95 04/04/19 12:00 97.7 61 18 154/94 (114) 97 04/04/19 09:52 140/80 Height (Feet): 5 Height (Inches): 1.00 Weight (Pounds): 154 Objective GEN: NAD HEENT: NCAT, MMM, EOMI CHEST: CTAB, No W HEART: S1 and S2. ABDOMEN: Soft. NT, ND NEUROLOGIC: Awake and alert Laboratory Tests Test 04/05/19 05:34 White Blood Count 3.1 K/UL (4.8-10.8) L Red Blood Count 4.07 M/UL (4.20-5.40) L Hemoglobin 12.9 G/DL (12.0-16.0) Hematocrit 37.7 % (37.0-47.0) Mean Corpuscular Volume 92 FL (80-99) Mean Corpuscular Hemoglobin 31.6 PG (27.0-31.0) H Mean Corpuscular Hemoglobin Concent 34.2 G/DL (32.0-36.0) Red Cell Distribution Width 12.7 % (11.6-14.8) Platelet Count 20 K/UL (150-450) L Mean Platelet Volume 9.7 FL (6.5-10.1) Neutrophils (%) (Auto) % (45.0-75.0) Lymphocytes (%) (Auto) % (20.0-45.0) Monocytes (%) (Auto) % (1.0-10.0) Eosinophils (%) (Auto) % (0.0-3.0) Basophils (%) (Auto) % (0.0-2.0) Neutrophils % (Manual) Pending Lymphocytes % (Manual) Pending Platelet Estimate Pending Platelet Morphology Pending Prothrombin Time 10.3 SEC (9.30-11.50) Prothromb Time International Ratio 1.0 (0.9-1.1) Activated Partial Thromboplast Time 25 SEC (23-33) Sodium Level 140 MMOL/L (136-145) Potassium Level 4.9 MMOL/L (3.5-5.1) Chloride Level 107 MMOL/L (98-107) Carbon Dioxide Level 24 MMOL/L (21-32) Anion Gap 9 mmol/L (5-15) Blood Urea Nitrogen 25 mg/dL (7-18) H Creatinine 0.7 MG/DL (0.55-1.30) Estimat Glomerular Filtration Rate mL/min (>60) Glucose Level 101 MG/DL (74-106) Calcium Level 8.9 MG/DL (8.5-10.1) Phosphorus Level 3.9 MG/DL (2.5-4.9) Magnesium Level 2.0 MG/DL (1.8-2.4) Total Bilirubin 0.3 MG/DL (0.2-1.0) Aspartate Amino Transf (AST/SGOT) 27 U/L (15-37) Alanine Aminotransferase (ALT/SGPT) 51 U/L (12-78) Alkaline Phosphatase 99 U/L (46-116) Total Protein 5.7 G/DL (6.4-8.2) L Albumin 2.6 G/DL (3.4-5.0) L Globulin 3.1 g/dL Albumin/Globulin Ratio 0.8 (1.0-2.7) L Current Medications Medications (Trade) Dose Ordered Sig/Marah Route PRN Reason Start Time Stop Time Status Last Admin Dose Admin Acetaminophen (Tylenol) 650 mg Q4H PRN ORAL FEVER (temp>100.5F) 04/02/19 09:15 04/27/19 05:14 Al Hydroxide/Mg Hydroxide (Mylanta) 30 ml Q6H PRN ORAL HEARTBURN 04/02/19 11:15 05/02/19 11:14 Albuterol/ Ipratropium (Albuterol/ Ipratropium) 3 ml Q4HRT PRN HHN Shortness of Breath 04/04/19 20:00 04/09/19 19:59 04/04/19 20:57 Alprazolam (Xanax) 0.25 mg Q8H PRN ORAL For Anxiety 04/02/19 07:30 04/08/19 15:29 04/04/19 20:41 Diphenhydramine HCl (Benadryl) 25 mg Q6H PRN ORAL Itching 04/02/19 07:00 04/29/19 12:59 Escitalopram Oxalate (Lexapro) 10 mg DAILY ORAL 04/02/19 09:00 04/30/19 08:59 04/05/19 08:39 Losartan Potassium (Cozaar) 50 mg DAILY ORAL 04/03/19 09:00 05/03/19 08:59 04/05/19 08:39 Nitroglycerin (Ntg) 0.4 mg Q5M PRN SL Prn Chest Pain 04/02/19 06:45 04/27/19 05:14 Ondansetron HCl (Zofran) 4 mg Q6H PRN IVP Nausea & Vomiting 04/02/19 07:00 04/27/19 06:59 Oxybutynin Chloride (Ditropan) 5 mg BID ORAL 04/02/19 09:00 05/01/19 17:59 04/05/19 08:39 Pantoprazole (Protonix) 40 mg DAILY ORAL 04/03/19 09:00 05/03/19 08:59 04/05/19 08:40 Patient Own Medication (Patient's Own Med) 1 ea DAILY INH 04/05/19 09:00 05/05/19 08:59 04/05/19 08:42 Patient Own Medication (Patient's Own Med) 1 ea QHS ORAL 04/04/19 21:00 05/04/19 20:59 04/04/19 20:41 Temazepam (Restoril) 15 mg HSPRN PRN ORAL Insomnia 04/02/19 07:00 04/09/19 06:59 Mingo Castro MD Apr 05, 2019 09:50
[2019-04-05 12:00] VITALS: BP 118/74
--- NOTE | 2019-04-05 13:43 | Hematology/Onc Progress Note ---
Assessment/Plan Assessment/Plan ASSESSMENT AND PLAN # Pancytopenia - flow cytometry CONSISTENT WITH CLL/SLL, though this is not confirmatory yet can be a sister diagnosis hairy cell leukemia, LGL etc... other causes, on imagin mm right lower pole renal lesion, possibly not definitely cystic. Note that is also not definitely cystic on recent abdomen CT scan. Neoplasm and therefore not excludable. Recommend comparison with any outside prior studies that may be available. MRI may also be useful to definitively determine its cystic or solid. Echogenic focus within the spleen measuring 8 mm diameter. This may correspond to a hypoattenuating lesion seen on recent CT scan, may reflect a hemangioma Contour abnormality of the inferior right hepatic lobe, probably related to prior surgery as no mass is demonstrated on recent CT Right hepatic lobe cyst, also described on recent CT --> peripheral smear has been reviewed and no blasts noted, normal smear --> Medications have been reviewed --> Continue to monitor for improvement, trend cbc --> Hep panel is pending and HIV negative --> CT Abd revealed hepatic cysts. --> reverse isolation if ANC is <2000 --> Give neupogen if ANC <1000 --> WBC 3.6k--> 1.1k--> 1.2k--> 4.0-->3-->3.1 --> PLT 58--> 6--> 7--> 23-->29-->30-->20 --> DC'ed ASA, s/p PLT Transfusion --> BONE MARROW BIOPSY not successful 03/31, will obtain ct guided bx on 04/03 --> BM biopsy successfully performed on 04/03, awaiting path report. # Chest Pain --> seen by cards, not a candidate for stress test currently --> Appreciat recs # 11 mm right lower pole renal lesion --> outpatient followup # Anxiety. The time the note was entered does not necessarily mean the patient was seen Greatly appreciate consultation Subjective Hematologic/Lymphatic: Reports: anemia Allergies: Coded Allergies: LATEX, NATURAL RUBBER (Verified Allergy, Unknown, 03/27/19) PENICILLINS (Verified Allergy, Unknown, 03/27/19) SULFA (SULFONAMIDE ANTIBIOTICS) (Verified Allergy, Unknown, 03/27/19) All Systems: reviewed and negative except above Subjective 03/30: Us abd and CTA +pelvis imaging results reviewed, s/p PLT tx. 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 04/02: no bone marrow biopsy yet, to be repeated tomorrow when plt better 04/03: pending potential bone marrow biopsy after plt count higher, have discussed with Dr. Aldair Bill, patient, Dr. Carvalho and Letha, and with RN 04/05: S/P successful bone marrow biopsy, awaiting path report. Pt awake and alert, eating breakfast. Objective Objective Current Medications Medications (Trade) Dose Ordered Sig/Marah Route PRN Reason Start Time Stop Time Status Last Admin Dose Admin Acetaminophen (Tylenol) 650 mg Q4H PRN ORAL FEVER (temp>100.5F) 04/02/19 09:15 04/27/19 05:14 Al Hydroxide/Mg Hydroxide (Mylanta) 30 ml Q6H PRN ORAL HEARTBURN 04/02/19 11:15 05/02/19 11:14 Albuterol/ Ipratropium (Albuterol/ Ipratropium) 3 ml Q4HRT PRN HHN Shortness of Breath 04/04/19 20:00 04/09/19 19:59 04/04/19 20:57 Alprazolam (Xanax) 0.25 mg Q8H PRN ORAL For Anxiety 04/02/19 07:30 04/08/19 15:29 04/04/19 20:41 Diphenhydramine HCl (Benadryl) 25 mg Q6H PRN ORAL Itching 04/02/19 07:00 04/29/19 12:59 Escitalopram Oxalate (Lexapro) 10 mg DAILY ORAL 04/02/19 09:00 04/30/19 08:59 04/05/19 08:39 Losartan Potassium (Cozaar) 50 mg DAILY ORAL 04/03/19 09:00 05/03/19 08:59 04/05/19 08:39 Nitroglycerin (Ntg) 0.4 mg Q5M PRN SL Prn Chest Pain 04/02/19 06:45 04/27/19 05:14 Ondansetron HCl (Zofran) 4 mg Q6H PRN IVP Nausea & Vomiting 04/02/19 07:00 04/27/19 06:59 Oxybutynin Chloride (Ditropan) 5 mg BID ORAL 04/02/19 09:00 05/01/19 17:59 04/05/19 08:39 Pantoprazole (Protonix) 40 mg DAILY ORAL 04/03/19 09:00 05/03/19 08:59 04/05/19 08:40 Patient Own Medication (Patient's Own Med) 1 ea DAILY INH 04/05/19 09:00 05/05/19 08:59 04/05/19 08:42 Patient Own Medication (Patient's Own Med) 1 ea QHS ORAL 04/04/19 21:00 05/04/19 20:59 04/04/19 20:41 Temazepam (Restoril) 15 mg HSPRN PRN ORAL Insomnia 04/02/19 07:00 04/09/19 06:59 Last 24 Hour Vital Signs Date Time Temp Pulse Resp B/P (MAP) Pulse Ox O2 Delivery O2 Flow Rate FiO2 04/05/19 09:00 Room Air 04/05/19 08:39 129/81 04/05/19 07:57 18 18 129/81 (97) 94 04/05/19 04:00 98.3 17 17 117/70 (86) 100 04/05/19 00:00 97.6 69 17 130/74 (92) 98 04/04/19 21:08 64 18 98 Room Air 21 04/04/19 21:00 Room Air 04/04/19 20:57 60 20 94 Room Air 21 04/04/19 20:57 60 20 94 Room Air 21 04/04/19 20:57 60 20 94 Room Air 21 04/04/19 20:00 97.6 71 18 115/73 (87) 96 04/04/19 16:00 98.0 67 16 124/72 (89) 95 04/04/19 12:00 97.7 61 18 154/94 (114) 97 04/04/19 09:52 140/80 04/04/19 09:00 Room Air 04/04/19 08:00 98.0 63 20 140/80 (100) 98 04/04/19 04:00 97.2 62 20 142/74 (96) 97 04/04/19 00:00 98.2 64 20 120/77 (91) 98 04/03/19 21:00 Room Air 04/03/19 20:00 98.0 69 20 106/71 (83) 99 04/03/19 15:55 53 18 141/80 96 Room Air 04/03/19 15:50 56 18 137/79 98 Room Air 04/03/19 15:45 53 18 145/81 100 Room Air 04/03/19 15:30 53 18 152/83 100 Nasal Cannula 1 04/03/19 15:25 52 18 148/81 100 Nasal Cannula 2 04/03/19 15:20 51 18 157/85 100 Nasal Cannula 2 04/03/19 15:18 97.7 55 18 167/79 100 Nasal Cannula 2 04/03/19 15:00 57 18 165/98 (120) 100 04/03/19 14:55 56 18 169/92 (117) 100 04/03/19 14:50 97.6 50 18 167/96 (119) 100 04/03/19 14:48 97.6 52 18 100 Nasal Cannula 2.0 59 100 Intake and Output 04/04/19 04/05/19 19:00 07:00 Intake Total 800 ml 500 ml Balance 800 ml 500 ml Intake Oral 800 ml 500 ml # Voids 2 2 # Bowel Movements 1 Labs Test 04/03/19 05:40 04/03/19 09:30 04/04/19 07:49 04/05/19 05:34 White Blood Count 4.2 K/UL (4.8-10.8) 4.6 K/UL (4.8-10.8) 3.3 K/UL (4.8-10.8) 3.1 K/UL (4.8-10.8) Red Blood Count 4.10 M/UL (4.20-5.40) 3.93 M/UL (4.20-5.40) 4.46 M/UL (4.20-5.40) 4.07 M/UL (4.20-5.40) Hemoglobin 12.8 G/DL (12.0-16.0) 12.2 G/DL (12.0-16.0) 14.1 G/DL (12.0-16.0) 12.9 G/DL (12.0-16.0) Hematocrit 38.1 % (37.0-47.0) 36.4 % (37.0-47.0) 41.5 % (37.0-47.0) 37.7 % (37.0-47.0) Mean Corpuscular Volume 93 FL (80-99) 93 FL (80-99) 93 FL (80-99) 92 FL (80- 99) Mean Corpuscular Hemoglobin 31.3 PG (27.0-31.0) 31.1 PG (27.0-31.0) 31.6 PG (27.0-31.0) 31.6 PG (27.0-31.0) Mean Corpuscular Hemoglobin Concent 33.6 G/DL (32.0-36.0) 33.6 G/DL (32.0-36.0) 34.0 G/DL (32.0-36.0) 34.2 G/DL (32.0-36.0) Red Cell Distribution Width 12.6 % (11.6-14.8) 12.5 % (11.6-14.8) 12.7 % (11.6-14.8) 12.7 % (11.6-14.8) Platelet Count 17 K/UL (150-450) 30 K/UL (150-450) 22 K/UL (150-450) 20 K/UL (150-450) Mean Platelet Volume 10.5 FL (6.5-10.1) 10.0 FL (6.5-10.1) 14.0 FL (6.5-10.1) 9.7 FL (6.5-10.1) Neutrophils (%) (Auto) % (45.0-75.0) % (45.0-75.0) % (45.0-75.0) % (45.0- 75.0) Lymphocytes (%) (Auto) % (20.0-45.0) % (20.0-45.0) % (20.0-45.0) % (20.0- 45.0) Monocytes (%) (Auto) % (1.0-10.0) % (1.0-10.0) % (1.0-10.0) % (1.0-10.0) Eosinophils (%) (Auto) % (0.0-3.0) % (0.0-3.0) % (0.0-3.0) % (0.0-3.0) Basophils (%) (Auto) % (0.0-2.0) % (0.0-2.0) % (0.0-2.0) % (0.0-2.0) Differential Total Cells Counted 100 100 100 100 Neutrophils % (Manual) 23 % (45-75) 27 % (45-75) 21 % (45-75) 11 % (45-75) Lymphocytes % (Manual) 57 % (20-45) 54 % (20-45) 62 % (20-45) 69 % (20-45) Monocytes % (Manual) 19 % (1-10) 19 % (1-10) 15 % (1-10) 16 % (1-10) Eosinophils % (Manual) 1 % (0-3) 0 % (0-3) 2 % (0-3) 4 % (0-3) Basophils % (Manual) 0 % (0-2) 0 % (0-2) 0 % (0-2) 0 % (0-2) Band Neutrophils 0 % (0-8) 0 % (0-8) 0 % (0-8) 0 % (0-8) Platelet Estimate Decreased Decreased Decreased Decreased Platelet Morphology Normal Normal Normal Normal Red Blood Cell Morphology Normal Normal Sodium Level 141 MMOL/L (136-145) 143 MMOL/L (136-145) 140 MMOL/L (136-145) Potassium Level 4.4 MMOL/L (3.5-5.1) 4.4 MMOL/L (3.5-5.1) 4.9 MMOL/L (3.5-5.1) Chloride Level 106 MMOL/L (98-107) 106 MMOL/L (98-107) 107 MMOL/L (98-107) Carbon Dioxide Level 25 MMOL/L (21-32) 25 MMOL/L (21-32) 24 MMOL/L (21-32) Anion Gap 10 mmol/L (5-15) 12 mmol/L (5-15) 9 mmol/L (5-15) Blood Urea Nitrogen 27 mg/dL (7-18) 21 mg/dL (7-18) 25 mg/dL (7-18) Creatinine 0.7 MG/DL (0.55-1.30) 0.7 MG/DL (0.55-1.30) 0.7 MG/DL (0.55-1.30) Estimat Glomerular Filtration Rate mL/min (>60) mL/min (>60) mL/min (>60) Glucose Level 101 MG/DL (74-106) 149 MG/DL (74-106) 101 MG/DL (74-106) Calcium Level 9.1 MG/DL (8.5-10.1) 9.1 MG/DL (8.5-10.1) 8.9 MG/DL (8.5-10.1) Total Bilirubin 0.3 MG/DL (0.2-1.0) 0.5 MG/DL (0.2-1.0) 0.3 MG/DL (0.2-1.0) Direct Bilirubin < 0.1 MG/DL (0.0-0.3) Aspartate Amino Transf (AST/SGOT) 19 U/L (15-37) 35 U/L (15-37) 27 U/L (15-37) Alanine Aminotransferase (ALT/SGPT) 68 U/L (12-78) 67 U/L (12-78) 51 U/L (12-78) Alkaline Phosphatase 133 U/L (46-116) 127 U/L (46-116) 99 U/L (46-116) Total Protein 6.1 G/DL (6.4-8.2) 6.6 G/DL (6.4-8.2) 5.7 G/DL (6.4-8.2) Albumin 3.1 G/DL (3.4-5.0) 3.1 G/DL (3.4-5.0) 2.6 G/DL (3.4-5.0) Prothrombin Time 11.4 SEC (9.30-11.50) 10.3 SEC (9.30-11.50) Prothromb Time International Ratio 1.1 (0.9-1.1) 1.0 (0.9-1.1) Polychromasia 1+ 1+ Magnesium Level 2.1 MG/DL (1.8-2.4) 2.0 MG/DL (1.8-2.4) Globulin 3.5 g/dL 3.1 g/dL Albumin/Globulin Ratio 0.9 (1.0-2.7) 0.8 (1.0-2.7) Thyroid Stimulating Hormone (TSH) 2.711 uiU/mL (0.358-3.740) Activated Partial Thromboplast Time 25 SEC (23-33) Phosphorus Level 3.9 MG/DL (2.5-4.9) Height (Feet): 5 Height (Inches): 1.00 Weight (Pounds): 154 Objective Physical Exam Vital Signs reviewed General Appearance: well appearing, no apparent distress, alert Head: normocephalic, atraumatic Eyes: bilateral eye PERRL, bilateral eye EOMI, abrasion under left eye ENT: hearing grossly normal, normal pharynx Neck: full range of motion, supple, no meningismus Respiratory: chest non-tender, lungs clear, normal breath sounds Cardiovascular #1: regular rate, rhythm, no murmur Gastrointestinal: normal bowel sounds, non tender, no mass, no organomegaly, no bruit, non-distended Musculoskeletal: back normal, gait/station normal, normal range of motion Psychiatric: mood/affect normal Skin: warm/dry, small bruises BLE Chi Berry MD Apr 05, 2019 13:43
--- NOTE | 2019-04-05 14:49 | Pulmonology Progress Note ---
Assessment/Plan Problems: (1) CLL (chronic lymphocytic leukemia) (2) Duodenitis (3) Renal mass (4) Leukopenia (5) Thrombocytopenia (6) ACS (acute coronary syndrome) (7) GERD (gastroesophageal reflux disease) (8) Allergic dermatitis Assessment/Plan uccessful CT-guided left iliac bone marrow biopsy done yesterday f/u blood smear symptomatic treatment stress study ordered. echo reviewed. Subjective ROS Limited/Unobtainable: No Constitutional: Reports: no symptoms HEENT: Repors: no symptoms Respiratory: Reports: no symptoms Allergies: Coded Allergies: LATEX, NATURAL RUBBER (Verified Allergy, Unknown, 03/27/19) PENICILLINS (Verified Allergy, Unknown, 03/27/19) SULFA (SULFONAMIDE ANTIBIOTICS) (Verified Allergy, Unknown, 03/27/19) Objective Last 24 Hour Vital Signs Date Time Temp Pulse Resp B/P (MAP) Pulse Ox O2 Delivery O2 Flow Rate FiO2 04/05/19 12:00 98.7 20 20 118/74 (89) 99 04/05/19 09:00 Room Air 04/05/19 08:39 129/81 04/05/19 07:57 18 18 129/81 (97) 94 04/05/19 04:00 98.3 17 17 117/70 (86) 100 04/05/19 00:00 97.6 69 17 130/74 (92) 98 04/04/19 21:08 64 18 98 Room Air 21 04/04/19 21:00 Room Air 04/04/19 20:57 60 20 94 Room Air 21 04/04/19 20:57 60 20 94 Room Air 21 04/04/19 20:57 60 20 94 Room Air 21 04/04/19 20:00 97.6 71 18 115/73 (87) 96 04/04/19 16:00 98.0 67 16 124/72 (89) 95 Intake and Output 04/04/19 04/05/19 19:00 07:00 Intake Total 800 ml 500 ml Balance 800 ml 500 ml Intake Oral 800 ml 500 ml # Voids 2 2 # Bowel Movements 1 Objective General Appearance: WD/WN HEENT: atraumatic Respiratory/Chest: chest wall non-tender, normal breath sounds Breasts: no masses Cardiovascular: normal rate Abdomen: soft, non tender, no mass Genitourinary: normal external genitalia Extremities: no clubbing Laboratory Tests 04/05/19 05:34: White Blood Count 3.1L, Red Blood Count 4.07L, Hemoglobin 12.9, Hematocrit 37.7 , Mean Corpuscular Volume 92, Mean Corpuscular Hemoglobin 31.6H, Mean Corpuscular Hemoglobin Concent 34.2, Red Cell Distribution Width 12.7, Platelet Count 20L, Mean Platelet Volume 9.7, Neutrophils (%) (Auto) , Lymphocytes (%) ( Auto) , Monocytes (%) (Auto) , Eosinophils (%) (Auto) , Basophils (%) (Auto) , Differential Total Cells Counted 100, Neutrophils % (Manual) 11L, Lymphocytes % (Manual) 69H, Monocytes % (Manual) 16H, Eosinophils % (Manual) 4H, Basophils % ( Manual) 0, Band Neutrophils 0, Platelet Estimate DecreasedL, Platelet Morphology Normal, Red Blood Cell Morphology , Polychromasia 1+, Prothrombin Time 10.3, Prothromb Time International Ratio 1.0, Activated Partial Thromboplast Time 25, Sodium Level 140, Potassium Level 4.9, Chloride Level 107 , Carbon Dioxide Level 24, Anion Gap 9, Blood Urea Nitrogen 25H, Creatinine 0.7 , Estimat Glomerular Filtration Rate , Glucose Level 101, Calcium Level 8.9, Phosphorus Level 3.9, Magnesium Level 2.0, Total Bilirubin 0.3, Aspartate Amino Transf (AST/SGOT) 27, Alanine Aminotransferase (ALT/SGPT) 51, Alkaline Phosphatase 99, Total Protein 5.7L, Albumin 2.6L, Globulin 3.1, Albumin/ Globulin Ratio 0.8L Current Medications Medications (Trade) Dose Ordered Sig/Marah Route PRN Reason Start Time Stop Time Status Last Admin Dose Admin Acetaminophen (Tylenol) 650 mg Q4H PRN ORAL FEVER (temp>100.5F) 04/02/19 09:15 04/27/19 05:14 Al Hydroxide/Mg Hydroxide (Mylanta) 30 ml Q6H PRN ORAL HEARTBURN 04/02/19 11:15 05/02/19 11:14 Albuterol/ Ipratropium (Albuterol/ Ipratropium) 3 ml Q4HRT PRN HHN Shortness of Breath 04/04/19 20:00 04/09/19 19:59 04/04/19 20:57 Alprazolam (Xanax) 0.25 mg Q8H PRN ORAL For Anxiety 04/02/19 07:30 04/08/19 15:29 04/04/19 20:41 Diphenhydramine HCl (Benadryl) 25 mg Q6H PRN ORAL Itching 04/02/19 07:00 04/29/19 12:59 Escitalopram Oxalate (Lexapro) 10 mg DAILY ORAL 04/02/19 09:00 04/30/19 08:59 04/05/19 08:39 Losartan Potassium (Cozaar) 50 mg DAILY ORAL 04/03/19 09:00 05/03/19 08:59 04/05/19 08:39 Nitroglycerin (Ntg) 0.4 mg Q5M PRN SL Prn Chest Pain 04/02/19 06:45 04/27/19 05:14 Ondansetron HCl (Zofran) 4 mg Q6H PRN IVP Nausea & Vomiting 04/02/19 07:00 04/27/19 06:59 Oxybutynin Chloride (Ditropan) 5 mg BID ORAL 04/02/19 09:00 05/01/19 17:59 04/05/19 08:39 Pantoprazole (Protonix) 40 mg DAILY ORAL 04/03/19 09:00 05/03/19 08:59 04/05/19 08:40 Patient Own Medication (Patient's Own Med) 1 ea DAILY INH 04/05/19 09:00 05/05/19 08:59 04/05/19 08:42 Patient Own Medication (Patient's Own Med) 1 ea QHS ORAL 04/04/19 21:00 05/04/19 20:59 04/04/19 20:41 Temazepam (Restoril) 15 mg HSPRN PRN ORAL Insomnia 04/02/19 07:00 04/09/19 06:59 Narinder Pedro MD Apr 05, 2019 14:49
[2019-04-05 16:00] VITALS: BP 118/72
--- NOTE | 2019-04-05 16:35 | General Progress Note ---
Assessment/Plan Problem List: (1) Leukopenia ICD Codes: D72.819 - Decreased white blood cell count, unspecified SNOMED: 41319824, 389092828 (2) Thrombocytopenia ICD Codes: D69.6 - Thrombocytopenia, unspecified SNOMED: 579986139 (3) UTI (urinary tract infection) ICD Codes: N39.0 - Urinary tract infection, site not specified SNOMED: 25103217 Qualifiers: Qualified Codes: N30.00 - Acute cystitis without hematuria (4) Chest pain ICD Codes: R07.9 - Chest pain, unspecified SNOMED: 59909181 Qualifiers: Qualified Codes: R07.9 - Chest pain, unspecified (5) ACS (acute coronary syndrome) ICD Codes: I24.9 - Acute ischemic heart disease, unspecified SNOMED: 623653896 Status: unchanged Assessment/Plan: pain control cardio heme f/u cbc bmp am brotman aru vs dc plan w hh Subjective Constitutional: Reports: weakness Allergies: Coded Allergies: LATEX, NATURAL RUBBER (Verified Allergy, Unknown, 03/27/19) PENICILLINS (Verified Allergy, Unknown, 03/27/19) SULFA (SULFONAMIDE ANTIBIOTICS) (Verified Allergy, Unknown, 03/27/19) All Systems: reviewed and negative except above Subjective sleepy calm Objective Last 24 Hour Vital Signs Date Time Temp Pulse Resp B/P (MAP) Pulse Ox O2 Delivery O2 Flow Rate FiO2 04/05/19 12:00 98.7 20 20 118/74 (89) 99 04/05/19 09:00 Room Air 04/05/19 08:39 129/81 04/05/19 07:57 18 18 129/81 (97) 94 04/05/19 04:00 98.3 17 17 117/70 (86) 100 04/05/19 00:00 97.6 69 17 130/74 (92) 98 04/04/19 21:08 64 18 98 Room Air 21 04/04/19 21:00 Room Air 04/04/19 20:57 60 20 94 Room Air 21 04/04/19 20:57 60 20 94 Room Air 21 04/04/19 20:57 60 20 94 Room Air 21 04/04/19 20:00 97.6 71 18 115/73 (87) 96 Intake and Output 04/04/19 04/05/19 19:00 07:00 Intake Total 800 ml 500 ml Balance 800 ml 500 ml Intake Oral 800 ml 500 ml # Voids 2 2 # Bowel Movements 1 Laboratory Tests 04/05/19 05:34: White Blood Count 3.1L, Red Blood Count 4.07L, Hemoglobin 12.9, Hematocrit 37.7 , Mean Corpuscular Volume 92, Mean Corpuscular Hemoglobin 31.6H, Mean Corpuscular Hemoglobin Concent 34.2, Red Cell Distribution Width 12.7, Platelet Count 20L, Mean Platelet Volume 9.7, Neutrophils (%) (Auto) , Lymphocytes (%) ( Auto) , Monocytes (%) (Auto) , Eosinophils (%) (Auto) , Basophils (%) (Auto) , Differential Total Cells Counted 100, Neutrophils % (Manual) 11L, Lymphocytes % (Manual) 69H, Monocytes % (Manual) 16H, Eosinophils % (Manual) 4H, Basophils % ( Manual) 0, Band Neutrophils 0, Platelet Estimate DecreasedL, Platelet Morphology Normal, Red Blood Cell Morphology , Polychromasia 1+, Prothrombin Time 10.3, Prothromb Time International Ratio 1.0, Activated Partial Thromboplast Time 25, Sodium Level 140, Potassium Level 4.9, Chloride Level 107 , Carbon Dioxide Level 24, Anion Gap 9, Blood Urea Nitrogen 25H, Creatinine 0.7 , Estimat Glomerular Filtration Rate , Glucose Level 101, Calcium Level 8.9, Phosphorus Level 3.9, Magnesium Level 2.0, Total Bilirubin 0.3, Aspartate Amino Transf (AST/SGOT) 27, Alanine Aminotransferase (ALT/SGPT) 51, Alkaline Phosphatase 99, Total Protein 5.7L, Albumin 2.6L, Globulin 3.1, Albumin/ Globulin Ratio 0.8L Height (Feet): 5 Height (Inches): 1.00 Weight (Pounds): 154 General Appearance: lethargic EENT: normal ENT inspection Neck: non-tender Cardiovascular: normal peripheral pulses, normal rate, regular rhythm Respiratory/Chest: chest wall non-tender, lungs clear, normal breath sounds Abdomen: normal bowel sounds, non tender, soft Extremities: normal inspection Edema: no edema noted Arm (L), no edema noted Arm (R), no edema noted Leg (L), no edema noted Leg (R), no edema noted Pedal (L), no edema noted Pedal (R), no edema noted Generalized Neurologic: motor weakness Skin: normal pigmentation, warm/dry Aldair Bill DO Apr 05, 2019 16:35
[2019-04-05 20:00] VITALS: BP 139/66
[2019-04-05] MEDS: ROSUVASTATIN 10 MG ORAL SCH (21:02)
[2019-04-06] VITALS: BP 119/66
--- NOTE | 2019-04-06 01:45 | Progress Note ---
DATE: 04/05/2019 CARDIOLOGY PROGRESS NOTE SUBJECTIVE: The patient is status post bone marrow biopsy on the . Path report is pending. No chest pain. No shortness of breath. Complains of midepigastric and left lower quadrant pain today. OBJECTIVE: VITAL SIGNS: Blood pressure 139/66, pulse 71, respiratory rate 18, T max 99. LUNGS: Clear. CARDIAC: Regular. Normal S1, S2. ABDOMEN: No focal tenderness. No edema. IMPRESSION AND PLAN: 1. No signs of acute cardiac insufficiency or anginal equivalent. 2. No signs of congestive heart failure clinically. 3. Blood pressure parameters stable. 4. Status post bone marrow biopsy for confirmation of presumed CLL. 5. No additional cardiovascular studies presently planned. Mingo Valderrama M.D. DR: MARSHALL JOB#: [id number] CC:
[2019-04-06 04:00] VITALS: BP_SYST 135; BP_SYST 138; BP_DIAS 74; BP_DIAS 81
--- NOTE | 2019-04-06 06:56 | General Progress Note ---
Assessment/Plan Problem List: (1) CLL (chronic lymphocytic leukemia) ICD Codes: C91.90 - Lymphoid leukemia, unspecified not having achieved remission SNOMED: 70981001 (2) GERD (gastroesophageal reflux disease) ICD Codes: K21.9 - Gastro-esophageal reflux disease without esophagitis SNOMED: 706602194 (3) Hepatic cyst ICD Codes: K76.89 - Other specified diseases of liver SNOMED: 52296837 (4) Thrombocytopenia ICD Codes: D69.6 - Thrombocytopenia, unspecified SNOMED: 815875644 Status: unchanged Assessment/Plan: recent EGD/colonoscopy within the year history of hepatic angioma with liver resection approximately 5 years ago CTAP reviewed, multiple hepatic cysts most likely simple benign cysts Hepatitis panel negative AFP WNL No plans for GI procedures at this time follow up hematology recommendations, bone marrow biopsy rule out leukemia >> biopsy shows 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 follow up cardiology recs, ppi daily prn transfusions zofran prn follow labs Subjective ROS Limited/Unobtainable: Yes Allergies: Coded Allergies: LATEX, NATURAL RUBBER (Verified Allergy, Unknown, 03/27/19) PENICILLINS (Verified Allergy, Unknown, 03/27/19) SULFA (SULFONAMIDE ANTIBIOTICS) (Verified Allergy, Unknown, 03/27/19) Objective Last 24 Hour Vital Signs Date Time Temp Pulse Resp B/P (MAP) Pulse Ox O2 Delivery O2 Flow Rate FiO2 04/06/19 04:00 98.6 71 20 135/81 (99) 95 04/06/19 00:00 97.5 84 20 119/66 (83) 97 04/05/19 23:29 76 16 97 Room Air 21 04/05/19 21:00 Room Air 04/05/19 20:00 98.1 71 18 139/66 (90) 98 04/05/19 16:00 99.0 20 20 118/72 (87) 96 04/05/19 12:00 98.7 20 20 118/74 (89) 99 04/05/19 09:00 Room Air 04/05/19 08:39 129/81 04/05/19 07:57 18 18 129/81 (97) 94 Intake and Output 04/05/19 04/06/19 19:00 07:00 Intake Total 1000 ml 200 ml Balance 1000 ml 200 ml Intake Oral 1000 ml 200 ml # Voids 3 3 Height (Feet): 5 Height (Inches): 1.00 Weight (Pounds): 154 General Appearance: no apparent distress EENT: normal ENT inspection Neck: supple Cardiovascular: normal rate Respiratory/Chest: decreased breath sounds Abdomen: normal bowel sounds, non tender, soft Extremities: non-tender Anthony Galvan MD Apr 06, 2019 06:55
[2019-04-06 08:00] VITALS: BP 135/73
[2019-04-06] MEDS: SEREVENT 50 MCG INH SCH (08:27)
[2019-04-06 08:29] LABS: HEMATOCRIT 40.9 % (37.0-47.0); HEMOGLOBIN 14.1 G/DL (12.0-16.0); MEAN CORPUSCULAR VOLUME 92 FL (80-99); PLATELET COUNT 23 K/UL (150-450); RED BLOOD COUNT 4.46 M/UL (4.20-5.40); RED CELL DISTRIBUTION WIDTH 12.6 % (11.6-14.8); WHITE BLOOD COUNT 3.7 K/UL (4.8-10.8)
[2019-04-06 08:49] LABS: ALANINE AMINOTRANSFERASE 94 U/L (12-78); ALBUMIN 3.4 G/DL (3.4-5.0); ALBUMIN/GLOBULIN RATIO 1.1 (1.0-2.7); ALKALINE PHOSPHATASE 112 U/L (46-116); ANION GAP 10 mmol/L (5-15); ASPARTATE AMINO TRANSFERASE 72 U/L (15-37); BILIRUBIN,TOTAL 0.4 MG/DL (0.2-1.0); BLOOD UREA NITROGEN 20 mg/dL (7-18); CALCIUM 9.3 MG/DL (8.5-10.1); CARBON DIOXIDE 24 MMOL/L (21-32); CHLORIDE 103 MMOL/L (98-107); CREATININE 0.7 MG/DL (0.55-1.30); LACTATE DEHYDROGENASE 257 U/L (81-234); PHOSPHORUS 3.5 MG/DL (2.5-4.9); POTASSIUM 4.3 MMOL/L (3.5-5.1); SODIUM 137 MMOL/L (136-145)
[2019-04-06] MEDS: Oxybutynin 5mg tab ORAL SCH ×2 (09:30→18:27)
[2019-04-06] MEDS: Losartan 25mg tab ORAL SCH (09:31)
[2019-04-06] MEDS: ALPRAZolam 0.25mg tab ORAL PRN (09:43)
--- NOTE | 2019-04-06 11:38 | Pulmonology Progress Note ---
Assessment/Plan Problems: (1) CLL (chronic lymphocytic leukemia) (2) Duodenitis (3) Renal mass (4) Leukopenia (5) Thrombocytopenia (6) ACS (acute coronary syndrome) (7) GERD (gastroesophageal reflux disease) (8) Allergic dermatitis Assessment/Plan successful CT-guided left iliac bone marrow biopsy done awaiting results. wbc higher, s/p PLT transfusion f/u blood smear symptomatic treatment dc planning in process to [facility]/ Subjective ROS Limited/Unobtainable: No Constitutional: Reports: no symptoms HEENT: Repors: no symptoms Respiratory: Reports: no symptoms Allergies: Coded Allergies: LATEX, NATURAL RUBBER (Verified Allergy, Unknown, 03/27/19) PENICILLINS (Verified Allergy, Unknown, 03/27/19) SULFA (SULFONAMIDE ANTIBIOTICS) (Verified Allergy, Unknown, 03/27/19) Objective Last 24 Hour Vital Signs Date Time Temp Pulse Resp B/P (MAP) Pulse Ox O2 Delivery O2 Flow Rate FiO2 04/06/19 09:31 135/73 04/06/19 09:00 Room Air 04/06/19 08:00 97.5 89 16 135/73 (93) 94 04/06/19 07:00 80 16 98 Room Air 21 04/06/19 04:00 98.6 71 20 135/81 (99) 95 04/06/19 00:00 97.5 84 20 119/66 (83) 97 04/05/19 23:29 76 16 97 Room Air 21 04/05/19 21:00 Room Air 04/05/19 20:00 98.1 71 18 139/66 (90) 98 04/05/19 16:00 99.0 20 20 118/72 (87) 96 04/05/19 12:00 98.7 20 20 118/74 (89) 99 Intake and Output 04/05/19 04/06/19 19:00 07:00 Intake Total 1000 ml 200 ml Balance 1000 ml 200 ml Intake Oral 1000 ml 200 ml # Voids 3 3 Objective General Appearance: WD/WN HEENT: atraumatic Respiratory/Chest: chest wall non-tender, normal breath sounds Breasts: no masses Cardiovascular: normal rate Abdomen: soft, non tender, no mass Genitourinary: normal external genitalia Extremities: no clubbing Laboratory Tests 04/06/19 08:02: White Blood Count 3.7L, Red Blood Count 4.46, Hemoglobin 14.1, Hematocrit 40.9, Mean Corpuscular Volume 92, Mean Corpuscular Hemoglobin 31.6H, Mean Corpuscular Hemoglobin Concent 34.5, Red Cell Distribution Width 12.6, Platelet Count 23L, Mean Platelet Volume 12.7H, Neutrophils (%) (Auto) , Lymphocytes (%) (Auto) , Monocytes (%) (Auto) , Eosinophils (%) (Auto) , Basophils (%) (Auto) , Differential Total Cells Counted 100, Neutrophils % (Manual) 43L, Lymphocytes % (Manual) 50H, Monocytes % (Manual) 4, Eosinophils % (Manual) 3, Basophils % ( Manual) 0, Band Neutrophils 0, Platelet Estimate DecreasedL, Platelet Morphology Normal, Polychromasia 1+, Erythrocyte Sedimentation Rate 34H, Reticulocyte Count 2.1H, Sodium Level 137, Potassium Level 4.3, Chloride Level 103, Carbon Dioxide Level 24, Anion Gap 10, Blood Urea Nitrogen 20H, Creatinine 0.7, Estimat Glomerular Filtration Rate , Glucose Level 161H, Calcium Level 9.3 , Phosphorus Level 3.5, Magnesium Level 1.8, Total Bilirubin 0.4, Aspartate Amino Transf (AST/SGOT) 72H, Alanine Aminotransferase (ALT/SGPT) 94H, Alkaline Phosphatase 112, Lactate Dehydrogenase 257H, Total Protein 6.4, Albumin 3.4, Globulin 3.0, Albumin/Globulin Ratio 1.1 Current Medications Medications (Trade) Dose Ordered Sig/Marah Route PRN Reason Start Time Stop Time Status Last Admin Dose Admin Acetaminophen (Tylenol) 650 mg Q4H PRN ORAL FEVER (temp>100.5F) 04/02/19 09:15 04/27/19 05:14 Al Hydroxide/Mg Hydroxide (Mylanta) 30 ml Q6H PRN ORAL HEARTBURN 04/02/19 11:15 05/02/19 11:14 Albuterol/ Ipratropium (Albuterol/ Ipratropium) 3 ml Q4HRT PRN HHN Shortness of Breath 04/04/19 20:00 04/09/19 19:59 04/04/19 20:57 Alprazolam (Xanax) 0.25 mg Q8H PRN ORAL For Anxiety 04/02/19 07:30 04/08/19 15:29 04/06/19 09:43 Diphenhydramine HCl (Benadryl) 25 mg Q6H PRN ORAL Itching 04/02/19 07:00 04/29/19 12:59 Escitalopram Oxalate (Lexapro) 10 mg DAILY ORAL 04/02/19 09:00 04/30/19 08:59 04/06/19 09:31 Losartan Potassium (Cozaar) 50 mg DAILY ORAL 04/03/19 09:00 05/03/19 08:59 04/06/19 09:31 Nitroglycerin (Ntg) 0.4 mg Q5M PRN SL Prn Chest Pain 04/02/19 06:45 04/27/19 05:14 Ondansetron HCl (Zofran) 4 mg Q6H PRN IVP Nausea & Vomiting 04/02/19 07:00 04/27/19 06:59 Oxybutynin Chloride (Ditropan) 5 mg BID ORAL 04/02/19 09:00 05/01/19 17:59 04/06/19 09:30 Pantoprazole (Protonix) 40 mg DAILY ORAL 04/03/19 09:00 05/03/19 08:59 04/06/19 09:31 Patient Own Medication (Patient's Own Med) 1 ea DAILY INH 04/05/19 09:00 05/05/19 08:59 04/06/19 08:27 Patient Own Medication (Patient's Own Med) 1 ea QHS ORAL 04/04/19 21:00 05/04/19 20:59 04/05/19 21:02 Temazepam (Restoril) 15 mg HSPRN PRN ORAL Insomnia 04/02/19 07:00 04/09/19 06:59 Narinder Pedro MD Apr 06, 2019 11:38
[2019-04-06 12:00] VITALS: BP 130/69
--- NOTE | 2019-04-06 13:12 | General Progress Note ---
Assessment/Plan Problem List: (1) Leukopenia ICD Codes: D72.819 - Decreased white blood cell count, unspecified SNOMED: 54440099, 833447288 (2) Thrombocytopenia ICD Codes: D69.6 - Thrombocytopenia, unspecified SNOMED: 931519162 (3) UTI (urinary tract infection) ICD Codes: N39.0 - Urinary tract infection, site not specified SNOMED: 45955043 Qualifiers: Qualified Codes: N30.00 - Acute cystitis without hematuria (4) Chest pain ICD Codes: R07.9 - Chest pain, unspecified SNOMED: 13267790 Qualifiers: Qualified Codes: R07.9 - Chest pain, unspecified (5) ACS (acute coronary syndrome) ICD Codes: I24.9 - Acute ischemic heart disease, unspecified SNOMED: 819131309 Status: unchanged Assessment/Plan: pain control cardio heme f/u cbc bmp am transfer to [facility] Subjective Constitutional: Reports: weakness Allergies: Coded Allergies: LATEX, NATURAL RUBBER (Verified Allergy, Unknown, 03/27/19) PENICILLINS (Verified Allergy, Unknown, 03/27/19) SULFA (SULFONAMIDE ANTIBIOTICS) (Verified Allergy, Unknown, 03/27/19) All Systems: reviewed and negative except above Subjective sleepy calm Objective Last 24 Hour Vital Signs Date Time Temp Pulse Resp B/P (MAP) Pulse Ox O2 Delivery O2 Flow Rate FiO2 04/06/19 12:00 98.0 85 18 130/69 (89) 100 04/06/19 09:31 135/73 04/06/19 09:00 Room Air 04/06/19 08:00 97.5 89 16 135/73 (93) 94 04/06/19 07:00 80 16 98 Room Air 21 04/06/19 04:00 98.6 71 20 135/81 (99) 95 04/06/19 00:00 97.5 84 20 119/66 (83) 97 04/05/19 23:29 76 16 97 Room Air 21 04/05/19 21:00 Room Air 04/05/19 20:00 98.1 71 18 139/66 (90) 98 04/05/19 16:00 99.0 20 20 118/72 (87) 96 Intake and Output 04/05/19 04/06/19 19:00 07:00 Intake Total 1000 ml 200 ml Balance 1000 ml 200 ml Intake Oral 1000 ml 200 ml # Voids 3 3 Laboratory Tests 04/06/19 08:02: White Blood Count 3.7L, Red Blood Count 4.46, Hemoglobin 14.1, Hematocrit 40.9, Mean Corpuscular Volume 92, Mean Corpuscular Hemoglobin 31.6H, Mean Corpuscular Hemoglobin Concent 34.5, Red Cell Distribution Width 12.6, Platelet Count 23L, Mean Platelet Volume 12.7H, Neutrophils (%) (Auto) , Lymphocytes (%) (Auto) , Monocytes (%) (Auto) , Eosinophils (%) (Auto) , Basophils (%) (Auto) , Differential Total Cells Counted 100, Neutrophils % (Manual) 43L, Lymphocytes % (Manual) 50H, Monocytes % (Manual) 4, Eosinophils % (Manual) 3, Basophils % ( Manual) 0, Band Neutrophils 0, Platelet Estimate DecreasedL, Platelet Morphology Normal, Polychromasia 1+, Erythrocyte Sedimentation Rate 34H, Reticulocyte Count 2.1H, Sodium Level 137, Potassium Level 4.3, Chloride Level 103, Carbon Dioxide Level 24, Anion Gap 10, Blood Urea Nitrogen 20H, Creatinine 0.7, Estimat Glomerular Filtration Rate , Glucose Level 161H, Calcium Level 9.3 , Phosphorus Level 3.5, Magnesium Level 1.8, Total Bilirubin 0.4, Aspartate Amino Transf (AST/SGOT) 72H, Alanine Aminotransferase (ALT/SGPT) 94H, Alkaline Phosphatase 112, Lactate Dehydrogenase 257H, Total Protein 6.4, Albumin 3.4, Globulin 3.0, Albumin/Globulin Ratio 1.1 Height (Feet): 5 Height (Inches): 1.00 Weight (Pounds): 154 General Appearance: lethargic EENT: normal ENT inspection Neck: normal alignment Cardiovascular: normal peripheral pulses, normal rate, regular rhythm Respiratory/Chest: chest wall non-tender, lungs clear, normal breath sounds Abdomen: normal bowel sounds, non tender, soft Extremities: normal inspection Edema: no edema noted Arm (L), no edema noted Arm (R), no edema noted Leg (L), no edema noted Leg (R), no edema noted Pedal (L), no edema noted Pedal (R), no edema noted Generalized Neurologic: motor weakness Skin: normal pigmentation, warm/dry Aldair Bill DO Apr 06, 2019 13:12
--- NOTE | 2019-04-06 13:17 | Infectious Diseases Prog Note ---
Assessment/Plan Assessment/Plan The patient is a 73-year-old female with, CLL/SLL Flow cytomometry showes above BM Bx 04/03/19 - Pend Epigastric and left lower quadrant pain. CT abd/pel 03/29/19 - Inflammatory changes extending from the betty hepatis to the posterior retroperitoneum, as described. There may be tiny associated 18 x 12 x 40 mm fluid collection which could represent an abscess. Prominent nodes in the area are likely reactive. Etiology of the inflammatory changes uncertain, could indicate duodenitis, focal pancreatitis of the pancreatic head/uncinate. Less likely ascending diverticulitis, as no definite diverticula are demonstrated. Acute appendicitis is also a possibility, also less likely as the fluid collection does not have a typical appearance of an inflamed appendix and there is a suggestion of visualization of portions of a normal appendix. Correlation with the findings is recommended. Trace free pelvic fluid, presumably related to the above Evidence of prior cholecystectomy. Evidence of prior hepatic surgery. Mild ectasia of the extra hepatic bile ducts probably related to age and postcholecystectomy state. Recommend correlation with liver function tests. Prominent left extrarenal pelvis, with suggestion of some inflammation of the urothelium. Could indicate pyelitis. Correlate with clinical and urinalysis findings Left renal parapelvic cysts versus mild left hydronephrosis, favor the forme Trace right pleural fluid Extensive spinal fusion hardware. This results in streak artifact which limits visualization of the retroperitoneum. Right renal lower pole 12 mm lesion. Probably a cyst. Attenuation measurements are those of a solid lesion, but suspect this is artifact due to beam hardening from adjacent spinal hardware. Recommend sonography to assess whether cystic or solid. Other subcentimeter low-attenuation lesions within the right kidney are too small to characterize most likely represent benign simple cyst. Nonobstructive left lower pole intrarenal calyceal calculus Hepatic cysts. Subcentimeter low-attenuation hepatic lesions which are too small to characterize, most likely benign simple cysts. Other findings as noted, including small hiatal hernia, right basilar pulmonary atelectatic changes Indium scan 04/01/19 - No sign of infectious etiology HIV Neg Hepatitis B/C serology pending Probable urinary tract infection (history of increase of urinary frequency). UCx - E coli warner sen Rash - resolved Likely allergic reaction Unclear if abx - Was given ceftriaxone Right jaw pain - resolved Hx of TMJ PLAN: - Monitor off abx - 03/30/19 SP Ceftriaxone held for rash - Monitor CBC and BMP. - Monitor cultures, blood - f/u BM Bx results Thank you for this consultation. I will follow the patient with you during this hospitalization. Subjective Allergies: Coded Allergies: LATEX, NATURAL RUBBER (Verified Allergy, Unknown, 03/27/19) PENICILLINS (Verified Allergy, Unknown, 03/27/19) SULFA (SULFONAMIDE ANTIBIOTICS) (Verified Allergy, Unknown, 03/27/19) Subjective afebrile no leukocytosis Bcx NTD Objective Vital Signs Last 24 Hour Vital Signs Date Time Temp Pulse Resp B/P (MAP) Pulse Ox O2 Delivery O2 Flow Rate FiO2 04/06/19 12:00 98.0 85 18 130/69 (89) 100 04/06/19 09:31 135/73 04/06/19 09:00 Room Air 04/06/19 08:00 97.5 89 16 135/73 (93) 94 04/06/19 07:00 80 16 98 Room Air 21 04/06/19 04:00 98.6 71 20 135/81 (99) 95 04/06/19 00:00 97.5 84 20 119/66 (83) 97 04/05/19 23:29 76 16 97 Room Air 21 04/05/19 21:00 Room Air 04/05/19 20:00 98.1 71 18 139/66 (90) 98 04/05/19 16:00 99.0 20 20 118/72 (87) 96 Height (Feet): 5 Height (Inches): 1.00 Weight (Pounds): 154 Objective GEN: NAD HEENT: NCAT, MMM, EOMI CHEST: CTAB, No W HEART: S1 and S2. ABDOMEN: Soft. NT, ND NEUROLOGIC: Awake and alert Laboratory Tests Test 04/06/19 08:02 White Blood Count 3.7 K/UL (4.8-10.8) L Red Blood Count 4.46 M/UL (4.20-5.40) Hemoglobin 14.1 G/DL (12.0-16.0) Hematocrit 40.9 % (37.0-47.0) Mean Corpuscular Volume 92 FL (80-99) Mean Corpuscular Hemoglobin 31.6 PG (27.0-31.0) H Mean Corpuscular Hemoglobin Concent 34.5 G/DL (32.0-36.0) Red Cell Distribution Width 12.6 % (11.6-14.8) Platelet Count 23 K/UL (150-450) L Mean Platelet Volume 12.7 FL (6.5-10.1) H Neutrophils (%) (Auto) % (45.0-75.0) Lymphocytes (%) (Auto) % (20.0-45.0) Monocytes (%) (Auto) % (1.0-10.0) Eosinophils (%) (Auto) % (0.0-3.0) Basophils (%) (Auto) % (0.0-2.0) Differential Total Cells Counted 100 Neutrophils % (Manual) 43 % (45-75) L Lymphocytes % (Manual) 50 % (20-45) H Monocytes % (Manual) 4 % (1-10) Eosinophils % (Manual) 3 % (0-3) Basophils % (Manual) 0 % (0-2) Band Neutrophils 0 % (0-8) Platelet Estimate Decreased L Platelet Morphology Normal Polychromasia 1+ Erythrocyte Sedimentation Rate 34 MM/HR (0-30) H Reticulocyte Count 2.1 % (0.5-2.0) H Sodium Level 137 MMOL/L (136-145) Potassium Level 4.3 MMOL/L (3.5-5.1) Chloride Level 103 MMOL/L (98-107) Carbon Dioxide Level 24 MMOL/L (21-32) Anion Gap 10 mmol/L (5-15) Blood Urea Nitrogen 20 mg/dL (7-18) H Creatinine 0.7 MG/DL (0.55-1.30) Estimat Glomerular Filtration Rate mL/min (>60) Glucose Level 161 MG/DL (74-106) H Calcium Level 9.3 MG/DL (8.5-10.1) Phosphorus Level 3.5 MG/DL (2.5-4.9) Magnesium Level 1.8 MG/DL (1.8-2.4) Total Bilirubin 0.4 MG/DL (0.2-1.0) Aspartate Amino Transf (AST/SGOT) 72 U/L (15-37) H Alanine Aminotransferase (ALT/SGPT) 94 U/L (12-78) H Alkaline Phosphatase 112 U/L (46-116) Lactate Dehydrogenase 257 U/L (81-234) H Total Protein 6.4 G/DL (6.4-8.2) Albumin 3.4 G/DL (3.4-5.0) Globulin 3.0 g/dL Albumin/Globulin Ratio 1.1 (1.0-2.7) Current Medications Medications (Trade) Dose Ordered Sig/Marah Route PRN Reason Start Time Stop Time Status Last Admin Dose Admin Acetaminophen (Tylenol) 650 mg Q4H PRN ORAL FEVER (temp>100.5F) 04/02/19 09:15 04/27/19 05:14 Al Hydroxide/Mg Hydroxide (Mylanta) 30 ml Q6H PRN ORAL HEARTBURN 04/02/19 11:15 05/02/19 11:14 Albuterol/ Ipratropium (Albuterol/ Ipratropium) 3 ml Q4HRT PRN HHN Shortness of Breath 04/04/19 20:00 04/09/19 19:59 04/04/19 20:57 Alprazolam (Xanax) 0.25 mg Q8H PRN ORAL For Anxiety 04/02/19 07:30 04/08/19 15:29 04/06/19 09:43 Diphenhydramine HCl (Benadryl) 25 mg Q6H PRN ORAL Itching 04/02/19 07:00 04/29/19 12:59 Escitalopram Oxalate (Lexapro) 10 mg DAILY ORAL 04/02/19 09:00 04/30/19 08:59 04/06/19 09:31 Losartan Potassium (Cozaar) 50 mg DAILY ORAL 04/03/19 09:00 05/03/19 08:59 04/06/19 09:31 Nitroglycerin (Ntg) 0.4 mg Q5M PRN SL Prn Chest Pain 04/02/19 06:45 04/27/19 05:14 Ondansetron HCl (Zofran) 4 mg Q6H PRN IVP Nausea & Vomiting 04/02/19 07:00 04/27/19 06:59 Oxybutynin Chloride (Ditropan) 5 mg BID ORAL 04/02/19 09:00 05/01/19 17:59 04/06/19 09:30 Pantoprazole (Protonix) 40 mg DAILY ORAL 04/03/19 09:00 05/03/19 08:59 04/06/19 09:31 Patient Own Medication (Patient's Own Med) 1 ea DAILY INH 04/05/19 09:00 05/05/19 08:59 04/06/19 08:27 Patient Own Medication (Patient's Own Med) 1 ea QHS ORAL 04/04/19 21:00 05/04/19 20:59 04/05/19 21:02 Temazepam (Restoril) 15 mg HSPRN PRN ORAL Insomnia 04/02/19 07:00 04/09/19 06:59 Diane Howard M.D. Apr 06, 2019 13:17
--- NOTE | 2019-04-06 13:36 | Cardiac Electrophysiology PN ---
Assessment/Plan Assessment/Plan 1. Chest pain. Ruled out for myocardial infarction. EKG is normal. Echo normal EF. D-dimer is elevated but VQ scan was negative Hold off on nuclear stress test in view of new Cancer 2. Hypertension. Continue losartan 25 mg daily 3. Gastroesophageal reflux. 4. Hyperlipidemia. The patient was on Crestor 10 mg daily. 5. Pancytopenia with WBC 1.2 and platelet count of 7K. Flow cytometry CONSISTENT WITH CLL/SLL S/P CT guided BM biopsy per Dr Delacruz. Awaiting transfer to [facility]. ZOHRA RN Subjective Subjective No CP or SOB. Awaiting transfer to [facility] Objective Last 24 Hour Vital Signs Date Time Temp Pulse Resp B/P (MAP) Pulse Ox O2 Delivery O2 Flow Rate FiO2 04/06/19 12:00 98.0 85 18 130/69 (89) 100 04/06/19 09:31 135/73 04/06/19 09:00 Room Air 04/06/19 08:00 97.5 89 16 135/73 (93) 94 04/06/19 07:00 80 16 98 Room Air 21 04/06/19 04:00 98.6 71 20 135/81 (99) 95 04/06/19 00:00 97.5 84 20 119/66 (83) 97 04/05/19 23:29 76 16 97 Room Air 21 04/05/19 21:00 Room Air 04/05/19 20:00 98.1 71 18 139/66 (90) 98 04/05/19 16:00 99.0 20 20 118/72 (87) 96 Intake and Output 04/05/19 04/06/19 19:00 07:00 Intake Total 1000 ml 200 ml Balance 1000 ml 200 ml Intake Oral 1000 ml 200 ml # Voids 3 3 Laboratory Tests Test 04/06/19 08:02 White Blood Count 3.7 K/UL (4.8-10.8) L Red Blood Count 4.46 M/UL (4.20-5.40) Hemoglobin 14.1 G/DL (12.0-16.0) Hematocrit 40.9 % (37.0-47.0) Mean Corpuscular Volume 92 FL (80-99) Mean Corpuscular Hemoglobin 31.6 PG (27.0-31.0) H Mean Corpuscular Hemoglobin Concent 34.5 G/DL (32.0-36.0) Red Cell Distribution Width 12.6 % (11.6-14.8) Platelet Count 23 K/UL (150-450) L Mean Platelet Volume 12.7 FL (6.5-10.1) H Neutrophils (%) (Auto) % (45.0-75.0) Lymphocytes (%) (Auto) % (20.0-45.0) Monocytes (%) (Auto) % (1.0-10.0) Eosinophils (%) (Auto) % (0.0-3.0) Basophils (%) (Auto) % (0.0-2.0) Differential Total Cells Counted 100 Neutrophils % (Manual) 43 % (45-75) L Lymphocytes % (Manual) 50 % (20-45) H Monocytes % (Manual) 4 % (1-10) Eosinophils % (Manual) 3 % (0-3) Basophils % (Manual) 0 % (0-2) Band Neutrophils 0 % (0-8) Platelet Estimate Decreased L Platelet Morphology Normal Polychromasia 1+ Erythrocyte Sedimentation Rate 34 MM/HR (0-30) H Reticulocyte Count 2.1 % (0.5-2.0) H Sodium Level 137 MMOL/L (136-145) Potassium Level 4.3 MMOL/L (3.5-5.1) Chloride Level 103 MMOL/L (98-107) Carbon Dioxide Level 24 MMOL/L (21-32) Anion Gap 10 mmol/L (5-15) Blood Urea Nitrogen 20 mg/dL (7-18) H Creatinine 0.7 MG/DL (0.55-1.30) Estimat Glomerular Filtration Rate mL/min (>60) Glucose Level 161 MG/DL (74-106) H Calcium Level 9.3 MG/DL (8.5-10.1) Phosphorus Level 3.5 MG/DL (2.5-4.9) Magnesium Level 1.8 MG/DL (1.8-2.4) Total Bilirubin 0.4 MG/DL (0.2-1.0) Aspartate Amino Transf (AST/SGOT) 72 U/L (15-37) H Alanine Aminotransferase (ALT/SGPT) 94 U/L (12-78) H Alkaline Phosphatase 112 U/L (46-116) Lactate Dehydrogenase 257 U/L (81-234) H Total Protein 6.4 G/DL (6.4-8.2) Albumin 3.4 G/DL (3.4-5.0) Globulin 3.0 g/dL Albumin/Globulin Ratio 1.1 (1.0-2.7) Objective HEAD AND NECK: No JVD or carotid bruits. LUNGS: Clear. CARDIOVASCULAR: Regular S1 and S2 with no gallop or murmur. ABDOMEN: Soft. EXTREMITIES: No pitting edema. Molina Bradley MD Apr 06, 2019 13:36
--- NOTE | 2019-04-06 14:48 | Hematology/Onc Progress Note ---
Assessment/Plan Assessment/Plan ASSESSMENT AND PLAN # Pancytopenia - flow cytometry CONSISTENT WITH CLL/SLL, though this is not confirmatory yet can be a sister diagnosis hairy cell leukemia, LGL etc... other causes, on imagin mm right lower pole renal lesion, possibly not definitely cystic. Note that is also not definitely cystic on recent abdomen CT scan. Neoplasm and therefore not excludable. Recommend comparison with any outside prior studies that may be available. MRI may also be useful to definitively determine its cystic or solid. Echogenic focus within the spleen measuring 8 mm diameter. This may correspond to a hypoattenuating lesion seen on recent CT scan, may reflect a hemangioma Contour abnormality of the inferior right hepatic lobe, probably related to prior surgery as no mass is demonstrated on recent CT Right hepatic lobe cyst, also described on recent CT --> peripheral smear has been reviewed and no blasts noted, normal smear --> Medications have been reviewed --> Continue to monitor for improvement, trend cbc --> Hep panel is pending and HIV negative --> CT Abd revealed hepatic cysts. --> reverse isolation if ANC is <2000 --> Give neupogen if ANC <1000 --> WBC 3.6k--> 1.1k--> 1.2k--> 4.0-->3-->3.1 --> PLT 58--> 6--> 7--> 23-->29-->30-->20 --> DC'ed ASA, s/p PLT Transfusion --> BONE MARROW BIOPSY not successful 03/31, will obtain ct guided bx on 04/03 --> BM biopsy successfully performed on 04/03, awaiting path report. # Chest Pain --> seen by cards, not a candidate for stress test currently --> Appreciat recs # 11 mm right lower pole renal lesion --> outpatient followup # Anxiety. The time the note was entered does not necessarily mean the patient was seen Greatly appreciate consultation Subjective Allergies: Coded Allergies: LATEX, NATURAL RUBBER (Verified Allergy, Unknown, 03/27/19) PENICILLINS (Verified Allergy, Unknown, 03/27/19) SULFA (SULFONAMIDE ANTIBIOTICS) (Verified Allergy, Unknown, 03/27/19) Subjective Subjective Subjective 03/30: Us abd and CTA +pelvis imaging results reviewed, s/p PLT tx. 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 04/02: no bone marrow biopsy yet, to be repeated tomorrow when plt better 04/03: pending potential bone marrow biopsy after plt count higher, have discussed with Dr. Aldair Bill, patient, Dr. Carvalho and Letha, and with RN 04/05: S/P successful bone marrow biopsy, awaiting path report. Pt awake and alert, eating breakfast. 04/06: Pt seen in am, watching tv possible transfer to [facility] Objective Objective Current Medications Medications (Trade) Dose Ordered Sig/Marah Route PRN Reason Start Time Stop Time Status Last Admin Dose Admin Acetaminophen (Tylenol) 650 mg Q4H PRN ORAL FEVER (temp>100.5F) 04/02/19 09:15 04/27/19 05:14 Al Hydroxide/Mg Hydroxide (Mylanta) 30 ml Q6H PRN ORAL HEARTBURN 04/02/19 11:15 05/02/19 11:14 Albuterol/ Ipratropium (Albuterol/ Ipratropium) 3 ml Q4HRT PRN HHN Shortness of Breath 04/04/19 20:00 04/09/19 19:59 04/04/19 20:57 Alprazolam (Xanax) 0.25 mg Q8H PRN ORAL For Anxiety 04/02/19 07:30 04/08/19 15:29 04/06/19 09:43 Diphenhydramine HCl (Benadryl) 25 mg Q6H PRN ORAL Itching 04/02/19 07:00 04/29/19 12:59 Escitalopram Oxalate (Lexapro) 10 mg DAILY ORAL 04/02/19 09:00 04/30/19 08:59 04/06/19 09:31 Losartan Potassium (Cozaar) 50 mg DAILY ORAL 04/07/19 09:00 05/07/19 08:59 Nitroglycerin (Ntg) 0.4 mg Q5M PRN SL Prn Chest Pain 04/02/19 06:45 04/27/19 05:14 Ondansetron HCl (Zofran) 4 mg Q6H PRN IVP Nausea & Vomiting 04/02/19 07:00 04/27/19 06:59 Oxybutynin Chloride (Ditropan) 5 mg BID ORAL 04/02/19 09:00 05/01/19 17:59 04/06/19 09:30 Pantoprazole (Protonix) 40 mg DAILY ORAL 04/03/19 09:00 05/03/19 08:59 04/06/19 09:31 Patient Own Medication (Patient's Own Med) 1 ea DAILY INH 04/05/19 09:00 05/05/19 08:59 04/06/19 08:27 Patient Own Medication (Patient's Own Med) 1 ea QHS ORAL 04/04/19 21:00 05/04/19 20:59 04/05/19 21:02 Temazepam (Restoril) 15 mg HSPRN PRN ORAL Insomnia 04/02/19 07:00 04/09/19 06:59 Last 24 Hour Vital Signs Date Time Temp Pulse Resp B/P (MAP) Pulse Ox O2 Delivery O2 Flow Rate FiO2 04/06/19 12:00 98.0 85 18 130/69 (89) 100 04/06/19 09:31 135/73 04/06/19 09:00 Room Air 04/06/19 08:00 97.5 89 16 135/73 (93) 94 04/06/19 07:00 80 16 98 Room Air 21 04/06/19 04:00 98.6 71 20 135/81 (99) 95 04/06/19 00:00 97.5 84 20 119/66 (83) 97 04/05/19 23:29 76 16 97 Room Air 21 04/05/19 21:00 Room Air 04/05/19 20:00 98.1 71 18 139/66 (90) 98 04/05/19 16:00 99.0 20 20 118/72 (87) 96 04/05/19 12:00 98.7 20 20 118/74 (89) 99 04/05/19 09:00 Room Air 04/05/19 08:39 129/81 04/05/19 07:57 18 18 129/81 (97) 94 04/05/19 04:00 98.3 17 17 117/70 (86) 100 04/05/19 00:00 97.6 69 17 130/74 (92) 98 04/04/19 21:08 64 18 98 Room Air 21 04/04/19 21:00 Room Air 04/04/19 20:57 60 20 94 Room Air 21 04/04/19 20:57 60 20 94 Room Air 21 04/04/19 20:57 60 20 94 Room Air 21 04/04/19 20:00 97.6 71 18 115/73 (87) 96 04/04/19 16:00 98.0 67 16 124/72 (89) 95 Intake and Output 04/05/19 04/06/19 19:00 07:00 Intake Total 1000 ml 200 ml Balance 1000 ml 200 ml Intake Oral 1000 ml 200 ml # Voids 3 3 Labs Test 04/04/19 07:49 04/05/19 05:34 04/06/19 08:02 White Blood Count 3.3 K/UL (4.8-10.8) 3.1 K/UL (4.8-10.8) 3.7 K/UL (4.8-10.8) Red Blood Count 4.46 M/UL (4.20-5.40) 4.07 M/UL (4.20-5.40) 4.46 M/UL (4.20-5.40) Hemoglobin 14.1 G/DL (12.0-16.0) 12.9 G/DL (12.0-16.0) 14.1 G/DL (12.0-16.0) Hematocrit 41.5 % (37.0-47.0) 37.7 % (37.0-47.0) 40.9 % (37.0-47.0) Mean Corpuscular Volume 93 FL (80-99) 92 FL (80-99) 92 FL (80-99) Mean Corpuscular Hemoglobin 31.6 PG (27.0-31.0) 31.6 PG (27.0-31.0) 31.6 PG (27.0-31.0) Mean Corpuscular Hemoglobin Concent 34.0 G/DL (32.0-36.0) 34.2 G/DL (32.0-36.0) 34.5 G/DL (32.0-36.0) Red Cell Distribution Width 12.7 % (11.6-14.8) 12.7 % (11.6-14.8) 12.6 % (11.6-14.8) Platelet Count 22 K/UL (150-450) 20 K/UL (150-450) 23 K/UL (150-450) Mean Platelet Volume 14.0 FL (6.5-10.1) 9.7 FL (6.5-10.1) 12.7 FL (6.5-10.1) Neutrophils (%) (Auto) % (45.0-75.0) % (45.0-75.0) % (45.0-75.0) Lymphocytes (%) (Auto) % (20.0-45.0) % (20.0-45.0) % (20.0-45.0) Monocytes (%) (Auto) % (1.0-10.0) % (1.0-10.0) % (1.0-10.0) Eosinophils (%) (Auto) % (0.0-3.0) % (0.0-3.0) % (0.0-3.0) Basophils (%) (Auto) % (0.0-2.0) % (0.0-2.0) % (0.0-2.0) Differential Total Cells Counted 100 100 100 Neutrophils % (Manual) 21 % (45-75) 11 % (45-75) 43 % (45-75) Lymphocytes % (Manual) 62 % (20-45) 69 % (20-45) 50 % (20-45) Monocytes % (Manual) 15 % (1-10) 16 % (1-10) 4 % (1-10) Eosinophils % (Manual) 2 % (0-3) 4 % (0-3) 3 % (0-3) Basophils % (Manual) 0 % (0-2) 0 % (0-2) 0 % (0-2) Band Neutrophils 0 % (0-8) 0 % (0-8) 0 % (0-8) Platelet Estimate Decreased Decreased Decreased Platelet Morphology Normal Normal Normal Polychromasia 1+ 1+ 1+ Sodium Level 143 MMOL/L (136-145) 140 MMOL/L (136-145) 137 MMOL/L (136-145) Potassium Level 4.4 MMOL/L (3.5-5.1) 4.9 MMOL/L (3.5-5.1) 4.3 MMOL/L (3.5-5.1) Chloride Level 106 MMOL/L (98-107) 107 MMOL/L (98-107) 103 MMOL/L (98-107) Carbon Dioxide Level 25 MMOL/L (21-32) 24 MMOL/L (21-32) 24 MMOL/L (21-32) Anion Gap 12 mmol/L (5-15) 9 mmol/L (5-15) 10 mmol/L (5-15) Blood Urea Nitrogen 21 mg/dL (7-18) 25 mg/dL (7-18) 20 mg/dL (7-18) Creatinine 0.7 MG/DL (0.55-1.30) 0.7 MG/DL (0.55-1.30) 0.7 MG/DL (0.55-1.30) Estimat Glomerular Filtration Rate mL/min (>60) mL/min (>60) mL/min (>60) Glucose Level 149 MG/DL (74-106) 101 MG/DL (74-106) 161 MG/DL (74-106) Calcium Level 9.1 MG/DL (8.5-10.1) 8.9 MG/DL (8.5-10.1) 9.3 MG/DL (8.5-10.1) Magnesium Level 2.1 MG/DL (1.8-2.4) 2.0 MG/DL (1.8-2.4) 1.8 MG/DL (1.8-2.4) Total Bilirubin 0.5 MG/DL (0.2-1.0) 0.3 MG/DL (0.2-1.0) 0.4 MG/DL (0.2-1.0) Aspartate Amino Transf (AST/SGOT) 35 U/L (15-37) 27 U/L (15-37) 72 U/L (15-37) Alanine Aminotransferase (ALT/SGPT) 67 U/L (12-78) 51 U/L (12-78) 94 U/L (12-78) Alkaline Phosphatase 127 U/L (46-116) 99 U/L (46-116) 112 U/L (46-116) Total Protein 6.6 G/DL (6.4-8.2) 5.7 G/DL (6.4-8.2) 6.4 G/DL (6.4-8.2) Albumin 3.1 G/DL (3.4-5.0) 2.6 G/DL (3.4-5.0) 3.4 G/DL (3.4-5.0) Globulin 3.5 g/dL 3.1 g/dL 3.0 g/dL Albumin/Globulin Ratio 0.9 (1.0-2.7) 0.8 (1.0-2.7) 1.1 (1.0-2.7) Thyroid Stimulating Hormone (TSH) 2.711 uiU/mL (0.358-3.740) Red Blood Cell Morphology Prothrombin Time 10.3 SEC (9.30-11.50) Prothromb Time International Ratio 1.0 (0.9-1.1) Activated Partial Thromboplast Time 25 SEC (23-33) Phosphorus Level 3.9 MG/DL (2.5-4.9) 3.5 MG/DL (2.5-4.9) Erythrocyte Sedimentation Rate 34 MM/HR (0-30) Reticulocyte Count 2.1 % (0.5-2.0) Lactate Dehydrogenase 257 U/L (81-234) Height (Feet): 5 Height (Inches): 1.00 Weight (Pounds): 154 Objective Vital Signs reviewed General Appearance: well appearing, no apparent distress, alert Head: normocephalic, atraumatic Eyes: bilateral eye PERRL, bilateral eye EOMI, abrasion under left eye ENT: hearing grossly normal, normal pharynx Neck: full range of motion, supple, no meningismus Respiratory: chest non-tender, lungs clear, normal breath sounds Cardiovascular: regular rate, rhythm, no murmur Gastrointestinal: normal bowel sounds, non tender, no mass, no organomegaly, no bruit, non-distended Musculoskeletal: back normal, gait/station normal, normal range of motion Psychiatric: mood/affect normal Skin: warm/dry, small bruises BLE Radha Ocampo NP Apr 06, 2019 14:48
[2019-04-06 16:00] VITALS: BP 115/70
[2019-04-06 20:00] VITALS: BP 112/68
[2019-04-06] MEDS: ROSUVASTATIN 10 MG ORAL SCH (20:56)
[2019-04-07] VITALS: BP 109/71
--- NOTE | 2019-04-07 03:30 | Progress Note ---
DATE: 04/06/2019 CARDIOLOGY PROGRESS NOTE SUBJECTIVE: The patient's blood pressure parameters are well controlled in the range of 109 to 130 systolic. The patient has no chest pain or shortness of breath. Blood counts remain low and the patient is awaiting transfer to [facility] for treatment of her acute leukemia. OBJECTIVE: LUNGS: Clear. CARDIAC: Regular. ABDOMEN: Soft. EXTREMITIES: No edema. IMPRESSION: 1. Low normal blood pressure range. 2. CLL. 3. Noncardiac chest pain. PLAN: 1. No need for low-dose losartan at this time. 2. We will discontinue and observe off therapy. 3. Nitrates are not indicated either. 4. There is no clinical sign of ischemic chest pain. Mingo Valderrama M.D. DR: ARPIT JOB#: [id number] CC:
[2019-04-07 04:00] VITALS: BP 107/70
[2019-04-07 07:25] LABS: HEMATOCRIT 38.5 % (37.0-47.0); HEMOGLOBIN 13.1 G/DL (12.0-16.0); MEAN CORPUSCULAR VOLUME 92 FL (80-99); PLATELET COUNT 21 K/UL (150-450); RED CELL DISTRIBUTION WIDTH 12.2 % (11.6-14.8); WHITE BLOOD COUNT 2.6 K/UL (4.8-10.8)
[2019-04-07 07:39] LABS: ANION GAP 10 mmol/L (5-15); BLOOD UREA NITROGEN 26 mg/dL (7-18); CALCIUM 9.4 MG/DL (8.5-10.1); CARBON DIOXIDE 25 MMOL/L (21-32); CHLORIDE 107 MMOL/L (98-107); CREATININE 0.7 MG/DL (0.55-1.30); POTASSIUM 4.6 MMOL/L (3.5-5.1); SODIUM 142 MMOL/L (136-145)
[2019-04-07 08:00] VITALS: BP 130/67
[2019-04-07] MEDS: ALPRAZolam 0.25mg tab ORAL PRN ×2 (08:45→17:54)
[2019-04-07] MEDS: Oxybutynin 5mg tab ORAL SCH ×2 (08:45→17:54)
[2019-04-07] MEDS: SEREVENT 50 MCG INH SCH (08:47)
[2019-04-07] MEDS ORDERED: Losartan 50mg tab ORAL SCH (09:00)
--- NOTE | 2019-04-07 11:28 | Cardiac Electrophysiology PN ---
Assessment/Plan Assessment/Plan 1. Chest pain. Ruled out for myocardial infarction. EKG is normal. Echo normal EF. D-dimer is elevated but VQ scan was negative Hold off on nuclear stress test in view of new Cancer 2. Hypertension. Continue losartan 25 mg daily 3. Gastroesophageal reflux. 4. Hyperlipidemia. The patient was on Crestor 10 mg daily. 5. Pancytopenia with WBC 1.2 and platelet count of 7K. Flow cytometry consistent with CLL/SLL S/P CT guided BM biopsy per Dr Delacruz. Awaiting transfer to [facility]. ZOHRA RN Subjective Subjective No CP or SOB. Still awaiting transfer to [facility] Objective Last 24 Hour Vital Signs Date Time Temp Pulse Resp B/P (MAP) Pulse Ox O2 Delivery O2 Flow Rate FiO2 04/07/19 07:19 73 18 96 Room Air 21 04/07/19 04:00 97.7 74 18 107/70 (82) 95 04/07/19 00:00 97.9 68 17 109/71 (84) 94 04/06/19 21:00 Room Air 04/06/19 20:00 97.7 71 18 112/68 (83) 94 04/06/19 19:21 74 16 95 Room Air 21 04/06/19 16:00 98.2 67 18 115/70 (85) 98 04/06/19 12:00 98.0 85 18 130/69 (89) 100 Intake and Output 04/06/19 04/07/19 19:00 07:00 Intake Total 300 ml 480 ml Balance 300 ml 480 ml Intake Oral 300 ml 480 ml # Voids 2 3 Laboratory Tests Test 04/07/19 06:44 White Blood Count 2.6 K/UL (4.8-10.8) L Red Blood Count 4.20 M/UL (4.20-5.40) Hemoglobin 13.1 G/DL (12.0-16.0) Hematocrit 38.5 % (37.0-47.0) Mean Corpuscular Volume 92 FL (80-99) Mean Corpuscular Hemoglobin 31.1 PG (27.0-31.0) H Mean Corpuscular Hemoglobin Concent 33.9 G/DL (32.0-36.0) Red Cell Distribution Width 12.2 % (11.6-14.8) Platelet Count 21 K/UL (150-450) L Mean Platelet Volume 11.5 FL (6.5-10.1) H Neutrophils (%) (Auto) % (45.0-75.0) Lymphocytes (%) (Auto) % (20.0-45.0) Monocytes (%) (Auto) % (1.0-10.0) Eosinophils (%) (Auto) % (0.0-3.0) Basophils (%) (Auto) % (0.0-2.0) Differential Total Cells Counted 100 Neutrophils % (Manual) 23 % (45-75) L Lymphocytes % (Manual) 61 % (20-45) H Monocytes % (Manual) 14 % (1-10) H Eosinophils % (Manual) 2 % (0-3) Basophils % (Manual) 0 % (0-2) Band Neutrophils 0 % (0-8) Platelet Estimate Decreased L Platelet Morphology Normal Sodium Level 142 MMOL/L (136-145) Potassium Level 4.6 MMOL/L (3.5-5.1) Chloride Level 107 MMOL/L (98-107) Carbon Dioxide Level 25 MMOL/L (21-32) Anion Gap 10 mmol/L (5-15) Blood Urea Nitrogen 26 mg/dL (7-18) H Creatinine 0.7 MG/DL (0.55-1.30) Estimat Glomerular Filtration Rate mL/min (>60) Glucose Level 109 MG/DL (74-106) H Calcium Level 9.4 MG/DL (8.5-10.1) Objective HEAD AND NECK: No JVD or carotid bruits. LUNGS: Clear. CARDIOVASCULAR: Regular S1 and S2 with no gallop or murmur. ABDOMEN: Soft. EXTREMITIES: No pitting edema. Molina Bradley MD Apr 07, 2019 11:28
--- NOTE | 2019-04-07 11:46 | General Progress Note ---
Assessment/Plan Problem List: (1) CLL (chronic lymphocytic leukemia) ICD Codes: C91.90 - Lymphoid leukemia, unspecified not having achieved remission SNOMED: 17675827 (2) GERD (gastroesophageal reflux disease) ICD Codes: K21.9 - Gastro-esophageal reflux disease without esophagitis SNOMED: 017905492 (3) Hepatic cyst ICD Codes: K76.89 - Other specified diseases of liver SNOMED: 57859883 (4) Thrombocytopenia ICD Codes: D69.6 - Thrombocytopenia, unspecified SNOMED: 251970739 Status: unchanged Assessment/Plan: recent EGD/colonoscopy within the year history of hepatic angioma with liver resection approximately 5 years ago CTAP reviewed, multiple hepatic cysts most likely simple benign cysts Hepatitis panel negative AFP WNL No plans for GI procedures at this time follow up hematology recommendations, bone marrow biopsy rule out leukemia >> biopsy shows 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 follow up cardiology recs, ppi daily prn transfusions zofran prn follow labs Subjective ROS Limited/Unobtainable: No Allergies: Coded Allergies: LATEX, NATURAL RUBBER (Verified Allergy, Unknown, 03/27/19) PENICILLINS (Verified Allergy, Unknown, 03/27/19) SULFA (SULFONAMIDE ANTIBIOTICS) (Verified Allergy, Unknown, 03/27/19) Objective Last 24 Hour Vital Signs Date Time Temp Pulse Resp B/P (MAP) Pulse Ox O2 Delivery O2 Flow Rate FiO2 04/07/19 07:19 73 18 96 Room Air 21 04/07/19 04:00 97.7 74 18 107/70 (82) 95 04/07/19 00:00 97.9 68 17 109/71 (84) 94 04/06/19 21:00 Room Air 04/06/19 20:00 97.7 71 18 112/68 (83) 94 04/06/19 19:21 74 16 95 Room Air 21 04/06/19 16:00 98.2 67 18 115/70 (85) 98 04/06/19 12:00 98.0 85 18 130/69 (89) 100 Intake and Output 04/06/19 04/07/19 19:00 07:00 Intake Total 300 ml 480 ml Balance 300 ml 480 ml Intake Oral 300 ml 480 ml # Voids 2 3 Laboratory Tests 04/07/19 06:44: White Blood Count 2.6L, Red Blood Count 4.20, Hemoglobin 13.1, Hematocrit 38.5, Mean Corpuscular Volume 92, Mean Corpuscular Hemoglobin 31.1H, Mean Corpuscular Hemoglobin Concent 33.9, Red Cell Distribution Width 12.2, Platelet Count 21L, Mean Platelet Volume 11.5H, Neutrophils (%) (Auto) , Lymphocytes (%) (Auto) , Monocytes (%) (Auto) , Eosinophils (%) (Auto) , Basophils (%) (Auto) , Differential Total Cells Counted 100, Neutrophils % (Manual) 23L, Lymphocytes % (Manual) 61H, Monocytes % (Manual) 14H, Eosinophils % (Manual) 2, Basophils % ( Manual) 0, Band Neutrophils 0, Platelet Estimate DecreasedL, Platelet Morphology Normal, Sodium Level 142, Potassium Level 4.6, Chloride Level 107, Carbon Dioxide Level 25, Anion Gap 10, Blood Urea Nitrogen 26H, Creatinine 0.7, Estimat Glomerular Filtration Rate , Glucose Level 109H, Calcium Level 9.4 Height (Feet): 5 Height (Inches): 1.00 Weight (Pounds): 154 General Appearance: alert EENT: normal ENT inspection Neck: supple Cardiovascular: normal rate Respiratory/Chest: decreased breath sounds Abdomen: normal bowel sounds, non tender, soft Extremities: non-tender Anthony Galvan MD Apr 07, 2019 11:46
--- NOTE | 2019-04-07 11:59 | General Progress Note ---
Assessment/Plan Problem List: (1) Leukopenia ICD Codes: D72.819 - Decreased white blood cell count, unspecified SNOMED: 27104008, 122919139 (2) Thrombocytopenia ICD Codes: D69.6 - Thrombocytopenia, unspecified SNOMED: 518148377 (3) UTI (urinary tract infection) ICD Codes: N39.0 - Urinary tract infection, site not specified SNOMED: 06845591 Qualifiers: Qualified Codes: N30.00 - Acute cystitis without hematuria (4) Chest pain ICD Codes: R07.9 - Chest pain, unspecified SNOMED: 12501787 Qualifiers: Qualified Codes: R07.9 - Chest pain, unspecified (5) ACS (acute coronary syndrome) ICD Codes: I24.9 - Acute ischemic heart disease, unspecified SNOMED: 171963930 Status: unchanged Assessment/Plan: pain control cardio heme f/u cbc bmp am transfer to [facility] Subjective Constitutional: Reports: weakness Allergies: Coded Allergies: LATEX, NATURAL RUBBER (Verified Allergy, Unknown, 03/27/19) PENICILLINS (Verified Allergy, Unknown, 03/27/19) SULFA (SULFONAMIDE ANTIBIOTICS) (Verified Allergy, Unknown, 03/27/19) All Systems: reviewed and negative except above Subjective sleepy calm Objective Last 24 Hour Vital Signs Date Time Temp Pulse Resp B/P (MAP) Pulse Ox O2 Delivery O2 Flow Rate FiO2 04/07/19 07:19 73 18 96 Room Air 21 04/07/19 04:00 97.7 74 18 107/70 (82) 95 04/07/19 00:00 97.9 68 17 109/71 (84) 94 04/06/19 21:00 Room Air 04/06/19 20:00 97.7 71 18 112/68 (83) 94 04/06/19 19:21 74 16 95 Room Air 21 04/06/19 16:00 98.2 67 18 115/70 (85) 98 04/06/19 12:00 98.0 85 18 130/69 (89) 100 Intake and Output 04/06/19 04/07/19 19:00 07:00 Intake Total 300 ml 480 ml Balance 300 ml 480 ml Intake Oral 300 ml 480 ml # Voids 2 3 Laboratory Tests 04/07/19 06:44: White Blood Count 2.6L, Red Blood Count 4.20, Hemoglobin 13.1, Hematocrit 38.5, Mean Corpuscular Volume 92, Mean Corpuscular Hemoglobin 31.1H, Mean Corpuscular Hemoglobin Concent 33.9, Red Cell Distribution Width 12.2, Platelet Count 21L, Mean Platelet Volume 11.5H, Neutrophils (%) (Auto) , Lymphocytes (%) (Auto) , Monocytes (%) (Auto) , Eosinophils (%) (Auto) , Basophils (%) (Auto) , Differential Total Cells Counted 100, Neutrophils % (Manual) 23L, Lymphocytes % (Manual) 61H, Monocytes % (Manual) 14H, Eosinophils % (Manual) 2, Basophils % ( Manual) 0, Band Neutrophils 0, Platelet Estimate DecreasedL, Platelet Morphology Normal, Sodium Level 142, Potassium Level 4.6, Chloride Level 107, Carbon Dioxide Level 25, Anion Gap 10, Blood Urea Nitrogen 26H, Creatinine 0.7, Estimat Glomerular Filtration Rate , Glucose Level 109H, Calcium Level 9.4 Height (Feet): 5 Height (Inches): 1.00 Weight (Pounds): 154 General Appearance: lethargic EENT: normal ENT inspection Neck: normal alignment Cardiovascular: normal peripheral pulses, normal rate, regular rhythm Respiratory/Chest: chest wall non-tender, lungs clear, normal breath sounds Abdomen: normal bowel sounds, non tender, soft Extremities: normal inspection Edema: no edema noted Arm (L), no edema noted Arm (R), no edema noted Leg (L), no edema noted Leg (R), no edema noted Pedal (L), no edema noted Pedal (R), no edema noted Generalized Neurologic: motor weakness Skin: normal pigmentation, warm/dry Aldair Bill DO Apr 07, 2019 11:59
[2019-04-07 12:00] VITALS: BP 130/69
--- NOTE | 2019-04-07 14:23 | Pulmonology Progress Note ---
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 higher, s/p PLT transfusion f/u blood smear symptomatic treatment dc planning in process to [facility]/ Subjective ROS Limited/Unobtainable: No Interval Events: walking in the hallway Constitutional: Reports: no symptoms HEENT: Repors: no symptoms Respiratory: Reports: no symptoms Allergies: Coded Allergies: LATEX, NATURAL RUBBER (Verified Allergy, Unknown, 03/27/19) PENICILLINS (Verified Allergy, Unknown, 03/27/19) SULFA (SULFONAMIDE ANTIBIOTICS) (Verified Allergy, Unknown, 03/27/19) Objective Last 24 Hour Vital Signs Date Time Temp Pulse Resp B/P (MAP) Pulse Ox O2 Delivery O2 Flow Rate FiO2 04/07/19 12:00 98.0 78 20 130/69 (89) 94 04/07/19 09:00 Room Air 04/07/19 08:00 97.6 66 18 130/67 (88) 04/07/19 07:19 73 18 96 Room Air 21 04/07/19 04:00 97.7 74 18 107/70 (82) 95 04/07/19 00:00 97.9 68 17 109/71 (84) 94 04/06/19 21:00 Room Air 04/06/19 20:00 97.7 71 18 112/68 (83) 94 04/06/19 19:21 74 16 95 Room Air 21 04/06/19 16:00 98.2 67 18 115/70 (85) 98 Intake and Output 04/06/19 04/07/19 19:00 07:00 Intake Total 300 ml 480 ml Balance 300 ml 480 ml Intake Oral 300 ml 480 ml # Voids 2 3 Objective General Appearance: WD/WN HEENT: atraumatic Respiratory/Chest: chest wall non-tender, normal breath sounds Breasts: no masses Cardiovascular: normal rate Abdomen: soft, non tender, no mass Genitourinary: normal external genitalia Extremities: no clubbing Laboratory Tests 04/07/19 06:44: White Blood Count 2.6L, Red Blood Count 4.20, Hemoglobin 13.1, Hematocrit 38.5, Mean Corpuscular Volume 92, Mean Corpuscular Hemoglobin 31.1H, Mean Corpuscular Hemoglobin Concent 33.9, Red Cell Distribution Width 12.2, Platelet Count 21L, Mean Platelet Volume 11.5H, Neutrophils (%) (Auto) , Lymphocytes (%) (Auto) , Monocytes (%) (Auto) , Eosinophils (%) (Auto) , Basophils (%) (Auto) , Differential Total Cells Counted 100, Neutrophils % (Manual) 23L, Lymphocytes % (Manual) 61H, Monocytes % (Manual) 14H, Eosinophils % (Manual) 2, Basophils % ( Manual) 0, Band Neutrophils 0, Platelet Estimate DecreasedL, Platelet Morphology Normal, Sodium Level 142, Potassium Level 4.6, Chloride Level 107, Carbon Dioxide Level 25, Anion Gap 10, Blood Urea Nitrogen 26H, Creatinine 0.7, Estimat Glomerular Filtration Rate , Glucose Level 109H, Calcium Level 9.4 Current Medications Medications (Trade) Dose Ordered Sig/Marah Route PRN Reason Start Time Stop Time Status Last Admin Dose Admin Acetaminophen (Tylenol) 650 mg Q4H PRN ORAL FEVER (temp>100.5F) 04/02/19 09:15 04/27/19 05:14 Al Hydroxide/Mg Hydroxide (Mylanta) 30 ml Q6H PRN ORAL HEARTBURN 04/02/19 11:15 05/02/19 11:14 Al Hydroxide/Mg Hydroxide (Mylanta) 30 ml Q6H PRN ORAL Diarrhea 04/06/19 16:15 05/06/19 16:14 Albuterol/ Ipratropium (Albuterol/ Ipratropium) 3 ml Q4HRT PRN HHN Shortness of Breath 04/04/19 20:00 04/09/19 19:59 04/04/19 20:57 Alprazolam (Xanax) 0.25 mg Q8H PRN ORAL For Anxiety 04/02/19 07:30 04/08/19 15:29 04/07/19 08:45 Diphenhydramine HCl (Benadryl) 25 mg Q6H PRN ORAL Itching 04/02/19 07:00 04/29/19 12:59 Escitalopram Oxalate (Lexapro) 10 mg DAILY ORAL 04/02/19 09:00 04/30/19 08:59 04/07/19 08:44 Ondansetron HCl (Zofran) 4 mg Q6H PRN IVP Nausea & Vomiting 04/02/19 07:00 04/27/19 06:59 Oxybutynin Chloride (Ditropan) 5 mg BID ORAL 04/02/19 09:00 05/01/19 17:59 04/07/19 08:45 Pantoprazole (Protonix) 40 mg DAILY ORAL 04/03/19 09:00 05/03/19 08:59 04/07/19 08:45 Patient Own Medication (Patient's Own Med) 1 ea DAILY INH 04/05/19 09:00 05/05/19 08:59 04/07/19 08:47 Patient Own Medication (Patient's Own Med) 1 ea QHS ORAL 04/04/19 21:00 05/04/19 20:59 04/06/19 20:56 Temazepam (Restoril) 15 mg HSPRN PRN ORAL Insomnia 04/02/19 07:00 04/09/19 06:59 Narinder Pedro MD Apr 07, 2019 14:23
--- NOTE | 2019-04-07 15:27 | Infectious Diseases Prog Note ---
Assessment/Plan Assessment/Plan The patient is a 73-year-old female with, CLL/SLL Flow cytomometry showes above BM Bx 04/03/19 - CD5 + B cell lymphoproliferative disorder Epigastric and left lower quadrant pain.- Doubt abscess CT abd/pel 03/29/19 - Inflammatory changes extending from the betty hepatis to the posterior retroperitoneum, as described. There may be tiny associated 18 x 12 x 40 mm fluid collection which could represent an abscess. Prominent nodes in the area are likely reactive. Etiology of the inflammatory changes uncertain, could indicate duodenitis, focal pancreatitis of the pancreatic head/uncinate. Less likely ascending diverticulitis, as no definite diverticula are demonstrated. Acute appendicitis is also a possibility, also less likely as the fluid collection does not have a typical appearance of an inflamed appendix and there is a suggestion of visualization of portions of a normal appendix. Correlation with the findings is recommended. Trace free pelvic fluid, presumably related to the above Evidence of prior cholecystectomy. Evidence of prior hepatic surgery. Mild ectasia of the extra hepatic bile ducts probably related to age and postcholecystectomy state. Recommend correlation with liver function tests. Prominent left extrarenal pelvis, with suggestion of some inflammation of the urothelium. Could indicate pyelitis. Correlate with clinical and urinalysis findings Left renal parapelvic cysts versus mild left hydronephrosis, favor the forme Trace right pleural fluid Extensive spinal fusion hardware. This results in streak artifact which limits visualization of the retroperitoneum. Right renal lower pole 12 mm lesion. Probably a cyst. Attenuation measurements are those of a solid lesion, but suspect this is artifact due to beam hardening from adjacent spinal hardware. Recommend sonography to assess whether cystic or solid. Other subcentimeter low-attenuation lesions within the right kidney are too small to characterize most likely represent benign simple cyst. Nonobstructive left lower pole intrarenal calyceal calculus Hepatic cysts. Subcentimeter low-attenuation hepatic lesions which are too small to characterize, most likely benign simple cysts. Other findings as noted, including small hiatal hernia, right basilar pulmonary atelectatic changes Indium scan 04/01/19 - No sign of infectious etiology HIV Neg Hepatitis B/C serology pending Probable urinary tract infection (history of increase of urinary frequency). UCx - E coli warner sen Rash - resolved Likely allergic reaction Unclear if abx - Was given ceftriaxone Right jaw pain - resolved Hx of TMJ PLAN: - Monitor off abx - 03/30/19 SP Ceftriaxone held for rash - Monitor CBC and BMP. - Monitor cultures, blood -Heme onc f/u- plan to transfer to [facility] Thank you for this consultation. I will follow the patient with you during this hospitalization. Subjective Allergies: Coded Allergies: LATEX, NATURAL RUBBER (Verified Allergy, Unknown, 03/27/19) PENICILLINS (Verified Allergy, Unknown, 03/27/19) SULFA (SULFONAMIDE ANTIBIOTICS) (Verified Allergy, Unknown, 03/27/19) Subjective afebrile no leukocytosis Bcx NTD Objective Vital Signs Last 24 Hour Vital Signs Date Time Temp Pulse Resp B/P (MAP) Pulse Ox O2 Delivery O2 Flow Rate FiO2 04/07/19 12:00 98.0 78 20 130/69 (89) 94 04/07/19 09:00 Room Air 04/07/19 08:00 97.6 66 18 130/67 (88) 04/07/19 07:19 73 18 96 Room Air 21 04/07/19 04:00 97.7 74 18 107/70 (82) 95 04/07/19 00:00 97.9 68 17 109/71 (84) 94 04/06/19 21:00 Room Air 04/06/19 20:00 97.7 71 18 112/68 (83) 94 04/06/19 19:21 74 16 95 Room Air 21 04/06/19 16:00 98.2 67 18 115/70 (85) 98 Height (Feet): 5 Height (Inches): 1.00 Weight (Pounds): 154 Objective GEN: NAD HEENT: NCAT, MMM, EOMI CHEST: CTAB, No W HEART: S1 and S2. ABDOMEN: Soft. NT, ND NEUROLOGIC: Awake and alert Laboratory Tests Test 04/07/19 06:44 White Blood Count 2.6 K/UL (4.8-10.8) L Red Blood Count 4.20 M/UL (4.20-5.40) Hemoglobin 13.1 G/DL (12.0-16.0) Hematocrit 38.5 % (37.0-47.0) Mean Corpuscular Volume 92 FL (80-99) Mean Corpuscular Hemoglobin 31.1 PG (27.0-31.0) H Mean Corpuscular Hemoglobin Concent 33.9 G/DL (32.0-36.0) Red Cell Distribution Width 12.2 % (11.6-14.8) Platelet Count 21 K/UL (150-450) L Mean Platelet Volume 11.5 FL (6.5-10.1) H Neutrophils (%) (Auto) % (45.0-75.0) Lymphocytes (%) (Auto) % (20.0-45.0) Monocytes (%) (Auto) % (1.0-10.0) Eosinophils (%) (Auto) % (0.0-3.0) Basophils (%) (Auto) % (0.0-2.0) Differential Total Cells Counted 100 Neutrophils % (Manual) 23 % (45-75) L Lymphocytes % (Manual) 61 % (20-45) H Monocytes % (Manual) 14 % (1-10) H Eosinophils % (Manual) 2 % (0-3) Basophils % (Manual) 0 % (0-2) Band Neutrophils 0 % (0-8) Platelet Estimate Decreased L Platelet Morphology Normal Sodium Level 142 MMOL/L (136-145) Potassium Level 4.6 MMOL/L (3.5-5.1) Chloride Level 107 MMOL/L (98-107) Carbon Dioxide Level 25 MMOL/L (21-32) Anion Gap 10 mmol/L (5-15) Blood Urea Nitrogen 26 mg/dL (7-18) H Creatinine 0.7 MG/DL (0.55-1.30) Estimat Glomerular Filtration Rate mL/min (>60) Glucose Level 109 MG/DL (74-106) H Calcium Level 9.4 MG/DL (8.5-10.1) Current Medications Medications (Trade) Dose Ordered Sig/Marah Route PRN Reason Start Time Stop Time Status Last Admin Dose Admin Acetaminophen (Tylenol) 650 mg Q4H PRN ORAL FEVER (temp>100.5F) 04/02/19 09:15 04/27/19 05:14 Al Hydroxide/Mg Hydroxide (Mylanta) 30 ml Q6H PRN ORAL HEARTBURN 04/02/19 11:15 05/02/19 11:14 Al Hydroxide/Mg Hydroxide (Mylanta) 30 ml Q6H PRN ORAL Diarrhea 04/06/19 16:15 05/06/19 16:14 Albuterol/ Ipratropium (Albuterol/ Ipratropium) 3 ml Q4HRT PRN HHN Shortness of Breath 04/04/19 20:00 04/09/19 19:59 04/04/19 20:57 Alprazolam (Xanax) 0.25 mg Q8H PRN ORAL For Anxiety 04/02/19 07:30 04/08/19 15:29 04/07/19 08:45 Diphenhydramine HCl (Benadryl) 25 mg Q6H PRN ORAL Itching 04/02/19 07:00 04/29/19 12:59 Escitalopram Oxalate (Lexapro) 10 mg DAILY ORAL 04/02/19 09:00 04/30/19 08:59 04/07/19 08:44 Ondansetron HCl (Zofran) 4 mg Q6H PRN IVP Nausea & Vomiting 04/02/19 07:00 04/27/19 06:59 Oxybutynin Chloride (Ditropan) 5 mg BID ORAL 04/02/19 09:00 05/01/19 17:59 04/07/19 08:45 Pantoprazole (Protonix) 40 mg DAILY ORAL 04/03/19 09:00 05/03/19 08:59 04/07/19 08:45 Patient Own Medication (Patient's Own Med) 1 ea DAILY INH 04/05/19 09:00 05/05/19 08:59 04/07/19 08:47 Patient Own Medication (Patient's Own Med) 1 ea QHS ORAL 04/04/19 21:00 05/04/19 20:59 04/06/19 20:56 Temazepam (Restoril) 15 mg HSPRN PRN ORAL Insomnia 04/02/19 07:00 04/09/19 06:59 Diane Howard M.D. Apr 07, 2019 15:27
[2019-04-07 16:00] VITALS: BP 112/77
--- NOTE | 2019-04-07 16:45 | Hematology/Onc Progress Note ---
Assessment/Plan Assessment/Plan ASSESSMENT AND PLAN # Pancytopenia - flow cytometry CONSISTENT WITH CLL/SLL, though this is not confirmatory yet can be a sister diagnosis hairy cell leukemia, LGL etc... other causes, on imagin mm right lower pole renal lesion, possibly not definitely cystic. Note that is also not definitely cystic on recent abdomen CT scan. Neoplasm and therefore not excludable. Recommend comparison with any outside prior studies that may be available. MRI may also be useful to definitively determine its cystic or solid. Echogenic focus within the spleen measuring 8 mm diameter. This may correspond to a hypoattenuating lesion seen on recent CT scan, may reflect a hemangioma Contour abnormality of the inferior right hepatic lobe, probably related to prior surgery as no mass is demonstrated on recent CT Right hepatic lobe cyst, also described on recent CT --> peripheral smear has been reviewed and no blasts noted, normal smear --> Medications have been reviewed --> Continue to monitor for improvement, trend cbc --> Hep panel is pending and HIV negative --> CT Abd revealed hepatic cysts. --> reverse isolation if ANC is <2000 --> Give neupogen if ANC <1000 --> WBC 3.6k--> 1.1k--> 1.2k--> 4.0-->3-->3.1-->2.6 --> PLT 58--> 6--> 7--> 23-->29-->30-->20-->21 --> DC'ed ASA, s/p PLT Transfusion --> BONE MARROW BIOPSY not successful 03/31, will obtain ct guided bx on 04/03 --> BM biopsy successfully performed on 04/03, awaiting path report. # Chest Pain --> seen by cards, not a candidate for stress test currently --> Appreciat recs # 11 mm right lower pole renal lesion --> outpatient followup # Anxiety. The time the note was entered does not necessarily mean the patient was seen Greatly appreciate consultation Subjective Allergies: Coded Allergies: LATEX, NATURAL RUBBER (Verified Allergy, Unknown, 03/27/19) PENICILLINS (Verified Allergy, Unknown, 03/27/19) SULFA (SULFONAMIDE ANTIBIOTICS) (Verified Allergy, Unknown, 03/27/19) Subjective 03/30: Us abd and CTA +pelvis imaging results reviewed, s/p PLT tx. 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 04/02: no bone marrow biopsy yet, to be repeated tomorrow when plt better 04/03: pending potential bone marrow biopsy after plt count higher, have discussed with Dr. Aldair Bill, patient, Dr. Carvalho and Letha, and with RN 04/05: S/P successful bone marrow biopsy, awaiting path report. Pt awake and alert, eating breakfast. 04/07: Pt calm afebrile, no leukocytosis. CD5-positive B-cell lymphoproliferative disorder. Flow cytometry: monoclonal B-cells (9.4% of total cells) with coexpression of CD, suggestive of either mantle cell lymphoma or an atypical chronic lymphocytic leukemia/small lymphocytic lymphoma Objective Objective Current Medications Medications (Trade) Dose Ordered Sig/Marah Route PRN Reason Start Time Stop Time Status Last Admin Dose Admin Acetaminophen (Tylenol) 650 mg Q4H PRN ORAL FEVER (temp>100.5F) 04/02/19 09:15 04/27/19 05:14 Al Hydroxide/Mg Hydroxide (Mylanta) 30 ml Q6H PRN ORAL HEARTBURN 04/02/19 11:15 05/02/19 11:14 Al Hydroxide/Mg Hydroxide (Mylanta) 30 ml Q6H PRN ORAL Diarrhea 04/06/19 16:15 05/06/19 16:14 Albuterol/ Ipratropium (Albuterol/ Ipratropium) 3 ml Q4HRT PRN HHN Shortness of Breath 04/04/19 20:00 04/09/19 19:59 04/04/19 20:57 Alprazolam (Xanax) 0.25 mg Q8H PRN ORAL For Anxiety 04/02/19 07:30 04/08/19 15:29 04/07/19 08:45 Diphenhydramine HCl (Benadryl) 25 mg Q6H PRN ORAL Itching 04/02/19 07:00 04/29/19 12:59 Escitalopram Oxalate (Lexapro) 10 mg DAILY ORAL 04/02/19 09:00 04/30/19 08:59 04/07/19 08:44 Ondansetron HCl (Zofran) 4 mg Q6H PRN IVP Nausea & Vomiting 04/02/19 07:00 04/27/19 06:59 Oxybutynin Chloride (Ditropan) 5 mg BID ORAL 04/02/19 09:00 05/01/19 17:59 04/07/19 08:45 Pantoprazole (Protonix) 40 mg DAILY ORAL 04/03/19 09:00 05/03/19 08:59 04/07/19 08:45 Patient Own Medication (Patient's Own Med) 1 ea DAILY INH 04/05/19 09:00 05/05/19 08:59 04/07/19 08:47 Patient Own Medication (Patient's Own Med) 1 ea QHS ORAL 04/04/19 21:00 05/04/19 20:59 04/06/19 20:56 Temazepam (Restoril) 15 mg HSPRN PRN ORAL Insomnia 04/02/19 07:00 04/09/19 06:59 Last 24 Hour Vital Signs Date Time Temp Pulse Resp B/P (MAP) Pulse Ox O2 Delivery O2 Flow Rate FiO2 04/07/19 12:00 98.0 78 20 130/69 (89) 94 04/07/19 09:00 Room Air 04/07/19 08:00 97.6 66 18 130/67 (88) 04/07/19 07:19 73 18 96 Room Air 21 04/07/19 04:00 97.7 74 18 107/70 (82) 95 04/07/19 00:00 97.9 68 17 109/71 (84) 94 04/06/19 21:00 Room Air 04/06/19 20:00 97.7 71 18 112/68 (83) 94 04/06/19 19:21 74 16 95 Room Air 21 04/06/19 16:00 98.2 67 18 115/70 (85) 98 04/06/19 12:00 98.0 85 18 130/69 (89) 100 04/06/19 09:31 135/73 04/06/19 09:00 Room Air 04/06/19 08:00 97.5 89 16 135/73 (93) 94 04/06/19 07:00 80 16 98 Room Air 21 04/06/19 04:00 98.6 71 20 135/81 (99) 95 04/06/19 00:00 97.5 84 20 119/66 (83) 97 04/05/19 23:29 76 16 97 Room Air 21 04/05/19 21:00 Room Air 04/05/19 20:00 98.1 71 18 139/66 (90) 98 Intake and Output 04/06/19 04/07/19 19:00 07:00 Intake Total 300 ml 480 ml Balance 300 ml 480 ml Intake Oral 300 ml 480 ml # Voids 2 3 Labs Test 04/05/19 05:34 04/06/19 08:02 04/07/19 06:44 White Blood Count 3.1 K/UL (4.8-10.8) 3.7 K/UL (4.8-10.8) 2.6 K/UL (4.8-10.8) Red Blood Count 4.07 M/UL (4.20-5.40) 4.46 M/UL (4.20-5.40) 4.20 M/UL (4.20-5.40) Hemoglobin 12.9 G/DL (12.0-16.0) 14.1 G/DL (12.0-16.0) 13.1 G/DL (12.0-16.0) Hematocrit 37.7 % (37.0-47.0) 40.9 % (37.0-47.0) 38.5 % (37.0-47.0) Mean Corpuscular Volume 92 FL (80-99) 92 FL (80-99) 92 FL (80-99) Mean Corpuscular Hemoglobin 31.6 PG (27.0-31.0) 31.6 PG (27.0-31.0) 31.1 PG (27.0-31.0) Mean Corpuscular Hemoglobin Concent 34.2 G/DL (32.0-36.0) 34.5 G/DL (32.0-36.0) 33.9 G/DL (32.0-36.0) Red Cell Distribution Width 12.7 % (11.6-14.8) 12.6 % (11.6-14.8) 12.2 % (11.6-14.8) Platelet Count 20 K/UL (150-450) 23 K/UL (150-450) 21 K/UL (150-450) Mean Platelet Volume 9.7 FL (6.5-10.1) 12.7 FL (6.5-10.1) 11.5 FL (6.5-10.1) Neutrophils (%) (Auto) % (45.0-75.0) % (45.0-75.0) % (45.0-75.0) Lymphocytes (%) (Auto) % (20.0-45.0) % (20.0-45.0) % (20.0-45.0) Monocytes (%) (Auto) % (1.0-10.0) % (1.0-10.0) % (1.0-10.0) Eosinophils (%) (Auto) % (0.0-3.0) % (0.0-3.0) % (0.0-3.0) Basophils (%) (Auto) % (0.0-2.0) % (0.0-2.0) % (0.0-2.0) Differential Total Cells Counted 100 100 100 Neutrophils % (Manual) 11 % (45-75) 43 % (45-75) 23 % (45-75) Lymphocytes % (Manual) 69 % (20-45) 50 % (20-45) 61 % (20-45) Monocytes % (Manual) 16 % (1-10) 4 % (1-10) 14 % (1-10) Eosinophils % (Manual) 4 % (0-3) 3 % (0-3) 2 % (0-3) Basophils % (Manual) 0 % (0-2) 0 % (0-2) 0 % (0-2) Band Neutrophils 0 % (0-8) 0 % (0-8) 0 % (0-8) Platelet Estimate Decreased Decreased Decreased Platelet Morphology Normal Normal Normal Red Blood Cell Morphology Polychromasia 1+ 1+ Prothrombin Time 10.3 SEC (9.30-11.50) Prothromb Time International Ratio 1.0 (0.9-1.1) Activated Partial Thromboplast Time 25 SEC (23-33) Sodium Level 140 MMOL/L (136-145) 137 MMOL/L (136-145) 142 MMOL/L (136-145) Potassium Level 4.9 MMOL/L (3.5-5.1) 4.3 MMOL/L (3.5-5.1) 4.6 MMOL/L (3.5-5.1) Chloride Level 107 MMOL/L (98-107) 103 MMOL/L (98-107) 107 MMOL/L (98-107) Carbon Dioxide Level 24 MMOL/L (21-32) 24 MMOL/L (21-32) 25 MMOL/L (21-32) Anion Gap 9 mmol/L (5-15) 10 mmol/L (5-15) 10 mmol/L (5-15) Blood Urea Nitrogen 25 mg/dL (7-18) 20 mg/dL (7-18) 26 mg/dL (7-18) Creatinine 0.7 MG/DL (0.55-1.30) 0.7 MG/DL (0.55-1.30) 0.7 MG/DL (0.55-1.30) Estimat Glomerular Filtration Rate mL/min (>60) mL/min (>60) mL/min (>60) Glucose Level 101 MG/DL (74-106) 161 MG/DL (74-106) 109 MG/DL (74-106) Calcium Level 8.9 MG/DL (8.5-10.1) 9.3 MG/DL (8.5-10.1) 9.4 MG/DL (8.5-10.1) Phosphorus Level 3.9 MG/DL (2.5-4.9) 3.5 MG/DL (2.5-4.9) Magnesium Level 2.0 MG/DL (1.8-2.4) 1.8 MG/DL (1.8-2.4) Total Bilirubin 0.3 MG/DL (0.2-1.0) 0.4 MG/DL (0.2-1.0) Aspartate Amino Transf (AST/SGOT) 27 U/L (15-37) 72 U/L (15-37) Alanine Aminotransferase (ALT/SGPT) 51 U/L (12-78) 94 U/L (12-78) Alkaline Phosphatase 99 U/L (46-116) 112 U/L (46-116) Total Protein 5.7 G/DL (6.4-8.2) 6.4 G/DL (6.4-8.2) Albumin 2.6 G/DL (3.4-5.0) 3.4 G/DL (3.4-5.0) Globulin 3.1 g/dL 3.0 g/dL Albumin/Globulin Ratio 0.8 (1.0-2.7) 1.1 (1.0-2.7) Erythrocyte Sedimentation Rate 34 MM/HR (0-30) Reticulocyte Count 2.1 % (0.5-2.0) Lactate Dehydrogenase 257 U/L (81-234) Height (Feet): 5 Height (Inches): 1.00 Weight (Pounds): 154 Objective Physical Exam Vital Signs reviewed General Appearance: well appearing, no apparent distress, alert Head: normocephalic, atraumatic Eyes: bilateral eye PERRL, bilateral eye EOMI, abrasion under left eye ENT: hearing grossly normal, normal pharynx Neck: full range of motion, supple, no meningismus Respiratory: chest non-tender, lungs clear, normal breath sounds Cardiovascular #1: regular rate, rhythm, no murmur Gastrointestinal: normal bowel sounds, non tender, no mass, no organomegaly, no bruit, non-distended Musculoskeletal: back normal, gait/station normal, normal range of motion Psychiatric: mood/affect normal Skin: warm/dry, small bruises BLE Chi Berry MD Apr 07, 2019 16:45
[2019-04-07 20:00] VITALS: BP 131/70
[2019-04-07] MEDS: ROSUVASTATIN 10 MG ORAL SCH (20:54)
[2019-04-08] VITALS: BP 127/66
--- NOTE | 2019-04-08 01:45 | Progress Note ---
CARDIOLOGY PROGRESS NOTE DATE: 04/07/2019 SUBJECTIVE: No chest pain. No shortness of breath. The patient received platelet transfusion. White blood count has increased. Discharge planning to [facility] is ongoing. The patient's losartan was discontinued yesterday in view of low range blood pressure readings. OBJECTIVE: VITAL SIGNS: Blood pressure 130/69, pulse 78, and respirations 20. LUNGS: Clear. CARDIAC: Regular, normal S1, S2. ABDOMEN: Soft. EXTREMITIES: No edema. IMPRESSION: 1. Atypical CLL with thrombocytopenia. 2. Pleuritic chest pain. 3. Gastroesophageal reflux disease. 4. Controlled hypertension, off medications. PLAN: 1. Monitor off antihypertensives. 2. Discharge planning. 3. Transfusions per sonoscope operator. Mingo Valderrama M.D. DR: PABLO JOB#: [id number] CC:
[2019-04-08 04:00] VITALS: BP 129/72
[2019-04-08 06:10] LABS: HEMATOCRIT 35.5 % (37.0-47.0); HEMOGLOBIN 12.2 G/DL (12.0-16.0); MEAN CORPUSCULAR VOLUME 91 FL (80-99); PLATELET COUNT 29 K/UL (150-450); RED BLOOD COUNT 3.88 M/UL (4.20-5.40); RED CELL DISTRIBUTION WIDTH 12.5 % (11.6-14.8); WHITE BLOOD COUNT 2.3 K/UL (4.8-10.8)
[2019-04-08 06:31] LABS: ANION GAP 8 mmol/L (5-15); BLOOD UREA NITROGEN 26 mg/dL (7-18); CALCIUM 8.8 MG/DL (8.5-10.1); CARBON DIOXIDE 25 MMOL/L (21-32); CHLORIDE 107 MMOL/L (98-107); CREATININE 0.6 MG/DL (0.55-1.30); POTASSIUM 4.3 MMOL/L (3.5-5.1); SODIUM 140 MMOL/L (136-145)
[2019-04-08 08:00] VITALS: BP 107/79
[2019-04-08] MEDS: SEREVENT 50 MCG INH SCH (08:41)
[2019-04-08] MEDS: Oxybutynin 5mg tab ORAL SCH ×2 (09:46→18:31)
[2019-04-08] MEDS: ALPRAZolam 0.25mg tab ORAL PRN (09:49)
--- NOTE | 2019-04-08 09:54 | General Progress Note ---
Assessment/Plan Problem List: (1) CLL (chronic lymphocytic leukemia) ICD Codes: C91.90 - Lymphoid leukemia, unspecified not having achieved remission SNOMED: 50425678 (2) GERD (gastroesophageal reflux disease) ICD Codes: K21.9 - Gastro-esophageal reflux disease without esophagitis SNOMED: 188598730 (3) Hepatic cyst ICD Codes: K76.89 - Other specified diseases of liver SNOMED: 19028775 (4) Thrombocytopenia ICD Codes: D69.6 - Thrombocytopenia, unspecified SNOMED: 169517919 Status: unchanged Assessment/Plan: recent EGD/colonoscopy within the year history of hepatic angioma with liver resection approximately 5 years ago CTAP reviewed, multiple hepatic cysts most likely simple benign cysts Hepatitis panel negative AFP WNL No plans for GI procedures at this time follow up hematology recommendations, bone marrow biopsy rule out leukemia >> biopsy shows 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 follow up cardiology recs, ppi daily prn transfusions zofran prn follow labs Subjective ROS Limited/Unobtainable: Yes Allergies: Coded Allergies: LATEX, NATURAL RUBBER (Verified Allergy, Unknown, 03/27/19) PENICILLINS (Verified Allergy, Unknown, 03/27/19) SULFA (SULFONAMIDE ANTIBIOTICS) (Verified Allergy, Unknown, 03/27/19) Objective Last 24 Hour Vital Signs Date Time Temp Pulse Resp B/P (MAP) Pulse Ox O2 Delivery O2 Flow Rate FiO2 04/08/19 08:41 84 16 97 Room Air 21 04/08/19 04:00 98.6 73 18 129/72 (91) 96 04/08/19 00:00 98.4 77 18 127/66 (86) 96 04/07/19 21:00 Room Air 04/07/19 20:00 98.6 75 17 131/70 (90) 96 04/07/19 19:18 87 18 95 Room Air 21 04/07/19 16:00 97.2 87 18 112/77 (89) 04/07/19 12:00 98.0 78 20 130/69 (89) 94 Intake and Output 04/07/19 04/08/19 18:59 06:59 Intake Total 480 ml 360 ml Balance 480 ml 360 ml Intake Oral 480 ml 360 ml # Voids 3 Laboratory Tests 04/08/19 05:10: White Blood Count 2.3L, Red Blood Count 3.88L, Hemoglobin 12.2, Hematocrit 35.5L , Mean Corpuscular Volume 91, Mean Corpuscular Hemoglobin 31.3H, Mean Corpuscular Hemoglobin Concent 34.3, Red Cell Distribution Width 12.5, Platelet Count 29L, Mean Platelet Volume 15.1H, Neutrophils (%) (Auto) , Lymphocytes (%) (Auto) , Monocytes (%) (Auto) , Eosinophils (%) (Auto) , Basophils (%) (Auto) , Differential Total Cells Counted 100, Neutrophils % (Manual) 26L, Lymphocytes % (Manual) 56H, Monocytes % (Manual) 12H, Eosinophils % (Manual) 4H, Basophils % ( Manual) 2, Band Neutrophils 0, Platelet Estimate DecreasedL, Platelet Morphology Normal, Red Blood Cell Morphology Normal, Sodium Level 140, Potassium Level 4.3, Chloride Level 107, Carbon Dioxide Level 25, Anion Gap 8, Blood Urea Nitrogen 26H, Creatinine 0.6, Estimat Glomerular Filtration Rate , Glucose Level 103, Calcium Level 8.8 Height (Feet): 5 Height (Inches): 1.00 Weight (Pounds): 152 General Appearance: alert EENT: normal ENT inspection Neck: supple Cardiovascular: normal rate Respiratory/Chest: decreased breath sounds Abdomen: normal bowel sounds, non tender, soft Extremities: non-tender nAthony Galvan MD Apr 08, 2019 09:54
--- NOTE | 2019-04-08 11:18 | Pulmonology Progress Note ---
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 higher, s/p PLT transfusion f/u blood smear symptomatic treatment dc planning in process to [facility]/ still no bed at [facility], I mentioned [facility] as an alternative. she is thinking about it Subjective ROS Limited/Unobtainable: No Constitutional: Reports: no symptoms HEENT: Repors: no symptoms Respiratory: Reports: no symptoms Allergies: Coded Allergies: LATEX, NATURAL RUBBER (Verified Allergy, Unknown, 03/27/19) PENICILLINS (Verified Allergy, Unknown, 03/27/19) SULFA (SULFONAMIDE ANTIBIOTICS) (Verified Allergy, Unknown, 03/27/19) Objective Last 24 Hour Vital Signs Date Time Temp Pulse Resp B/P (MAP) Pulse Ox O2 Delivery O2 Flow Rate FiO2 04/08/19 08:41 84 16 97 Room Air 21 04/08/19 04:00 98.6 73 18 129/72 (91) 96 04/08/19 00:00 98.4 77 18 127/66 (86) 96 04/07/19 21:00 Room Air 04/07/19 20:00 98.6 75 17 131/70 (90) 96 04/07/19 19:18 87 18 95 Room Air 21 04/07/19 16:00 97.2 87 18 112/77 (89) 04/07/19 12:00 98.0 78 20 130/69 (89) 94 Intake and Output 04/07/19 04/08/19 19:00 07:00 Intake Total 480 ml 360 ml Balance 480 ml 360 ml Intake Oral 480 ml 360 ml # Voids 3 Objective General Appearance: WD/WN HEENT: atraumatic Respiratory/Chest: chest wall non-tender, normal breath sounds Breasts: no masses Cardiovascular: normal rate Abdomen: soft, non tender, no mass Genitourinary: normal external genitalia Extremities: no clubbing Laboratory Tests 04/08/19 05:10: White Blood Count 2.3L, Red Blood Count 3.88L, Hemoglobin 12.2, Hematocrit 35.5L , Mean Corpuscular Volume 91, Mean Corpuscular Hemoglobin 31.3H, Mean Corpuscular Hemoglobin Concent 34.3, Red Cell Distribution Width 12.5, Platelet Count 29L, Mean Platelet Volume 15.1H, Neutrophils (%) (Auto) , Lymphocytes (%) (Auto) , Monocytes (%) (Auto) , Eosinophils (%) (Auto) , Basophils (%) (Auto) , Differential Total Cells Counted 100, Neutrophils % (Manual) 26L, Lymphocytes % (Manual) 56H, Monocytes % (Manual) 12H, Eosinophils % (Manual) 4H, Basophils % ( Manual) 2, Band Neutrophils 0, Platelet Estimate DecreasedL, Platelet Morphology Normal, Red Blood Cell Morphology Normal, Sodium Level 140, Potassium Level 4.3, Chloride Level 107, Carbon Dioxide Level 25, Anion Gap 8, Blood Urea Nitrogen 26H, Creatinine 0.6, Estimat Glomerular Filtration Rate , Glucose Level 103, Calcium Level 8.8 Current Medications Medications (Trade) Dose Ordered Sig/Marah Route PRN Reason Start Time Stop Time Status Last Admin Dose Admin Acetaminophen (Tylenol) 650 mg Q4H PRN ORAL FEVER (temp>100.5F) 04/02/19 09:15 04/27/19 05:14 Al Hydroxide/Mg Hydroxide (Mylanta) 30 ml Q6H PRN ORAL HEARTBURN 04/02/19 11:15 05/02/19 11:14 Al Hydroxide/Mg Hydroxide (Mylanta) 30 ml Q6H PRN ORAL Diarrhea 04/06/19 16:15 05/06/19 16:14 Albuterol/ Ipratropium (Albuterol/ Ipratropium) 3 ml Q4HRT PRN HHN Shortness of Breath 04/04/19 20:00 04/09/19 19:59 04/04/19 20:57 Alprazolam (Xanax) 0.25 mg Q8H PRN ORAL For Anxiety 04/02/19 07:30 04/08/19 15:29 04/08/19 09:49 Diphenhydramine HCl (Benadryl) 25 mg Q6H PRN ORAL Itching 04/02/19 07:00 04/29/19 12:59 Escitalopram Oxalate (Lexapro) 10 mg DAILY ORAL 04/02/19 09:00 04/30/19 08:59 04/08/19 09:46 Ondansetron HCl (Zofran) 4 mg Q6H PRN IVP Nausea & Vomiting 04/02/19 07:00 04/27/19 06:59 Oxybutynin Chloride (Ditropan) 5 mg BID ORAL 04/02/19 09:00 05/01/19 17:59 04/08/19 09:46 Pantoprazole (Protonix) 40 mg DAILY ORAL 04/03/19 09:00 05/03/19 08:59 04/08/19 09:46 Patient Own Medication (Patient's Own Med) 1 ea DAILY INH 04/05/19 09:00 05/05/19 08:59 04/08/19 08:41 Patient Own Medication (Patient's Own Med) 1 ea QHS ORAL 04/04/19 21:00 05/04/19 20:59 04/07/19 20:54 Temazepam (Restoril) 15 mg HSPRN PRN ORAL Insomnia 04/02/19 07:00 04/09/19 06:59 Narinder Pedro MD Apr 08, 2019 11:18
[2019-04-08 12:00] VITALS: BP 101/62
--- NOTE | 2019-04-08 13:32 | Cardiac Electrophysiology PN ---
Assessment/Plan Assessment/Plan 1. Chest pain. Ruled out for myocardial infarction. EKG is normal. Echo normal EF. D-dimer is elevated but VQ scan was negative Hold off on nuclear stress test in view of new Cancer 2. Hypertension. Continue losartan 25 mg daily 3. Gastroesophageal reflux. 4. Hyperlipidemia. The patient was on Crestor 10 mg daily. 5. 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 Pancytopenia with WBC 1.2 and platelet count of 7K. S/P CT guided BM biopsy per Dr Delacruz. Awaiting transfer to [facility]. ZOHRA RN Subjective Subjective No CP or SOB. Awaiting transfer to [facility] Objective Last 24 Hour Vital Signs Date Time Temp Pulse Resp B/P (MAP) Pulse Ox O2 Delivery O2 Flow Rate FiO2 04/08/19 08:41 84 16 97 Room Air 21 04/08/19 08:00 97.9 80 20 107/79 (88) 97 04/08/19 04:00 98.6 73 18 129/72 (91) 96 04/08/19 00:00 98.4 77 18 127/66 (86) 96 04/07/19 21:00 Room Air 04/07/19 20:00 98.6 75 17 131/70 (90) 96 04/07/19 19:18 87 18 95 Room Air 21 04/07/19 16:00 97.2 87 18 112/77 (89) Intake and Output 04/07/19 04/08/19 19:00 07:00 Intake Total 480 ml 360 ml Balance 480 ml 360 ml Intake Oral 480 ml 360 ml # Voids 3 Laboratory Tests Test 04/08/19 05:10 White Blood Count 2.3 K/UL (4.8-10.8) L Red Blood Count 3.88 M/UL (4.20-5.40) L Hemoglobin 12.2 G/DL (12.0-16.0) Hematocrit 35.5 % (37.0-47.0) L Mean Corpuscular Volume 91 FL (80-99) Mean Corpuscular Hemoglobin 31.3 PG (27.0-31.0) H Mean Corpuscular Hemoglobin Concent 34.3 G/DL (32.0-36.0) Red Cell Distribution Width 12.5 % (11.6-14.8) Platelet Count 29 K/UL (150-450) L Mean Platelet Volume 15.1 FL (6.5-10.1) H Neutrophils (%) (Auto) % (45.0-75.0) Lymphocytes (%) (Auto) % (20.0-45.0) Monocytes (%) (Auto) % (1.0-10.0) Eosinophils (%) (Auto) % (0.0-3.0) Basophils (%) (Auto) % (0.0-2.0) Differential Total Cells Counted 100 Neutrophils % (Manual) 26 % (45-75) L Lymphocytes % (Manual) 56 % (20-45) H Monocytes % (Manual) 12 % (1-10) H Eosinophils % (Manual) 4 % (0-3) H Basophils % (Manual) 2 % (0-2) Band Neutrophils 0 % (0-8) Platelet Estimate Decreased L Platelet Morphology Normal Red Blood Cell Morphology Normal Sodium Level 140 MMOL/L (136-145) Potassium Level 4.3 MMOL/L (3.5-5.1) Chloride Level 107 MMOL/L (98-107) Carbon Dioxide Level 25 MMOL/L (21-32) Anion Gap 8 mmol/L (5-15) Blood Urea Nitrogen 26 mg/dL (7-18) H Creatinine 0.6 MG/DL (0.55-1.30) Estimat Glomerular Filtration Rate mL/min (>60) Glucose Level 103 MG/DL (74-106) Calcium Level 8.8 MG/DL (8.5-10.1) Objective HEAD AND NECK: No JVD or carotid bruits. LUNGS: Clear. CARDIOVASCULAR: Regular S1 and S2 with no gallop or murmur. ABDOMEN: Soft. EXTREMITIES: No pitting edema. Molina Bradley MD Apr 08, 2019 13:32
--- NOTE | 2019-04-08 14:06 | Hematology/Onc Progress Note ---
Assessment/Plan Assessment/Plan ASSESSMENT AND PLAN # CLL versus mantle cell lymphoma - presented with pancytopenia, flow cytometry CONSISTENT WITH CLL/SLL, though this is not confirmatory yet can be a sister diagnosis hairy cell leukemia, LGL etc... other causes, on imagin mm right lower pole renal lesion, possibly not definitely cystic. Note that is also not definitely cystic on recent abdomen CT scan. Neoplasm and therefore not excludable. Recommend comparison with any outside prior studies that may be available. MRI may also be useful to definitively determine its cystic or solid. Echogenic focus within the spleen measuring 8 mm diameter. This may correspond to a hypoattenuating lesion seen on recent CT scan, may reflect a hemangioma Contour abnormality of the inferior right hepatic lobe, probably related to prior surgery as no mass is demonstrated on recent CT Right hepatic lobe cyst, also described on recent CT --> peripheral smear has been reviewed and no blasts noted, normal smear --> Medications have been reviewed --> Continue to monitor for improvement, trend cbc --> Hep panel is pending and HIV negative --> CT Abd revealed hepatic cysts. --> reverse isolation if ANC is <2000 --> Give neupogen if ANC <1000 --> WBC 3.6k--> 1.1k--> 1.2k--> 4.0-->3-->3.1-->2.6-->2.3 --> PLT 58--> 6--> 7--> 23-->29-->30-->20-->21-->29 --> DC'ed ASA, s/p PLT Transfusion --> BONE MARROW BIOPSY not successful 03/31, will obtain ct guided bx on 04/03 --> BM biopsy successfully performed on 04/03, path report bone marrow biopsy results confirm the dx of the atypical CLL --> Awaiting transfer to [facility] # Chest Pain --> seen by cards, not a candidate for stress test currently --> Appreciat recs # 11 mm right lower pole renal lesion --> outpatient followup # Anxiety. The time the note was entered does not necessarily mean the patient was seen Greatly appreciate consultation Subjective Allergies: Coded Allergies: LATEX, NATURAL RUBBER (Verified Allergy, Unknown, 03/27/19) PENICILLINS (Verified Allergy, Unknown, 03/27/19) SULFA (SULFONAMIDE ANTIBIOTICS) (Verified Allergy, Unknown, 03/27/19) All Systems: reviewed and negative except above Subjective 03/30: Us abd and CTA +pelvis imaging results reviewed, s/p PLT tx. 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 04/02: no bone marrow biopsy yet, to be repeated tomorrow when plt better 04/03: pending potential bone marrow biopsy after plt count higher, have discussed with Dr. Aldair Bill, patient, Dr. Carvalho and Letha, and with RN 04/05: S/P successful bone marrow biopsy, awaiting path report. Pt awake and alert, eating breakfast. 04/07: Pt calm afebrile, no leukocytosis. CD5-positive B-cell lymphoproliferative disorder. Flow cytometry: monoclonal B-cells (9.4% of total cells) with coexpression of CD, suggestive of either mantle cell lymphoma or an atypical chronic lymphocytic leukemia/small lymphocytic lymphoma 04/08: PT resting in bed. No acute events. Awaiting transfer to [facility]. Objective Objective Current Medications Medications (Trade) Dose Ordered Sig/Marah Route PRN Reason Start Time Stop Time Status Last Admin Dose Admin Acetaminophen (Tylenol) 650 mg Q4H PRN ORAL FEVER (temp>100.5F) 04/02/19 09:15 04/27/19 05:14 Al Hydroxide/Mg Hydroxide (Mylanta) 30 ml Q6H PRN ORAL HEARTBURN 04/02/19 11:15 05/02/19 11:14 Al Hydroxide/Mg Hydroxide (Mylanta) 30 ml Q6H PRN ORAL Diarrhea 04/06/19 16:15 05/06/19 16:14 Albuterol/ Ipratropium (Albuterol/ Ipratropium) 3 ml Q4HRT PRN HHN Shortness of Breath 04/04/19 20:00 04/09/19 19:59 04/04/19 20:57 Alprazolam (Xanax) 0.25 mg Q8H PRN ORAL For Anxiety 04/02/19 07:30 04/08/19 15:29 04/08/19 09:49 Diphenhydramine HCl (Benadryl) 25 mg Q6H PRN ORAL Itching 04/02/19 07:00 04/29/19 12:59 Escitalopram Oxalate (Lexapro) 10 mg DAILY ORAL 04/02/19 09:00 04/30/19 08:59 04/08/19 09:46 Ondansetron HCl (Zofran) 4 mg Q6H PRN IVP Nausea & Vomiting 04/02/19 07:00 04/27/19 06:59 Oxybutynin Chloride (Ditropan) 5 mg BID ORAL 04/02/19 09:00 05/01/19 17:59 04/08/19 09:46 Pantoprazole (Protonix) 40 mg DAILY ORAL 04/03/19 09:00 05/03/19 08:59 04/08/19 09:46 Patient Own Medication (Patient's Own Med) 1 ea DAILY INH 04/05/19 09:00 05/05/19 08:59 04/08/19 08:41 Patient Own Medication (Patient's Own Med) 1 ea QHS ORAL 04/04/19 21:00 05/04/19 20:59 04/07/19 20:54 Temazepam (Restoril) 15 mg HSPRN PRN ORAL Insomnia 04/02/19 07:00 04/09/19 06:59 Last 24 Hour Vital Signs Date Time Temp Pulse Resp B/P (MAP) Pulse Ox O2 Delivery O2 Flow Rate FiO2 04/08/19 08:41 84 16 97 Room Air 04/08/19 08:00 97.9 80 20 107/79 (88) 97 04/08/19 04:00 98.6 73 18 129/72 (91) 96 04/08/19 00:00 98.4 77 18 127/66 (86) 96 04/07/19 21:00 Room Air 04/07/19 20:00 98.6 75 17 131/70 (90) 96 04/07/19 19:18 87 18 95 Room Air 21 04/07/19 16:00 97.2 87 18 112/77 (89) 04/07/19 12:00 98.0 78 20 130/69 (89) 94 04/07/19 09:00 Room Air 04/07/19 08:00 97.6 66 18 130/67 (88) 04/07/19 07:19 73 18 96 Room Air 21 04/07/19 04:00 97.7 74 18 107/70 (82) 95 04/07/19 00:00 97.9 68 17 109/71 (84) 94 04/06/19 21:00 Room Air 04/06/19 20:00 97.7 71 18 112/68 (83) 94 04/06/19 19:21 74 16 95 Room Air 21 04/06/19 16:00 98.2 67 18 115/70 (85) 98 Intake and Output 04/07/19 04/08/19 19:00 07:00 Intake Total 480 ml 360 ml Balance 480 ml 360 ml Intake Oral 480 ml 360 ml # Voids 3 Labs Test 04/06/19 08:02 04/07/19 06:44 04/08/19 05:10 White Blood Count 3.7 K/UL (4.8-10.8) 2.6 K/UL (4.8-10.8) 2.3 K/UL (4.8-10.8) Red Blood Count 4.46 M/UL (4.20-5.40) 4.20 M/UL (4.20-5.40) 3.88 M/UL (4.20-5.40) Hemoglobin 14.1 G/DL (12.0-16.0) 13.1 G/DL (12.0-16.0) 12.2 G/DL (12.0-16.0) Hematocrit 40.9 % (37.0-47.0) 38.5 % (37.0-47.0) 35.5 % (37.0-47.0) Mean Corpuscular Volume 92 FL (80-99) 92 FL (80-99) 91 FL (80-99) Mean Corpuscular Hemoglobin 31.6 PG (27.0-31.0) 31.1 PG (27.0-31.0) 31.3 PG (27.0-31.0) Mean Corpuscular Hemoglobin Concent 34.5 G/DL (32.0-36.0) 33.9 G/DL (32.0-36.0) 34.3 G/DL (32.0-36.0) Red Cell Distribution Width 12.6 % (11.6-14.8) 12.2 % (11.6-14.8) 12.5 % (11.6-14.8) Platelet Count 23 K/UL (150-450) 21 K/UL (150-450) 29 K/UL (150-450) Mean Platelet Volume 12.7 FL (6.5-10.1) 11.5 FL (6.5-10.1) 15.1 FL (6.5-10.1) Neutrophils (%) (Auto) % (45.0-75.0) % (45.0-75.0) % (45.0-75.0) Lymphocytes (%) (Auto) % (20.0-45.0) % (20.0-45.0) % (20.0-45.0) Monocytes (%) (Auto) % (1.0-10.0) % (1.0-10.0) % (1.0-10.0) Eosinophils (%) (Auto) % (0.0-3.0) % (0.0-3.0) % (0.0-3.0) Basophils (%) (Auto) % (0.0-2.0) % (0.0-2.0) % (0.0-2.0) Differential Total Cells Counted 100 100 100 Neutrophils % (Manual) 43 % (45-75) 23 % (45-75) 26 % (45-75) Lymphocytes % (Manual) 50 % (20-45) 61 % (20-45) 56 % (20-45) Monocytes % (Manual) 4 % (1-10) 14 % (1-10) 12 % (1-10) Eosinophils % (Manual) 3 % (0-3) 2 % (0-3) 4 % (0-3) Basophils % (Manual) 0 % (0-2) 0 % (0-2) 2 % (0-2) Band Neutrophils 0 % (0-8) 0 % (0-8) 0 % (0-8) Platelet Estimate Decreased Decreased Decreased Platelet Morphology Normal Normal Normal Polychromasia 1+ Erythrocyte Sedimentation Rate 34 MM/HR (0-30) Reticulocyte Count 2.1 % (0.5-2.0) Sodium Level 137 MMOL/L (136-145) 142 MMOL/L (136-145) 140 MMOL/L (136-145) Potassium Level 4.3 MMOL/L (3.5-5.1) 4.6 MMOL/L (3.5-5.1) 4.3 MMOL/L (3.5-5.1) Chloride Level 103 MMOL/L (98-107) 107 MMOL/L (98-107) 107 MMOL/L (98-107) Carbon Dioxide Level 24 MMOL/L (21-32) 25 MMOL/L (21-32) 25 MMOL/L (21-32) Anion Gap 10 mmol/L (5-15) 10 mmol/L (5-15) 8 mmol/L (5-15) Blood Urea Nitrogen 20 mg/dL (7-18) 26 mg/dL (7-18) 26 mg/dL (7-18) Creatinine 0.7 MG/DL (0.55-1.30) 0.7 MG/DL (0.55-1.30) 0.6 MG/DL (0.55-1.30) Estimat Glomerular Filtration Rate mL/min (>60) mL/min (>60) mL/min (>60) Glucose Level 161 MG/DL (74-106) 109 MG/DL (74-106) 103 MG/DL (74-106) Calcium Level 9.3 MG/DL (8.5-10.1) 9.4 MG/DL (8.5-10.1) 8.8 MG/DL (8.5-10.1) Phosphorus Level 3.5 MG/DL (2.5-4.9) Magnesium Level 1.8 MG/DL (1.8-2.4) Total Bilirubin 0.4 MG/DL (0.2-1.0) Aspartate Amino Transf (AST/SGOT) 72 U/L (15-37) Alanine Aminotransferase (ALT/SGPT) 94 U/L (12-78) Alkaline Phosphatase 112 U/L (46-116) Lactate Dehydrogenase 257 U/L (81-234) Total Protein 6.4 G/DL (6.4-8.2) Albumin 3.4 G/DL (3.4-5.0) Globulin 3.0 g/dL Albumin/Globulin Ratio 1.1 (1.0-2.7) Red Blood Cell Morphology Normal Height (Feet): 5 Height (Inches): 1.00 Weight (Pounds): 152 Objective Physical Exam Vital Signs reviewed General Appearance: well appearing, no apparent distress, alert Head: normocephalic, atraumatic Eyes: bilateral eye PERRL, bilateral eye EOMI, abrasion under left eye ENT: hearing grossly normal, normal pharynx Neck: full range of motion, supple, no meningismus Respiratory: chest non-tender, lungs clear, normal breath sounds Cardiovascular #1: regular rate, rhythm, no murmur Gastrointestinal: normal bowel sounds, non tender, no mass, no organomegaly, no bruit, non-distended Musculoskeletal: back normal, gait/station normal, normal range of motion Psychiatric: mood/affect normal Skin: warm/dry, small bruises BLE Chi Berry MD Apr 08, 2019 14:05
--- NOTE | 2019-04-08 14:33 | General Progress Note ---
Assessment/Plan Problem List: (1) Leukopenia ICD Codes: D72.819 - Decreased white blood cell count, unspecified SNOMED: 00665357, 311858312 (2) Thrombocytopenia ICD Codes: D69.6 - Thrombocytopenia, unspecified SNOMED: 010102863 (3) UTI (urinary tract infection) ICD Codes: N39.0 - Urinary tract infection, site not specified SNOMED: 15497844 Qualifiers: Qualified Codes: N30.00 - Acute cystitis without hematuria (4) Chest pain ICD Codes: R07.9 - Chest pain, unspecified SNOMED: 25857983 Qualifiers: Qualified Codes: R07.9 - Chest pain, unspecified (5) ACS (acute coronary syndrome) ICD Codes: I24.9 - Acute ischemic heart disease, unspecified SNOMED: 448952258 Status: unchanged Assessment/Plan: pain control cardio heme f/u cbc bmp am transfer to [facility] Subjective Constitutional: Reports: weakness Allergies: Coded Allergies: LATEX, NATURAL RUBBER (Verified Allergy, Unknown, 03/27/19) PENICILLINS (Verified Allergy, Unknown, 03/27/19) SULFA (SULFONAMIDE ANTIBIOTICS) (Verified Allergy, Unknown, 03/27/19) All Systems: reviewed and negative except above Subjective sleepy calm Objective Last 24 Hour Vital Signs Date Time Temp Pulse Resp B/P (MAP) Pulse Ox O2 Delivery O2 Flow Rate FiO2 04/08/19 08:41 84 16 97 Room Air 21 04/08/19 08:00 97.9 80 20 107/79 (88) 97 04/08/19 04:00 98.6 73 18 129/72 (91) 96 04/08/19 00:00 98.4 77 18 127/66 (86) 96 04/07/19 21:00 Room Air 04/07/19 20:00 98.6 75 17 131/70 (90) 96 04/07/19 19:18 87 18 95 Room Air 21 04/07/19 16:00 97.2 87 18 112/77 (89) Intake and Output 04/07/19 04/08/19 19:00 07:00 Intake Total 480 ml 360 ml Balance 480 ml 360 ml Intake Oral 480 ml 360 ml # Voids 3 Laboratory Tests 04/08/19 05:10: White Blood Count 2.3L, Red Blood Count 3.88L, Hemoglobin 12.2, Hematocrit 35.5L , Mean Corpuscular Volume 91, Mean Corpuscular Hemoglobin 31.3H, Mean Corpuscular Hemoglobin Concent 34.3, Red Cell Distribution Width 12.5, Platelet Count 29L, Mean Platelet Volume 15.1H, Neutrophils (%) (Auto) , Lymphocytes (%) (Auto) , Monocytes (%) (Auto) , Eosinophils (%) (Auto) , Basophils (%) (Auto) , Differential Total Cells Counted 100, Neutrophils % (Manual) 26L, Lymphocytes % (Manual) 56H, Monocytes % (Manual) 12H, Eosinophils % (Manual) 4H, Basophils % ( Manual) 2, Band Neutrophils 0, Platelet Estimate DecreasedL, Platelet Morphology Normal, Red Blood Cell Morphology Normal, Sodium Level 140, Potassium Level 4.3, Chloride Level 107, Carbon Dioxide Level 25, Anion Gap 8, Blood Urea Nitrogen 26H, Creatinine 0.6, Estimat Glomerular Filtration Rate , Glucose Level 103, Calcium Level 8.8 Height (Feet): 5 Height (Inches): 1.00 Weight (Pounds): 152 General Appearance: lethargic EENT: normal ENT inspection Neck: normal alignment Cardiovascular: normal peripheral pulses, normal rate, regular rhythm Respiratory/Chest: chest wall non-tender, lungs clear, normal breath sounds Abdomen: normal bowel sounds, non tender, soft Extremities: normal inspection Edema: no edema noted Arm (L), no edema noted Arm (R), no edema noted Leg (L), no edema noted Leg (R), no edema noted Pedal (L), no edema noted Pedal (R), no edema noted Generalized Neurologic: motor weakness Skin: normal pigmentation, warm/dry Aldair Bill DO Apr 08, 2019 14:33
[2019-04-08 16:00] VITALS: BP 109/74
--- NOTE | 2019-04-08 16:57 | Infectious Diseases Prog Note ---
Assessment/Plan Assessment/Plan The patient is a 73-year-old female with, CLL/SLL Flow cytomometry showes above BM Bx 04/03/19 - CD5 + B cell lymphoproliferative disorder Epigastric and left lower quadrant pain.- Doubt abscess CT abd/pel 03/29/19 - Inflammatory changes extending from the betty hepatis to the posterior retroperitoneum, as described. There may be tiny associated 18 x 12 x 40 mm fluid collection which could represent an abscess. Prominent nodes in the area are likely reactive. Etiology of the inflammatory changes uncertain, could indicate duodenitis, focal pancreatitis of the pancreatic head/uncinate. Less likely ascending diverticulitis, as no definite diverticula are demonstrated. Acute appendicitis is also a possibility, also less likely as the fluid collection does not have a typical appearance of an inflamed appendix and there is a suggestion of visualization of portions of a normal appendix. Correlation with the findings is recommended. Trace free pelvic fluid, presumably related to the above Evidence of prior cholecystectomy. Evidence of prior hepatic surgery. Mild ectasia of the extra hepatic bile ducts probably related to age and postcholecystectomy state. Recommend correlation with liver function tests. Prominent left extrarenal pelvis, with suggestion of some inflammation of the urothelium. Could indicate pyelitis. Correlate with clinical and urinalysis findings Left renal parapelvic cysts versus mild left hydronephrosis, favor the forme Trace right pleural fluid Extensive spinal fusion hardware. This results in streak artifact which limits visualization of the retroperitoneum. Right renal lower pole 12 mm lesion. Probably a cyst. Attenuation measurements are those of a solid lesion, but suspect this is artifact due to beam hardening from adjacent spinal hardware. Recommend sonography to assess whether cystic or solid. Other subcentimeter low-attenuation lesions within the right kidney are too small to characterize most likely represent benign simple cyst. Nonobstructive left lower pole intrarenal calyceal calculus Hepatic cysts. Subcentimeter low-attenuation hepatic lesions which are too small to characterize, most likely benign simple cysts. Other findings as noted, including small hiatal hernia, right basilar pulmonary atelectatic changes Indium scan 04/01/19 - No sign of infectious etiology Bcx neg HIV Neg Hepatitis B/C serology pending Probable urinary tract infection (history of increase of urinary frequency). UCx - E coli warner sen Rash - resolved Likely allergic reaction Unclear if abx - Was given ceftriaxone Right jaw pain - resolved Hx of TMJ PLAN: - Monitor off abx - 03/30/19 SP Ceftriaxone held for rash - Monitor CBC and BMP. - Monitor cultures, blood -Heme onc f/u- plan to transfer to [facility] Thank you for this consultation. I will follow the patient with you during this hospitalization. Subjective Allergies: Coded Allergies: LATEX, NATURAL RUBBER (Verified Allergy, Unknown, 03/27/19) PENICILLINS (Verified Allergy, Unknown, 03/27/19) SULFA (SULFONAMIDE ANTIBIOTICS) (Verified Allergy, Unknown, 03/27/19) Subjective afebrile no leukocytosis Bcx Neg Objective Vital Signs Last 24 Hour Vital Signs Date Time Temp Pulse Resp B/P (MAP) Pulse Ox O2 Delivery O2 Flow Rate FiO2 04/08/19 16:00 98.1 74 19 109/74 (86) 95 04/08/19 09:00 Room Air 04/08/19 08:41 84 16 97 Room Air 21 04/08/19 08:00 97.9 80 20 107/79 (88) 97 04/08/19 04:00 98.6 73 18 129/72 (91) 96 04/08/19 00:00 98.4 77 18 127/66 (86) 96 04/07/19 21:00 Room Air 04/07/19 20:00 98.6 75 17 131/70 (90) 96 04/07/19 19:18 87 18 95 Room Air 21 Height (Feet): 5 Height (Inches): 1.00 Weight (Pounds): 152 Objective GEN: NAD HEENT: NCAT, MMM, EOMI CHEST: CTAB, No W HEART: S1 and S2. ABDOMEN: Soft. NT, ND NEUROLOGIC: Awake and alert Laboratory Tests Test 04/08/19 05:10 White Blood Count 2.3 K/UL (4.8-10.8) L Red Blood Count 3.88 M/UL (4.20-5.40) L Hemoglobin 12.2 G/DL (12.0-16.0) Hematocrit 35.5 % (37.0-47.0) L Mean Corpuscular Volume 91 FL (80-99) Mean Corpuscular Hemoglobin 31.3 PG (27.0-31.0) H Mean Corpuscular Hemoglobin Concent 34.3 G/DL (32.0-36.0) Red Cell Distribution Width 12.5 % (11.6-14.8) Platelet Count 29 K/UL (150-450) L Mean Platelet Volume 15.1 FL (6.5-10.1) H Neutrophils (%) (Auto) % (45.0-75.0) Lymphocytes (%) (Auto) % (20.0-45.0) Monocytes (%) (Auto) % (1.0-10.0) Eosinophils (%) (Auto) % (0.0-3.0) Basophils (%) (Auto) % (0.0-2.0) Differential Total Cells Counted 100 Neutrophils % (Manual) 26 % (45-75) L Lymphocytes % (Manual) 56 % (20-45) H Monocytes % (Manual) 12 % (1-10) H Eosinophils % (Manual) 4 % (0-3) H Basophils % (Manual) 2 % (0-2) Band Neutrophils 0 % (0-8) Platelet Estimate Decreased L Platelet Morphology Normal Red Blood Cell Morphology Normal Sodium Level 140 MMOL/L (136-145) Potassium Level 4.3 MMOL/L (3.5-5.1) Chloride Level 107 MMOL/L (98-107) Carbon Dioxide Level 25 MMOL/L (21-32) Anion Gap 8 mmol/L (5-15) Blood Urea Nitrogen 26 mg/dL (7-18) H Creatinine 0.6 MG/DL (0.55-1.30) Estimat Glomerular Filtration Rate mL/min (>60) Glucose Level 103 MG/DL (74-106) Calcium Level 8.8 MG/DL (8.5-10.1) Current Medications Medications (Trade) Dose Ordered Sig/Marah Route PRN Reason Start Time Stop Time Status Last Admin Dose Admin Acetaminophen (Tylenol) 650 mg Q4H PRN ORAL FEVER (temp>100.5F) 04/02/19 09:15 04/27/19 05:14 Al Hydroxide/Mg Hydroxide (Mylanta) 30 ml Q6H PRN ORAL HEARTBURN 04/02/19 11:15 05/02/19 11:14 Al Hydroxide/Mg Hydroxide (Mylanta) 30 ml Q6H PRN ORAL Diarrhea 04/06/19 16:15 05/06/19 16:14 Albuterol/ Ipratropium (Albuterol/ Ipratropium) 3 ml Q4HRT PRN HHN Shortness of Breath 04/04/19 20:00 04/09/19 19:59 04/04/19 20:57 Diphenhydramine HCl (Benadryl) 25 mg Q6H PRN ORAL Itching 04/02/19 07:00 04/29/19 12:59 Escitalopram Oxalate (Lexapro) 10 mg DAILY ORAL 04/02/19 09:00 04/30/19 08:59 04/08/19 09:46 Ondansetron HCl (Zofran) 4 mg Q6H PRN IVP Nausea & Vomiting 04/02/19 07:00 04/27/19 06:59 Oxybutynin Chloride (Ditropan) 5 mg BID ORAL 04/02/19 09:00 05/01/19 17:59 04/08/19 09:46 Pantoprazole (Protonix) 40 mg DAILY ORAL 04/03/19 09:00 05/03/19 08:59 04/08/19 09:46 Patient Own Medication (Patient's Own Med) 1 ea DAILY INH 04/05/19 09:00 05/05/19 08:59 04/08/19 08:41 Patient Own Medication (Patient's Own Med) 1 ea QHS ORAL 04/04/19 21:00 05/04/19 20:59 04/07/19 20:54 Temazepam (Restoril) 15 mg HSPRN PRN ORAL Insomnia 04/02/19 07:00 04/09/19 06:59 Diane Howard M.D. Apr 08, 2019 16:57
--- NOTE | 2019-04-09 11:17 | Discharge Summary ---
Discharge Summary Discharge Summary _ DATE OF ADMISSION: 03/28/2019 DATE OF DISCHARGE: 04/08/2019 DISCHARGED BY: Dr. Aldair Bill CONSULTANTS: Dr. Randy Galvan [facility]: Patient is a 73-year-old female, with past medical history of hypertension, asthma, GERD, presented to ED with episodes of stabbing midsternal chest pain radiating to the back which woke her up at night. She denied any nausea or vomiting. Denied shortness of breath. She reported sweating. She called EMS and was given aspirin and nitroglycerin on route to the hospital. On evaluation at ED, vital signs were stable. Blood work revealed WBC 2.6. Hemoglobin and hematocrit were stable, platelet 58. Electrolytes were normal. Initial troponin was negative. CSF showed positive nitrite, +1 leukocyte esterase, 2-4 urine RBC, 10-15 urine WBC. EKG was in normal sinus rhythm with no acute ischemic changes. Chest x-ray did not show any acute cardiopulmonary pathology. She was started empirically on Rocephin. She was given aspirin prior to arrival to the hospital. Symptoms resolved with nitro. Due to her risk factors, she was then admitted for evaluation of chest pain, possible acute coronary syndrome, and UTI. She was admitted to monitored floor. Serial troponins were monitored. She was continued on antiplatelet therapy with aspirin. She was continued on losartan for hypertension. She was placed on vasodilators prn. Lipid panel showed triglycerides 190 cholesterol 135, LDL of 59. She was given Lipitor. Echocardiogram showed normal left ventricular systolic She was given O2 support. Respiratory status was monitored. There was no evidence of asthma exacerbation or respiratory distress. Unable to give heparin due to thrombocytopenia. She was continued empirically on Rocephin. WBC dropped to 1.1, platelet count to 6. Scratcher was consulted for evaluation of leukopenia and thrombocytopenia. She was placed on reverse isolation. Patient presented with severe leukopenia and thrombocytopenia, etiology unknown. She was given platelet transfusion. Abdominal ultrasound showed an 11 mm right lower pole renal lesion. Echogenic focus within the spleen measuring 8 mm in diameter. Surgically absent gallbladder. No biliary ductal dilatation. HIV and hepatitis panel negative. Cardiac enzymes were negative. Patient was not a candidate of stress test in view of blood dyscrasia and low clinical suspicion for ischemic chest pain. D- dimer was elevated to 4.2, but VQ scan showed low probability for PE. Rocephin was discontinued due to rash. Solu-Medrol was tapered. WBC scan did not show any abnormal abdominal, pelvic or thoracic uptake to suggest active inflammation. Flow cytometry showed monotypic CD5 positive B-cell (5% lymphoid cells) and immunophenotype typical of chronic lymphocytic leukemia/small lymphocytic lymphoma. Bone marrow biopsy was attempted on 03/31/2019, however, was not successful. Platelet count had to be stabilized. A CT-guided bone marrow biopsy was eventually done on 04/03/2019. 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 She was eventually transferred to [facility]. FINAL DIAGNOSES: Newly diagnosed atypical CLL Noncardiac chest pain Probable UTI with E. coli Right jaw pain, possible TMJ, resolved Hypertension GERD Hyperlipidemia Allergic dermatitis Asymptomatic sinus bradycardia DISPOSITION: Patient was transferred to [facility]. I have been assigned to complete a discharge summary on this account, I was not involved with the patient's management.--CARLOS MANUEL Sainz Jacqueline Robles NP Apr 09, 2019 11:17
--- NOTE | 2019-04-10 02:15 | Progress Note ---
DATE: 04/08/2019 SUBJECTIVE: The patient is in no distress, but weak and fatigued and somnolent most of the day. OBJECTIVE: VITAL SIGNS: Blood pressure 107/79, heart rate 80, respirations 20, and afebrile. LUNGS: Clear. CARDIAC: Regular. Normal S1, S2. ABDOMEN: Soft. EXTREMITIES: No edema. IMPRESSION AND PLAN: Stable from cardiovascular standpoint to transfer to a tertiary care facility for management and care of newly diagnosed leukemia (CLL). Mingo Valderrama M.D. DR: ARPIT JOB#: [id number] CC:
== END 2019-04-08 20:00 | disposition short-term general hospital (02) | DRG 841 ==
LOC: EDBD 23:45 → EMR 23:58 → 2W 03-28 02:03 → EDBEDREQ 03-28 02:57 → 2E 03-28 12:05 → 3E 04-02 06:50
PROC: 30233R1 Transfusion of Nonautologous Platelets into Peripheral Vein, Percutaneous Approach (ICD-10-PCS; principal; 2019-03-30)
PROC: 07DR3ZX Extraction of Iliac Bone Marrow, Percutaneous Approach, Diagnostic (ICD-10-PCS; 2019-04-03)
DX: C91.10 Chronic lymphocytic leukemia of B-cell type not having achieved remission (principal); N39.0 Urinary tract infection, site not specified; D61.818 Other pancytopenia; I48.92 Unspecified atrial flutter; I65.29 Occlusion and stenosis of unspecified carotid artery; K21.9 Gastro-esophageal reflux disease without esophagitis; R07.89 Other chest pain; B96.20 Unspecified Escherichia coli [E. coli] as the cause of diseases classified elsewhere; K29.80 Duodenitis without bleeding; J45.909 Unspecified asthma, uncomplicated; R21 Rash and other nonspecific skin eruption; M26.629 Arthralgia of temporomandibular joint, unspecified side; K76.89 Other specified diseases of liver; N28.9 Disorder of kidney and ureter, unspecified; L23.9 Allergic contact dermatitis, unspecified cause; R00.1 Bradycardia, unspecified; I10 Essential (primary) hypertension; E78.5 Hyperlipidemia, unspecified; Z91.81 History of falling; Z87.11 Personal history of peptic ulcer disease; Z98.1 Arthrodesis status; Z90.49 Acquired absence of other specified parts of digestive tract; Z98.890 Other specified postprocedural states; Z88.0 Allergy status to penicillin; Z88.2 Allergy status to sulfonamides; Z91.040 Latex allergy status
CPT/HCPCS: 36415; 71045; 74177; 76700; 77012; 78579; 78580; 78807; 80048; 80053; 80061; 80076; 81003; 82105; 82150; 82378; 82550; 82553; 82784; 83615; 83690; 83735; 84100; 84443; 84484; 85007; 85025; 85044; 85060; 85379; 85610; 85651; 85730; 86140; 86703; 86705; 86709; 86803; 86850; 86900; 86901; 87040; 87086; 87181; 87340; 93005; 93306; 94640; 94664; 99285; A9503; A9570; J2250; J2405; J7620